=== PATIENT | female | born 1950 | race Asian ===

== ENCOUNTER 2020-09-04 14:48 | Outpatient (REF) | payer OTHER, SELFPAY ==
--- NOTE | ~2020-09-04 | XR_ITS ---
EXAMINATION: XR CHEST CLINICAL INFORMATION: Pulmonary fibrosis COMPARISON: 12/29/2017 TECHNIQUE: 2 views of the chest were obtained. FINDINGS: Diffuse reticular opacities which appears similar to the previous study. The previously demonstrated chronic left lateral nodule is less conspicuous. No focal consolidation or pleural effusion. Stable cardiomediastinal silhouette. XR/XR chest 2V IMPRESSION: Diffuse emphysema and pulmonary fibrosis which appears similar to the previous study. No definite acute cardiopulmonary process.
== END 2020-09-04 14:49 | disposition home or self-care (01) ==
LOC: HO.XRAY 14:48
PROVIDERS: PCP Internal Medicine; Visit Provider Internal Medicine
DX: J84.10 Pulmonary fibrosis, unspecified (principal); R05 Cough; R06.00 Dyspnea, unspecified
CPT/HCPCS: 71046

== ENCOUNTER 2020-10-08 13:19 | Outpatient (REF) | payer OTHER, SELFPAY ==
--- NOTE | ~2020-10-08 | CT_ITS ---
EXAMINATION: CT CHEST WITHOUT CONTRAST CLINICAL INFORMATION: Pulmonary fibrosis COMPARISON: Previous chest x-rays most recent August 2020 TECHNIQUE: Multidetector volumetric CT imaging of the chest was done. Axial MIP volume rendering provided. Sagittal and coronal reformatted images were obtained. This CT examination was performed using dose optimization techniques as appropriate, variously including the following: *Automated exposure control *Adjustment of mA and/or kV according to patient size (this includes techniques or standardized protocols for targeted exams where dose is matched to indication/reason for exam; i.e. extremities or head) *Use of iterative reconstruction technique DLP: 214 mGy-cm FINDINGS: LUNGS: Evaluation of the lungs is limited due to artifact from respiratory motion. The lung volumes are normal. There are increased peripheral interstitial markings with reticulation. This is seen diffusely throughout the lungs. No bronchiolectasis or honeycombing is seen. No pulmonary nodule is seen. MEDIASTINUM: There are small mediastinal lymph nodes. No enlarged lymph nodes are seen. The heart does not appear enlarged. There is mild coronary artery calcification. There is no pericardial effusion. The thoracic aorta is normal in caliber. The pulmonary arteries are slightly prominent, main pulmonary artery measuring 3.2 cm. PLEURA: There is no pleural effusion. No pleural mass or thickening. AXILLA: No lymphadenopathy. UPPER ABDOMEN: Unremarkable. OSSEOUS STRUCTURES: There are degenerative changes of the spine. There is an old-appearing L1 vertebral body compression fracture that appears unchanged. CT/CT chest wo con IMPRESSION: Mild peripheral diffusely distributed interstitial lung disease.
== END 2020-10-08 13:20 | disposition home or self-care (01) ==
LOC: HO.CT 13:19
PROVIDERS: Visit Provider Internal Medicine
DX: J84.10 Pulmonary fibrosis, unspecified (principal); R05 Cough
CPT/HCPCS: 71250

== ENCOUNTER 2021-05-23 16:03 | Outpatient (REF) | payer OTHER, SELFPAY ==
--- NOTE | ~2021-05-23 | XR_ITS ---
EXAMINATION: XR CHEST 2 VIEWS CLINICAL INFORMATION: Follow-up pulmonary fibrosis. COMPARISON: CT chest dated 10/09/2020; prior chest radiographs, most recently 09/06/2020. TECHNIQUE: Frontal and lateral views of the chest were obtained. FINDINGS: The heart, great vessels, pulmonary vasculature and mediastinum are normal. The lungs show no focal infiltrate, effusion or pneumothorax. Again, there are diffusely increased interstitial markings, consistent with pulmonary fibrosis. There is no acute osseous abnormality. There is mild calcific tendinitis of the left rotator cuff. There are right upper quadrant surgical clips. XR/XR chest 2V IMPRESSION: There is a stable appearance of previously noted pulmonary fibrosis. No acute superimposed infiltrate or congestive heart failure is seen.
== END 2021-05-23 16:04 | disposition home or self-care (01) ==
LOC: HO.XRAY 16:03
PROVIDERS: PCP Hospitalist; Visit Provider Internal Medicine
DX: J84.10 Pulmonary fibrosis, unspecified (principal); R06.00 Dyspnea, unspecified; R05.9 Cough, unspecified
CPT/HCPCS: 71046

== ENCOUNTER 2021-12-18 10:21 | Outpatient (REF) | payer OTHER, SELFPAY ==
--- NOTE | ~2021-12-18 | XR_ITS ---
EXAMINATION: XR CHEST CLINICAL INFORMATION: Hemoptysis COMPARISON: Chest 05/23/2021 TECHNIQUE: 2 views of the chest were obtained. FINDINGS: The lungs are well-expanded with bilateral increase interstitial markings but no acute consolidation. The heart size and pulmonary vascularity is normal. No gross bony abnormality seen. XR/XR chest 2V IMPRESSION: Chronic bilateral interstitial lung disease, stable compared to 05/23/2021.
== END 2021-12-18 10:22 | disposition home or self-care (01) ==
LOC: HO.XRAY 10:21
PROVIDERS: PCP Hospitalist; Visit Provider Internal Medicine
DX: J84.10 Pulmonary fibrosis, unspecified (principal); R04.2 Hemoptysis; R05.9 Cough, unspecified
CPT/HCPCS: 71046

== ENCOUNTER 2022-01-22 15:48 | Outpatient (REF) | payer OTHER, SELFPAY ==
--- NOTE | ~2022-01-22 | XR_ITS ---
EXAMINATION: XR CHEST CLINICAL INFORMATION: Hemoptysis. COMPARISON: Chest x-ray 12/18/2021. TECHNIQUE: 2 views of the chest were obtained. FINDINGS: The lungs are fairly well-expanded with increased bilateral interstitial markings. No acute consolidation seen. There is no pleural effusion. The heart size and pulmonary vascularity is normal. No gross bony abnormality seen. XR/XR chest 2V IMPRESSION: Increased bilateral interstitial markings but no acute consolidation or pleural effusion seen. No change compared to previous study 12/18/21.
[2022-01-22 16:45] LABS: MANUAL DIFF FLAG NO
[2022-01-22 17:27] LABS: Basophils Percent Auto 0.1 % (0-2); Eosinophils Percent Auto 0.1 % (0-4); Hematocrit 40.8 % (37.0-47.0); Hemoglobin 13.3 g/dl (12.0-16.0); Imm Gran Abs Auto 0.03 X10*3/uL (0.00-0.03); Imm Gran Pct Auto 0.4 % (0.0-0.4); Lymphocytes Absolute Auto 0.7 X10*3/uL (1.2-4.9); Mean Corpuscular HGB Conc 32.6 g/dl (31.0-35.0); Mean Corpuscular Hemoglobin 27.5 pg (27.0-33.0); Mean Corpuscular Volume 84.3 fL (80.0-98.0); Mean Platelet Volume 9.9 fL (9.4-12.3); Monocytes Absolute Auto 0.1 X10*3/uL (0.1-1.2); Neutrophils Absolute Auto 6.6 x10*3/uL (2.0-8.3); Neutrophils Percent Auto 89.4 % (45-73); Platelet Count 175 X10*3/uL (160-400); Red Blood Count 4.84 X10*6/uL (4.20-5.50); Red Cell Distribution Width 14.4 % (11.0-16.0); White Blood Count 7.4 X10*3/uL (4.8-10.8)
[2022-01-22 17:28] LABS: INTERNATIONAL NORM RATIO 1.1 (0.9-1.1); Prothrombin Time 12.8 SEC (10.0-13.1)
[2022-01-22 17:36] LABS: Anion Gap 14 (12-20); Blood Urea Nitrogen 10 mg/dL (9-16); Carbon Dioxide 22 mmol/L (22-29); Chloride 100 mmol/L (96-108); Estimated Glomerular Filt Rate > 60; Potassium 4.2 mmol/L (3.3-5.1); Sodium 132 mmol/L (135-145)
[2022-01-22 19:17] LABS: Erythrocyte Sedimentation Rate 29 MM/HR (0-20)
[2022-02-11 08:13] LABS: CRP High Sensitivity >10.0
== END 2022-01-22 15:49 | disposition home or self-care (01) ==
LOC: HO.LAB 15:48
PROVIDERS: PCP Hospitalist; Visit Provider Internal Medicine
DX: J84.10 Pulmonary fibrosis, unspecified (principal); J84.9 Interstitial pulmonary disease, unspecified; R04.2 Hemoptysis; R05.9 Cough, unspecified
CPT/HCPCS: 36415; 71046; 80051; 82565; 84520; 85025; 85610; 85652; 86141

== ENCOUNTER → 2022-01-23 15:39 | Outpatient (BNVA) | payer OTHER, SELFPAY | PROVIDERS: PCP Hospitalist; Visit Provider Internal Medicine | DX: R04.2 Hemoptysis (principal); R05.9 Cough, unspecified; R06.00 Dyspnea, unspecified; J84.10 Pulmonary fibrosis, unspecified; J84.9 Interstitial pulmonary disease, unspecified; Z79.52 Long term (current) use of systemic steroids | CPT/HCPCS: 94618 ==

== ENCOUNTER 2022-02-14 16:20 | Outpatient (REF) | payer OTHER, SELFPAY ==
--- NOTE | ~2022-02-14 | CT_ITS ---
EXAMINATION: CHEST CT WITHOUT CONTRAST. BI-RADS. CLINICAL INFORMATION: Pulmonary fibrosis COMPARISON: Previous chest CT October 2020 TECHNIQUE: Axial images through the chest without contrast including high-resolution imaging. Sagittal and coronal reconstructions on the technologist workstation were performed. This CT examination was performed using dose optimization techniques as appropriate, variously including the following: *Automated exposure control *Adjustment of mA and/or kV according to patient size (this includes techniques or standardized protocols for targeted exams where dose is matched to indication/reason for exam; i.e. extremities or head) *Use of iterative reconstruction technique DLP 2 1 9 mg/cm.. FINDINGS: Exam is limited due to artifact from respiratory motion. The lung volumes are low. Increased peripheral interstitial markings with increased reticulation and increased parenchymal attenuation. This is seen diffusely throughout the lungs but greatest at the lung bases. No honeycombing or bronchiectasis. This is slightly increased from October 2020 exam. No pulmonary nodule. There are small mediastinal lymph nodes. No enlarged lymph nodes. Normal heart size. Moderate to severe coronary artery calcification. Normal caliber pulmonary arteries and thoracic aorta. No pericardial effusion. No pleural effusion or pleural thickening. No chest wall mass or enlarged axillary lymph nodes. The gallbladder has been removed. There is an old-appearing L1 vertebral body compression fracture that appears unchanged. CT/CT chest wo con - High Res IMPRESSION: Limited exam due to respiratory motion artifact. Slight interval increase in interstitial lung disease from October 2020 exam.
== END 2022-02-14 16:21 | disposition home or self-care (01) ==
LOC: HO.CT 16:20
PROVIDERS: Visit Provider Internal Medicine
DX: J84.10 Pulmonary fibrosis, unspecified (principal); R05.9 Cough, unspecified; R04.2 Hemoptysis
CPT/HCPCS: 71250

== ENCOUNTER → 2022-04-08 15:50 | Outpatient (BNVA) | payer OTHER, SELFPAY | PROVIDERS: PCP Hospitalist; Visit Provider Internal Medicine | DX: Z13.89 Encounter for screening for other disorder (principal) ==

== ENCOUNTER → 2022-06-02 16:06 | Outpatient (BNVA) | payer OTHER, SELFPAY | PROVIDERS: PCP Hospitalist; Visit Provider Internal Medicine | DX: Z13.89 Encounter for screening for other disorder (principal) ==

== ENCOUNTER → 2022-07-24 15:51 | Outpatient (BNVA) | payer MEDICARE, SELFPAY | PROVIDERS: PCP Hospitalist; Visit Provider Internal Medicine | DX: J84.10 Pulmonary fibrosis, unspecified (principal); J84.9 Interstitial pulmonary disease, unspecified; R05.9 Cough, unspecified; R09.02 Hypoxemia | CPT/HCPCS: 99212 ==

== ENCOUNTER → 2022-09-01 15:57 | Outpatient (BNVA) | payer MEDICARE, SELFPAY | PROVIDERS: PCP Hospitalist; Visit Provider Internal Medicine | DX: J84.9 Interstitial pulmonary disease, unspecified (principal); J84.10 Pulmonary fibrosis, unspecified; R05.3 Chronic cough; R06.00 Dyspnea, unspecified; R09.02 Hypoxemia; Z79.52 Long term (current) use of systemic steroids | CPT/HCPCS: 99212 ==

== ENCOUNTER 2022-11-24 15:53 | Outpatient (REF) | payer MEDICARE, SELFPAY ==
--- NOTE | ~2022-11-24 | XR_ITS ---
EXAMINATION: XR CHEST CLINICAL INFORMATION: Interstitial pulmonary disease, pulmonary fibrosis COMPARISON: 02/14/2022 TECHNIQUE: 2 views of the chest were obtained. FINDINGS: There is no gross pneumothorax. Lung volumes are low. Stable cardiomediastinal silhouette. Similar appearance of diffusely increased bilateral interstitial markings. No new focal consolidation to suggest pneumonia. No significant pleural effusion. Surgical clips in the upper abdomen. XR/XR chest 2V IMPRESSION: Similar appearance of diffusely increased bilateral interstitial markings. No new focal consolidation to suggest pneumonia.
== END 2022-11-24 15:54 | disposition home or self-care (01) ==
LOC: HO.XRAY 15:53
PROVIDERS: PCP Hospitalist; Visit Provider Internal Medicine
DX: J84.9 Interstitial pulmonary disease, unspecified (principal); R05.9 Cough, unspecified; J84.10 Pulmonary fibrosis, unspecified; R06.00 Dyspnea, unspecified; R09.02 Hypoxemia
CPT/HCPCS: 71046; 99212

== ENCOUNTER 2022-11-24 15:53 | Outpatient (AMB) | payer MEDICARE, SELFPAY ==
[2022-11-24 15:58] VITALS: BP 130/70; PULSE 102; O2SAT 96; BMI 25.4
--- NOTE | 2022-11-24 15:58 | MHC.OFFVIS ---
Intake Vital Signs 11/24/22 15:58 Height 5 ft 2 in Weight 139 lb BMI 25.4 BP 130/70 Blood Pressure Location Lt brachial Position Sitting Pulse 102 H Pulse Source Pulse Oximeter Pulse Oximetry (%) 96 Oxygen Delivery Method Room Air Intake Visit Reasons: pulm fibrosis Allergies Penicillins [PENICILLINS] Allergy (Unknown, Verified 11/24/22 16:26) SWELLING Medication List - Last Reconciled 11/24/22 by Samuel Atkinson MD albuterol sulfate 90 mcg/actuation (ProAir HFA) 2 puffs inhalation Q4-6H PRN 30 days albuterol sulfate 90 mcg/actuation 2 puffs inhalation Q4-6H PRN 30 days benzonatate 100 mg PO BID-TID PRN 30 days levothyroxine 75 mcg PO QAM losartan 25 mg PO DAILY pantoprazole 20 mg PO DAILY prednisone 5 mg PO DAILY prednisone 5 mg PO DAILY 90 days Do you need a note to return to daycare/school/sports/work: No HPI pulm fibrosis HPI Details THIS 71 YEARS OLD VERY PLEASANT FEMALE IS HERE FOR FOLLOW-UP FOR HER INTERSTITIAL LUNG DISEASE/PULMONARY FIBROSIS. IN THE LAST 3 MONTHS SHE HAD AT LEAST 1 LONG BOUT OF RESPIRATORY INFECTION, WITH INCREASED COUGH AND SHORTNESS OF BREATH. SHE WAS TREATED WITH AUGMENTED DOES OF PREDNISONE FOR A FEW WEEKS AND ALSO COURSE OF DOXYCYCLINE. LUCKILY SHE IMPROVED TO HER BASELINE AND DID NOT HAVE TO GO TO THE HOSPITAL. NOW FOR THE PAST TO 4-6 WEEKS SHE IS ON PREDNISONE 5 MG A DAY. SHE USES O2 2 L/MINUTE ONLY WHEN SHE DOING ANY EXERCISE OR WALKING. HER O2 SAT HAS REMAINED MOSTLY ABOVE 90%. HER MAIN COMPLAINT IS INCREASED BOUTS OF COUGH IN THE MORNING HOURS WHEN SHE HAS EXPECTORATION OF MODERATE AMOUNT OF MUCUS. AT PRESENT SHE DENIES ANY MUCOPURULENT SPUTUM, DENIES CHEST PAIN, SHE CAN WALK SHORT DISTANCE , BUT IF SHE TRIES TO WALK OUTSIDE THE HOUSE SHE GETS SHORT. OF BREATH EASILY [facility] Medical History Exercise hypoxemia Interstitial lung disease Hemoptysis Hypothyroidism Pulmonary fibrosis, unspecified Cough Dyspnea on exertion Social History Patient Tobacco Use Status: Never used Tobacco Review of Systems Const All systems reviewed & are unremarkable except as noted in HPI and below Eyes Reports no additional complaints ENT Reports no additional complaints and Reports nasal congestion (MILD) Card Denies chest pain, Denies leg edema and Reports dyspnea on exertion Resp Reports as per HPI, Reports cough (frequent ) and Reports dyspnea on exertion GI Reports heartburn (GERD SYMPTOMS OFF AND ON) Reports no additional complaints Musc Reports arthralgias (knees.) Neuro Reports no additional complaints Psych Reports no additional complaints Endo Reports no additional complaints Physical Exam Vital Signs: Last Vital Signs Pulse 102 H 11/24/22 15:58 BP 130/70 11/24/22 15:58 Pulse Ox 96 11/24/22 15:58 Oxygen Delivery Method Room Air 11/24/22 15:58 BMI result Body Mass Index 25.4 Const General: comfortable (But we can walks slowly), no acute distress, alert and awake Orientation/consciousness: patient oriented x3 HEENT Head: Yes normal to inspection General nose exam: No nasal polyps present and No nasal discharge present Face and sinus: Yes sinuses nontender Mouth: oropharynx normal Throat: Yes posterior oropharynx normal Eyes General: appearance normal, both eyes and all related structures Neck Neck: Yes normal visual inspection, Yes no lymphadenopathy, Yes trachea midline and Yes no JVD Thyroid: Thyroid normal Chest Chest palpation & inspection: normal inspection of the chest, normal palpation of entire chest wall and no tenderness Resp Other: PERCUSSION NOTE IS RESONANT . BREATH SOUNDS ARE EQUAL ON BOTH SIDES, SLIGHTLY DIMINISHED OVER THE BASILAR AREAS. NO WHEEZES . COARSE INSPIRATORY CRACKLES OVER BOTH LOWER LOBES, POSTERIORLY MORE PRONOUNCED ON THE RIGHT SIDE. Cardio Palpation: normal PMI Rate: regular rate and tachycardic (ON MINIMAL WALKING THE HEART RATE WAS UP TO 124, AFTER RESTING SETTLES DOWN) Rhythm: regular rhythm Heart sounds: no gallops and no murmurs GI Palpation (GI): Soft to palpation, nontender, No hepatosplenomegaly present and no masses Auscultation: normal bowel sounds Back/Spine/Pelvis Thoracic/Lumbar Spine: thoracic and lumbar spine normal to inspection and thoraco-lumbar ROM limited Skin General skin exam: no rashes or lesions noted Neuro General: patient oriented x3 and no focal motor deficits Cranial nerves: Yes CN's II-XII intact bilaterally Extrem General: Yes normal to inspection, No no joint enlargement (DEGENERATIVE CHANGES OF THE KNEE JOINTS), Yes no clubbing, cyanosis or edema, Yes no calf tenderness and Yes other (VERY COAST VEINS ON BOTH LEGS) Psych Appearance: grossly normal and well kempt Speech and movement: Normal speech and movement present Assessment & Plan Assessment & Plan (1) Interstitial lung disease: Comment: SHE HAS HAD PICTURE OF PULMONARY FIBROSIS FOR THE PAST 4-5 YEARS. HER RHEUMATOID FACTOR HAS BEEN HIGH AND ELIANA TITER POSITIVE, THIS IS SUGGESTIVE OF POSSIBLE CONNECTIVE TISSUE DISEASE. THE OTHER POSSIBILITY IS THAT SHE GETS HYPERSENSITIVITY PNEUMONITIS ON TOP OF PRE-EXISTING FIBROSIS. SHE IS INSTRUCTED TO PROTECT HERSELF AGAINST ANY RESPIRATORY INFECTION. ALSO INSTRUCTED TO PROTECT HERSELF AGAINST EXPOSURE TO ANY CHEMICAL FUMES DUST SMOKE [employer] CLEAN[employer] AGENTS SHE WILL BE KEPT ON PREDNISONE 5 MG A DAY, AND INCREASE TO 10 MG A DAY IF SYMPTOMS GET ANY WORSE. Code(s): J84.9 - Interstitial pulmonary disease, unspecified (2) Pulmonary fibrosis, unspecified: Comment: THE CLINICAL AND RADIOLOGIC PICTURE, IS SUGGESTIVE OF PULMONARY FIBROSIS SECONDARY TO UIP . IT HAS GRADUALLY PROGRESSED. THERE IS A RISK OF FURTHER WORSENING IF SHE GETS ANY SUPER ADDED RESPIRATORY INFECTION OR HYPERSENSITIVITY REACTION. TX : ADVISED TO CONTINUE TAKING PREDNISONE 5 MG DAILY. ADVISE THAT IF THERE IS ANY INDICATION OF BREATHING GETTING WORSE OR INCREASE IN THE COUGH, SHE CAN INCREASE PREDNISONE 5 MG TO B.I.D.. PREVIOUSLY WE HAVE DISCUSSED AND SHE DID NOT WANT TO TAKE ANY ANTI FIBROSIS AGENTS. CHEST XRAY ORDERED FOR COMPARISON . Code(s): J84.10 - Pulmonary fibrosis, unspecified (3) Cough: Comment: CHRONIC COUGH ,ESPECIALLY IN AMs , WITH MODERATE EXPECTORATION . TX : ADVISED TO USE ALBUTEROL HFA 1 OR 2 PUFFS, P.R.N. FOR SUSTAINED COUGH. Code(s): R05 - Cough (4) Dyspnea on exertion: Comment: DYSPNEA ON EXERTION SECONDARY TO PULMONARY FIBROSIS IT IS DOWN TO MINIMAL AT THIS TIME. HER LOCOMOTION IS LIMITED DUE TO ADVANCED ARTHRITIS OF THE KNEES. Code(s): R06.00 - Dyspnea, unspecified (5) Exercise hypoxemia: Comment: PATIENT DOES DESATURATE ON WALKING. ADVISED TO USE O2 2 L/MINUTE WITH ANY PHYSICAL ACTIVITY. SHE DOES HAVE POC. WHICH IS QUITE CONVENIENT TO USE., LOOKING FOR A SMALLER POC UNIT, WILL DISCUSS WITH DME SUPPLIER. Code(s): R09.02 - Hypoxemia Orders: Orders XR chest 2V Today J84.9 - Interstitial pulmonary disease, unspecified, R05 - Cough Medications: New prednisone 5 mg PO DAILY 90 days 90 tabs 3RF ILD albuterol sulfate 90 mcg/actuation 2 puffs inhalation Q4-6H 30 days PRN 8.5 grams 3RF shortness of breath or wheezing Coding Level of Care Code Est Pt Level 3 (30090) Diagnoses Interstitial lung disease J84.9 Pulmonary fibrosis, unspecified J84.10 Cough R05 Dyspnea on exertion R06.00 Exercise hypoxemia R09.02
== END 2022-11-24 16:30 ==
PROVIDERS: PCP Hospitalist; Visit Provider Internal Medicine
DX: J84.9 Interstitial pulmonary disease, unspecified (principal); J84.10 Pulmonary fibrosis, unspecified; R05.9 Cough, unspecified; R06.00 Dyspnea, unspecified; R09.02 Hypoxemia
CPT/HCPCS: 99213

== ENCOUNTER 2022-12-22 15:41 | Outpatient (AMB) | payer MEDICARE, SELFPAY ==
--- NOTE | 2022-12-22 15:42 | A.OFFVIS_ITS ---
Intake Vital Signs 12/22/22 15:43 Height 5 ft 2 in Weight 139 lb 15.896 oz BMI 25.6 BP 128/66 Blood Pressure Location Lt brachial Position Sitting Pulse 90 Pulse Oximetry (%) 94 Oxygen Delivery Method Nasal Cannula Oxygen Flow Rate 3 Intake Visit Reasons: Cough Intake Note: Patient is here for a sick visit after having COVID 3 weeks ago, patient has been coughing up blood, weakness, SOB, Oxygen levels are low, unable to walk. Allergies Penicillins [PENICILLINS] Allergy (Unknown, Verified 12/22/22 16:23) SWELLING Medication List - Last Reconciled 12/22/22 by Samuel Atkinson MD albuterol sulfate 90 mcg/actuation (ProAir HFA) 2 puffs inhalation Q4-6H PRN 30 days albuterol sulfate 90 mcg/actuation 2 puffs inhalation Q4-6H PRN 30 days benzonatate 100 mg PO BID-TID PRN 30 days levothyroxine 75 mcg PO QAM losartan 25 mg PO DAILY nirmatrelvir-ritonavir 300 mg (150 mg x 2)-100 mg (Paxlovid) take TWO 150 mg tablets of nirmatrelvir with ONE 100 mg tablet of ritonavir twice daily for 5 days PO 5 days pantoprazole 20 mg PO DAILY prednisone 5 mg PO DAILY 90 days prednisone mg PO prednisone 5 mg PO DAILY Do you need a note to return to daycare/school/sports/work: No HPI Cough HPI Details 72 YEARS OLD FEMALE A WELL KNOWN CASE OF INTERSTITIAL LUNG DISEASE, WHO WAS DOING VERY WELL AND PREDNISONE DOES HAD BEEN DROPPED TO 5 MG A DAY. UNFORTUNATELY 3 WEEKS AGO SHE CONTRACTED COVID 19 INFECTION. SHE WAS TREATED AT HOME AND WAS GIVEN A COURSE OF PAXLOVID , ALONG WITH INCREASED DOSE OF PREDNISONE TO 10 MG A DAY. INITIALLY SHE GOT MUCH BETTER, THE COUGH BECAME MINIMAL, AND PREDNISONE WAS CUT DOWN TO 10 MG ALTERNATING WITH 5 MG A DAY. IN THE PAST 1 WEEK SHE HAS INCREASED COUGH, WITH INTERMITTENT SPECKS OF FRESH BLOOD , AND HER O2 SATS FALLS DOWN BELOW 90% QUITE FREQUENTLY. SHE HAS NO FEVER CHILLS OR CHEST PAIN. SHE FEELS MORE SHORT OF BREATH AND ALSO GENERALLY WEAK TO THE POINT THAT SHE HAS HARD TIME IN WALKING., [facility] Medical History Post-COVID chronic cough Exercise hypoxemia Interstitial lung disease Hemoptysis Hypothyroidism Pulmonary fibrosis, unspecified Cough Dyspnea on exertion Social History Patient Tobacco Use Status: Never used Tobacco Review of Systems Const All systems reviewed & are unremarkable except as noted in HPI and below Eyes Reports no additional complaints ENT Reports no additional complaints and Reports nasal congestion (MILD) Card Denies chest pain, Denies leg edema and Reports dyspnea on exertion (INCREASED) Resp Reports as per HPI, Reports cough (frequent ), Reports hemoptysis (MILD INTERMITTENT) and Reports dyspnea on exertion (INCREASED) GI Reports heartburn (GERD SYMPTOMS OFF AND ON) Reports no additional complaints Musc Reports arthralgias (knees.) Neuro Reports no additional complaints Psych Reports no additional complaints Endo Reports no additional complaints Physical Exam Vital Signs: BMI result Body Mass Index 25.6 Const General: comfortable (But we can walks slowly), no acute distress, alert and awake Orientation/consciousness: patient oriented x3 HEENT Head: Yes normal to inspection General nose exam: No nasal polyps present and No nasal discharge present Face and sinus: Yes sinuses nontender Mouth: oropharynx normal Throat: Yes posterior oropharynx normal Eyes General: appearance normal, both eyes and all related structures Neck Neck: Yes normal visual inspection, Yes no lymphadenopathy, Yes trachea midline and Yes no JVD Thyroid: Thyroid normal Chest Chest palpation & inspection: normal inspection of the chest, normal palpation of entire chest wall and no tenderness Resp Other: PERCUSSION NOTE IS RESONANT . BREATH SOUNDS ARE EQUAL ON BOTH SIDES, SLIGHTLY DIMINISHED OVER THE BASILAR AREAS. NO WHEEZES . COARSE INSPIRATORY CRACKLES OVER BOTH LOWER LOBES, POSTERIORLY ARE MORE PROMINENT THAN BEFORE. Cardio Palpation: normal PMI Rate: regular rate and tachycardic (ON MINIMAL WALKING THE HEART RATE WAS UP TO 124, AFTER RESTING SETTLES DOWN) Rhythm: regular rhythm Heart sounds: no gallops and no murmurs GI Palpation (GI): Soft to palpation, nontender, No hepatosplenomegaly present and no masses Auscultation: normal bowel sounds Back/Spine/Pelvis Thoracic/Lumbar Spine: thoracic and lumbar spine normal to inspection and thoraco-lumbar ROM limited Skin General skin exam: no rashes or lesions noted Neuro General: patient oriented x3 and no focal motor deficits Cranial nerves: Yes CN's II-XII intact bilaterally Extrem General: Yes normal to inspection, No no joint enlargement (DEGENERATIVE CHANGES OF THE KNEE JOINTS), Yes no clubbing, cyanosis or edema, Yes no calf tenderness and Yes other (VERY COAST VEINS ON BOTH LEGS) Psych Appearance: grossly normal and well kempt Speech and movement: Normal speech and movement present Assessment & Plan Assessment & Plan (1) Interstitial lung disease: Comment: SHE HAS HAD PICTURE OF PULMONARY FIBROSIS FOR THE PAST 4-5 YEARS. HER RHEUMATOID FACTOR HAS BEEN HIGH AND ELIANA TITER POSITIVE, THIS IS SUGGESTIVE OF POSSIBLE CONNECTIVE TISSUE DISEASE. THE OTHER POSSIBILITY IS THAT SHE GETS HYPERSENSITIVITY PNEUMONITIS ON TOP OF PRE-EXISTING FIBROSIS. SHE IS INSTRUCTED TO PROTECT HERSELF AGAINST ANY RESPIRATORY INFECTION. 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 NOW FOR THE PAST 1 WEEK SHE HAS INCREASED WEAKNESS, INCREASED COUGH WITH SOME HEMOPTYSIS IS AND INCREASED REQUIREMENT FOR OXYGEN. I SUSPECT THAT HER INTERSTITIAL LUNG DISEASE BECOME WORSE. CHEST X-RAY ORDERED AND BASED ON THE FINDINGS SHE MAY NEED AN URGENT CT SCAN OF THE CHEST. TX : INCREASE PREDNISONE TO 20 MG B.I.D. FOR 5 DAYS THEN 20 MG ONCE A DAY FOR 5 DAYS THEN FOLLOWED BY 10 MG A DAY Code(s): R05.3 - Chronic cough; U09.9 - Post COVID-19 condition, unspecified (3) Hemoptysis: Comment: Hemoptysis was probably due to acute bronchitis , and it is slowly getting worse. CBC with diff, PT INR to be checked. Also ordered procalcitonin levels to see if she has any bacterial infection. I prescribed doxycycline 100 b.i.d. for 10 days, empirically Code(s): R04.2 - Hemoptysis Orders: Orders Complete Blood Count Auto Diff Today J84.9 - Interstitial pulmonary disease, unspecified, R04.2 - Hemoptysis, R05.3 - Chronic cough, U09.9 - Post COVID-19 condition, unspecified PT, INR - Anti Coag Today R04.2 - Hemoptysis XR chest 2V Today J84.9 - Interstitial pulmonary disease, unspecified, R04.2 - Hemoptysis, R05.3 - Chronic cough, U09.9 - Post COVID-19 condition, unspecified Procalcitonin Today J84.9 - Interstitial pulmonary disease, unspecified, R04.2 - Hemoptysis, R05 - Cough, R05.3 - Chronic cough, U09.9 - Post COVID-19 condition, unspecified Medications: New doxycycline hyclate 100 mg PO BID 10 days 20 tabs 0RF BRONCHITIS MDD BRONCHITIS prednisone 20 mg PO BID 10 days 20 tabs 1RF Coding Level of Care Code Est Pt Level 3 (58191) Diagnoses Interstitial lung disease J84.9 Post-COVID chronic cough R05.3; U09.9 Hemoptysis R04.2
[2022-12-22 15:43] VITALS: BP 128/66; PULSE 90; O2SAT 94; BMI 25.6
== END 2022-12-22 16:04 | disposition home or self-care (01) ==
PROVIDERS: PCP Hospitalist; Visit Provider Internal Medicine
DX: J84.9 Interstitial pulmonary disease, unspecified (principal); R05.3 Chronic cough; U09.9 Post COVID-19 condition, unspecified; R04.2 Hemoptysis
CPT/HCPCS: 99213

== ENCOUNTER 2022-12-22 15:41 | Outpatient (REF) | payer MEDICARE, SELFPAY ==
--- NOTE | ~2022-12-22 | XR_ITS ---
EXAMINATION: XR CHEST CLINICAL INFORMATION: Chronic cough COMPARISON: None available. TECHNIQUE: 2 views of the chest were obtained. FINDINGS: The lungs are well-expanded with increased interstitial markings likely chronic. No acute pneumonic consolidation, pleural effusion seen. The heart size and pulmonary vascularity is within normal limits. No gross bony abnormality seen. XR/XR chest 2V IMPRESSION: Bilateral increased interstitial markings similar previous study from 11/24/2022 suggestive chronic interstitial lung disease. No acute pneumonic consolidation.
[2022-12-22 16:23] LABS: MANUAL DIFF FLAG NO
[2022-12-22 16:59] LABS: Basophils Percent Auto 0.4 % (0-2); Eosinophils Absolute Auto 0.2 X10*3/uL (0.0-0.4); Eosinophils Percent Auto 2.3 % (0-4); Hematocrit 38.4 % (37.0-47.0); Hemoglobin 12.5 g/dl (12.0-16.0); Imm Gran Abs Auto 0.02 X10*3/uL (0.00-0.03); Imm Gran Pct Auto 0.3 % (0.0-0.4); Lymphocytes Absolute Auto 0.8 X10*3/uL (1.2-4.9); Lymphocytes Percent Auto 11.5 % (20-40); Mean Corpuscular HGB Conc 32.6 g/dl (31.0-35.0); Mean Corpuscular Hemoglobin 27.4 pg (27.0-33.0); Mean Corpuscular Volume 84.2 fL (80.0-98.0); Mean Platelet Volume 10.3 fL (9.4-12.3); Monocytes Absolute Auto 0.3 X10*3/uL (0.1-1.2); Monocytes Percent Auto 4.5 % (2-11); Neutrophils Absolute Auto 5.9 x10*3/uL (2.0-8.3); Platelet Count 179 X10*3/uL (160-400); Red Blood Count 4.56 X10*6/uL (4.20-5.50); Red Cell Distribution Width 14.6 % (11.0-16.0); White Blood Count 7.3 X10*3/uL (4.8-10.8)
[2022-12-22 18:17] LABS: Erythrocyte Sedimentation Rate 79 MM/HR (0-20)
[2022-12-22 18:27] LABS: Procalcitonin 0.03 ng/mL
[2022-12-23 16:48] LABS: CRP High Sensitivity >10.0 mg/L
== END 2022-12-22 15:42 | disposition home or self-care (01) ==
LOC: HO.LAB 15:41
PROVIDERS: PCP Hospitalist; Visit Provider Internal Medicine
DX: J84.10 Pulmonary fibrosis, unspecified (principal); J84.9 Interstitial pulmonary disease, unspecified; R05.3 Chronic cough; U09.9 Post COVID-19 condition, unspecified; R04.2 Hemoptysis
CPT/HCPCS: 36415; 71046; 84145; 85025; 85652; 86141; 99212

== ENCOUNTER 2023-01-27 07:50 | Outpatient (REF) | payer MEDICARE, SELFPAY ==
--- NOTE | ~2023-01-27 | CT_ITS ---
EXAMINATION: CT CHEST WITHOUT CONTRAST CLINICAL INFORMATION: Interstitial lung disease. COMPARISON: CT chest dated 02/14/2022. TECHNIQUE: Multidetector volumetric CT imaging of the chest was done. Axial MIP volume rendering provided. Sagittal and coronal reformatted images were obtained. This CT examination was performed using dose optimization techniques as appropriate, variously including the following: *Automated exposure control *Adjustment of mA and/or kV according to patient size (this includes techniques or standardized protocols for targeted exams where dose is matched to indication/reason for exam; i.e. extremities or head) *Use of iterative reconstruction technique DLP: 171 mGy-cm FINDINGS: LUNGS: Again, there are diffuse bilateral subpleural reticular markings. There is associated honeycombing, most pronounced in the posterior right base. There are varicose bronchiectatic changes, most pronounced medially within the right lung. There is no nodule, mass, infiltrate or groundglass opacity. There is mild generalized small airway thickening. The central airways appear patent. MEDIASTINUM: The thyroid is unremarkable. No thoracic aortic aneurysm or dissection is seen. There are mild atherosclerotic calcifications of the great vessel origins and thoracic aorta. There is no sizable mediastinal or hilar lymphadenopathy. CORONARY ARTERY CALCIFICATION: Moderate. PLEURA: There is no pleural effusion. No pleural mass or thickening. AXILLA: No lymphadenopathy. UPPER ABDOMEN: The gallbladder is surgically absent. The adrenal glands are unremarkable. OSSEOUS STRUCTURES: There are marked T12 and moderate L1 compression fractures, which appear stable from the lateral chest radiograph dated 12/22/2022. There is multi-level thoracolumbar degenerative disc disease and spondylosis. No acute or aggressive osseous abnormality is seen. CT/CT chest wo con - High Res IMPRESSION: There is persistent chronic interstitial lung disease, with bronchiectasis and honeycombing is seen, suggesting idiopathic pulmonary fibrosis. No mass, nodule, infiltrate or groundglass opacity is seen. There is no thoracic lymphadenopathy or pleural effusion. No aggressive osseous lesion is seen. Fleischner guidelines were followed.
== END 2023-01-27 07:51 | disposition home or self-care (01) ==
LOC: HO.CT 07:50
PROVIDERS: PCP Hospitalist; Visit Provider Internal Medicine
DX: J84.9 Interstitial pulmonary disease, unspecified (principal); R05.3 Chronic cough; U09.9 Post COVID-19 condition, unspecified; R04.2 Hemoptysis
CPT/HCPCS: 71250

== ENCOUNTER 2023-02-18 10:40 | Outpatient (REF) | payer MEDICARE, SELFPAY | END 2023-02-18 10:41 | disposition home or self-care (01) | LOC: HO.LNP 10:40 | PROVIDERS: Visit Provider Internal Medicine | DX: J84.10 Pulmonary fibrosis, unspecified (principal); R05.9 Cough, unspecified | CPT/HCPCS: 87070; 87185; 87205 ==

== ENCOUNTER 2023-03-03 15:15 | Outpatient (REF) | payer MEDICARE, SELFPAY ==
[2023-03-03 16:01] LABS: MANUAL DIFF FLAG NO
[2023-03-03 17:59] LABS: Basophils Absolute Auto 0.1 X10*3/uL (0.0-0.2); Basophils Percent Auto 0.3 % (0-2); Eosinophils Percent Auto 0.1 % (0-4); Hematocrit 38.6 % (37.0-47.0); Hemoglobin 12.3 g/dl (12.0-16.0); Imm Gran Abs Auto 0.28 X10*3/uL (0.00-0.03); Imm Gran Pct Auto 1.8 % (0.0-0.4); Lymphocytes Absolute Auto 1.4 X10*3/uL (1.2-4.9); Mean Corpuscular HGB Conc 31.9 g/dl (31.0-35.0); Mean Corpuscular Hemoglobin 27.2 pg (27.0-33.0); Mean Corpuscular Volume 85.2 fL (80.0-98.0); Mean Platelet Volume 10.7 fL (9.4-12.3); Monocytes Absolute Auto 0.4 X10*3/uL (0.1-1.2); Monocytes Percent Auto 2.3 % (2-11); Neutrophils Absolute Auto 13.1 x10*3/uL (2.0-8.3); Neutrophils Percent Auto 86.5 % (45-73); Platelet Count 370 X10*3/uL (160-400); Red Blood Count 4.53 X10*6/uL (4.20-5.50); White Blood Count 15.2 X10*3/uL (4.8-10.8)
[2023-03-03 18:18] LABS: Anion Gap 14 (12-20); Blood Urea Nitrogen 19 mg/dL (9-16); Carbon Dioxide 27 mmol/L (22-29); Chloride 98 mmol/L (96-108); Estimated Glomerular Filt Rate > 60; Potassium 4.2 mmol/L (3.3-5.1); Sodium 135 mmol/L (135-145)
[2023-03-03 18:36] LABS: TSH reflex Free T4 0.48 uIU/mL (0.32-4.0)
== END 2023-03-03 15:16 | disposition home or self-care (01) ==
LOC: HO.LAB 15:15
PROVIDERS: PCP Hospitalist; Visit Provider Internal Medicine
DX: J84.9 Interstitial pulmonary disease, unspecified (principal); J44.9 Chronic obstructive pulmonary disease, unspecified; J40 Bronchitis, not specified as acute or chronic; J84.10 Pulmonary fibrosis, unspecified; R05.3 Chronic cough; U09.9 Post COVID-19 condition, unspecified; R04.2 Hemoptysis; E03.9 Hypothyroidism, unspecified; Z79.899 Other long term (current) drug therapy
CPT/HCPCS: 36415; 80051; 82565; 84443; 84520; 85025; 99212

== ENCOUNTER 2023-03-03 15:15 | Outpatient (AMB) | payer MEDICARE, SELFPAY ==
--- NOTE | 2023-03-03 15:21 | A.OFFVIS_ITS ---
Intake Vital Signs 03/03/23 15:22 Height 5 ft 2 in BP 120/72 Blood Pressure Location Lt brachial Position Sitting Pulse 103 H Pulse Source Pulse Oximeter Pulse Oximetry (%) 93 Oxygen Delivery Method Room Air Intake Visit Reasons: COPD Intake Note: pt is here for follow up and states her oxygen is dropping whenever she does any walking Allergies Penicillins [PENICILLINS] Allergy (Unknown, Verified 03/03/23 15:27) SWELLING Medication List - Last Reconciled 03/03/23 by Samuel Atkinson MD albuterol sulfate 90 mcg/actuation (ProAir HFA) 2 puffs inhalation Q4-6H PRN 30 days albuterol sulfate 90 mcg/actuation 2 puffs inhalation Q4-6H PRN 30 days benzonatate 100 mg PO BID-TID PRN 30 days doxycycline hyclate 100 mg PO BID 10 days MDD BRONCHITIS levothyroxine 75 mcg PO QAM losartan 25 mg PO DAILY mycophenolate mofetil (CellCept) 500 mg PO BID 30 days pantoprazole 20 mg PO DAILY prednisone 5 mg PO DAILY 90 days prednisone 20 mg PO BID 10 days prednisone 5 mg PO BID prednisone 20 mg PO BID 30 days Do you need a note to return to daycare/school/sports/work: No HPI COPD HPI Details 72 YEARS OLD FEMALE WITH ADVANCED INTERS TITIAL LUNG DISEASE/ PULMONARY FIBROSIS , IS GETTING SAYS WORSE. SINCE A FEW WEEKS AGO SHE HAD INCREASED TO COUGH WITH MUCUS. PRODUCTION AND LOW-GRADE FEVER SPUTUM CULTURE GREW HAEMOPHILUS INFLUENZAE , SHE IS BEING TREATED WITH DOXYCYCLINE 100 MG B.I.D.. THE THERE IS NO MORE HEMOPTYSIS AND THE MUCUS PRODUCTION IS LESS. BUT SHE IS MORE AND MORE SHORT OF BREATH AND REQUIRES O2 4-5 L/MINUTE. EVEN WITH THE O2 SUPPLEMENTATION SHE DESATURATES WHEN SHE WALKS AROUND IN THE HOUSE. SHE FEELS WEAKER THAN USUAL. I HAVE STARTED HER ON MYCOPHENOLATE 500 MG B.I.D., AN ADDITIONAL AUTOIMMUNE SUPPRESSANT MED. AND SHE IS ON PREDNISONE 40 MG DAILY . [facility] Medical History (Updated 03/03/23 @ 15:57 by Samuel Atkinson MD) Bronchitis Post-COVID chronic cough Exercise hypoxemia Interstitial lung disease Hemoptysis Hypothyroidism Pulmonary fibrosis, unspecified Cough Dyspnea on exertion Social History Patient Tobacco Use Status: Never used Tobacco Review of Systems Const All systems reviewed & are unremarkable except as noted in HPI and below Eyes Reports no additional complaints ENT Reports no additional complaints and Reports nasal congestion (MILD) Card Denies chest pain, Denies leg edema and Reports dyspnea on exertion (INCREASED) Resp Reports as per HPI, Reports cough (frequent ), Reports hemoptysis (MILD INTERMITTENT) and Reports dyspnea on exertion (INCREASED) GI Reports heartburn (GERD SYMPTOMS OFF AND ON) Reports no additional complaints Musc Reports arthralgias (knees.) Neuro Reports no additional complaints Psych Reports no additional complaints Endo Reports no additional complaints Physical Exam Const General: comfortable (But we can walks slowly), no acute distress, alert and awake Orientation/consciousness: patient oriented x3 HEENT Head: Yes normal to inspection General nose exam: No nasal polyps present and No nasal discharge present Face and sinus: Yes sinuses nontender Mouth: oropharynx normal Throat: Yes posterior oropharynx normal Eyes General: appearance normal, both eyes and all related structures Neck Neck: Yes normal visual inspection, Yes no lymphadenopathy, Yes trachea midline and Yes no JVD Thyroid: Thyroid normal Chest Chest palpation & inspection: normal inspection of the chest, normal palpation of entire chest wall and no tenderness Resp Other: PERCUSSION NOTE IS RESONANT . BREATH SOUNDS ARE EQUAL ON BOTH SIDES, SLIGHTLY DIMINISHED OVER THE BASILAR AREAS. NO WHEEZES . COARSE INSPIRATORY CRACKLES OVER BOTH LOWER LOBES AND MID CHEST , Cardio Palpation: normal PMI Rate: regular rate and tachycardic (ON MINIMAL WALKING THE HEART RATE WAS UP TO 124, AFTER RESTING SETTLES DOWN) Rhythm: regular rhythm Heart sounds: no gallops and no murmurs GI Palpation (GI): Soft to palpation, nontender, No hepatosplenomegaly present and no masses Auscultation: normal bowel sounds Back/Spine/Pelvis Thoracic/Lumbar Spine: thoracic and lumbar spine normal to inspection and thoraco-lumbar ROM limited Skin General skin exam: no rashes or lesions noted Neuro General: patient oriented x3 and no focal motor deficits Cranial nerves: Yes CN's II-XII intact bilaterally Extrem General: Yes normal to inspection, No no joint enlargement (DEGENERATIVE CHANGES OF THE KNEE JOINTS), Yes no clubbing, cyanosis or edema, Yes no calf tenderness and Yes other (VERY COAST VEINS ON BOTH LEGS) Psych Appearance: grossly normal and well kempt Speech and movement: Normal speech and movement present Results Reviewed Results Reviewed: O2 SAT ON 4 L/MINUTE AT REST 95% I WALKED HER WITH A WALKER ON 4 L/MINUTE ONLY FOR 3 MINUTES, O2 SAT DID DROP DOWN TO 75 % ON SITTING AND RESTING O2 SAT CAME UP TO 94% AGAIN Assessment & Plan Assessment & Plan (1) Interstitial lung disease: Comment: SHE HAS HAD PICTURE OF PULMONARY FIBROSIS FOR THE PAST 4-5 YEARS. HER RHEUMATOID FACTOR HAS BEEN HIGH AND ELIANA TITER POSITIVE, THIS IS SUGGESTIVE OF POSSIBLE CONNECTIVE TISSUE DISEASE. THE OTHER POSSIBILITY IS THAT SHE GETS HYPERSENSITIVITY PNEUMONITIS ON TOP OF PRE-EXISTING FIBROSIS. SHE IS INSTRUCTED TO PROTECT HERSELF AGAINST ANY RESPIRATORY INFECTION. ALSO INSTRUCTED TO PROTECT HERSELF AGAINST EXPOSURE TO ANY CHEMICAL FUMES DUST S[employer]ENTS Code(s): J84.9 - Interstitial pulmonary disease, unspecified Plan: SEE BELOW (2) Pulmonary fibrosis, unspecified: Comment: THE CLINICAL AND RADIOLOGIC PICTURE, IS SUGGESTIVE OF PULMONARY FIBROSIS SECONDARY TO UIP . IT HAS GRADUALLY PROGRESSED. THERE IS A RISK OF FURTHER WORSENING IF SHE GETS ANY SUPER ADDED RESPIRATORY INFECTION OR HYPERSENSITIVITY REACTION. TX : ADVISED TO CONTINUE TAKING PREDNISONE 5 MG DAILY. ADVISE THAT IF THERE IS ANY INDICATION OF BREATHING GETTING WORSE OR INCREASE IN THE COUGH, SHE CAN INCREASE PREDNISONE 5 MG TO B.I.D.. PREVIOUSLY WE HAVE DISCUSSED AND SHE DID NOT WANT TO TAKE ANY ANTI FIBROSIS AGENTS. CHEST XRAY ORDERED FOR COMPARISON . Code(s): J84.10 - Pulmonary fibrosis, unspecified Plan: SEE BELOW (3) Cough: Comment: CHRONIC COUGH ,ESPECIALLY IN AMs , WITH MODERATE EXPECTORATION . TX : ADVISED TO USE ALBUTEROL HFA 1 OR 2 PUFFS, P.R.N. FOR SUSTAINED COUGH. Code(s): R05 - Cough Plan: SEE BELOW (4) Dyspnea on exertion: Comment: DYSPNEA ON EXERTION SECONDARY TO PULMONARY FIBROSIS IT IS DOWN TO MINIMAL AT THIS TIME. HER LOCOMOTION IS LIMITED DUE TO ADVANCED ARTHRITIS OF THE KNEES. Code(s): R06.00 - Dyspnea, unspecified Plan: SEE BELOW (5) Bronchitis: Code(s): J40 - Bronchitis, not specified as acute or chronic Plan: INTERSTITIAL LUNG DISEASE SAYS/ALVEOLITIS, ON TOP OF CHRONIC PULMONARY FIBROSIS. THE PULMONARY STATUS HAS DEFINITELY WORSENED. I THINK IN THE PAST FEW MONTHS, DUE TO COVID INFECTION, FOLLOWED. LATER ON BY FLU VACCINE MAKING HER BREATHING WORSE. AND NOW MORE RECENTLY HAEMOPHILUS INFLUENZA INFECTION, HER CONDITION HAS WORSENED. HER AT THIS POINT SHE IS REQUIRING MORE OXYGEN SUPPLEMENTATION WITH ANY EXERTION. THE GOOD THING IS THAT HER HEMOPTYSIS IS HAS SUBSIDED, MUCOPURULENT. SECRETIONS HAVE BECOME MUCH LESS THE PLAN IS: TO KEEP HER ON HIGH DOSE OF PREDNISONE FOR SEVERAL WEEKS. MYCOPHENOLATE 500 MG B.I.D. HAS BEEN ADDED. BENZONATATE 100 MG T.I.D. PER FOR COUGH CONTROL. CONTINUE DOXYCYCLINE 100 B.I.D. FOR 10 MORE DAYS. USE O2 4-5 L/MINUTE TO KEEP O2 SAT ABOVE 90%, AVOID ANY EXTRA PHYSICAL ACTIVITY. WILL BE RE-CHECKED IN 2 WEEKS FOR SHORT TERM FOLLOW-UP. Orders: Orders Complete Blood Count Auto Diff Today J84.9 - Interstitial pulmonary disease, unspecified, R04.2 - Hemoptysis Electrolytes Today J84.10 - Pulmonary fibrosis, unspecified, R05 - Cough, R06.00 - Dyspnea, unspecified TSH reflex Free T4 Today E03.9 - Hypothyroidism, unspecified Blood Urea Nitrogen Today J84.10 - Pulmonary fibrosis, unspecified, R05 - Cough, R06.00 - Dyspnea, unspecified Creatinine Today J84.10 - Pulmonary fibrosis, unspecified, R05 - Cough, R06.00 - Dyspnea, unspecified Coding Level of Care Code Est Pt Level 4 (80255) Diagnoses Interstitial lung disease J84.9 Pulmonary fibrosis, unspecified J84.10 Cough R05 Dyspnea on exertion R06.00 Bronchitis J40
[2023-03-03 15:22] VITALS: BP 120/72; PULSE 103; O2SAT 93
== END 2023-03-03 15:50 | disposition home or self-care (01) ==
PROVIDERS: PCP Hospitalist; Visit Provider Internal Medicine
DX: J84.9 Interstitial pulmonary disease, unspecified (principal); J84.10 Pulmonary fibrosis, unspecified; R05.9 Cough, unspecified; R06.00 Dyspnea, unspecified; J40 Bronchitis, not specified as acute or chronic
CPT/HCPCS: 99214

== ENCOUNTER 2023-03-19 15:33 | Outpatient (REF) | payer MEDICARE, SELFPAY ==
[2023-03-19 16:15] LABS: MANUAL DIFF FLAG NO
[2023-03-19 16:50] LABS: Basophils Percent Auto 0.1 % (0-2); Eosinophils Percent Auto 0.1 % (0-4); Hematocrit 43.7 % (37.0-47.0); Hemoglobin 13.9 g/dl (12.0-16.0); Imm Gran Abs Auto 0.11 X10*3/uL (0.00-0.03); Imm Gran Pct Auto 0.8 % (0.0-0.4); Lymphocytes Absolute Auto 1.3 X10*3/uL (1.2-4.9); Lymphocytes Percent Auto 9.7 % (20-40); Mean Corpuscular HGB Conc 31.8 g/dl (31.0-35.0); Mean Corpuscular Hemoglobin 26.6 pg (27.0-33.0); Mean Corpuscular Volume 83.7 fL (80.0-98.0); Mean Platelet Volume 10.1 fL (9.4-12.3); Monocytes Absolute Auto 0.3 X10*3/uL (0.1-1.2); Monocytes Percent Auto 2.6 % (2-11); Neutrophils Absolute Auto 11.5 x10*3/uL (2.0-8.3); Neutrophils Percent Auto 86.7 % (45-73); Platelet Count 194 X10*3/uL (160-400); Red Blood Count 5.22 X10*6/uL (4.20-5.50); Red Cell Distribution Width 16.8 % (11.0-16.0); White Blood Count 13.3 X10*3/uL (4.8-10.8)
[2023-03-19 17:42] LABS: TSH reflex Free T4 0.81 uIU/mL (0.32-4.0)
[2023-03-19 17:48] LABS: Erythrocyte Sedimentation Rate 16 MM/HR (0-20)
[2023-03-23 15:49] LABS: CRP High Sensitivity 3.7 mg/L
== END 2023-03-19 15:34 | disposition home or self-care (01) ==
LOC: HO.LAB 15:33
PROVIDERS: PCP Hospitalist; Visit Provider Internal Medicine
DX: J84.9 Interstitial pulmonary disease, unspecified (principal); J84.10 Pulmonary fibrosis, unspecified; R04.2 Hemoptysis; E03.9 Hypothyroidism, unspecified; R09.02 Hypoxemia; R06.00 Dyspnea, unspecified; J44.9 Chronic obstructive pulmonary disease, unspecified; Z79.899 Other long term (current) drug therapy
CPT/HCPCS: 36415; 84443; 85025; 85652; 86141; 99212

== ENCOUNTER 2023-03-19 15:33 | Outpatient (AMB) | payer MEDICARE, SELFPAY ==
--- NOTE | 2023-03-19 15:35 | A.OFFVIS_ITS ---
Intake Vital Signs 03/19/23 15:36 Height 5 ft 2 in Weight 136 lb 3.931 oz BMI 24.9 BP 122/60 Blood Pressure Location Lt brachial Position Sitting Pulse 104 H Pulse Source Pulse Oximeter Pulse Oximetry (%) 95 Oxygen Delivery Method Nasal Cannula Oxygen Flow Rate 3 Intake Visit Reasons: COPD Intake Note: pt is here for follow up and states things are a little better. Aviation Medicine Specialist Required: No Allergies Penicillins [PENICILLINS] Allergy (Unknown, Verified 03/19/23 15:59) SWELLING Medication List - Last Reconciled 03/19/23 by Samuel Atkinson MD albuterol sulfate 90 mcg/actuation (ProAir HFA) 2 puffs inhalation Q4-6H PRN 30 days albuterol sulfate 90 mcg/actuation 2 puffs inhalation Q4-6H PRN 30 days benzonatate 100 mg PO BID-TID PRN 30 days doxycycline hyclate 100 mg PO BID 10 days levothyroxine 75 mcg PO QAM losartan 25 mg PO DAILY mycophenolate mofetil (CellCept) 500 mg PO BID 30 days pantoprazole 20 mg PO DAILY prednisone 5 mg PO DAILY 90 days prednisone 20 mg PO BID 30 days HPI COPD HPI Details 72 years old female with multiple medica l problems especially with progressive interstitial lung disease, is here for follow-up after 1 month. On her current regimen she has definitely improved, She has very little cough, has had no hemoptysis. O2 sats remain relatively stable and at home she does not need to use oxygen when at rest or sleeping. She still uses O2 2 L/minute when walking around. When she walks around she does not experience palpitations as he did before. [facility] Medical History Bronchitis Post-COVID chronic cough Exercise hypoxemia Interstitial lung disease Hemoptysis Hypothyroidism Pulmonary fibrosis, unspecified Cough Dyspnea on exertion Social History Patient Tobacco Use Status: Never used Tobacco Review of Systems Const All systems reviewed & are unremarkable except as noted in HPI and below Eyes Reports no additional complaints ENT Reports no additional complaints and Reports nasal congestion (MILD) Card Denies chest pain, Denies leg edema and Reports dyspnea on exertion (INCREASED) Resp Reports as per HPI, Reports cough (frequent ), Reports hemoptysis (MILD INTERMITTENT) and Reports dyspnea on exertion (INCREASED) GI Reports heartburn (GERD SYMPTOMS OFF AND ON) Reports no additional complaints Musc Reports arthralgias (knees.) Neuro Reports no additional complaints Psych Reports no additional complaints Endo Reports no additional complaints Physical Exam Vital Signs: Last Vital Signs Pulse 104 H 03/19/23 15:36 BP 122/60 03/19/23 15:36 Pulse Ox 95 03/19/23 15:36 Oxygen Delivery Method Nasal Cannula 03/19/23 15:36 Oxygen Flow Rate 3 03/19/23 15:36 BMI result Body Mass Index 24.9 Const General: comfortable (But we can walks slowly), no acute distress, alert and awake Orientation/consciousness: patient oriented x3 HEENT Head: Yes normal to inspection General nose exam: No nasal polyps present and No nasal discharge present Face and sinus: Yes sinuses nontender Mouth: oropharynx normal Throat: Yes posterior oropharynx normal Eyes General: appearance normal, both eyes and all related structures Neck Neck: Yes normal visual inspection, Yes no lymphadenopathy, Yes trachea midline and Yes no JVD Thyroid: Thyroid normal Chest Chest palpation & inspection: normal inspection of the chest, normal palpation of entire chest wall and no tenderness Resp Other: PERCUSSION NOTE IS RESONANT . BREATH SOUNDS ARE EQUAL ON BOTH SIDES, SLIGHTLY DIMINISHED OVER THE BASILAR AREAS. NO WHEEZES . COARSE INSPIRATORY CRACKLES OVER BOTH LOWER LOBES . Cardio Palpation: normal PMI Rate: regular rate and tachycardic (ON MINIMAL WALKING THE HEART RATE WAS UP TO 124, AFTER RESTING SETTLES DOWN) Rhythm: regular rhythm Heart sounds: no gallops and no murmurs GI Palpation (GI): Soft to palpation, nontender, No hepatosplenomegaly present and no masses Auscultation: normal bowel sounds Back/Spine/Pelvis Thoracic/Lumbar Spine: thoracic and lumbar spine normal to inspection and thoraco-lumbar ROM limited Skin General skin exam: no rashes or lesions noted Neuro General: patient oriented x3 and no focal motor deficits Cranial nerves: Yes CN's II-XII intact bilaterally Extrem General: Yes normal to inspection, No no joint enlargement (DEGENERATIVE CHANGES OF THE KNEE JOINTS), Yes no clubbing, cyanosis or edema, Yes no calf tenderness and Yes other (VERY COAST VEINS ON BOTH LEGS) Psych Appearance: grossly normal and well kempt Speech and movement: Normal speech and movement present Assessment & Plan Assessment & Plan (1) Interstitial lung disease: Comment: SHE HAS HAD PICTURE OF PULMONARY FIBROSIS FOR THE PAST 4-5 YEARS. She has been suffering from acute exacerbation for the last few months. Staying on high-dose prednisone and also addition of mycophenolate, . Which she is tolerating well She has also stayed on doxycycline 100 b.i.d. for the last few weeks. Clinically improved and more stable at this time. Code(s): J84.9 - Interstitial pulmonary disease, unspecified Plan: Okay to discontinue doxycycline. Reduce prednisone to 30 mg a day for 10 days then 20 mg a day. Continue mycophenolate (Cell Cept ) 500 mg b.i.d. Lap tests, CBC with diff, ,sed rate CRP, and T4 /TSH are ordered (2) Pulmonary fibrosis, unspecified: Comment: THE CLINICAL AND RADIOLOGIC PICTURE, IS SUGGESTIVE OF PULMONARY FIBROSIS SECONDARY TO UIP . IT HAS GRADUALLY PROGRESSED. THERE IS A RISK OF FURTHER WORSENING IF SHE GETS ANY SUPER ADDED RESPIRATORY INFECTION OR HYPERSENSITIVITY REACTION. Code(s): J84.10 - Pulmonary fibrosis, unspecified Plan: Continue the regimen as noted under interstitial pulmonary disease (3) Exercise hypoxemia: Comment: PATIENT DOES DESATURATE ON WALKING. ADVISED TO USE O2 2 L/MINUTE WITH ANY PHYSICAL ACTIVITY. SHE DOES HAVE POC. WHICH IS QUITE CONVENIENT TO USE., Code(s): R09.02 - Hypoxemia Plan: as above Orders: Orders Erythrocyte Sedimentation Rate Today J84.9 - Interstitial pulmonary disease, uns pecified Complete Blood Count Auto Diff Today J84.10 - Pulmonary fibrosis, unspecified, J84.9 - Interstitial pulmonary disease, unspecified CRP High Sensitivity Today J84.10 - Pulmonary fibrosis, unspecified, J84.9 - Interstitial pulmonary disease, unspecified TSH reflex Free T4 Today E03.9 - Hypothyroidism, unspecified Coding Level of Care Code Est Pt Level 4 (32080) Diagnoses Interstitial lung disease J84.9 Pulmonary fibrosis, unspecified J84.10 Exercise hypoxemia R09.02
[2023-03-19 15:36] VITALS: BP 122/60; PULSE 104; O2SAT 95; BMI 24.9
== END 2023-03-19 15:57 | disposition home or self-care (01) ==
PROVIDERS: PCP Hospitalist; Visit Provider Internal Medicine
DX: J84.9 Interstitial pulmonary disease, unspecified (principal); J84.10 Pulmonary fibrosis, unspecified; R09.02 Hypoxemia
CPT/HCPCS: 99214

== ENCOUNTER 2023-04-29 15:08 | Outpatient (REF) | payer MEDICARE, SELFPAY ==
[2023-04-29 15:20] LABS: MANUAL DIFF FLAG NO
[2023-04-29 15:43] LABS: Basophils Percent Auto 0.4 % (0-2); Eosinophils Absolute Auto 0.1 X10*3/uL (0.0-0.4); Eosinophils Percent Auto 1.1 % (0-4); Hemoglobin 13.3 g/dl (12.0-16.0); Imm Gran Abs Auto 0.05 X10*3/uL (0.00-0.03); Imm Gran Pct Auto 0.6 % (0.0-0.4); Lymphocytes Absolute Auto 0.9 X10*3/uL (1.2-4.9); Lymphocytes Percent Auto 10.6 % (20-40); Mean Corpuscular HGB Conc 32.4 g/dl (31.0-35.0); Mean Corpuscular Hemoglobin 28.2 pg (27.0-33.0); Mean Corpuscular Volume 86.9 fL (80.0-98.0); Mean Platelet Volume 10.7 fL (9.4-12.3); Monocytes Absolute Auto 0.4 X10*3/uL (0.1-1.2); Monocytes Percent Auto 4.6 % (2-11); Neutrophils Absolute Auto 6.6 x10*3/uL (2.0-8.3); Neutrophils Percent Auto 82.7 % (45-73); Platelet Count 201 X10*3/uL (160-400); Red Blood Count 4.72 X10*6/uL (4.20-5.50); Red Cell Distribution Width 15.9 % (11.0-16.0)
[2023-04-29 16:28] LABS: Erythrocyte Sedimentation Rate 51 MM/HR (0-20)
[2023-04-29 16:30] LABS: TSH reflex Free T4 0.86 uIU/mL (0.32-4.0)
[2023-04-30 14:58] LABS: CRP High Sensitivity >10.0 mg/L
== END 2023-04-29 15:09 | disposition home or self-care (01) ==
LOC: HO.LAB 15:08
PROVIDERS: PCP Hospitalist; Visit Provider Internal Medicine
DX: J84.9 Interstitial pulmonary disease, unspecified (principal); R05.9 Cough, unspecified; R04.2 Hemoptysis; E03.9 Hypothyroidism, unspecified
CPT/HCPCS: 36415; 84443; 85025; 85652; 86141

== ENCOUNTER 2023-05-05 15:42 | Outpatient (AMB) | payer MEDICARE, SELFPAY ==
[2023-05-05 15:45] VITALS: BP 140/64; PULSE 105; O2SAT 92
--- NOTE | 2023-05-05 15:45 | A.OFFVIS_ITS ---
Intake Vital Signs 05/05/23 15:45 Height 5 ft 2 in BP 140/64 H Blood Pressure Location Lt brachial Position Sitting Pulse 105 H Pulse Source Pulse Oximeter Pulse Oximetry (%) 92 Oxygen Delivery Method Room Air Intake Visit Reasons: COPD Intake Note: pt states not too good today, but today she is stating that more than 2 weeks, breathless when walking, and heart going fast, coughing and spitting up mucous, and the cough has increased, oxygen is dropping even with it on. She also states her face is swelling and too much in am when waking. Card Reader Required: No Allergies Penicillins [PENICILLINS] Allergy (Unknown, Verified 05/05/23 15:56) SWELLING Medication List - Last Reconciled 05/05/23 by Samuel Atkinson MD albuterol sulfate 90 mcg/actuation (ProAir HFA) 2 puffs inhalation Q4-6H PRN 30 days albuterol sulfate 90 mcg/actuation 2 puffs inhalation Q4-6H PRN 30 days benzonatate 100 mg PO BID-TID PRN 30 days levothyroxine 75 mcg PO QAM losartan 25 mg PO DAILY mycophenolate mofetil (CellCept) 500 mg PO BID 30 days pantoprazole 20 mg PO DAILY prednisone 20 mg PO BID 30 days prednisone 10 mg PO DAILY Do you need a note to return to daycare/school/sports/work: No HPI COPD HPI Details 72 years old female with gradually progr essing interstitial lung disease, Comes after 2 months for follow-up. She has had no active respiratory infection. No fever or chills. However her oxygen need has increased. She gets short of breath easily. The condition has gradually worsened since decreasing the dose of prednisone to 10 mg a day. She is worried about swelling of the face and around the ankles. She thinks that her swelling is more since we have added mycophenolate to her regimen. [facility] Medical History (Updated 05/05/23 @ 16:37 by Samuel Atkinson MD) Respiratory failure with hypoxia Bronchitis Post-COVID chronic cough Exercise hypoxemia Interstitial lung disease Hemoptysis Hypothyroidism Pulmonary fibrosis, unspecified Cough Dyspnea on exertion Social History Patient Tobacco Use Status: Never used Tobacco Review of Systems Const All systems reviewed & are unremarkable except as noted in HPI and below Eyes Reports no additional complaints ENT Reports no additional complaints and Reports nasal congestion (MILD) Card Denies chest pain, Denies leg edema and Reports dyspnea on exertion (INCREASED) Resp Reports as per HPI, Reports cough (frequent ), Reports hemoptysis (MILD INTERMITTENT) and Reports dyspnea on exertion (INCREASED) GI Reports heartburn (GERD SYMPTOMS OFF AND ON) Reports no additional complaints Musc Reports arthralgias (knees.) Neuro Reports no additional complaints Psych Reports no additional complaints Endo Reports no additional complaints Physical Exam Vital Signs: Last Vital Signs Pulse 105 H 05/05/23 15:45 BP 140/64 H 05/05/23 15:45 Pulse Ox 92 05/05/23 15:45 Oxygen Delivery Method Room Air 05/05/23 15:45 Const General: comfortable (But we can walks slowly), no acute distress, alert and awake Orientation/consciousness: patient oriented x3 HEENT Head: Yes normal to inspection General nose exam: No nasal polyps present and No nasal discharge present Face and sinus: Yes sinuses nontender Mouth: oropharynx normal Throat: Yes posterior oropharynx normal Eyes General: appearance normal, both eyes and all related structures Neck Neck: Yes normal visual inspection, Yes no lymphadenopathy, Yes trachea midline and Yes no JVD Thyroid: Thyroid normal Chest Chest palpation & inspection: normal inspection of the chest, normal palpation of entire chest wall and no tenderness Resp Other: PERCUSSION NOTE IS RESONANT . BREATH SOUNDS ARE EQUAL ON BOTH SIDES, SLIGHTLY DIMINISHED OVER THE BASILAR AREAS. NO WHEEZES . COARSE INSPIRATORY CRACKLES OVER BOTH LOWER LOBES,MORE PRONOUNCED THAN BEFORE . Cardio Palpation: normal PMI Rate: regular rate and tachycardic (ON MINIMAL WALKING THE HEART RATE WAS UP TO 124, AFTER RESTING SETTLES DOWN) Rhythm: regular rhythm Heart sounds: no gallops and no murmurs GI Palpation (GI): Soft to palpation, nontender, No hepatosplenomegaly present and no masses Auscultation: normal bowel sounds Back/Spine/Pelvis Thoracic/Lumbar Spine: thoracic and lumbar spine normal to inspection and thoraco-lumbar ROM limited Skin General skin exam: no rashes or lesions noted Neuro General: patient oriented x3 and no focal motor deficits Cranial nerves: Yes CN's II-XII intact bilaterally Extrem General: Yes normal to inspection, No no joint enlargement (DEGENERATIVE CHANGES OF THE KNEE JOINTS), Yes no clubbing, cyanosis or edema, Yes no calf tenderness and Yes other (VERY COAST VEINS ON BOTH LEGS) Psych Appearance: grossly normal and well kempt Speech and movement: Normal speech and movement present Results Reviewed Results Reviewed: LAP TEST ON 04/29/23 WBCS 8.0 SED RATE 51. CRP MORE THAN 10 TSH 0.86. INCREASED SED RATE AND INCREASED CRP INDICATE ACTIVE INFLAMMATION. Assessment & Plan Assessment & Plan (1) Interstitial lung disease: Comment: SHE HAS HAD PICTURE OF PULMONARY FIBROSIS FOR THE PAST 4-5 YEARS. She has been suffering from acute exacerbation for the last few months. Staying on high-dose prednisone and also addition of mycophenolate,which she is tolerating well. The does of prednisone was decreased gradually to 10 mg a day. Since decreasing the does her symptoms have gotten worse , And the lap test indicators suggest that there is increasing amount of inflammatory process. Code(s): J84.9 - Interstitial pulmonary disease, unspecified Plan: Prednisone increased to 20 mg b.i.d. for 5 days and then 20 mg a day. Unfortunately I think she has to be kept on higher dose of prednisone. She does have some edema of the cheeks as well as around the ankles, as a side effect from prednisone. I explained to her that this is an expected side effect, and just continue to watch it. (2) Pulmonary fibrosis, unspecified: Comment: THE CLINICAL AND RADIOLOGIC PICTURE, IS SUGGESTIVE OF PULMONARY FIBROSIS SECONDARY TO UIP . IT HAS GRADUALLY PROGRESSED. THERE IS A RISK OF FURTHER WORSENING IF SHE GETS ANY SUPER ADDED RESPIRATORY INFECTION OR HYPERSENSITIVITY REACTION. Code(s): J84.10 - Pulmonary fibrosis, unspecified Plan: as above (3) Respiratory failure with hypoxia: Comment: Patient has the hypoxemia secondary to interstitial lung disease. Normally she has been doing well with O2 2 L/minute at rest and 4 L/minute on walking around. Now her O2 requirement is increased . Code(s): J96.91 - Respiratory failure, unspecified with hypoxia Plan: Continue O2 by nasal cannula 3-4 L/minute to keep O2 sat above 90%. When using POC for going outdoors then may increase O2 to 4 L/minute. Medications: Changed From prednisone 5 mg PO DAILY 90 days 90 tabs 3RF ILD To prednisone 10 mg PO DAILY ILD Coding Level of Care Code Est Pt Level 4 (06945) Diagnoses Interstitial lung disease J84.9 Pulmonary fibrosis, unspecified J84.10 Respiratory failure with hypoxia J96.91
== END 2023-05-05 16:13 | disposition home or self-care (01) ==
PROVIDERS: PCP Hospitalist; Visit Provider Internal Medicine
DX: J84.9 Interstitial pulmonary disease, unspecified (principal); J84.10 Pulmonary fibrosis, unspecified; J96.91 Respiratory failure, unspecified with hypoxia
CPT/HCPCS: 99214

== ENCOUNTER → 2023-05-05 15:42 | Outpatient (BNVA) | payer MEDICARE, SELFPAY | PROVIDERS: PCP Hospitalist; Visit Provider Internal Medicine | DX: J84.9 Interstitial pulmonary disease, unspecified (principal); J84.10 Pulmonary fibrosis, unspecified; J96.91 Respiratory failure, unspecified with hypoxia | CPT/HCPCS: 99212 ==

== ENCOUNTER 2023-06-01 | Outpatient (REF) | payer MEDICARE, SELFPAY | END 2023-06-01 00:01 | disposition home or self-care (01) | LOC: HO.LNP | PROVIDERS: Visit Provider Internal Medicine | DX: J84.9 Interstitial pulmonary disease, unspecified (principal); J84.10 Pulmonary fibrosis, unspecified; R05.9 Cough, unspecified | CPT/HCPCS: 87070; 87205 ==

== ENCOUNTER 2023-06-24 16:14 | Outpatient (REF) | payer MEDICARE, SELFPAY ==
--- NOTE | ~2023-06-24 | XR_ITS ---
EXAMINATION: XR CHEST 2 VIEWS CLINICAL INFORMATION: Pulmonary fibrosis. COMPARISON: CT chest dated 01/27/2023; chest radiograph dated 12/22/2022. TECHNIQUE: Frontal and lateral views of the chest were obtained. FINDINGS: The heart, great vessels, pulmonary vasculature and mediastinum are normal. The thoracic aorta is tortuous. There is a stable diffuse bilateral interstitial pattern. The lungs show no new focal infiltrate, effusion or pneumothorax. There is no acute osseous abnormality. XR/XR chest 2V IMPRESSION: There are stable findings of chronic interstitial lung disease. No superimposed infiltrate or congestive heart failure is seen.
[2023-06-24 16:51] LABS: MANUAL DIFF FLAG NO
[2023-06-24 17:28] LABS: Basophils Percent Auto 0.1 % (0-2); Eosinophils Percent Auto 0.1 % (0-4); Hematocrit 45.8 % (37.0-47.0); Hemoglobin 14.8 g/dl (12.0-16.0); Imm Gran Abs Auto 0.14 X10*3/uL (0.00-0.03); Lymphocytes Absolute Auto 1.3 X10*3/uL (1.2-4.9); Lymphocytes Percent Auto 9.1 % (20-40); Mean Corpuscular HGB Conc 32.3 g/dl (31.0-35.0); Mean Corpuscular Hemoglobin 27.5 pg (27.0-33.0); Mean Platelet Volume 9.8 fL (9.4-12.3); Monocytes Absolute Auto 0.3 X10*3/uL (0.1-1.2); Monocytes Percent Auto 1.8 % (2-11); Neutrophils Absolute Auto 12.5 x10*3/uL (2.0-8.3); Neutrophils Percent Auto 87.9 % (45-73); Platelet Count 233 X10*3/uL (160-400); Red Blood Count 5.39 X10*6/uL (4.20-5.50); Red Cell Distribution Width 14.8 % (11.0-16.0); White Blood Count 14.3 X10*3/uL (4.8-10.8)
[2023-06-24 17:42] LABS: Anion Gap 11 (12-20); Carbon Dioxide 29 mmol/L (22-29); Chloride 97 mmol/L (96-108); Potassium 4.4 mmol/L (3.3-5.1); Sodium 133 mmol/L (135-145)
[2023-06-24 18:01] LABS: TSH reflex Free T4 0.45 uIU/mL (0.32-4.0)
[2023-06-24 18:31] LABS: Erythrocyte Sedimentation Rate 9 MM/HR (0-20)
[2023-06-29 15:43] LABS: Vitamin D 25-OH, D2 <4 ng/mL; Vitamin D 25-OH, D3 21 ng/mL; Vitamin D 25-OH, Total 21 ng/mL (30-100)
== END 2023-06-24 16:15 | disposition home or self-care (01) ==
LOC: HO.LAB 16:14
PROVIDERS: PCP Hospitalist; Visit Provider Internal Medicine
DX: J84.10 Pulmonary fibrosis, unspecified (principal); J84.9 Interstitial pulmonary disease, unspecified; J96.91 Respiratory failure, unspecified with hypoxia; R04.2 Hemoptysis; E03.9 Hypothyroidism, unspecified
CPT/HCPCS: 36415; 71046; 80051; 82306; 84443; 85025; 85652; 86141

== ENCOUNTER 2023-07-07 15:36 | Outpatient (AMB) | payer MEDICARE, SELFPAY ==
[2023-07-07 15:47] VITALS: BP 130/60; PULSE 98; O2SAT 90
--- NOTE | 2023-07-07 15:47 | A.OFFVIS_ITS ---
Vital Signs 07/07/23 15:47 Height 5 ft 2 in BP 130/60 Blood Pressure Location Lt brachial Position Sitting Pulse 98 Pulse Source Pulse Oximeter Pulse Oximetry (%) 90 L Oxygen Delivery Method Room Air Intake Visit Reasons: COPD Intake Note: pt is here for follow up and states her oxygen drops when walking and is getting slower to come up, she has a lot coughing, which is now causing her to loose her voice, what is the next step of prednisone. 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 Allergies Penicillins [PENICILLINS] Allergy (Unknown, Verified 07/07/23 15:54) SWELLING Medication List - Last Reconciled 07/07/23 by Samuel Atkinson MD albuterol sulfate 90 mcg/actuation (ProAir HFA) 2 puffs inhalation Q4-6H PRN 30 days albuterol sulfate 90 mcg/actuation 2 puffs inhalation Q4-6H PRN 30 days benzonatate 100 mg PO BID-TID PRN 30 days levothyroxine 75 mcg PO QAM losartan 25 mg PO DAILY mycophenolate mofetil (CellCept) 500 mg PO BID 30 days pantoprazole 20 mg PO DAILY prednisone 20 mg PO DAILY HPI HPI COPD: Details: 72 YEARS OLD FEMALE WITH ADVANCED INTERSTITIAL LUNG DISEASE/ PULMONARY FIBROSIS, COMES AFTER. 2 MONTHS FOR FOLLOW-UP HER CONDITION IS BASICALLY SAME, .BUT RELATIVELY STABLE AT THIS TIME PREDNISONE DOSE HAS BEEN. DECREASED TO 20 MG A DAY SHE HAS TAKEN ABOUT 2 COURSES. OF DOXYCYCLINE IN THE LAST 2 MONTHS HER MAIN COMPLAINT IS GENERAL WEAKNESS AND ONGOING COUGH. OXYGEN AT 4 L/MINUTE KEEPS HER O2 SAT ABOVE 90%. DURING THE DAYTIME WHEN SHE IS SITTING AND RESTING SHE CAN TAKE HER OXYGEN OFF. WHEN SHE WALKS AROUND SHE HAS TO KEEP IT AT 4 L/MINUTE. SHE HAS NO ACTIVE. FEVER OR CHILLS COUGH IS MOSTLY DRY, ONCE IN A WHILE SHE BRINGS UP SOME MUCUS WHICH IS WHITE. [facility] Medical History Respiratory failure with hypoxia Bronchitis Post-COVID chronic cough Exercise hypoxemia Interstitial lung disease Hemoptysis Hypothyroidism Pulmonary fibrosis, unspecified Cough Dyspnea on exertion Social History Patient Tobacco Use Status: Never used Tobacco Review of Systems Const All systems reviewed & are unremarkable except as noted in HPI and below Eyes Reports no additional complaints ENT Reports no additional complaints and Reports nasal congestion (MILD) Card Denies chest pain, Denies leg edema and Reports dyspnea on exertion (INCREASED) Resp Reports as per HPI, Reports cough (frequent ), Reports hemoptysis (MILD INTERMITTENT) and Reports dyspnea on exertion (INCREASED) GI Reports heartburn (GERD SYMPTOMS OFF AND ON) Reports no additional complaints Musc Reports arthralgias (knees.) Neuro Reports no additional complaints Psych Reports no additional complaints Endo Reports no additional complaints Physical Exam Vital Signs: Last Vital Signs Pulse 98 07/07/23 15:47 BP 130/60 07/07/23 15:47 Pulse Ox 90 L 07/07/23 15:47 Oxygen Delivery Method Room Air 07/07/23 15:47 Const General: comfortable (But we can walks slowly), no acute distress, alert and awake Orientation/consciousness: patient oriented x3 HEENT Head: Yes normal to inspection General nose exam: No nasal polyps present and No nasal discharge present Face and sinus: Yes sinuses nontender Mouth: oropharynx normal Throat: Yes posterior oropharynx normal Eyes General: appearance normal, both eyes and all related structures Neck Neck: Yes normal visual inspection, Yes no lymphadenopathy, Yes trachea midline and Yes no JVD Thyroid: Thyroid normal Chest Chest palpation & inspection: normal inspection of the chest, normal palpation of entire chest wall and no tenderness Resp Other: PERCUSSION NOTE IS RESONANT . BREATH SOUNDS ARE EQUAL ON BOTH SIDES, SLIGHTLY DIMINISHED OVER THE BASILAR AREAS. NO WHEEZES . COARSE INSPIRATORY CRACKLES OVER BOTH LOWER LOBES,MORE PRONOUNCED THAN BEFORE . Cardio Palpation: normal PMI Rate: regular rate and tachycardic (ON MINIMAL WALKING THE HEART RATE WAS UP TO 124, AFTER RESTING SETTLES DOWN) Rhythm: regular rhythm Heart sounds: no gallops and no murmurs GI Palpation (GI): Soft to palpation, nontender, No hepatosplenomegaly present and no masses Auscultation: normal bowel sounds Back/Spine/Pelvis Thoracic/Lumbar Spine: thoracic and lumbar spine normal to inspection and thor aco-lumbar ROM limited Skin General skin exam: no rashes or lesions noted Neuro General: patient oriented x3 and no focal motor deficits Cranial nerves: Yes CN's II-XII intact bilaterally Extrem General: Yes normal to inspection, No no joint enlargement (DEGENERATIVE CHANGES OF THE KNEE JOINTS), Yes no clubbing, cyanosis or edema, Yes no calf tenderness and Yes other (VERY COAST VEINS ON BOTH LEGS) Psych Appearance: grossly normal and well kempt Speech and movement: Normal speech and movement present Results Reviewed Results Reviewed: CHEST X-RAY , SHOWS ADVANCED INTERSTITIAL LUNG DISEASE UNCHANGED FROM BEFORE. THE LUNG VOLUMES ARE SMALL. LAB TESTS INDICATE MODERATE LEUKOCYTOSIS 14.5, SECONDARY TO STEROIDS. CRP IS 2 WHICH IS NORMAL. TSH LEVEL 0.45, NORMAL VITAMIN D3 LEVEL 20 LOW Assessment & Plan Assessment & Plan (1) Interstitial lung disease: Comment: SHE HAS HAD PICTURE OF PULMONARY FIBROSIS FOR THE PAST 4-5 YEARS. SHE HAS HAD FREQUENT BOUTS OF ACUTE EXACERBATION. AT PRESENT SHE IS AT BASELINE. THERE HAS BEEN A GRADUAL DECLINE OF HER PULMONARY FUNCTION. ONGOING COUGH IS THE MAIN SYMPTOM ALSO GENERALIZED WEAKNESS GOES ALONG WITH HER DECONDITIONING Code(s): J84.9 - Interstitial pulmonary disease, unspecified Category: Medical Plan: SEE UNDER PULM FIBROSIS (2) Pulmonary fibrosis, unspecified: Comment: THE CLINICAL AND RADIOLOGIC PICTURE, IS SUGGESTIVE OF PULMONARY FIBROSIS SECONDARY TO UIP . IT HAS GRADUALLY PROGRESSED. THERE IS A RISK OF FURTHER WORSENING IF SHE GETS ANY SUPER ADDED RESPIRATORY INFECTION OR HYPERSENSITIVITY REACTION. AT PRESENT SHE IS AT BASELINE BUT ONGOING COUGH IS THE MAIN SYMPTOM. Code(s): J84.10 - Pulmonary fibrosis, unspecified Category: Medical Plan: PREDNISONE 20 MG DAILY MYCOPHENOLATE (CELLCEPT) 500 MG B.I.D. BENZONATATE 100 MG B.I.D. OR T.I.D. P.R.N.. ALSO USE COUGH DROPS FREQUENTLY. PROAIR HFA 2 PUFFS Q 4-6 HOURS P.R.N. FOR PERSISTENT COUGH OR WHEEZING She should take calcium. Supplements 1 tablet b.i.d. Also vitamin D3 2000 mg tablet b.i.d. (3) Cough: Comment: CHRONIC COUGH ,ESPECIALLY IN AMs , WITH MODERATE EXPECTORATION . Code(s): R05 - Cough Category: Medical Plan: [place] : BENZONATATE 100 MG T.I.D. P.R.N. AND USE COUGH DROPS NEEDED ADVISED TO USE ALBUTEROL HFA 1 OR 2 PUFFS, P.R.N. FOR SUSTAINED COUGH. (4) Respiratory failure with hypoxia: Comment: Patient has the hypoxemia secondary to interstitial lung disease. Normally she has been doing well with O2 2 L/minute at rest and 4 L/minute on walking around. Now she gets short of breath and also her O2 sats drop below 90% when she walks around in the house or goes to the bathroom. Code(s): J96.91 - Respiratory failure, unspecified with hypoxia Category: Medical Plan: Use O2 2 L/minute at rest and increased to 4 L/minute when walking around. Medications: New cholecalciferol (vitamin D3) 50 mcg PO DAILY 30 days 30 tabs 6RF VIT D DEFICIENCY Coding Level of Care Code Est Pt Level 4 (49478) Diagnoses Interstitial lung disease J84.9 Pulmonary fibrosis, unspecified J84.10 Cough R05 Respiratory failure with hypoxia J96.91
== END 2023-07-07 16:17 | disposition home or self-care (01) ==
PROVIDERS: PCP Hospitalist; Visit Provider Internal Medicine
DX: J84.9 Interstitial pulmonary disease, unspecified (principal); J84.10 Pulmonary fibrosis, unspecified; R05.9 Cough, unspecified; J96.91 Respiratory failure, unspecified with hypoxia
CPT/HCPCS: 99214

== ENCOUNTER → 2023-07-07 15:36 | Outpatient (BNVA) | payer MEDICARE, SELFPAY | PROVIDERS: PCP Hospitalist; Visit Provider Internal Medicine | DX: J84.9 Interstitial pulmonary disease, unspecified (principal); J84.10 Pulmonary fibrosis, unspecified; J96.91 Respiratory failure, unspecified with hypoxia; R05.9 Cough, unspecified | CPT/HCPCS: 99212 ==

== ENCOUNTER 2023-08-31 15:52 | Outpatient (AMB) | payer MEDICARE, SELFPAY ==
[2023-08-31 16:00] VITALS: BP 128/70; PULSE 92; O2SAT 91
--- NOTE | 2023-08-31 16:00 | A.OFFVIS_ITS ---
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 Allergies Penicillins [PENICILLINS] Allergy (Unknown, Verified 08/31/23 16:13) SWELLING Medication List - Last Reconciled 08/31/23 by Samuel Atkinson MD albuterol sulfate 90 mcg/actuation (ProAir HFA) 2 puffs inhalation Q4-6H PRN 30 days albuterol sulfate 90 mcg/actuation 2 puffs inhalation Q4-6H PRN 30 days benzonatate 100 mg PO BID-TID PRN 30 days cholecalciferol (vitamin D3) 50 mcg PO DAILY 30 days levothyroxine 75 mcg PO QAM losartan 25 mg PO DAILY mycophenolate mofetil (CellCept) 500 mg PO BID 30 days pantoprazole 20 mg PO DAILY PRN prednisone 20 mg PO DAILY Do you need a note to return to daycare/school/sports/work: No HPI HPI COPD: Details: 72 YEARS OLD FEMALE, A CASE OF ADVANCED PULMONARY FIBROSIS, COMES FOR FOLLOW-UP AFTER 2 MONTHS. SHE HAS BEEN RELATIVELY STABLE IN THE LAST FEW WEEKS. HAS HAD A FEW ACUTE EXACERBATIONS DUE TO UPPER RESPIRATORY INFECTION, FOR WHICH SHE REQUIRED INCREASE DID DOES OF PREDNISONE AND ALSO SHORT COURSES OF DOXYCYCLINE. NOW IN THE LAST 2-3 WEEKS HIS RELATIVELY STABLE AND PREDNISONE DOSE HAS BEEN CUT DOWN TO 20 MG A DAY. HOWEVER SHE HAS DEVELOPED GENERAL DECONDITIONING AND WEAKNESS, STAYING MOSTLY IN THE WHEELCHAIR. USES OXYGEN 2 L/MINUTE THROUGHOUT THE DAY, ON SOME OF THE NIGHTS SHE SLEEPS WITHOUT OXYGEN. [facility] Medical History Respiratory failure with hypoxia Bronchitis Post-COVID chronic cough Exercise hypoxemia Interstitial lung disease Hemoptysis Hypothyroidism Pulmonary fibrosis, unspecified Cough Dyspnea on exertion Social History Patient Tobacco Use Status: Never used Tobacco Review of Systems Const All systems reviewed & are unremarkable except as noted in HPI and below Eyes Reports no additional complaints ENT Reports no additional complaints and Reports nasal congestion (MILD) Card Denies chest pain, Denies leg edema and Reports dyspnea on exertion (INCREASED) Resp Reports as per HPI, Reports cough (frequent ), Reports hemoptysis (MILD INTERMITTENT) and Reports dyspnea on exertion (INCREASED) GI Reports heartburn (GERD SYMPTOMS OFF AND ON) Reports no additional complaints Musc Reports arthralgias (knees.) Neuro Reports no additional complaints Psych Reports no additional complaints Endo Reports no additional complaints Physical Exam Vital Signs: Last Vital Signs Pulse 92 08/31/23 16:00 BP 128/70 08/31/23 16:00 Pulse Ox 91 L 08/31/23 16:00 Oxygen Delivery Method Room Air 08/31/23 16:00 Const General: comfortable (But we can walks slowly), no acute distress, alert and awake Orientation/consciousness: patient oriented x3 HEENT Head: Yes normal to inspection General nose exam: No nasal polyps present and No nasal discharge present Face and sinus: Yes sinuses nontender Mouth: oropharynx normal Throat: Yes posterior oropharynx normal Eyes General: appearance normal, both eyes and all related structures Neck Neck: Yes normal visual inspection, Yes no lymphadenopathy, Yes trachea midline and Yes no JVD Thyroid: Thyroid normal Chest Chest palpation & inspection: normal inspection of the chest, normal palpation of entire chest wall and no tenderness Resp Other: PERCUSSION NOTE IS RESONANT . BREATH SOUNDS ARE EQUAL ON BOTH SIDES, SLIGHTLY DIMINISHED OVER THE BASILAR AREAS. NO WHEEZES . COARSE INSPIRATORY CRACKLES OVER BOTH LOWER LOBES,MORE PRONOUNCED THAN BEFORE . Cardio Palpation: normal PMI Rate: regular rate and tachycardic (ON MINIMAL WALKING THE HEART RATE WAS UP TO 124, AFTER RESTING SETTLES DOWN) Rhythm: regular rhythm Heart sounds: no gallops and no murmurs GI Palpation (GI): Soft to palpation, nontender, No hepatosplenomegaly present and no masses Auscultation: normal bowel sounds Back/Spine/Pelvis Thoracic/Lumbar Spine: thoracic and lumbar spine normal to inspection and t horaco-lumbar ROM limited Skin General skin exam: no rashes or lesions noted Neuro General: patient oriented x3 and no focal motor deficits Cranial nerves: Yes CN's II-XII intact bilaterally Extrem General: Yes normal to inspection, No no joint enlargement (DEGENERATIVE CHANGES OF THE KNEE JOINTS), Yes no calf tenderness, Yes edema (THERE IS 1+ EDEMA AROUND THE LEFT FOOT) and Yes other (VERY COAST VEINS ON BOTH LEGS) Psych Appearance: grossly normal and well kempt Speech and movement: Normal speech and movement present Assessment & Plan Assessment & Plan (1) Interstitial lung disease: Comment: SHE HAS HAD PICTURE OF PULMONARY FIBROSIS FOR THE PAST 4-5 YEARS. SHE HAS HAD FREQUENT BOUTS OF ACUTE EXACERBATION,SEC TO ACUTE ALVEOLITIS . AT PRESENT SHE IS RELATIVELY STABLE . THERE HAS BEEN A GRADUAL DECLINE OF HER PULMONARY FUNCTION. ALSO GENERALIZED WEAKNESS GOES ALONG WITH HER DECONDITIONING Code(s): J84.9 - Interstitial pulmonary disease, unspecified Category: Medical Plan: SEE UNDER PULMONARY FIBROSIS (2) Respiratory failure with hypoxia: Comment: Patient has the hypoxemia secondary to interstitial lung disease. Normally she has been doing well with O2 2 L/minute at rest and 4 L/minute on walking around. Now she gets short of breath and also her O2 sats drop below 90% when she walks around in the house or goes to the bathroom. Code(s): J96.91 - Respiratory failure, unspecified with hypoxia Category: Medical Plan: OK TO USE OXYGEN 2 L/MINUTE AT REST, AND 4 L/MINUTE WHEN WALKING AROUND, OR GOING OUTDOORS WITH THE POC. (3) Pulmonary fibrosis, unspecified: Comment: THE CLINICAL AND RADIOLOGIC PICTURE, IS SUGGESTIVE OF PULMONARY FIBROSIS SECONDARY TO UIP . IT HAS GRADUALLY PROGRESSED. THERE IS A RISK OF FURTHER WORSENING IF SHE GETS ANY SUPER ADDED RESPIRATORY INFECTION OR HYPERSENSITIVITY REACTION. AT PRESENT SHE IS AT BASELINE BUT ONGOING COUGH IS THE MAIN SYMPTOM. Code(s): J84.10 - Pulmonary fibrosis, unspecified Category: Medical Plan: CONTINUE PRESENT MEDICAL REGIMEN : PREDNISONE 20 MG A DAY, MAY REDUCED TO 15 MG A DAY AND WATCH FOR ANY DETERIORATION. MYCOPHENOLATE MOFETIL 500 MG B.I.D.. PROTONIX 20 MG DAILY P.R.N. FOR ACID REFLUX ALBUTEROL HFA 2 PUFFS Q 4-6 HOURS P.R.N. (4) Cough: Comment: CHRONIC COUGH ,ESPECIALLY IN AMs , WITH MODERATE EXPECTORATION . Code(s): R05 - Cough Category: Medical Plan: BENZONATATE 100 MG B.I.D. OR T.I.D. P.R.N. TO CONTROL THE COUGH Coding Level of Care Code Est Pt Level 3 (65021) Diagnoses Interstitial lung disease J84.9 Respiratory failure with hypoxia J96.91 Pulmonary fibrosis, unspecified J84.10 Cough R05
== END 2023-08-31 16:42 | disposition home or self-care (01) ==
PROVIDERS: PCP Hospitalist; Visit Provider Internal Medicine
DX: J84.9 Interstitial pulmonary disease, unspecified (principal); J96.91 Respiratory failure, unspecified with hypoxia; J84.10 Pulmonary fibrosis, unspecified; R05.9 Cough, unspecified
CPT/HCPCS: 99213

== ENCOUNTER → 2023-08-31 15:52 | Outpatient (BNVA) | payer MEDICARE, SELFPAY | PROVIDERS: PCP Hospitalist; Visit Provider Internal Medicine | DX: J84.9 Interstitial pulmonary disease, unspecified (principal); J96.91 Respiratory failure, unspecified with hypoxia; J84.10 Pulmonary fibrosis, unspecified; Z79.52 Long term (current) use of systemic steroids; Z79.899 Other long term (current) drug therapy | CPT/HCPCS: 99212 ==

== ENCOUNTER 2023-10-08 14:40 | Outpatient (REF) | payer MEDICARE, SELFPAY ==
--- NOTE | ~2023-10-08 | XR_ITS ---
EXAMINATION: XR CHEST CLINICAL INFORMATION: Interstitial pulmonary disease, pain, shortness of breath. COMPARISON: June 24, 2023. TECHNIQUE: 2 views of the chest were obtained. FINDINGS: Lung volumes are low. There is no gross pneumothorax. Stable cardiomediastinal silhouette. Redemonstration of diffuse interstitial opacities with increased bilateral, predominantly lower lung and peripheral hazy opacities, possibly representing superimposed edema and/or an infectious/inflammatory process in the appropriate clinical setting. Degenerative changes in the thoracic spine. No gross pleural effusion. Surgical clips in the right upper quadrant. XR/XR chest 2V IMPRESSION: Redemonstration of diffuse interstitial opacities with increased bilateral, predominantly lower lung and peripheral hazy opacities, possibly representing superimposed edema and/or an infectious/inflammatory process in the appropriate clinical setting.
== END 2023-10-08 14:41 | disposition home or self-care (01) ==
LOC: HO.XRAY 14:40
PROVIDERS: PCP Hospitalist; Visit Provider Internal Medicine
DX: J84.9 Interstitial pulmonary disease, unspecified (principal); J96.91 Respiratory failure, unspecified with hypoxia; R05.9 Cough, unspecified
CPT/HCPCS: 71046

== ENCOUNTER 2023-10-15 15:19 | Outpatient (AMB) | payer MEDICARE, SELFPAY ==
[2023-10-15 15:22] VITALS: BP 120/78; PULSE 90; O2SAT 91
--- NOTE | 2023-10-15 15:22 | MHC.OFFVIS ---
Vital Signs 10/15/23 15:22 Height 5 ft 2 in BP 120/78 Blood Pressure Location Lt brachial Position Sitting Pulse 90 Pulse Source Pulse Oximeter Pulse Oximetry (%) 91 L Oxygen Delivery Method Room Air Intake Visit Reasons: COPD Intake Note: pt is here for follow up and states her oxygen is dropping at times, after shower it was 79-80. sometimes she feels cold. 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 Allergies Penicillins [PENICILLINS] Allergy (Unknown, Verified 10/16/23 09:04) SWELLING Medication List - Last Reconciled 10/15/23 by Samuel Atkinson MD albuterol sulfate 90 mcg/actuation (ProAir HFA) 2 puffs inhalation Q4-6H PRN 30 days albuterol sulfate 90 mcg/actuation 2 puffs inhalation Q4-6H PRN 30 days benzonatate 100 mg PO BID-TID PRN 30 days cholecalciferol (vitamin D3) 50 mcg PO DAILY 30 days levothyroxine 75 mcg PO QAM losartan 25 mg PO DAILY mycophenolate mofetil (CellCept) 500 mg PO BID 30 days pantoprazole 20 mg PO DAILY PRN prednisone 10 mg PO DAILY 30 days prednisone 20 mg PO BID Do you need a note to return to daycare/school/sports/work: No HPI HPI COPD: Details: 72 years old female with advanced interstitial lung disease/pulmonary fibrosis, She is being treated with oral prednisone, mycophenolate, O2, , symptomatic cough control. Her disease is gradually worsening. She is requiring oxygen 24 hours a day, she can not go without oxygen more than a few minutes even at rest. Her symptoms largely depend upon the amount of prednisone. We have tried to reduce the prednisone dose slowly but she starts having increasing dyspnea with hypoxemia. Now for the past few days prednisone was increased to 40 mg a day., and she had to come for an urgent visit. There have been no fever chills or mucopurulent expectoration. Generalized weakness continues. She has only minimal dependent edema but has significant amount of facial puffiness. [facility] Medical History Respiratory failure with hypoxia Bronchitis Post-COVID chronic cough Exercise hypoxemia Interstitial lung disease Hemoptysis Hypothyroidism Pulmonary fibrosis, unspecified Cough Dyspnea on exertion Social History Patient Tobacco Use Status: Never used Tobacco Review of Systems Const All systems reviewed & are unremarkable except as noted in HPI and below Eyes Reports no additional complaints ENT Reports no additional complaints and Reports nasal congestion (MILD) Card Denies chest pain, Denies leg edema and Reports dyspnea on exertion (INCREASED) Resp Reports as per HPI, Reports cough (frequent ), Reports hemoptysis (MILD INTERMITTENT) and Reports dyspnea on exertion (INCREASED) GI Reports heartburn (GERD SYMPTOMS OFF AND ON) Reports no additional complaints Musc Reports arthralgias (knees.) Neuro Reports no additional complaints Psych Reports no additional complaints Endo Reports no additional complaints Physical Exam Vital Signs: Last Vital Signs Pulse 90 10/15/23 15:22 BP 120/78 10/15/23 15:22 Pulse Ox 91 L 10/15/23 15:22 Oxygen Delivery Method Room Air 10/15/23 15:22 Const General: comfortable (But we can walks slowly), no acute distress, alert and awake Orientation/consciousness: patient oriented x3 HEENT Head: Yes normal to inspection General nose exam: No nasal polyps present and No nasal discharge present Face and sinus: Yes sinuses nontender Mouth: oropharynx normal Throat: Yes posterior oropharynx normal Eyes General: appearance normal, both eyes and all related structures Neck Neck: Yes normal visual inspection, Yes no lymphadenopathy, Yes trachea midline and Yes no JVD Thyroid: Thyroid normal Chest Chest palpation & inspection: normal inspection of the chest, normal palpation of entire chest wall and no tenderness Resp Other: PERCUSSION NOTE IS RESONANT . BREATH SOUNDS ARE EQUAL ON BOTH SIDES, SLIGHTLY DIMINISHED OVER THE BASILAR AREAS. NO WHEEZES . COARSE INSPIRATORY CRACKLES OVER BOTH LOWER LOBES,MORE PRONOUNCED ON THE RIGHT SIDE . Cardio Palpation: normal PMI Rate: regular rate and tachycardic (ON MINIMAL WALKING THE HEART RATE WAS UP TO 124, AFTER RESTING SETTLES DOWN) Rhythm: regular rhythm Heart sounds: no gallops and no murmurs GI Palpation (GI): Soft to palpation, nontender, No hepatosplenomegaly present and no masses Auscultation: normal bowel sounds Back/Spine/Pelvis Thoracic/Lumbar Spine: thoracic and lumbar spine normal to inspection and thoraco-lumbar ROM limited Skin General skin exam: no rashes or lesions noted Neuro General: patient oriented x3 and no focal motor deficits Cranial nerves: Yes CN's II-XII intact bilaterally Extrem General: Yes normal to inspection, No no joint enlargement (DEGENERATIVE CHANGES OF THE KNEE JOINTS), Yes no calf tenderness, Yes edema (THERE IS 1+ EDEMA AROUND THE LEFT FOOT) and Yes other (VERY COAST VEINS ON BOTH LEGS) Psych Appearance: grossly normal and well kempt Speech and movement: Normal speech and movement present Results Reviewed Results Reviewed: RECENT CHEST X-RAY SHOWS SMALL LUNG VOLUMES.( PATIENT WAS NOT ABLE TO TAKE A DEEP INSPIRATION0 CROWDED BRONCHOVASCULAR MARKINGs . No definite infiltrate or effusion noted. Assessment & Plan Assessment & Plan (1) Pulmonary fibrosis, unspecified: Comment: THE CLINICAL AND RADIOLOGIC PICTURE, IS SUGGESTIVE OF PULMONARY FIBROSIS SECONDARY TO UIP . IT HAS GRADUALLY PROGRESSED. THERE IS A RISK OF FURTHER WORSENING IF SHE GETS ANY SUPER ADDED RESPIRATORY INFECTION OR HYPERSENSITIVITY REACTION. HAS HAD INCREASED RESPIRATORY SYMPTOMS LATELY AND PREDNISONE INCREASED TO 40 MG A DAY. WITH THAT HER SYMPTOMS ARE STARTING TO SUBSIDE TO BASELINE. Code(s): J84.10 - Pulmonary fibrosis, unspecified Category: Medical Plan: SEE UNDER INTERSTITIAL LUNG DISEASE (2) Interstitial lung disease: Comment: SHE HAS HAD PICTURE OF PULMONARY FIBROSIS FOR THE PAST 4-5 YEARS. SHE HAS HAD FREQUENT BOUTS OF ACUTE EXACERBATION,SEC TO ACUTE ALVEOLITIS . THE SYMPTOMS ARE GRADUALLY WORSENING, SHE IS BECOMING MORE AND MORE DEPENDENT ON LARGE DOSE OF PREDNISONE. THERE HAS BEEN A GRADUAL DECLINE OF HER PULMONARY FUNCTION. ALSO GENERALIZED WEAKNESS GOES ALONG WITH HER DECONDITIONING Code(s): J84.9 - Interstitial pulmonary disease, unspecified Category: Medical Plan: PREDNISONE DOES INCREASE TO 40 MG A DAY , FOR THE NEXT SEVERAL WEEKS. CONTINUE MYCOPHENOLATE 500 MG B.I.D.. DO TAKE VITAMIN-D AND CALCIUM SUPPLEMENTS DAILY. AVOID CONTACT WITH ANY SICK%. AVOID EXPOSURE TO ANY RESPIRATORY IRRITANTS OR INHALANTS AT HOME. (3) Respiratory failure with hypoxia: Comment: Patient has the hypoxemia secondary to interstitial lung disease. Normally she has been doing well with O2 2 L/minute at rest and 4 L/minute on walking around. Because of increasing shortness of breath she is advised to keep using O2 all the times. When resting at home she can go off oxygen for short interval. Continue to do deep breathing exercises every 2 hours while awake. Code(s): J96.91 - Respiratory failure, unspecified with hypoxia Category: Medical Plan: as above Medications: Changed From prednisone 20 mg PO DAILY 30 tabs 3RF ILD/PULM FIBROSIS To prednisone 20 mg PO BID Coding Level of Care Code Est Pt Level 4 (12233) Diagnoses Pulmonary fibrosis, unspecified J84.10 Interstitial lung disease J84.9 Respiratory failure with hypoxia J96.91
== END 2023-10-15 15:41 | disposition home or self-care (01) ==
PROVIDERS: PCP Hospitalist; Visit Provider Internal Medicine
DX: J84.10 Pulmonary fibrosis, unspecified (principal); J84.9 Interstitial pulmonary disease, unspecified; J96.91 Respiratory failure, unspecified with hypoxia
CPT/HCPCS: 99214

== ENCOUNTER → 2023-10-15 15:19 | Outpatient (BNVA) | payer MEDICARE, SELFPAY | PROVIDERS: PCP Hospitalist; Visit Provider Internal Medicine | DX: J84.10 Pulmonary fibrosis, unspecified (principal); J84.9 Interstitial pulmonary disease, unspecified; J96.91 Respiratory failure, unspecified with hypoxia; Z79.52 Long term (current) use of systemic steroids; Z79.899 Other long term (current) drug therapy; Z99.81 Dependence on supplemental oxygen | CPT/HCPCS: 99212 ==

== ENCOUNTER 2023-12-09 15:58 | Outpatient (AMB) | payer MEDICARE, SELFPAY ==
[2023-12-09 16:01] VITALS: BP 102/80; PULSE 111; O2SAT 91
--- NOTE | 2023-12-09 16:01 | A.OFFVIS_ITS ---
Vital Signs 12/09/23 16:01 Height 5 ft 2 in BP 102/80 Blood Pressure Location Lt brachial Position Sitting Pulse 111 H Pulse Source Pulse Oximeter Pulse Oximetry (%) 91 L Oxygen Delivery Method Nasal Cannula Oxygen Flow Rate 3 Intake Visit Reasons: pulm fibrosis Java Swing Developer Required: No Allergies Penicillins [PENICILLINS] Allergy (Unknown, Verified 12/09/23 16:31) SWELLING Medication List - Last Reconciled 12/09/23 by Samuel Atkinson MD albuterol sulfate 90 mcg/actuation (ProAir HFA) 2 puffs inhalation Q4-6H PRN 30 days albuterol sulfate 90 mcg/actuation 2 puffs inhalation Q4-6H PRN 30 days benzonatate 100 mg PO BID-TID PRN 30 days cholecalciferol (vitamin D3) 50 mcg PO DAILY 30 days levothyroxine 75 mcg PO QAM losartan 25 mg PO DAILY mycophenolate mofetil 500 mg PO BID nystatin 500,000 units (5 mL) PO TID 10 days pantoprazole 20 mg PO DAILY PRN prednisone 20 mg PO BID prednisone 10 mg PO DAILY 30 days Do you need a note to return to daycare/school/sports/work: No HPI HPI pulm fibrosis: Details: 72 YEARS OLD FEMALE, WITH ADVANCED ILD/ PULMONARY FIBROSIS AND INCREASING RESPIRATORY FAILURE, REQUIRING HIGHER FLOW OF OXYGEN. IS ON MAXIMUM MEDICAL TREATMENT WITH PREDNISONE 40 MG A DAY AND ALSO MYCOPHENOLATE 500 MG B.I.D.. SHE IS ON OXYGEN 3 L/MINUTE AT REST AND 4-5 L/MINUTE WHEN SHE WALKS AROUND. SINCE PAST FEW WEEKS SHE IS GOING DOWNHIL WITH MARKED GENERALIZED WEAKNESS, ALSO HAS BACK PAIN MOSTLY IN THE THORACOLUMBAR AREA. IT IS DIFFICULT FOR HER TO MOVE AROUND, SO SHE IS MOSTLY IN THE CHAIR OR BED. SHE IS GETTING ANXIOUS AND DEPRESSED. THERE HAS BEEN NO RECENT RESPIRATORY INFECTION NO FEVER OR CHILLS. SHE DENIES ANY ACTIVE BLEEDING. COMPLAINS OF PAIN IN THE MOUTH ESPECIALLY ON THE TONGUE AND HAS DIFFICULTY IN EATING SOLID FOOD. [facility] Medical History (Updated 12/09/23 @ 16:49 by Samuel Atkinson MD) Oral thrush Back pain of thoracolumbar region Fatigue Respiratory failure with hypoxia Bronchitis Post-COVID chronic cough Exercise hypoxemia Interstitial lung disease Hemoptysis Hypothyroidism Pulmonary fibrosis, unspecified Cough Dyspnea on exertion Social History Patient Tobacco Use Status: Never used Tobacco Review of Systems Const All systems reviewed & are unremarkable except as noted in HPI and below Eyes Reports no additional complaints ENT Reports no additional complaints, Reports mouth pain (ESPECIALLY OVER THE TONGUE.) and Reports nasal congestion (MILD) Card Denies chest pain, Denies leg edema and Reports dyspnea on exertion (INCREASED) Resp Details: HER SHORTNESS OF BREATH ON MINIMAL EXERTION IS DEFINITELY INCREASING Reports as per HPI, Reports cough (frequent ) and Reports dyspnea on exertion (INCREASED) GI Reports heartburn (GERD SYMPTOMS OFF AND ON) Reports no additional complaints Musc Reports back pain, Reports arthralgias (knees.) and Reports muscle weakness Neuro Reports no additional complaints Psych Reports depression Endo Reports no additional complaints Physical Exam Vital Signs: Last Vital Signs Pulse 111 H 12/09/23 16:01 BP 102/80 12/09/23 16:01 Pulse Ox 91 L 12/09/23 16:01 Oxygen Delivery Method Nasal Cannula 12/09/23 16:01 Oxygen Flow Rate 3 12/09/23 16:01 Const General: comfortable (But we can walks slowly), no acute distress, alert and awake Orientation/consciousness: patient oriented x3 HEENT Head: Yes normal to inspection General nose exam: No nasal polyps present and No nasal discharge present Face and sinus: Yes sinuses nontender Mouth: oropharynx normal Throat: Yes posterior oropharynx normal Eyes General: appearance normal, both eyes and all related structures Neck Neck: Yes normal visual inspection, Yes no lymphadenopathy, Yes trachea midline and Yes no JVD Thyroid: Thyroid normal Chest Chest palpation & inspection: normal inspection of the chest, normal palpation of entire chest wall and no tenderness Resp Other: PERCUSSION NOTE IS RESONANT . BREATH SOUNDS ARE EQUAL ON BOTH SIDES, DIMINISHED OVER THE BASILAR AREAS. NO WHEEZES . COARSE INSPIRATORY CRACKLES OVER BOTH LOWER LOBES,MORE PRONOUNCED ON THE RIGHT SIDE . Cardio Palpation: normal PMI Rate: regular rate and tachycardic (ON MINIMAL WALKING THE HEART RATE WAS UP TO 124, AFTER RESTING SETTLES DOWN) Rhythm: regular rhythm Heart sounds: no gallops and no murmurs GI Palpation (GI): Soft to palpation, nontender, No hepatosplenomegaly present and no masses Auscultation: normal bowel sounds Back/Spine/Pelvis Thoracic/Lumbar Spine: thoracic and lumbar spine normal to inspection (THERE IS ALSO TENDERNESS OVER THE THORACOLUMBAR AREA) and thoraco-lumbar ROM limited Skin General skin exam: no rashes or lesions noted Neuro General: patient oriented x3 and no focal motor deficits Cranial nerves: Yes CN's II-XII intact bilaterally Extrem General: Yes normal to inspection, No no joint enlargement (DEGENERATIVE CHANGES OF THE KNEE JOINTS), Yes no calf tenderness, Yes edema (THERE IS 1+ EDEMA AROUND THE LEFT FOOT) and Yes other (VERICOSE VEINS ON BOTH LEGS) Psych Appearance: grossly normal and well kempt Speech and movement: Normal speech and movement present Assessment & Plan Assessment & Plan (1) Back pain of thoracolumbar region: Comment: PAIN IN MID BACK, TENDERNESS OVER THORACOLUMBAR AREA, I SUSPECT OSTEOPOROSIS AND POSSIBLE COMPRESSION FRACTURE Code(s): M54.50 - Low back pain, unspecified; M54.6 - Pain in thoracic spine Category: Medical Plan: X-RAY THORACOLUMBAR SPINE IS ORDERED ES TYLENOL 2 TABLETS T.I.D.. GENTLE WARM PACKS OVER THE BACK 3 TIMES A DAY. PATIENT IS ALREADY ON CALCIUM AND D SUPPLEMENTS. CALCITONIN NASAL SPRAY , 200 UNITS PER ACTUATION ONCE A DAY , IN ALTERNATING NOSTRIL IS PRESCRIBED . (2) Pulmonary fibrosis, unspecified: Comment: THE CLINICAL AND RADIOLOGIC PICTURE, IS SUGGESTIVE OF PULMONARY FIBROSIS SECONDARY TO UIP . IT HAS GRADUALLY PROGRESSING . THERE IS A RISK OF FURTHER WORSENING IF SHE GETS ANY SUPER ADDED RESPIRATORY INFECTION OR HYPERSENSITIVITY REACTION. HAS HAD INCREASED RESPIRATORY SYMPTOMS LATELY AND PREDNISONE INCREASED TO 40 MG A DAY. Code(s): J84.10 - Pulmonary fibrosis, unspecified Category: Medical Plan: CONTINUE THE PRESENT REGIMEN INCLUDING PREDNISONE 40 MG DAILY ( 20 MG BID ) MYCOP HENOLATE 500 MG B.I.D. BENZONATATE 100 MG B.I.D. P.R.N. FOR COUGH. ALBUTEROL HFA 2 PUFFS Q 4-6 HOURS P.R.N. AND ALTERNATIVELY MAY USE ALBUTEROL SOLUTION IN THE NEBULIZER Q 4-6 HOURS P.R.N.. (3) Respiratory failure with hypoxia: Comment: Patient has hypoxemia secondary to interstitial lung disease/pulmonary fibrosis, which is progressing. Normally she has been doing well with O2 3 L/minute at rest and 4 L/minute on walking around. Because of increasing shortness of breath she is advised to keep using O2 all the times. When resting at home she can go off oxygen for short periods.. Continue to do deep breathing exercises every 2 hours while awake. Code(s): J96.91 - Respiratory failure, unspecified with hypoxia Category: Medical Plan: As above (4) Oral thrush: Comment: Patient does have white spots on the tongue, suggestive of oral thrush. Code(s): B37.0 - Candidal stomatitis Category: Medical Plan: Started on nystatin swishes [id number] units ( 1 tsp) t.i.d. swish and swallow x 10 days (5) Fatigue: Comment: Patient has profound generalized weakness. I suspect that she is having side effects from the high dose of prednisone including steroids myopathy , osteoporosis , . The does of prednisone can not be decreased because , her respiratory distress will increase quickly. Code(s): R53.83 - Other fatigue Category: Medical Plan: Complete lap test has been ordered to check if there is any treatable abnormality. The family and the patient are well aware of the fact that high does of prednisone is liable to cause complications. However without prednisone her condition would get much worse. Gentle back massage and massage to the muscles and gentle exercises are advised Orders: Orders Complete Blood Count Auto Diff Today E03.9 - Hypothyroidism, unspecified, J84.10 - Pulmonary fibrosis, unspecified, J96.91 - Respiratory failure, unspecified with hypoxia, R06.00 - Dyspnea, unspecified Vitamin B12 Today E03.9 - Hypothyroidism, unspecified, J84.10 - Pulmonary fibrosis, unspecified, J96.91 - Respiratory failure, unspecified with hypoxia, R53.83 - Other fatigue Folate Today J84.10 - Pulmonary fibrosis, unspecified, J96.91 - Respiratory failure, unspecified with hypoxia, R53.83 - Other fatigue TSH reflex Free T4 Today E03.9 - Hypothyroidism, unspecified, R53.83 - Other fatigue Magnesium Today J84.10 - Pulmonary fibrosis, unspecified, J96.91 - Respiratory failure, unspecified with hypoxia, R53.83 - Other fatigue XR thoracic spine 1V Today J84.9 - Interstitial pulmonary disease, unspecified, M54.50 - Low back pain, unspecified, M54.6 - Pain in thoracic spine IRON PROFILE Today J84.10 - Pulmonary fibrosis, unspecified, J96.91 - Respiratory failure, unspecified with hypoxia, R53.83 - Other fatigue Basic Metabolic Panel Today J84.10 - Pulmonary fibrosis, unspecified, R06.00 - Dyspnea, unspecified, R53.83 - Other fatigue Venous Blood Gas Today J84.10 - Pulmonary fibrosis, unspecified, J96.91 - Respiratory failure, unspecified with hypoxia Medications: New nystatin administer 1/2 of dose in each side of the mouth. SWISH AND SWALLOW 500,000 units (5 mL) PO TID 150 mL 2RF ORAL THRUSH 10 days calcitonin (salmon) 200 unit/actuation 1 spray intranasal (ALT) DAILY 3.7 mL 2RF Osteoporosis/backpain 30 days Coding Level of Care Code Est Pt Level 4 (00332) Diagnoses Back pain of thoracolumbar region M54.50; M54.6 Pulmonary fibrosis, unspecified J84.10 Respiratory failure with hypoxia J96.91 Oral thrush B37.0 Fatigue R53.83
== END 2023-12-09 16:23 | disposition home or self-care (01) ==
PROVIDERS: PCP Hospitalist; Visit Provider Internal Medicine
DX: M54.50 Low back pain, unspecified (principal); M54.6 Pain in thoracic spine; J84.10 Pulmonary fibrosis, unspecified; J96.91 Respiratory failure, unspecified with hypoxia; B37.0 Candidal stomatitis; R53.83 Other fatigue
CPT/HCPCS: 99214

== ENCOUNTER 2023-12-09 15:58 | Outpatient (REF) | payer MEDICARE, SELFPAY ==
--- NOTE | ~2023-12-09 | XR_ITS ---
EXAMINATION: XR CHEST 1 VIEW, XR THORACIC SPINE 3 VIEWS CLINICAL INFORMATION: generalized weakness low back pain. COMPARISON: CT chest 01/27/2023 chest radiograph 06/24/2023. TECHNIQUE: Portable AP chest; AP, lateral and swimmer's radiographs of the thoracic spine FINDINGS: Chest: Low lung volumes with the fourth anterior rib segments remain projection at the lung bases. Diffuse heterogeneous coarsened medium pulmonary reticular opacities with a peripheral predominance similar findings present on CT of the chest 01/27/2023 and chest radiograph 06/24/2023. No pleural effusions or pneumothoraces. Thoracic spine: Marked anterior wedge deformity of the T12 vertebral body is present and unchanged compared with 01/27/2023. The T7 vertebral body demonstrates anterior wedge deformity with 50% loss of craniocaudal height which is new compared with 01/27/2023. The T5 vertebral body demonstrates a marked anterior wedge deformity was 75% loss of craniocaudal height which is new compared with 01/27/2023. Partial visualization is made of mild central compression deformities of the L1 and L2 vertebral bodies which are grossly unchanged compared to 01/27/2023. Cholecystectomy clips are noted. Marked diffuse osteopenia. XR/XR thoracic spine 3V IMPRESSION: Chest: *Chronic marked interstitial disease of the lungs similar findings present 10/08/2023. Thoracic spine: *T5 osteoporotic vertebral body compression fracture new compared with 06/24/2023 but otherwise age indeterminate. *Chronic osteoporotic compression deformities of the T7 and T12 vertebral bodies. The T7 vertebral body compression deformity is unchanged compared with 06/24/2023. The T12 compression deformity is unchanged compared with 01/27/2023. *Marked diffuse osteopenia Electronically signed by: Les Alegre MD 12/15/2023 06:06 AM EDT
[2023-12-09 17:15] LABS: Basophils Percent Auto 0.2 % (0-2); Hematocrit 44.1 % (37.0-47.0); Imm Gran Pct Auto 1.9 % (0.0-0.4); Lymphocytes Absolute Auto 0.5 X10*3/uL (1.2-4.9); Lymphocytes Percent Auto 4.8 % (20-40); MANUAL DIFF FLAG SCAN; Mean Corpuscular Hemoglobin 28.8 pg (27.0-33.0); Mean Corpuscular Volume 84.8 fL (80.0-98.0); Mean Platelet Volume 9.9 fL (9.4-12.3); Monocytes Absolute Auto 0.3 X10*3/uL (0.1-1.2); Neutrophils Absolute Auto 9.4 x10*3/uL (2.0-8.3); Neutrophils Percent Auto 90.1 % (45-73); Platelet Count 185 X10*3/uL (160-400); Red Cell Distribution Width 14.4 % (11.0-16.0); SCAN SMEAR FLAG 1; White Blood Count 10.4 X10*3/uL (4.8-10.8)
[2023-12-09 17:45] LABS: VBG pCO2 35 mmHg; VBG pH 7.47 (7.32-7.43)
[2023-12-09 17:46] LABS: VBG Base Excess 2.7 mmol/L; VBG HCO3 26 mmol/L (22-26); VBG pO2 51 mmHg
[2023-12-09 17:53] LABS: Anion Gap 15 (12-20); Blood Urea Nitrogen 15 mg/dL (9-16); Calcium 9.3 mg/dL (8.4-10.2); Carbon Dioxide 24 mmol/L (22-29); Chloride 97 mmol/L (96-108); Estimated Glomerular Filt Rate > 60; Glucose Random 208 mg/dL (60-115); Iron 49 mcg/dL (30-160); Magnesium 2.2 mg/dL (1.6-2.6); Percent Iron Saturation 18 % (15-50); Potassium 4.7 mmol/L (3.3-5.1); Sodium 131 mmol/L (135-145); Total Iron Binding Capacity 266 mcg/dL (228-428); Unsaturated Iron Binding 217 ug/dL
[2023-12-09 17:55] LABS: Venous Blood Gas Refer to POC result
[2023-12-09 18:09] LABS: TSH reflex Free T4 0.78 uIU/mL (0.32-4.0)
[2023-12-09 18:22] LABS: Folate 6.7 ng/mL (> or = 4.0); Vitamin B12 598 pg/mL (200-900)
[2023-12-09 18:57] LABS: SLIDE REVIEW VERIFIED
== END 2023-12-09 15:59 | disposition home or self-care (01) ==
LOC: HO.LAB 15:58
PROVIDERS: PCP Hospitalist; Visit Provider Internal Medicine
DX: J84.10 Pulmonary fibrosis, unspecified (principal); R06.00 Dyspnea, unspecified; J96.91 Respiratory failure, unspecified with hypoxia; E03.9 Hypothyroidism, unspecified; R53.83 Other fatigue; B37.0 Candidal stomatitis; M54.50 Low back pain, unspecified; M54.6 Pain in thoracic spine; J84.9 Interstitial pulmonary disease, unspecified; M48.54XD Collapsed vertebra, not elsewhere classified, thoracic region, subsequent encounter for fracture with routine healing; Z79.899 Other long term (current) drug therapy
CPT/HCPCS: 36415; 72072; 80048; 82607; 82746; 82803; 83540; 83735; 84443; 85025; 99212

== ENCOUNTER 2023-12-14 22:17 | Inpatient (IN) | payer MEDICARE, SELFPAY ==
--- NOTE | 2023-12-14 | ECG_ITS ---
Test Reason : increased weakness Blood Pressure : / mmHG Vent. Rate : 084 BPM Atrial Rate : 084 BPM P-R Int : 116 ms QRS Dur : 064 ms QT Int : 366 ms P-R-T Axes : 022 -14 010 degrees QTc Int : 432 ms Normal sinus rhythm Minimal voltage criteria for LVH, may be normal variant ( R in aVL ) Borderline ECG When compared with ECG of 22-JUL-2015 22:29, No significant change was found Referred By: Generic ED Physician Electronically Signed By:MARISELA ABDALLA MD
--- NOTE | ~2023-12-14 | CT_ITS ---
EXAMINATION: CT ABDOMEN AND PELVIS NON- CONTRAST CLINICAL INFORMATION: Nausea, vomiting, abdominal pain COMPARISON: CT of 07/22/2015 TECHNIQUE: Multidetector volumetric imaging was performed of the abdomen and pelvis without contrast. No oral contrast material.. Sagittal and coronal reformatted images were obtained on the technologist's workstation. This CT examination was performed using dose optimization techniques as appropriate, variously including the following: *Automated exposure control *Adjustment of mA and/or kV according to patient size (this includes techniques or standardized protocols for targeted exams where dose is matched to indication/reason for exam; i.e. extremities or head) *Use of iterative reconstruction technique DLP: 685 mGy-cm FINDINGS: Examination is limited by patient respiratory motion. LUNG BASES: Limited lower thoracic images show cardiomegaly, advanced coronary artery calcifications, and extensive bilateral airspace opacities. Interstitial fibrosis is also evident at both lung bases. There is a small amount of pericardial fluid or thickening. LIVER, GALLBLADDER, AND BILIARY TREE: The liver is normal in size, shape, and attenuation. No focal hepatic lesion or biliary ductal dilatation is present. The gallbladder is surgically absent PANCREAS: Unremarkable SPLEEN: Unremarkable ADRENAL GLANDS: Unremarkable KIDNEYS AND URETERS: The kidneys are normal in size, shape, and attenuation. No hydronephrosis, hydroureter, or calculi seen. No perinephric stranding. BLADDER: Unremarkable GASTROINTESTINAL TRACT: The stomach is fluid-filled. No dilated large or small bowel loops are evident. This appendix is not definitely visualized. ABDOMINAL WALL: No significant hernia is appreciated. LYMPH NODES: Normal VASCULAR: Unremarkable PELVIC VISCERA: The uterus is not identified and presumably surgically absent. No pelvic mass or adenopathy is evident. There is no significant free pelvic fluid. OSSEOUS STRUCTURES: Severe diffuse demineralization is present with multiple severe lumbar and lower thoracic compression fractures. Vertebral plan is evident at T12 and T7. CT/CT abdomen pelvis wo IV con IMPRESSION: 1. Limited evaluation by the patient's respiratory motion and the lack of oral and intravenous contrast. 2. Fluid distention of the stomach but no dilated large or small bowel loops. 3. Severe diffuse demineralization with multiple severe lumbar and lower thoracic compression fractures. 4. Cardiomegaly, advanced coronary artery calcifications, and extensive bilateral airspace opacities at the lung bases. Fleischner guidelines were followed. Electronically signed by: Donovan Bedoya MD 12/16/2023 09:09 AM EDT RP
--- NOTE | ~2023-12-14 | XR_ITS ---
EXAMINATION: XR CHEST 1 VIEW, XR THORACIC SPINE 3 VIEWS CLINICAL INFORMATION: generalized weakness low back pain. COMPARISON: CT chest 01/27/2023 chest radiograph 06/24/2023. TECHNIQUE: Portable AP chest; AP, lateral and swimmer's radiographs of the thoracic spine FINDINGS: Chest: Low lung volumes with the fourth anterior rib segments remain projection at the lung bases. Diffuse heterogeneous coarsened medium pulmonary reticular opacities with a peripheral predominance similar findings present on CT of the chest 01/27/2023 and chest radiograph 06/24/2023. No pleural effusions or pneumothoraces. Thoracic spine: Marked anterior wedge deformity of the T12 vertebral body is present and unchanged compared with 01/27/2023. The T7 vertebral body demonstrates anterior wedge deformity with 50% loss of craniocaudal height which is new compared with 01/27/2023. The T5 vertebral body demonstrates a marked anterior wedge deformity was 75% loss of craniocaudal height which is new compared with 01/27/2023. Partial visualization is made of mild central compression deformities of the L1 and L2 vertebral bodies which are grossly unchanged compared to 01/27/2023. Cholecystectomy clips are noted. Marked diffuse osteopenia. XR/XR chest 1V IMPRESSION: Chest: *Chronic marked interstitial disease of the lungs similar findings present 10/08/2023. Thoracic spine: *T5 osteoporotic vertebral body compression fracture new compared with 06/24/2023 but otherwise age indeterminate. *Chronic osteoporotic compression deformities of the T7 and T12 vertebral bodies. The T7 vertebral body compression deformity is unchanged compared with 06/24/2023. The T12 compression deformity is unchanged compared with 01/27/2023. *Marked diffuse osteopenia Electronically signed by: Les Alegre MD 12/15/2023 06:06 AM EDT
[2023-12-14 22:37] VITALS: BP 113/80; PULSE 87; RESP 18; TEMP 36.5; O2SAT 98; BMI 25.7
[2023-12-14 23:14] LABS: MANUAL DIFF FLAG NO
[2023-12-14 23:15] LABS: Basophils Percent Auto 0.2 % (0-2); Eosinophils Percent Auto 0.1 % (0-4); Imm Gran Abs Auto 0.26 X10*3/uL (0.00-0.03); Imm Gran Pct Auto 2.9 % (0.0-0.4); Lymphocytes Absolute Auto 0.9 X10*3/uL (1.2-4.9); Lymphocytes Percent Auto 10.4 % (20-40); Mean Corpuscular Hemoglobin 28.7 pg (27.0-33.0); Mean Platelet Volume 9.4 fL (9.4-12.3); Monocytes Absolute Auto 0.4 X10*3/uL (0.1-1.2); Monocytes Percent Auto 4.3 % (2-11); Neutrophils Absolute Auto 7.4 x10*3/uL (2.0-8.3); Neutrophils Percent Auto 82.1 % (45-73); Platelet Count 161 X10*3/uL (160-400); Red Blood Count 4.88 X10*6/uL (4.20-5.50); Red Cell Distribution Width 14.3 % (11.0-16.0)
[2023-12-14 23:28] LABS: Alanine Aminotransferase 35 U/L (0-31); Albumin Level 3.7 g/dL (3.5-5.0); Alkaline Phosphatase 85 U/L (39-117); Anion Gap 11 (12-20); Aspartate Amino Transferase 16 U/L (5-31); Bilirubin Total 0.5 mg/dL (0.0-1.0); Blood Urea Nitrogen 14 mg/dL (9-16); Calcium 8.9 mg/dL (8.4-10.2); Carbon Dioxide 27 mmol/L (22-29); Chloride 90 mmol/L (96-108); Creatinine Clr Calc Pharmacy 71.9; Estimated Glomerular Filt Rate > 60; Glucose Random 123 mg/dL (60-115); Potassium 4.6 mmol/L (3.3-5.1); Sodium 123 mmol/L (135-145); Total Protein 6.3 g/dL (6.5-8.0)
[2023-12-14 23:36] LABS: Troponin-I High Sensitivity 14.8 ng/L (<3.5-17.0)
[2023-12-15] VITALS (8 sets, daily range): BP systolic 121–185; BP diastolic 76–87; PULSE 76–101; RESP 12–24; TEMP 36.3–36.9; O2SAT 96–100
--- NOTE | 2023-12-15 02:49 | PC.NURSE ---
Pt a&ox4 no signs of distress Pt reports 09/15 back pain Pt denies n/v/d/sob Pt with fam at bedside Plan of care ongoing.
[2023-12-15 03:47] LABS: Appearance Urine Cloudy; Color Urine Yellow; Glucose Urine UA Negative (Negative); Leukocyte Esterase Urine Large (3+) (Negative); Nitrite Urine Negative (Negative); Specific Gravity - Urine 1.025 (1.005-1.025); UMIC TRIGGER UACC YES; Urine Blood Negative (Negative); Urine Ketones Negative (Negative); Urine Protein Negative (Neg-Trace)
[2023-12-15 03:50] LABS: Bacteria Urine 4+ (None Seen); Hyaline Casts Urine 0-2 /LPF (0-2); RBC Urine 0-2 /HPF (0-2); UACC Culture Trigger YES; WBC Urine >50 /HPF (0-5)
[2023-12-15 04:38] LABS: Potassium Urine Random 44.4 mmol/L; Sodium Urine Random < 20.0 mmol/L
--- NOTE | 2023-12-15 04:40 | ED_ITS ---
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 Garcia HPI narrative: Patient brought in with her granddaughter for evaluation of mid back pain, she is a patient of Dr. Atkinson who manage her condition of idiopathic pulmonary fibrosis did not x-ray and patient was recently diagnosed with compression fracture of the thoracic spine, as per family patient has been deconditioning over the past 2-3 weeks, decreased p.o. intake, normally patient is sociable and talkative recently has been less sociable in a depressed mood. No SI, HI, SOB. Related Data Home Medications ?Medication ?Instructions ?Recorded ?Confirmed losartan 25 mg tablet 25 mg PO DAILY 09/04/20 10/15/23 levothyroxine 75 mcg tablet 75 mcg PO QAM 03/19/23 10/15/23 pantoprazole 20 mg tablet,delayed 20 mg PO DAILY PRN 08/31/23 10/15/23 release prednisone 20 mg tablet 20 mg PO BID 12/09/23 Previous Rx's ?Medication ?Instructions ?Recorded albuterol sulfate 90 mcg/actuation 2 puff inhalation Q4-6H PRN 05/23/21 aerosol inhaler (ProAir HFA) shortness of breath or wheezing 30 days #8.5 grams albuterol sulfate 90 mcg/actuation 2 puff inhalation Q4-6H PRN 11/24/22 aerosol inhaler shortness of breath or wheezing 30 days #8.5 grams benzonatate 100 mg capsule 100 mg PO BID-TID PRN cough/ILD. 03/03/23 30 days #90 caps cholecalciferol (vitamin D3) 50 50 mcg PO DAILY VIT D DEFICIENCY 07/07/23 mcg (2,000 unit) tablet 30 days #30 tabs prednisone 10 mg tablet 10 mg PO DAILY ILD 30 days #30 tabs 08/31/23 mycophenolate mofetil 500 mg tablet 500 mg PO BID #60 tabs 11/27/23 calcitonin (salmon) 200 1 spray intranasal (ALT) DAILY 12/09/23 unit/actuation nasal spray Osteoporosis/backpain 30 days #3.7 mL nystatin 100,000 unit/mL oral 500,000 unit (5 mL) PO TID ORAL 12/09/23 suspension THRUSH 10 days #150 mL Allergies Allergy/AdvReac Type Severity Reaction Status Date / Time Penicillins [PENICILLINS] Allergy Unknown SWELLING Verified 12/14/23 22:38 Review of Systems 2 Review of Systems: all other systems are reviewed and are negative Constitutional: Reports as per HPI and Reports no additional constitutional complaints Eyes: Reports as per HPI and Reports no additional eye complaints Reports system reviewed and no additional complaints, except as documented Cardiovascular: Reports as per HPI and Reports no additional cardiovascular complaints Respiratory: Reports as per HPI and Reports no additional respiratory complaints Gastrointestinal: Reports as per HPI and Reports no additional gastrointestinal complaints Genitourinary: Reports no additional female genitourinary complaints Musculoskeletal: Reports no additional musculoskeletal complaints Skin/Breast: Reports system reviewed and no additional complaints, except as docu Psychiatric: Reports no additional psychiatric complaints Endocrine: Reports no additional endocrine complaints Hematologic/Lymphatic: Reports no additional hematologic/lymphatic complaints Allergic/Immunologic: Reports no additional allergic/immunologic complaints Reports system reviewed and no additional complaints, except as documented and Reports Abnormal speech present [facility] Past Medical History Medical History Oral thrush Back pain of thoracolumbar region Fatigue Respiratory failure with hypoxia Bronchitis Post-COVID chronic cough Exercise hypoxemia Interstitial lung disease Hemoptysis Hypothyroidism Pulmonary fibrosis, unspecified Cough Dyspnea on exertion Social History Social History Patient Tobacco Use Status: Never used Tobacco Smoked in Last 30 Days: No Use of substances other than those prescribed or required for medical reasons: No Advance Directives: No Advance Directives Information Provided: No Physical Exam ED Vital Signs: Vital Signs - 24 hr 12/14/23 22:37 12/15/23 05:52 Temperature 97.7 F 97.5 F Pulse Rate 87 76 Respiratory Rate 18 18 Blood Pressure 113/80 152/79 H Pulse Oximetry 98 100 Oxygen Delivery Method Nasal Cannula Nasal Cannula Oxygen Flow Rate 4 BMI result Body Mass Index 25.7 Vital signs have been reviewed and appear to be correct. Blood pressure elevated. Heart rate normal. Respiratory rate normal. Temperature normal. Oxygen saturation normal. Appearance: Alert. Oriented X3. No acute distress. Head: Normal external exam. Normocephalic. Atraumatic. No June signs noted. No raccoon eyes noted Eyes: PERRLA. EOMI. Conjunctiva and sclera normal. Eyelids normal. ENT: TM's Normal. Pharynx normal. Uvula midline. Moist mucous membranes. No trismus noted. No drooling noted. No muffled voice noted. Neck: Normal inspection. Neck supple. FROM. No adenopathy. Thyroid Normal. No meningeal signs. No neck mass noted. CVS: Normal heart rate and rhythm. Heart sound normal. No murmurs noted. Pulses normal throughout. Respiratory: No respiratory distress. Painless inspiration. Breath sounds normal. No wheezes/rales/rhonchi noted. Chest nontender. No accessory muscle usage noted or decreased air movement noted. Abdomen: Soft and nontender. Bowel sounds normal in all 4 quadrants. No distention noted. No organomegaly noted. No visible injury noted. Back: No CVA tenderness. Full range of motion noted. Skin: Skin warm and dry. Normal skin color. Normal skin turgor. No rashes/lesions/lacerations noted. Extremities: No lower extremity edema. Extremities exhibit normal range of motion. Extremities nontender. Neuro: Oriented X 3. Cranial nerve exam: II-XII are grossly intact No motor deficit. No sensory deficit. Reflexes normal. Course Reevaluation(s) Reevaluation #1: generalized weakness and deconditioning. 1. UTI patient is allergic to penicillin will start on Levaquin no sepsis. 2. Hyponatremia start on normal saline, check urine electrolytes. Admit for further hydration. Time: 04:45 Medications Administered Discontinued Medications Generic Name Dose Route Start Last Admin Trade Name Della PRN Reason Stop Dose Admin Sodium Chloride 1,000 mls @ 999 mls/hr 12/15/23 04:14 12/15/23 05:20 Ns IV 12/15/23 05:14 999 mls/hr .Q1H1M ONE Administration Levofloxacin 750 mg in 150 mls @ 100 mls/hr 12/15/23 04:35 12/15/23 05:20 Levaquin IV 12/15/23 06:04 100 mls/hr ONCE ONE Administration Morphine Sulfate 1 mg 12/15/23 04:40 12/15/23 05:21 Morphine Sulfate 2 Mg/Ml Cartridge IVPUSH 12/15/23 04:41 1 mg ONCE ONE Administration Protocol Medical Decision Making Differential Diagnosis Differential Diagnoses: The differential diagnosis associated with the presentation includes ( UTI, sepsis, electrolyte derangement, dehydration, severe anemia, UTI, pyelonephritis.) Admission/Observation Consideration of admission/observation: Escalation of care including admission/observation considered Consult Healthcare Provider Management of the patient was discussed with: Hospitalist ( Dr. Garcia) Lab Data MDM Lab Attestation statement: I reviewed the patient's lab results. 12/14/23 23:08 12/14/23 23:08 Labs: Lab Results 12/14/23 12/15/23 Range/Units 23:08 03:40 WBC 9.0 (4.8-10.8) X10*3/uL RBC 4.88 (4.20-5.50) X10*6/uL Hgb 14.0 (12.0-16.0) g/dl Hct 40.0 (37.0-47.0) % MCV 82.0 (80.0-98.0) fL MCH 28.7 (27.0-33.0) pg MCHC 35.0 (31.0-35.0) g/dl RDW 14.3 (11.0-16.0) % Plt Count 161 (160-400) X10*3/uL MPV 9.4 (9.4-12.3) fL Immature Gran % (Auto) 2.9 H (0.0-0.4) % Neut % (Auto) 82.1 H (45-73) % Lymph % (Auto) 10.4 L (20-40) % [place] % (Auto) 4.3 (2-11) % Eos % (Auto) 0.1 (0-4) % Baso % (Auto) 0.2 (0-2) % Lymph # (Auto) 0.9 L (1.2-4.9) X10*3/uL [place] # (Auto) 0.4 (0.1-1.2) X10*3/uL Eos # (Auto) 0.0 (0.0-0.4) X10*3/uL Baso # (Auto) 0.0 (0.0-0.2) X10*3/uL Abs Immat Gran (auto) 0.26 H (0.00-0.03) X10*3/uL Absolute Neuts (auto) 7.4 (2.0-8.3) x10*3/uL Absolute Nucleated RBC 0.000 (0.0-0.012) X10*3/uL Nucleated RBC % (auto) 0.0 (0.0-0.2) /100WBC Sodium 123 L (135-145) mmol/L Potassium 4.6 (3.3-5.1) mmol/L Chloride 90 L (96-108) mmol/L Carbon Dioxide 27 (22-29) mmol/L Anion Gap 11 L (12-20) BUN 14 (9-16) mg/dL Creatinine 0.62 (0.5-1.4) mg/dL Estim Creat Clear Calc 71.9 Estimated GFR > 60 Random Glucose 123 H (60-115) mg/dL Calcium 8.9 (8.4-10.2) mg/dL Total Bilirubin 0.5 (0.0-1.0) mg/dL AST 16 (5-31) U/L ALT 35 H (0-31) U/L Alkaline Phosphatase 85 (39-117) U/L Troponin I High Sens 14.8 (<3.5-17.0) ng/L Total Protein 6.3 L (6.5-8.0) g/dL Albumin 3.7 (3.5-5.0) g/dL Urine Color Yellow Urine Appearance Cloudy Urine pH 6.0 (5.0-9.0) Ur Specific [place] 1.025 (1.005-1.025) Urine Protein Negative (Neg-Trace) mg/dL Urine Glucose (UA) Negative (Negative) mg/dL Urine Ketones Negative (Negative) mg/dL Urine Blood Negative (Negative) Urine Nitrite Negative (Negative) Ur Leukocyte Esterase Large (3+) H (Negative) Urine RBC 0-2 (0-2) /HPF Urine WBC >50 H (0-5) /HPF Ur Squamous Epith Cells 11-20 (0-2) /HPF Urine Bacteria 4+ (None Seen) Hyaline Casts 0-2 (0-2) /LPF Urine Osmolality 551 (373-1093) mosm/kg Ur Random Sodium < 20.0 mmol/L Ur Random Potassium 44.4 mmol/L Ur Random Chloride 23.0 mmol/L Independent Interpretation I performed an independent interpretation of an: EKG ( normal sinus rhythm at 84 beats per minutes, LVH, no change from previous EKG.) and Plain X-Ray ( chest /Thoracic spine:*Chronic marked interstitial disease of the lungs similar findings present 10/08/2023. Thoracic spine: *T5 osteoporotic vertebral body compression fracture new compared with 06/24/2023 but otherwise age indeterminate. ) Radiology Impression Discussion of test interpretation with radiology: I have reviewed the radiologist's reading. Discharge Plan Discharge Clinical Impression: Acute hyponatremia, Acute UTI Patient Disposition: Admitted As Inpatient Print Language: Other
[2023-12-15 04:41] LABS: Osmolality Urine 551 mosm/kg (373-1093)
[2023-12-15] MEDS: 0.9 % Sodium Chloride 1,000 ML 999 ML IV (05:20)
[2023-12-15] MEDS: levoFLOXacin/D5W 750 MG/150 ML PIGGYBACK 100 MG IV (05:20)
[2023-12-15] MEDS: Morphine Sulfate 2 MG/ML CARTRIDGE 1 MG IVPUSH (05:21)
[2023-12-15] MEDS: Morphine Sulfate 4 MG/ML CARTRIDGE IVPUSH (07:47)
--- NOTE | 2023-12-15 07:56 | PC.NURSE ---
patient resting quietly in bed, respirations equal and unlabored, patient is on her baseline 4lNC. patient is primarily Faroese speaking, bt understands and speaks some albanian, family is at bedside. patient skin dry and intact, patient opens eyes to name. patient medicated per MAR for pain this morning described as 6/10 in her back.
--- NOTE | 2023-12-15 09:14 | PHA.MEDREC ---
Pharmacy Consult ? Medication Reconciliation Pharmacy has completed the medication reconciliation. Patient's daughter at bedside, able to name all medications and doses. Was only unsure about albuterol inhaler, noted that her aunt would know. Included as a PRN anyway
--- NOTE | 2023-12-15 09:31 | P.HPHOSP_ITS ---
History of Present Illness Date of Service: 12/15/23 Attending physician on admission: [facility] Chief Complaint: hyponatremia, UTI 72 yo F with a pmhx of idiopathic pulm fibrosis on prednisone, HTN, GERD, hypothyroidism, current T5 spine fx, presented to the ED last night with decline in mood, and physical functioning over the past 2-3 weeks. Her granddaughter reports that she is usually very acitve at home but has become depressed and anxious about her O2 sats with her pulm fibrosis and has not been ambulating and becoming frail. She has had new generalized weakness, drowsiness and urinary incontinence for the past 2-3 weeks. Frequent urination since coming to the ED. Granddaughter reports a slight decrease in PO intake as well including food and liquids. Denies chest pain, abd pain, or significant SOB from baseline. Current nausea since geting morphine for her back pain. Review of Systems 2 Constitutional: Constitutional: Reports fatigue, Reports lethargy and Reports weakness ENT: Reports mouth lesions (- being treated for oral thrush) Cardiovascular: Cardiovascular: Denies chest pain and Reports dyspnea (at baseline) Respiratory: Respiratory: Denies cough and Reports dyspnea (at baseline) Gastrointestinal: Gastrointestinal: Denies abdominal pain, Denies constipation and Denies diarrhea Genitourinary: Genitourinary: Reports as per HPI and Denies dysuria Musculoskeletal: Musculoskeletal: Reports back pain Integumentary/Breasts: Skin/Breast: Denies rash Neurologic: Reports behavioral changes and Reports weakness Psychiatric: Psychiatric: Reports behavioral changes Endocrine: Endocrine: Reports fatigue [facility] Medical History Oral thrush Back pain of thoracolumbar region Fatigue Respiratory failure with hypoxia Bronchitis Post-COVID chronic cough Exercise hypoxemia Interstitial lung disease Hemoptysis Hypothyroidism Pulmonary fibrosis, unspecified Cough Dyspnea on exertion Social History Patient Tobacco Use Status: Never used Tobacco Smoked in Last 30 Days: No Use of substances other than those prescribed or required for medical reasons: No Advance Directives: No Advance Directives Information Provided: No Meds Allergies Allergy/AdvReac Type Severity Reaction Status Date / Time Penicillins [PENICILLINS] Allergy Unknown SWELLING Verified 12/14/23 22:38 Active Medications: Current Medications Ondansetron HCl (Ondansetron Hcl 4 Mg/2 Ml Vial) 4 mg IVPUSH ONCE ONE Stop: 12/15/23 09:30 Home Medications ?Medication ?Instructions ?Recorded ?Confirmed ?Last Taken ?Type losartan 25 mg tablet 25 mg PO DAILY 09/04/20 12/15/23 12/14/23 History levothyroxine 75 mcg tablet 75 mcg PO DAILY@0600 03/19/23 12/15/23 12/14/23 History pantoprazole 20 mg tablet,delayed 20 mg PO DAILY PRN Acid Reflux 08/31/23 12/15/23 Unknown History release prednisone 20 mg tablet 40 mg PO DAILY 12/09/23 12/15/23 12/14/23 History benzonatate 100 mg capsule 100 mg PO TID PRN cough/ILD. 12/15/23 12/15/23 Unknown History Physical Exam 2 Vital Signs and Narrative: Vital Signs: Last Vital Signs Temp 97.4 F 12/15/23 07:34 Pulse 90 12/15/23 07:34 Resp 12 12/15/23 09:02 BP 128/83 12/15/23 07:34 Pulse Ox 100 12/15/23 07:34 O2 Del Method Nasal Cannula 12/15/23 07:34 O2 Flow Rate 4 12/15/23 07:34 Oxygen Flow Rate 4 12/14/23 22:37 BMI result Body Mass Index 25.7 General: sleeping for most of the interview, Ox3, no acute distress Resp: CTA bilaterally, limited exam due to back pain CVS: S1, S2, RRR GI: +BS, NT, no distention Skin: Warm, dry Neuro: No facial droop, pupils equal, motor grossly intact bilaterally Extremities: No edema Psych: Depressed affect Results Labs 12/14/23 23:08 12/15/23 10:39 Labs: Laboratory Results - last 24 hr 12/14/23 12/15/23 23:08 03:40 MCV 82.0 MCH 28.7 MCHC 35.0 RDW 14.3 Plt Count 161 MPV 9.4 Immature Gran % (Auto) 2.9 H Neut % (Auto) 82.1 H Lymph % (Auto) 10.4 L [place] % (Auto) 4.3 Eos % (Auto) 0.1 Baso % (Auto) 0.2 Lymph # (Auto) 0.9 L [place] # (Auto) 0.4 Eos # (Auto) 0.0 Baso # (Auto) 0.0 Abs Immat Gran (auto) 0.26 H Absolute Neuts (auto) 7.4 Absolute Nucleated RBC 0.000 Nucleated RBC % (auto) 0.0 Anion Gap 11 L Estim Creat Clear Calc 71.9 Estimated GFR > 60 Random Glucose 123 H Calcium 8.9 Total Bilirubin 0.5 AST 16 ALT 35 H Alkaline Phosphatase 85 Troponin I High Sens 14.8 Total Protein 6.3 L Albumin 3.7 Urine Color Yellow Urine Appearance Cloudy Urine pH 6.0 Ur Specific [place] 1.025 Urine Protein Negative Urine Glucose (UA) Negative Urine Ketones Negative Urine Blood Negative Urine Nitrite Negative Ur Leukocyte Esterase Large (3+) H Urine RBC 0-2 Urine WBC >50 H Ur Squamous Epith Cells 11-20 Urine Bacteria 4+ Hyaline Casts 0-2 Urine Osmolality 551 Ur Random Sodium < 20.0 Ur Random Potassium 44.4 Ur Random Chloride 23.0 Imaging Radiologist's Impressions: Impressions Chest X-Ray 12/15/23 04:39 IMPRESSION: Chest: *Chronic marked interstitial disease of the lungs similar findings present 10/08/2023. Thoracic spine: *T5 osteoporotic vertebral body compression fracture new compared with 06/24/2023 but otherwise age indeterminate. *Chronic osteoporotic compression deformities of the T7 and T12 vertebral bodies. The T7 vertebral body compression deformity is unchanged compared with 06/24/2023. The T12 compression deformity is unchanged compared with 01/27/2023. *Marked diffuse osteopenia Electronically signed by: Les Alegre MD 12/15/2023 06:06 AM EDT RP Assessment and Plan (1) Acute UTI: Status: Acute (2) Acute hyponatremia: Status: Acute Plan 72 yo F with a pmhx of idiopathic pulm fibrosis on prednisone, HTN, GERD, hypothyroidism, current T5 spine fx, presented to the ED last night with decline in mood, and physical functioning over the past 2-3 weeks. In ED found to have moderate euvolemic hyponatremia and UTI. moderate symptomatic euvolemic hyponatremia - 123 last night, 130 now - Na improved with NS in ED, up 7mmol, no further fluids - nephro consult UTI - cx pending - continue levaquin, switch to PO 250 mg QD idiopathic pulm fibrosis - continue 4L O2 via NC - continue prednisone 40mg QD, mycophenolate, albuterol PRN, benzonatate PRN, HTN - hold losartan as it can lower Na, BP normal now GERD - continue pantoprazole 20mg QD PRN hypothyroidism - continue levothyroxine 75mcg QD T5 fx - continue calcitonin spray QD, vit D3 - morphine for pain full code DVT prohpy: pneumoboots and lovenox Pt with moderate symptomatic euvolemic hyponatremia and UTI with the need for IV electrolyte resuscitation and monitoring requiring at least 2 midnights stay, therefore pt will be admitted. Quality Stroke Does the patient have a stroke diagnosis?: No VTE Prior VTE?: No VTE Risk Level:: Medical - moderate - high VTE Device Contraindication: N/A - Device Ordered VTE Drug Contraindication: N/A - Med Ordered
[2023-12-15] MEDS: ondansetron HCL 4 MG/2 ML VIAL IVPUSH ×2 (09:41→17:45)
[2023-12-15 11:01] LABS: Anion Gap 11 (12-20); Blood Urea Nitrogen 13 mg/dL (9-16); Calcium 8.6 mg/dL (8.4-10.2); Carbon Dioxide 26 mmol/L (22-29); Chloride 97 mmol/L (96-108); Creatinine Clr Calc Pharmacy 84.2; Estimated Glomerular Filt Rate > 60; Glucose Random 146 mg/dL (60-115); Potassium 4.3 mmol/L (3.3-5.1); Sodium 130 mmol/L (135-145)
[2023-12-15] MEDS: Metoclopramide HCl 10 MG/2 ML VIAL 5 MG IVPUSH (12:41)
--- NOTE | 2023-12-15 13:25 | PC.NURSE ---
Nephrology to bedside speaking with pt and family (granddaughter). Pt refused meds until nausea is under control. Recently given Reglan. Provider aware of plan to medicate once nausea decreases.
--- NOTE | 2023-12-15 13:30 | P.CONNP_ITS ---
History of Present Illness Reason for Consult Consult date: 12/15/23 Chief Complaint Chief complaint: hyponatremia UTI History of Present Illness Narrative: Patient is a 72 y/o female (reports she is comfortable with Serbian, first language is Korean), with a history of advanced idiopathic pulmonary fibrosis (on 4L O2 at baseline), recent compression fracture of thoracic spine (on chronic prednisone for pulm fibrosis). Granddaughter, Ryan, is at bedside with patient, and gives most of history as patient states she is very tired. Per granddaughter, patient has been declining each day over the past 2-3 weeks states she has become increasingly lethargic and her mood has been very depressed she has not eaten or drank well for last few days She is being treated for a UTI Nephrology consulted for hyponatremia- on admission, 123, though has improved to 130 with 500mL NaCL bolus she states her breathing is less comfortable than usual she states she is very tired, reports has been nauseous she denies abdominal pain, chest pain no other concerns/complaints at bedside patient has very dry mucous membranes Review of Systems Constitutional: Reports fatigue and Reports malaise Denies dizziness and Reports dry mouth Cardiovascular: Denies chest pain and Reports dyspnea (reports breathing feels labored ) Respiratory: Reports dyspnea (reports breathing feels labored ) Gastrointestinal: Denies abdominal pain, Denies diarrhea and Denies vomiting Genitourinary: Denies hematuria, Denies dysuria and Denies flank pain Musculoskeletal: Reports back pain (mid back pain since thoracic fracture ) Skin/Breast: Denies rash Denies dizziness Endocrine: Reports fatigue PMFSH Past Medical History Medical History Oral thrush Back pain of thoracolumbar region Fatigue Respiratory failure with hypoxia Bronchitis Post-COVID chronic cough Exercise hypoxemia Interstitial lung disease Hemoptysis Hypothyroidism Pulmonary fibrosis, unspecified Cough Dyspnea on exertion Social History Social History Patient Tobacco Use Status: Never used Tobacco Smoked in Last 30 Days: No Use of substances other than those prescribed or required for medical reasons: No Advance Directives: No Advance Directives Information Provided: No Meds Allergies Allergy/AdvReac Type Severity Reaction Status Date / Time Penicillins [PENICILLINS] Allergy Unknown SWELLING Verified 12/14/23 22:38 Active Medications: Current Medications Acetaminophen (Acetaminophen 325 Mg Tablet) 650 mg PO Q6H PRN PRN Reason: Pain, Mild (Pain Scale 1-3), fever or headache Albuterol Sulfate (Albuterol Sulfate 90 Mcg 8 Gm Inhaler) 2 puff INHALE Q4H PRN PRN Reason: shortness of breath or wheezing Benzonatate (Benzonatate 100 Mg Capsule) 100 mg PO TID PRN PRN Reason: cough/ILD. Calcitonin [place] (Calcitonin,[place],Synth Nasal 3.7 Ml Bottle) 1 spray NOSTRILALT DAILY [facility] Calcium Carbonate (Calcium Carbonate 750 Mg Tab.Chew) 750 mg PO Q4H PRN PRN Reason: Heartburn Enoxaparin Sodium (Enoxaparin Sodium 40 Mg/0.4 Ml Syringe) 40 mg SUBCUT Q24H [facility] Levofloxacin (Levofloxacin 250 Mg Tablet) 250 mg PO Q24H [facility] Levothyroxine Sodium (Levothyroxine Sodium 75 Mcg Tablet) 75 mcg PO DAILY@0600 [facility] Magnesium Hydroxide (Milk Of Magnesia 30 Ml Oral.Susp) 30 ml PO DAILY PRN PRN Reason: Constipation Melatonin (Melatonin 3 Mg Tablet) 6 mg PO BEDTIME PRN PRN Reason: Insomnia Morphine Sulfate (Morphine Sulfate 4 Mg/Ml Cartridge) 2 mg IVPUSH Q4H PRN; Protocol PRN Reason: Pain, Severe (Pain Scale 7-10) Mycophenolate Mofetil (Mycophenolate Mofetil 250 Mg Capsule) 500 mg PO BID [facility] Nystatin (Nystatin Oral Susp 500,000 Unit/5 Ml Oral.Susp) 500,000 unit PO TID [facility]; Protocol Omeprazole (Omeprazole 20 Mg Capsule.Dr) 20 mg PO DAILY PRN PRN Reason: Acid Reflux Ondansetron HCl (Ondansetron Hcl 4 Mg/2 Ml Vial) 4 mg IVPUSH Q8H PRN PRN Reason: Nausea and Vomiting Prednisone (Prednisone 20 Mg Tablet) 40 mg PO DAILY [facility] Sodium Chloride (0.9 % Sodium Chloride Flush 3 Ml Syringe) 3 ml IVFLUSH QSHIFT [facility] Vitamin D (Cholecalciferol (Vitamin D3) 25 Mcg Tablet) 50 mcg PO DAILY [facility] Home Medications ?Medication ?Instructions ?Recorded ?Confirmed ?Last Taken ?Type losartan 25 mg tablet 25 mg PO DAILY 09/04/20 12/15/23 12/14/23 History levothyroxine 75 mcg tablet 75 mcg PO DAILY@0600 03/19/23 12/15/23 12/14/23 History pantoprazole 20 mg tablet,delayed 20 mg PO DAILY PRN Acid Reflux 08/31/23 12/15/23 Unknown History release prednisone 20 mg tablet 40 mg PO DAILY 12/09/23 12/15/23 12/14/23 History benzonatate 100 mg capsule 100 mg PO TID PRN cough/ILD. 12/15/23 12/15/23 Unknown History Physical Exam Vital Signs: Last Vital Signs Temp 97.5 F 12/15/23 10:30 Pulse 93 12/15/23 10:30 Resp 24 H 12/15/23 10:30 BP 130/79 12/15/23 10:30 Pulse Ox 100 12/15/23 10:30 O2 Del Method Nasal Cannula 12/15/23 10:30 O2 Flow Rate 4 12/15/23 10:30 Oxygen Flow Rate 4 12/14/23 22:37 BMI result Body Mass Index 25.7 Const General: comfortable and no acute distress Neck Neck: Yes no JVD Resp Auscultation: clear to auscultation bilaterally Cardio Jugular venous distension: no JVD Rate: regular rate Rhythm: regular rhythm Heart sounds: S1 normal heart sound present and S2 normal heart sound present GI Palpation (GI): Soft to palpation Rectal Exam - Female: No tenderness General: Yes no CVA tenderness Back/Spine/Pelvis Back: no CVA tenderness Skin Rashes: no rashes Extrem General: Yes normal to inspection, No edema and No pedal edema Results Lab Results 12/14/23 23:08 12/15/23 10:39 Lab results: Chemistry 12/14/23 12/15/23 23:08 10:39 Sodium 123 L 130 L Potassium 4.6 4.3 Carbon Dioxide 27 26 BUN 14 13 Creatinine 0.62 0.53 Calcium 8.9 8.6 Hematology 12/14/23 23:08 WBC 9.0 Hgb 14.0 Plt Count 161 Urinalysis 12/15/23 03:40 Urine Color Yellow Urine Appearance Cloudy Urine pH 6.0 Ur Specific [place] 1.025 Urine Protein Negative Urine Glucose (UA) Negative Urine Ketones Negative Urine Blood Negative Urine Nitrite Negative Ur Leukocyte Esterase Large (3+) H Urine RBC 0-2 Urine WBC >50 H Ur Squamous Epith Cells 11-20 Hyaline Casts 0-2 Urine Studies 12/15/23 03:40 Urine Osmolality 551 Assessment and Plan (1) Acute hyponatremia: Status: Acute Plan Hyponatremia likely secondary to underlying excess ADH from underlying pulmonary issue, nausea and pain volume contraction from reduced PO intake, malnutrition patient appears hypovolemic with dry mucous membranes recommend supportive care, recommend fluid restriction of 1.5L over 24 hours (additional fluid may drop sodium further) Monitor sodium for tomorrow morning Discussed with Dr Tucker Procedures Date of Service Date of Service: 12/15/23
[2023-12-15] MEDS: Enoxaparin Sodium 40 MG/0.4 ML SYRINGE SUBCUT (13:47)
[2023-12-15] MEDS: mycophenolate mofetiL 250 MG CAPSULE 500 MG PO ×2 (13:50→22:53)
[2023-12-15] MEDS: Cholecalciferol (Vitamin D3) 25 MCG TABLET 50 MCG PO (13:50)
[2023-12-15] MEDS: predniSONE 20 MG TABLET 40 MG PO (13:50)
[2023-12-15] MEDS: Nystatin Oral Susp 500,000 UNIT/5 ML ORAL.SUSP 500000 UNIT PO ×2 (13:51→22:53)
[2023-12-15] MEDS: Levothyroxine Sodium 75 MCG TABLET PO (13:51)
[2023-12-15] MEDS: Famotidine/PF 20 MG/2 ML VIAL IVPUSH (17:42)
[2023-12-15] MEDS: Lactated Ringers 1,000 ML 100 ML IVCONT (17:43)
[2023-12-15] MEDS: 0.9 % Sodium Chloride Flush 3 ML SYRINGE IVFLUSH (17:43)
[2023-12-15] MEDS: LORazepam 2 MG/ML VIAL 0.5 MG IVPUSH (19:59)
[2023-12-15] MEDS: Calcitonin,Salmon,Synth Nasal 3.7 ML BOTTLE 1 SPRAY NOSTRILALT (22:54)
--- NOTE | 2023-12-15 23:05 | PC.NURSE ---
calcitonin placed in patient specific bin, ok to have at room temperature after first admin.
--- NOTE | 2023-12-15 23:44 | MHC.EDTECH ---
This tech took over care of patient at 2300,rounds and vitals completed,family at bedside call pritchett in reach
--- NOTE | 2023-12-16 00:24 | MHC.EDTECH ---
Family placed patient on the bedside commode
--- NOTE | 2023-12-16 01:18 | MHC.PIE ---
p; pt in ed noted by md with n/v. no covid test performed? i; dr corona notified. new order rsv/covid/inf test now e; will cont to monitor
--- NOTE | 2023-12-16 01:24 | PC.NURSE ---
Dr corona verbal order to change Vipin/Covid/Flu to Covid-19 now.
[2023-12-16 02:02] LABS: COVID-19 Test Negative (Negative); IDNOW Serial# 08D9AD1C
[2023-12-16] MEDS: Lactated Ringers 1,000 ML 100 ML IVCONT (02:20)
[2023-12-16 02:30] VITALS: BP 150/76; PULSE 98; RESP 18; TEMP 36; O2SAT 98
--- NOTE | 2023-12-16 03:04 | MHC.PIE ---
p; pt arrived from ed, pt noted with wet sounding cough and agustin low lung sounds with fine crackles. note; pt arrived with LR@100 I; dr corona notified; dc LR now e; will cont to monitor
--- NOTE | 2023-12-16 06:22 | MHC.PIE ---
p; multiple attempt made to wake pt for med administration with pt very drowsy and refusing meds. note; pt also refused lab this AM - this commercial underwriter made aware of this after lab has already left i; dr corona notified e; will cont to monitor
[2023-12-16 08:11] VITALS: BP 143/79; PULSE 107; RESP 18; TEMP 36.1; O2SAT 97
[2023-12-16] MEDS: Levothyroxine Sodium 75 MCG TABLET PO (08:20)
[2023-12-16 09:03] LABS: MANUAL DIFF FLAG NO
[2023-12-16 09:12] LABS: Basophils Percent Auto 0.3 % (0-2); Eosinophils Percent Auto 0.1 % (0-4); Hematocrit 39.3 % (37.0-47.0); Hemoglobin 13.6 g/dl (12.0-16.0); Imm Gran Abs Auto 0.22 X10*3/uL (0.00-0.03); Imm Gran Pct Auto 2.9 % (0.0-0.4); Lymphocytes Percent Auto 13.4 % (20-40); Mean Corpuscular HGB Conc 34.6 g/dl (31.0-35.0); Mean Corpuscular Volume 83.8 fL (80.0-98.0); Mean Platelet Volume 9.8 fL (9.4-12.3); Monocytes Absolute Auto 0.5 X10*3/uL (0.1-1.2); Monocytes Percent Auto 7.2 % (2-11); Neutrophils Absolute Auto 5.8 x10*3/uL (2.0-8.3); Neutrophils Percent Auto 76.1 % (45-73); Platelet Count 160 X10*3/uL (160-400); Red Blood Count 4.69 X10*6/uL (4.20-5.50); Red Cell Distribution Width 14.4 % (11.0-16.0); White Blood Count 7.6 X10*3/uL (4.8-10.8)
[2023-12-16] MEDS: mycophenolate mofetiL 250 MG CAPSULE 500 MG PO ×2 (09:14→20:27)
[2023-12-16] MEDS: Cholecalciferol (Vitamin D3) 25 MCG TABLET 50 MCG PO (09:14)
--- NOTE | 2023-12-16 09:14 | MHC.CM.PN ---
[facility] DELIVERED CM MET WITH PT AND DAUGHTER AT BEDSIDE. PT LIVES WITH FAMILY. USES CANE FOR MOBILITY AND HAS CONTINUOUS 02 FROM 3-5 L AND IS FOLLOWED BY DR. MENDIETA (PULMONARY). PT IS UNSURE OF VENDOR FOR 02. PT WILL NEED TO DISCUSS COMPLETING A HCP WITH HER GRANDAUGHTER, CM WILL RE-APPROACH. PCP DR. CANA[place]. DP: HOME WITH FAMILY SUPPORT IS THE GOAL HOWEVER THE PT/DAUGHTER ARE OPEN TO A VNA IF RECOMMENDED. PT/FAMILY HAVE NO PREFERENCE TO AGENCY. REFERRAL SENT TO [facility]. FAMILY WILL TRANSPORT. CM WILL CONTINUE TO FOLLOW FOR ANY CHANGE TO DC PLAN/NEEDS.
[2023-12-16] MEDS: Famotidine/PF 20 MG/2 ML VIAL IVPUSH ×2 (09:15→20:28)
[2023-12-16] MEDS: 0.9 % Sodium Chloride Flush 3 ML SYRINGE IVFLUSH ×2 (09:16→20:29)
[2023-12-16] MEDS: Nystatin Oral Susp 500,000 UNIT/5 ML ORAL.SUSP 500000 UNIT PO ×3 (09:16→20:28)
[2023-12-16 09:29] LABS: Anion Gap 10 (12-20); Blood Urea Nitrogen 10 mg/dL (9-16); Calcium 8.9 mg/dL (8.4-10.2); Carbon Dioxide 28 mmol/L (22-29); Chloride 101 mmol/L (96-108); Creatinine Clr Calc Pharmacy 82.6; Estimated Glomerular Filt Rate > 60; Glucose Random 101 mg/dL (60-115); Potassium 3.8 mmol/L (3.3-5.1); Sodium 135 mmol/L (135-145)
--- NOTE | 2023-12-16 09:32 | P.PNNP_ITS ---
Subjective Subjective Date of Service: 12/16/23 Interval history: Patient is a 72 y/o female (reports she is comfortable with [place], first language is Ukrainian), with a history of advanced idiopathic pulmonary fibrosis (on 4L O2 at baseline), recent compression fracture of thoracic spine (on chronic prednisone for pulm fibrosis). Patient has been declining each day over the past 2-3 weeks had become increasingly lethargic and her mood has been very depressed she had not eaten or drank much for days prior to admission She is being treated for a UTI Nephrology consulted for hyponatremia- on admission, 123; improved to 130 with 500mL NaCL bolus yesterday. Today sodium is 135. Pt states she is doing well today, she is alert and conversant at bedside; daughter is also at bedside. She denies pain, nausea She states her breathing feels like it is back to her baseline She reports she has been urinating throughout the night without pain or difficulty. She is eating breakfast Physical Exam 2 Vital Signs: Vital Signs: Last Vital Signs Temp 96.9 F 12/16/23 08:11 Pulse 107 H 12/16/23 08:11 Resp 18 12/16/23 08:11 BP 143/79 H 12/16/23 08:11 Pulse Ox 97 12/16/23 08:11 O2 Del Method Nasal Cannula 12/16/23 08:11 O2 Flow Rate 4 12/16/23 08:11 Oxygen Flow Rate 4 12/14/23 22:37 BMI result Body Mass Index 25.7 Const: General: comfortable and no acute distress Neck: Neck: Yes no JVD Resp: Auscultation: clear to auscultation bilaterally Cardio: Jugular venous distension: no JVD Rate: regular rate Rhythm: r egular rhythm Heart sounds: S1 normal heart sound present and S2 normal heart sound present GI: Palpation (GI): Soft to palpation Rectal Exam - Female: No tenderness : General: Yes no CVA tenderness Back/Spine/Pelvis: Back: no CVA tenderness Skin: Rashes: no rashes Extrem: General: Yes normal to inspection, No edema and No pedal edema Objective Data Labs 12/16/23 08:49 12/16/23 08:49 Labs: Laboratory Results - last 24 hr 12/15/23 12/16/23 12/16/23 10:39 01:26 08:49 WBC 7.6 RBC 4.69 Hgb 13.6 Hct 39.3 MCV 83.8 MCH 29.0 MCHC 34.6 RDW 14.4 Plt Count 160 MPV 9.8 Immature Gran % (Auto) 2.9 H Neut % (Auto) 76.1 H Lymph % (Auto) 13.4 L [place] % (Auto) 7.2 Eos % (Auto) 0.1 Baso % (Auto) 0.3 Lymph # (Auto) 1.0 L [place] # (Auto) 0.5 Eos # (Auto) 0.0 Baso # (Auto) 0.0 Abs Immat Gran (auto) 0.22 H Absolute Neuts (auto) 5.8 Absolute Nucleated RBC 0.000 Nucleated RBC % (auto) 0.0 Sodium 130 L 135 Potassium 4.3 3.8 Chloride 97 101 Carbon Dioxide 26 28 Anion Gap 11 L 10 L BUN 13 10 Creatinine 0.53 0.54 Estim Creat Clear Calc 84.2 82.6 Estimated GFR > 60 > 60 Random Glucose 146 H 101 Calcium 8.6 8.9 COVID-19 (BRANDI) Negative COVID-19 Clin Com See Note Microbiology Microbiology Results: Microbiology 12/15/23 05:18 Blood - Venous Blood Culture - Preliminary No growth after 24 hours. 12/15/23 05:04 Blood - Venous Blood Culture - Preliminary No growth after 24 hours. Procedures Date of Service Date of Service: 12/16/23 Assessment & Plan Assessment and plan (1) Acute hyponatremia: Status: Acute Plan Hyponatremia likely secondary to underlying excess ADH from underlying pulmonary issue, nausea and pain also had volume contraction from reduced PO intake, malnutrition Sodium has normalized, patient has stable blood pressure and feeling better today, BUN normal recommend supportive care, recommend to conitnue fluid restriction of 1.5L over [address] Tucker Time Spent With Patient Time: Total time managing care of this patient today ____ minutes. Progress Note: Quality Stroke Does the patient have a stroke diagnosis?: No
--- NOTE | 2023-12-16 09:53 | P.PNIM_ITS ---
Subjective Subjective Date of Service: 12/16/23 Interval History: f/u on uti, n/v she's doing much better today no more n/v, still has back pain which is know Physical Exam 2 Vital Signs: Vital Signs: Last Vital Signs Temp 96.9 F 12/16/23 08:11 Pulse 107 H 12/16/23 08:11 Resp 18 12/16/23 08:11 BP 143/79 H 12/16/23 08:11 Pulse Ox 97 12/16/23 08:11 O2 Del Method Nasal Cannula 12/16/23 08:11 O2 Flow Rate 4 12/16/23 08:11 Oxygen Flow Rate 4 12/14/23 22:37 BMI result Body Mass Index 25.7 Const: Other: General: AO X 3, no acute distress Resp: CTA bilateral CVS: S1,S2,RRR GI: +BS, NT, no distention Skin: No rash Neuro: motor grossly intact Psych: appropriate affect Objective Data Active Medications Acetaminophen (Acetaminophen 325 Mg Tablet) 650 mg PO Q6H PRN PRN Reason: Pain, Mild (Pain Scale 1-3), fever or headache Albuterol Sulfate (Albuterol Sulfate 90 Mcg 8 Gm Inhaler) 2 puff INHALE Q4H PRN PRN Reason: shortness of breath or wheezing Benzonatate (Benzonatate 100 Mg Capsule) 100 mg PO TID PRN PRN Reason: cough/ILD. Calcitonin [place] (Calcitonin,[place],Synth Nasal 3.7 Ml Bottle) 1 spray NOSTRILALT DAILY [facility] Last Admin: 12/15/23 22:54 Dose: 1 spray Documented By: MILADYS Calcium Carbonate (Calcium Carbonate 750 Mg Tab.Chew) 750 mg PO Q4H PRN PRN Reason: Heartburn Enoxaparin Sodium (Enoxaparin Sodium 40 Mg/0.4 Ml Syringe) 40 mg SUBCUT Q24H [facility] Last Admin: 12/15/23 13:47 Dose: 40 mg Documented By: MAXIME Famotidine (Famotidine/Pf 20 Mg/2 Ml Vial) 20 mg IVPUSH BID [facility] Last Admin: 12/16/23 09:15 Dose: 20 mg Documented By: DOBROB Levofloxacin (Levofloxacin 250 Mg Tablet) 250 mg PO Q24H [facility] Last Admin: 12/16/23 06:18 Dose: Not Given Documented By: ELAYNE Non-Admin Reason: unable to wake pt for safe po Levothyroxine Sodium (Levothyroxine Sodium 75 Mcg Tablet) 75 mcg PO DAILY@0600 [facility] Last Admin: 12/16/23 08:20 Dose: 75 mcg Documented By: DIEUDONNE Magnesium Hydroxide (Milk Of Magnesia 30 Ml Oral.Susp) 30 ml PO DAILY PRN PRN Reason: Constipation Melatonin (Melatonin 3 Mg Tablet) 6 mg PO BEDTIME PRN PRN Reason: Insomnia Morphine Sulfate (Morphine Sulfate 4 Mg/Ml Cartridge) 2 mg IVPUSH Q4H PRN; Protocol PRN Reason: Pain, Severe (Pain Scale 7-10) Mycophenolate Mofetil (Mycophenolate Mofetil 250 Mg Capsule) 500 mg PO BID [facility] Last Admin: 12/16/23 09:14 Dose: 500 mg Documented By: DIEUDONNE Nystatin (Nystatin Oral Susp 500,000 Unit/5 Ml Oral.Susp) 500,000 unit PO TID [facility]; Protocol Last Admin: 12/16/23 09:16 Dose: 500,000 unit Documented By: DIEUDONNE Omeprazole (Omeprazole 20 Mg Capsule.Dr) 20 mg PO DAILY PRN PRN Reason: Acid Reflux Ondansetron HCl (Ondansetron Hcl 4 Mg/2 Ml Vial) 4 mg IVPUSH Q8H PRN PRN Reason: Nausea and Vomiting Last Admin: 12/15/23 17:45 Dose: 4 mg Documented By: VENKATESH Prednisone (Prednisone 20 Mg Tablet) 40 mg PO DAILY [facility] Last Admin: 12/16/23 09:19 Dose: Not Given Documented By: DIEUDONNE Non-Admin Reason: Patient Refused Sodium Chloride (0.9 % Sodium Chloride Flush 3 Ml Syringe) 3 ml IVFLUSH QSHIFT [facility] Last Admin: 12/16/23 09:16 Dose: 3 ml Documented By: DIEUDONNE Tramadol HCl (Tramadol Hcl 50 Mg Tablet) 25 mg PO Q6H PRN PRN Reason: Pain, Moderate(Pain Scale 4-6) Vitamin D (Cholecalciferol (Vitamin D3) 25 Mcg Tablet) 50 mcg PO DAILY [facility] Last Admin: 12/16/23 09:14 Dose: 50 mcg Documented By: DIEUDONNE Labs 12/16/23 08:49 12/16/23 08:49 Labs: Laboratory Results - last 24 hr 12/15/23 12/16/23 12/16/23 10:39 01:26 08:49 MCV 83.8 MCH 29.0 MCHC 34.6 RDW 14.4 Plt Count 160 MPV 9.8 Immature Gran % (Auto) 2.9 H Neut % (Auto) 76.1 H Lymph % (Auto) 13.4 L [place] % (Auto) 7.2 Eos % (Auto) 0.1 Baso % (Auto) 0.3 Lymph # (Auto) 1.0 L [place] # (Auto) 0.5 Eos # (Auto) 0.0 Baso # (Auto) 0.0 Abs Immat Gran (auto) 0.22 H Absolute Neuts (auto) 5.8 Absolute Nucleated RBC 0.000 Nucleated RBC % (auto) 0.0 Anion Gap 11 L 10 L Estim Creat Clear Calc 84.2 82.6 Estimated GFR > 60 > 60 Random Glucose 146 H 101 Calcium 8.6 8.9 COVID-19 (BRANDI) Negative COVID-19 Clin Com See Note Microbiology Microbiology Results: Microbiology 12/15/23 05:18 Blood Culture - Preliminary Blood - Venous No growth after 24 hours. 12/15/23 05:04 Blood Culture - Preliminary Blood - Venous No growth after 24 hours. Assessment and Plan (1) Acute UTI: Status: Acute Plan 72 yo F with a pmhx of idiopathic pulm fibrosis on prednisone, HTN, GERD, hypothyroidism, current T5 spine fx, presented to the ED last night with decline in mood, and physical functioning over the past 2-3 weeks. In ED found to have moderate euvolemic hyponatremia and UTI, n/v moderate symptomatic euvolemic hyponatremia - 123 to 130 to 135 now -avoid excess free water, 1. 5 L fluid restriction/day UTI - cx pending - continue levaquin, switch to PO 250 mg QD N/V --d/t uti, hyponatremia -resolved and tolerating oral diet -ct showed fluid filled o/w fine idiopathic pulm fibrosis - continue 4L O2 via NC - continue prednisone 40mg QD, mycophenolate, albuterol PRN, benzonatate PRN, HTN - hold losartan as it can lower Na, BP normal now GERD - continue pantoprazole 20mg QD PRN hypothyroidism - continue levothyroxine 75mcg QD T5 fx - continue calcitonin spray QD, vit D3 - morphine for pain full code DVT prohpy: pneumoboots and lovenox management of hyponatremia, uti.. Quality Stroke Does the patient have a stroke diagnosis?: No VTE Prior VTE?: No VTE Risk Level:: Medical - moderate - high VTE Device Contraindication: N/A - Device Ordered VTE Drug Contraindication: N/A - Med Ordered
[2023-12-16] MEDS: Enoxaparin Sodium 40 MG/0.4 ML SYRINGE SUBCUT (11:04)
[2023-12-16] MEDS: levoFLOXacin 250 MG TABLET PO (11:04)
[2023-12-16 14:05] VITALS: BP 143/79; PULSE 107; O2SAT 97
[2023-12-16] MEDS: Calcitonin,Salmon,Synth Nasal 3.7 ML BOTTLE 1 SPRAY NOSTRILALT (14:14)
[2023-12-16 15:44] VITALS: BP 143/79; PULSE 99; RESP 18; TEMP 36.1; O2SAT 97
[2023-12-16 19:21] VITALS: BP 155/88; PULSE 110; RESP 18; TEMP 36.8; O2SAT 97
[2023-12-16] MEDS: Acetaminophen 325 MG TABLET 650 MG PO (20:28)
[2023-12-16] MEDS: Milk of Magnesia 30 ML ORAL.SUSP PO (21:49)
[2023-12-17 04:00] VITALS: BP 127/60; PULSE 98; RESP 16; TEMP 36; O2SAT 98
[2023-12-17] MEDS: Levothyroxine Sodium 75 MCG TABLET PO (06:19)
[2023-12-17] MEDS: levoFLOXacin 250 MG TABLET PO (06:19)
[2023-12-17 07:50] VITALS: BP 142/79; PULSE 98; RESP 18; TEMP 36.2; O2SAT 98
[2023-12-17] MEDS: 0.9 % Sodium Chloride Flush 3 ML SYRINGE IVFLUSH (08:26)
[2023-12-17] MEDS: Famotidine/PF 20 MG/2 ML VIAL IVPUSH (08:27)
[2023-12-17] MEDS: mycophenolate mofetiL 250 MG CAPSULE 500 MG PO (08:29)
[2023-12-17] MEDS: Acetaminophen 325 MG TABLET 650 MG PO (08:29)
[2023-12-17] MEDS: Cholecalciferol (Vitamin D3) 25 MCG TABLET 50 MCG PO (08:29)
[2023-12-17] MEDS: Nystatin Oral Susp 500,000 UNIT/5 ML ORAL.SUSP 500000 UNIT PO (08:29)
[2023-12-17] MEDS: predniSONE 20 MG TABLET 40 MG PO (08:29)
--- NOTE | 2023-12-17 09:32 | PM.DS ---
DS: Providers Provider Date of Service: 12/17/23 Date of admission: 12/15/23 10:26 Primary care physician: Bia Verma MD Consults: 12/15/23 12:17 Consult to Nephrology Routine Consulting Provider: [facility] Reason for consultation: hyponatremia Has provider been notified: Yes 12/15/23 12:19 Consult to Nephrology Routine Consulting Provider: [facility] Reason for consultation: hyponatremia Has provider been notified: No DS: Diagnosis Discharge Diagnosis (1) Acute hyponatremia: Status: Resolved DS: Summary Hospital Course Hospital Course: Chief Complaint: hyponatremia, UTI 72 yo F with a pmhx of idiopathic pulm fibrosis on prednisone, HTN, GERD, hypothyroidism, current T5 spine fx, presented to the ED last night with decline in mood, and physical functioning over the past 2-3 weeks. Her granddaughter reports that she is usually very acitve at home but has become depressed and anxious about her O2 sats with her pulm fibrosis and has not been ambulating and becoming frail. She has had new generalized weakness, drowsiness and urinary incontinence for the past 2-3 weeks. Frequent urination since coming to the ED. Granddaughter reports a slight decrease in PO intake as well including food and liquids. Denies chest pain, abd pain, or significant SOB from baseline. Current nausea since geting morphine for her back pain. Hospital course: 72 yo F with a pmhx of idiopathic pulm fibrosis on prednisone, HTN, GERD, hypothyroidism, current T5 spine fx, presented to the ED last night with decline in mood, and physical functioning over the past 2-3 weeks. In ED found to have moderate euvolemic hyponatremia and UTI, n/v. Patient was admitted hyponatremia, initially given IVF and followed by fluid restriction and has done well. Sodium level has corrected to 135, there was suspicion for Losartan as potential cause and has been stopped. UTI has been treated with levaquin. She is presently feeling very with no further symptoms and would like to go home. Physical therapy has seen her and recommend to go home with home PT euvolemic hyponatremia - 123 to 130 to 135 and all symptoms resolved. -avoid excess free water, 1. 5 L fluid restriction/day UTI - cx --Corynebacterium species - continue levaquin PO 250 mg QD for total of 5 days N/V --d/t uti, hypOnatremia -resolved and tolerating regular diet idiopathic pulm fibrosis - continue 4L O2 via NC - continue prednisone 40mg QD, mycophenolate, albuterol PRN, benzonatate PRN, HTN, Losartan stopped as potential cause of hyponatremia and replaced with norvasc 5 mg daily GERD - continue pantoprazole 20mg QD PRN hypothyroidism - continue levothyroxine 75mcg QD T5 fx - continue calcitonin spray QD, vit D3 Dispo: home with [facility]NA Time Attestation Discharge Coordination Time (in mins): 45 Quality: Safe Use of Opioids Does Pt have an Active Cancer Diagnosis on the Problem List?: No Quality: Stroke Does the patient have a stroke diagnosis?: No Physical Exam Vital Signs: Vital Signs: Last Vital Signs Temp 97.2 F 12/17/23 07:50 Pulse 98 12/17/23 07:50 Resp 18 12/17/23 07:50 BP 142/79 H 12/17/23 07:50 Pulse Ox 98 12/17/23 07:50 O2 Del Method Nasal Cannula 12/17/23 07:50 O2 Flow Rate 4 12/17/23 07:50 Oxygen Flow Rate 4 12/14/23 22:37 BMI result Body Mass Index 25.7 Const: Other: General: AO X 3, no acute distress Resp: CTA bilateral CVS: S1,S2,RRR GI: +BS, NT, no distention Skin: No rash Neuro: motor grossly intact Psych: appropriate affect DS: Data Data Completed and Pending Labs on day of discharge: Preliminary micro results at discharge 12/15/23 05:04 Blood Culture - Preliminary Blood - Venous No growth after 48 hours. 12/15/23 05:18 Blood Culture - Preliminary Blood - Venous No growth after 48 hours. Discharge Plan Discharge Anticipated Discharge Date/Time: 12/17/23 10:16 Patient Disposition: Home Health Service Discharge Diagnosis: UTI, hyponatremia Referrals: Lorraine BYERS [Outside] - 1 Week (HOME SERVICES FOR [facility] AND [facility]- A NURSE WILL CALL TO SET UP FIRST APPOINTMENT.) Bia Verma MD [Primary Care Provider] - 1 Week Discharge Medications: New levofloxacin 250 mg Tablet 250 mg PO Q24H Qty: 3 0RF amlodipine 2.5 mg Tablet 2.5 mg PO DAILY Qty: 90 0RF Protocol: Hold for SBP< HOLD for SBP < : 90 Continued mycophenolate mofetil 500 mg tablet 500 mg PO BID Qty: 60 1RF oxycodone-acetaminophen [Percocet] 5-325 mg tablet 1 tab PO Q8H PRN (Reason: COMPRESSION FRACTURE SPINE) Qty: 14 0RF Rx Instructions: Partial Fill upon patient request. benzonatate 100 mg capsule 100 mg PO TID PRN (Reason: cough/ILD.) losartan 25 mg tablet 25 mg PO DAILY levothyroxine 75 mcg tablet 75 mcg PO DAILY@0600 pantoprazole 20 mg tablet,delayed release (DR/EC) 20 mg PO DAILY PRN (Reason: Acid Reflux) albuterol sulfate 90 mcg/actuation HFA aerosol inhaler 2 puff inhalation Q4-6H PRN (Reason: shortness of breath or wheezing) 30 Days Qty: 8.5 3RF cholecalciferol (vitamin D3) 50 mcg (2,000 unit) tablet 50 mcg PO DAILY 30 Days Qty: 30 6RF prednisone 20 mg tablet 40 mg PO DAILY calcitonin (salmon) 200 unit/actuation spray,non-aerosol 1 spray intranasal (ALT) DAILY 30 Days Qty: 3.7 2RF Discontinued nystatin 100,000 unit/mL suspension 500,000 unit PO TID 10 Days Qty: 150 2RF Rx Instructions: administer 1/2 of dose in each side of the mouth. SWISH AND SWALLOW No Action lorazepam 0.5 mg tablet 0.5 mg PO TID PRN (Reason: anxiety) Qty: 20 0RF Discharge Orders: Discharge Order (Routine); Ordered 12/17/23 Ordered By: Hermilo Andrews Diet: Advance to usual diet Activity on Discharge: As tolerated Stand Alone Forms: Patient Portal Discharge page Print Language: Other Care Plan Goals: recovery from hyponatremia, uti Health Concerns: uti, hyponatremia Plan of Treatment: take levaquin as directed for uti avoid drinking too much water--1800 cc/day follow up with your doctor in a week, call for appointment visiting will come and assess you at home Assessment: see above Discharge Date/Time: 12/17/23 12:11
--- NOTE | 2023-12-17 09:52 | P.PNNP_ITS ---
Subjective Subjective Date of Service: 12/17/23 Interval history: Patient is a 72 y/o female (reports she is comfortable with [place] Citizen, first language is German), with a history of advanced idiopathic pulmonary fibrosis (on 4L O2 at baseline), recent compression fracture of thoracic spine (on chronic prednisone for pulm fibrosis). Patient has been declining each day over the past 2-3 weeks had become increasingly lethargic and her mood has been very depressed she had not eaten or drank much for days prior to admission She is being treated for a UTI Nephrology consulted for hyponatremia- on admission, 123; improved to 130 with 500mL NaCL bolus. Sodium 135 12/15. Pt states she is doing well today, she is alert and conversant at bedside; daughter is also at bedside. She denies nausea reports mid back pain today (thoracic fracture) She states her breathing feels like it is back to her baseline She reports she has been urinating throughout the night without pain or difficulty. She is eating breakfast Physical Exam 2 Vital Signs: Vital Signs: Last Vital Signs Temp 97.2 F 12/17/23 07:50 Pulse 98 12/17/23 07:50 Resp 18 12/17/23 07:50 BP 142/79 H 12/17/23 07:50 Pulse Ox 98 12/17/23 07:50 O2 Del Method Nasal Cannula 12/17/23 07:50 O2 Flow Rate 4 12/17/23 07:50 Oxygen Flow Rate 4 12/14/23 22:37 BMI result Body Mass Index 25.7 Const: General: comfortable and no acute distress Neck: Neck: Yes no JVD Resp: Auscultation: clear to auscultation bilaterally Cardio: Jugular venous distension: no JVD Rate: regular rate Rhythm: r egular rhythm Heart sounds: S1 normal heart sound present and S2 normal heart sound present GI: Palpation (GI): Soft to palpation Rectal Exam - Female: No tenderness : General: Yes no CVA tenderness Back/Spine/Pelvis: Back: no CVA tenderness Skin: Rashes: no rashes Extrem: General: Yes normal to inspection, No edema and No pedal edema Objective Data Labs 12/16/23 08:49 12/16/23 08:49 Microbiology Microbiology Results: Microbiology 12/15/23 05:04 Blood - Venous Blood Culture - Preliminary No growth after 48 hours. 12/15/23 05:18 Blood - Venous Blood Culture - Preliminary No growth after 48 hours. 12/15/23 Unknown Urine clean catch - Clean Catch Midstream Urine Culture - Final Corynebacterium species Procedures Date of Service Date of Service: 12/17/23 Assessment & Plan Assessment and plan (1) Acute hyponatremia: Status: Acute Plan Hyponatremia likely secondary to underlying excess ADH from underlying pulmonary issue, nausea and pain also had volume contraction from reduced PO intake, malnutrition Sodium has normalized, patient has stable blood pressure and feeling better today, BUN normal recommend supportive care, recommend to continue fluid restriction of 1.5L over [address] Vivar Time Spent With Patient Time: Total time managing care of this patient today ____ minutes. Progress Note: Quality Stroke Does the patient have a stroke diagnosis?: No
--- NOTE | 2023-12-17 09:53 | W.MHC.F2F ---
Service Date Service Date: 12/17/23 Encounter Date of encounter: 12/17/23 Reasons for Services Signs and symptoms assessed: weakness, back pain, hyponatremia, nausea and vomitting Reason for residential: medication management and teach disease management Reason for physical therapy: home safety and mobility, therapeutic exercises and gait/transfer training Homebound: Leaving the home is medically contraindicated at this time without the asist of a device and/or another person due th the listed conditions above and below. Reason homebound: unsteady gait / fall risk, fall risk related to blood pressure changes and weakness related to hospital stay Homebound supporting statement: homebound due to chronic back pain, unsteady gait, weakness from recent hospitaliaztion, cannot drive and therefore needs the assistance of another person Certification: Based on the above findings, I certify that this patient is confined to the home and needs intermittent residential care, physical therapy and/or speech therapy, or continues to need occupational therapy. The patient is under my care, and I have initiated the establishment of the plan of care. The patient will be followed by a physician who will periodically review the plan of care. Time Spent With Patient Time: Total time managing care of this patient today ____ minutes.
--- NOTE | 2023-12-17 10:26 | MHC.CM.PN ---
DP: PT HAS BEEN MEDICALLY CLEARED FOR DC HOME WITH NEW [facility] FOR SN/P.T. [facility] NOTIFIED OF TODAY'S DC. FAMILY WILL TRANSPORT.
[2023-12-17 10:49] VITALS: BP 142/79
[2023-12-17] MEDS: amLODIPine Besylate 2.5 MG TABLET PO (10:49)
--- NOTE | 2023-12-24 18:06 | P.CDIM_ITS ---
PROVIDER RESPONSE TEXT: To clarify, the appropriate diagnosis supported by the clinical indicators: (Specify severity) malnutrition is/was present and is a clinical diagnosis: moderate QUERY TEXT: PHYSICIAN'S DOCUMENTATION REQUEST Date of Query: 12/17/2023 05:32 AM EDT Patient Name: Adams Mcclure Admit Date: 12/15/2023 Dear Hermilo Andrews MD, A review of the medical record indicates additional documentation may be needed. Please review below and update the documentation accordingly. Documentation includes the diagnosis of malnutrition: Nephrology consult note dated 12/14 - Hyponatremia likely secondary to underlying excess ADH from unde rlying pulmonary issue, nausea and pain, volume contraction from reduced PO intake, malnutrition. BMI 25.7 63.796kg To ensure the quality of the medical record, based on the above information and the recognized standa rd for (specify malnutrition severity) could you please verify which of the following diagnoses best reflects the pat ient's nutritional status. (Specify severity) malnutrition is/was present and is a clinical diagnosis mild, moderate, severe No nutritional deficiency Other (explain) Clinically unable to determine (explain) Thank you, Jigna Nolasco, CCS, CDIS Use of terms such as suspected, likely, concern for, or probable (associated with a specific diagnosi s that is being evaluated, monitored, or treated as if it exists) are acceptable and can be coded in the inpatient se tting, when documented at the time of discharge. Please use your independent medical judgment in providing your response. THIS QUERY IS PART OF THE PERMANENT MEDICAL RECORD
== END 2023-12-17 12:11 | disposition home health service (06) | DRG 690 ==
LOC: HO.ED 12-15 04:50 → HO.EDOVER 12-15 10:47 → HO.S3 12-16 00:33
PROVIDERS: Student in an Organized Health Care Education/Training Program; Admitting Provider Physician Assistant; Emergency Provider Emergency Medicine; PCP Hospitalist; Visit Provider Internal Medicine
DX: N39.0 Urinary tract infection, site not specified (principal); E87.1 Hypo-osmolality and hyponatremia; E44.0 Moderate protein-calorie malnutrition; M48.54XA Collapsed vertebra, not elsewhere classified, thoracic region, initial encounter for fracture; E03.9 Hypothyroidism, unspecified; J84.112 Idiopathic pulmonary fibrosis; B96.89 Other specified bacterial agents as the cause of diseases classified elsewhere; Z20.822 Contact with and (suspected) exposure to COVID-19; T46.5X5A Adverse effect of other antihypertensive drugs, initial encounter; Z68.25 Body mass index [BMI] 25.0-25.9, adult; I10 Essential (primary) hypertension; K21.9 Gastro-esophageal reflux disease without esophagitis; Z99.81 Dependence on supplemental oxygen; Z79.52 Long term (current) use of systemic steroids; Z79.890 Hormone replacement therapy; Z79.899 Other long term (current) drug therapy
CPT/HCPCS: 36415; 71045; 74176; 80048; 80053; 81001; 82436; 83935; 84133; 84300; 84484; 85025; 87040; 87086; 87635; 93005; 97162; 99222; 99285; J1650; J1956; J2060; J2270; J2405; J2765; J7120

== ENCOUNTER → 2023-12-14 22:55 | Outpatient (BNV) | payer MEDICARE, SELFPAY | PROVIDERS: Admitting Provider Physician Assistant; Emergency Provider Emergency Medicine; PCP Hospitalist; Visit Provider Internal Medicine Cardiovascular Disease | DX: R94.31 Abnormal electrocardiogram [ECG] [EKG] (principal) | CPT/HCPCS: 93010 ==

== ENCOUNTER → 2023-12-15 10:26 | Outpatient (BNV) | payer MEDICARE, SELFPAY | PROVIDERS: Admitting Provider Physician Assistant; Emergency Provider Emergency Medicine; PCP Hospitalist; Visit Provider Internal Medicine | DX: E87.1 Hypo-osmolality and hyponatremia (principal) | CPT/HCPCS: 99222; 99232; 99239; G0180 ==

== ENCOUNTER → 2023-12-15 10:26 | Outpatient (BNV) | payer MEDICARE, SELFPAY | PROVIDERS: Admitting Provider Physician Assistant; Emergency Provider Emergency Medicine; PCP Hospitalist; Visit Provider Nurse Practitioner Family | DX: E87.1 Hypo-osmolality and hyponatremia (principal) | CPT/HCPCS: 99222; 99231; 99232 ==

== ENCOUNTER 2023-12-25 10:15 | Outpatient (REF) | payer MEDICARE, SELFPAY ==
[2023-12-25 13:48] LABS: Estimated Average Glucose 154 mg/dL; Hemoglobin A1C 185.6028 umol/L; Total Hemoglobin (HGBA1C) 3467.7874 umol/L
== END 2023-12-25 10:16 | disposition home or self-care (01) ==
LOC: HO.HMGCLNP 10:15
PROVIDERS: Visit Provider Hospitalist
DX: E11.9 Type 2 diabetes mellitus without complications (principal)
CPT/HCPCS: 83036

== ENCOUNTER 2024-01-18 16:49 | Outpatient (REF) | payer MEDICARE, SELFPAY ==
--- NOTE | ~2024-01-18 | CT_ITS ---
EXAMINATION: CT CHEST WITHOUT CONTRAST CLINICAL INFORMATION: Interstitial pulmonary disease, unspecified. Yearly follow-up. COMPARISON: CT chest dated January 27, 2023. TECHNIQUE: Multidetector volumetric CT imaging of the chest was done. Axial MIP volume rendering provided. Sagittal and coronal reformatted images were obtained. This CT examination was performed using dose optimization techniques as appropriate, variously including the following: *Automated exposure control *Adjustment of mA and/or kV according to patient size (this includes techniques or standardized protocols for targeted exams where dose is matched to indication/reason for exam; i.e. extremities or head) *Use of iterative reconstruction technique DLP: 256 mGy-cm FINDINGS: Submitted for interpretation on February 17, 2024. There is bilateral, confluent pulmonary groundglass throughout the entire lungs. There is honeycombing. There is lung volume loss. No pneumothorax. No bronchiectasis. No pleural effusion. Heart is enlarged, predominantly left heart chambers. Calcified plaques in the coronary arteries. Calcified plaques in the thoracic aortic arch. No aneurysm, thoracic aorta. Trace of pericardial effusion. There is a subtle nodular surface of the liver. Calcified plaques in the splenic artery. There is sclerotic collapsed vertebra, T6 resulting in 80% volume loss and 5 mm retropulsion. There is a compression deformity representing 60% volume loss at T8 vertebra. Superior endplate compression deformity at representing 40% volume loss at T4 vertebra. Osteopenia versus osteoporosis. CT/CT chest wo IV con IMPRESSION: Superimposed acute airspace disease/pneumonitis on a chronic interstitial lung disease. Subacute to old compression fracture deformity is likely osteoporotic in nature at T6, T8 and to a lesser extent T4 vertebral bodies. Coronary artery disease and atherosclerosis disease. Questionable hepatocellular disease. Fleischner guidelines were followed. Electronically signed by: Morgan Stoddard MD 02/17/2024 08:20 AM EST
== END 2024-01-18 16:50 | disposition home or self-care (01) ==
LOC: HO.CT 16:49
PROVIDERS: PCP Hospitalist; Visit Provider Internal Medicine
DX: J96.91 Respiratory failure, unspecified with hypoxia (principal); J84.10 Pulmonary fibrosis, unspecified; J84.9 Interstitial pulmonary disease, unspecified
CPT/HCPCS: 71250

== ENCOUNTER → 2024-01-18 16:51 | Outpatient (BNV) | payer MEDICARE, SELFPAY | PROVIDERS: PCP Hospitalist; Visit Provider Radiology Diagnostic Radiology | DX: J84.9 Interstitial pulmonary disease, unspecified (principal) | CPT/HCPCS: 71250 ==

== ENCOUNTER 2024-01-25 10:45 | Inpatient (IN) | payer MEDICARE, SELFPAY ==
[2024-01-25] VITALS (9 sets, daily range): BP systolic 112–149; BP diastolic 72–86; PULSE 95–124; RESP 18–23; TEMP 36–37; O2SAT 92–100; BMI 24.4
--- NOTE | ~2024-01-25 | XR_ITS ---
EXAMINATION: XR CHEST CLINICAL INFORMATION: Hypoxia. COMPARISON: Most recent chest radiograph dated 01/27/2024. TECHNIQUE: Frontal view of the chest was obtained. FINDINGS: Hypoinflation of the lungs is redemonstrated with interstitial and pulmonary vascular prominence. Patchy bibasilar airspace opacities. Findings are unchanged. No pleural effusion or pneumothorax. Stable cardiomediastinal silhouette. XR/XR chest 1V IMPRESSION: Hypoinflation of the lungs with interstitial and pulmonary vascular prominence as well as patchy bibasilar airspace opacities, similar when compared to the prior examination. Electronically signed by: Rashad Huertas MD 01/28/2024 07:25 PM [facility]
--- NOTE | ~2024-01-25 | XR_ITS ---
EXAMINATION: XR CHEST CLINICAL INFORMATION: hypoxia COMPARISON: X-ray dated January 26, 2024 TECHNIQUE: Frontal view of the chest was obtained. FINDINGS: Multifocal patchy opacities in prominence of the interstitial markings bilaterally. Low lung volume. No pneumothorax. No gross pleural effusion. Cardiomediastinal silhouette margins are indistinct. XR/XR chest 1V IMPRESSION: Overall improved aeration decreased although persistent interstitial lung edema. Electronically signed by: Morgan Stoddard MD 01/27/2024 11:33 AM [facility]
--- NOTE | ~2024-01-25 | XR_ITS ---
EXAMINATION: XR CHEST CLINICAL INFORMATION: NGT placement COMPARISON: Most recent chest radiograph done earlier the same day. TECHNIQUE: Frontal view of the chest was obtained. FINDINGS: Placement of an enterogastric tube with the tip in the region of the gastric body and side-port below the left hemidiaphragm. Prominent upper abdominal bowel loops are redemonstrated. Hypoinflation of the lungs is redemonstrated with diffuse bilateral airspace opacities, not significantly changed. No pleural effusion or pneumothorax. Stable cardiac mediastinal silhouette. XR/XR chest 1V IMPRESSION: 1. Enterogastric tube with the tip in the region of the gastric body and side-port below the left hemidiaphragm. 2. Hypoinflation of the lungs with diffuse bilateral airspace opacities, not significantly changed. Electronically signed by: Rashad Huertas MD 01/31/2024 03:04 PM [facility]
--- NOTE | ~2024-01-25 | XR_ITS ---
EXAMINATION: XR CHEST CLINICAL INFORMATION: Hypoxia. COMPARISON: Most recent CTA chest dated 01/30/2024. TECHNIQUE: Frontal view of the chest was obtained. FINDINGS: Hypoinflation of the lungs with diffuse bilateral airspace opacities, increased when compared to the prior examination. No pleural effusion or pneumothorax. Stable cardiac mediastinal silhouette. Prominent upper abdominal bowel loops are redemonstrated. XR/XR chest 1V IMPRESSION: Hypoinflation of the lungs with diffuse bilateral airspace opacities, increased when compared to the prior examination. Electronically signed by: Rashad Huertas MD 01/31/2024 03:04 PM [facility]
--- NOTE | ~2024-01-25 | XR_ITS ---
EXAMINATION: XR ABDOMEN KUB CLINICAL INDICATION: constipation COMPARISON: CT scan of the abdomen and pelvis dated 12/15/2023. TECHNIQUE: AP view of the abdomen performed on 2 images. FINDINGS: There is marked gaseous distention of the entire colon down to the rectum. Mild gaseous distention of multiple small bowel loops is also seen. On supine imaging, no free air is noted. Dense diffuse opacities in the lungs partially included. Convex left lumbar scoliosis and osteopenia and multilevel degenerative changes are noted. Several compression deformities are seen in the spine. XR/XR KUB IMPRESSION: Marked gaseous distention of the colon and mild gaseous distention of multiple small bowel loops. Findings are most consistent with a ileus. Clinical correlation requested. Electronically signed by: Stefany Fofana MD 01/30/2024 07:26 AM [facility]
--- NOTE | ~2024-01-25 | XR_ITS ---
EXAMINATION: XR CHEST CLINICAL INFORMATION: hypoxia COMPARISON: X-ray dated January 25, 2024. TECHNIQUE: 2 views of the chest were obtained. FINDINGS: Indistinct margins in the cardia mediastinal silhouette and pulmonary perihilar region with prominence of the interstitial lung arcades. Haziness in both hemithoraces. Low lung volume. No pneumothorax. Degenerative changes in the shoulders. XR/XR chest 2V IMPRESSION: Worsening multifocal pneumonia versus pulmonary edema. Electronically signed by: Morgan Stoddard MD 01/26/2024 07:59 AM [facility]
--- NOTE | ~2024-01-25 | CT_ITS ---
EXAMINATION: CT CHEST PE STUDY CLINICAL INFORMATION: Hypoxia. COMPARISON: CT scan of the chest dated 01/18/2024 and 01/27/2023. TECHNIQUE: Prior to contrast administration, localization images were obtained. After the administration of 65 mL of intravenous Omnipaque 350, multidetector CT volume acquisition of the chest was performed. 3-D postprocessing was performed with multiplanar reconstructions and MIP images obtained at the acquisition workstation under concurrent physician supervision. This CT examination was performed using dose optimization techniques as appropriate, variously including the following: *Automated exposure control *Adjustment of mA and/or kV according to patient size (this includes techniques or standardized protocols for targeted exams where dose is matched to indication/reason for exam; i.e. extremities or head) *Use of iterative reconstruction technique DLP: 324.52 mGy-cm. FINDINGS: Pulmonary arteries: The bolus timing on this study was acceptable for visualization of the pulmonary arterial tree. There is, however, extensive artifact seen extending through the image volume related to the patient's body habitus and the arms by her side as well as motion artifact, significantly limiting the diagnostic accuracy of the exam. There are no definite central or proximal segmental pulmonary emboli. Distal segmental and subsegmental pulmonary emboli cannot be excluded. In region of the pulmonic valve and the proximal main pulmonary artery, there is mild chronic circumferential thickening of the pulmonary artery, which was also partially included on a prior CT scan of the abdomen with contrast from 07/23/2015, suggesting noncalcified chronic atherosclerotic plaque. Lungs: Evaluation of the lungs is significantly limited due to motion artifact. Again demonstrated are significant underlying changes of interstitial lung disease with traction bronchiectatic changes in both lower lobes. Diffuse superimposed groundglass opacities noted, nonspecific, possibly related to motion artifact versus subtle edema or infiltrate. No significant pleural effusion or pneumothorax. The central airways are patent. Aorta and heart: The heart is normal in size. The aorta is normal. There is no pericardial effusion, No ventricular septal bowing seen to suggest right heart strain. Lymphatic structures: There is no lymphadenopathy. Esophagus: There is prominent diffuse fluid distention of the esophagus up to the thoracic inlet level, consistent with gastroesophageal reflux disease. This places the patient at significant risk for retrograde aspiration. Upper abdomen: Limited evaluation of the upper abdominal viscera demonstrates no focal abnormality. Minimal reflux of contrast into the intrahepatic IVC and central intrahepatic veins is seen, suggesting mildly elevated right heart pressures versus increased force of contrast injection.. Bones: Severe osteoporosis with multiple compression deformities in the thoracic spine, including T5, T7, and T9 vertebral bodies. CT/CT angio chest PE protocol IMPRESSION: * Significantly limited exam. No definite central or proximal segmental pulmonary emboli seen. Distal segmental and subsegmental pulmonary emboli cannot be excluded. * Chronic wall thickening/noncalcified plaque of the proximal main pulmonary artery at the level of the pulmonic valve. Findings may also potentially represent sequelae of chronic PE. * Significant underlying changes of interstitial lung disease with traction bronchiectatic changes in both lower lobes. Superimposed diffuse groundglass opacities in the lungs are nonspecific, possibly related to motion artifact versus subtle edema or infiltrate. * Prominent fluid distention of the esophagus up to the thoracic inlet level, consistent with gastroesophageal reflux disease. This places the patient at significant risk for retrograde aspiration. * Severe osteoporosis with multiple compression deformities in the thoracic spine. Electronically signed by: Stefany Fofana MD 01/30/2024 05:02 PM [facility]
--- NOTE | ~2024-01-25 | CT_ITS ---
EXAMINATION: CT ABDOMEN AND PELVIS WITHOUT CONTRAST CLINICAL INFORMATION: Ileus. COMPARISON: CT scan of the abdomen and pelvis dated 12/15/2023. TECHNIQUE: Multidetector volumetric imaging was performed from the superior aspect of the liver through the pubic symphysis. Sagittal and coronal reformatted images were obtained on the technologist workstation. This CT examination was performed using dose optimization techniques as appropriate, variously including the following: *Automated exposure control *Adjustment of mA and/or kV according to patient size (this includes techniques or standardized protocols for targeted exams where dose is matched to indication/reason for exam; i.e. extremities or head) *Use of iterative reconstruction technique DLP: 822.80 mGy-cm. FINDINGS: LUNG BASES: There is severe three-vessel coronary artery calcifications partially included. There is marked fluid dilatation of the distal esophagus down to the GE junction. Diffuse interstitial lung disease with peripheral honeycomb cyst formation and associated traction bronchiectasis seen in the included lung bases bilaterally, consistent with patient's history of known pulmonary fibrosis. There is mild asymmetric elevation of the right hemidiaphragm. LIVER, GALLBLADDER, AND BILIARY TREE: The liver is normal in size, shape, and attenuation. No focal hepatic lesion on noncontrast imaging. No biliary ductal dilatation is present. Common bile duct measures 0.8 cm in maximal diameter, which is normal for the patient's age and postcholecystectomy state. No calcified choledocholithiasis appreciated. The gallbladder is surgically absent. PANCREAS: There is coarse calcification seen in region of the pancreatic body, presumably vascular calcification. Pancreas is otherwise unremarkable on noncontrast exam.. SPLEEN: Unremarkable. ADRENAL GLANDS: Unremarkable on noncontrast imaging. KIDNEYS AND URETERS: The kidneys are normal in size, shape, and attenuation. No hydronephrosis, hydroureter, or calculi seen. No perinephric stranding. BLADDER: Completely decompressed and not adequately assessed.. PELVIC VISCERA: Unremarkable. GASTROINTESTINAL TRACT: There is prominent fluid dilatation of the stomach and all of the small bowel loops down to the ileocecal valve with no transition point seen. No small bowel wall thickening or focal mass is seen. The ascending, transverse, and descending colon are all dilated and fluid and gas filled with air-fluid levels seen. The cecum measures up to 9.2 cm in diameter, which places the patient at risk for perforation. No evidence of pneumatosis intestinalis. No free air or significant free fluid.. There is a large amount of formed fecal material seen in the distal sigmoid and throughout the rectum, which may be causing some degree of backup of the intestinal contents, but the overall pattern is most consistent with a ileus. No focal stricture or mass is seen. The appendix is nonvisualized ABDOMINAL WALL: No significant hernia is appreciated. LYMPH NODES, VASCULAR: There is marked flattening of the IVC, consistent with a completed volume status. Abdominal aorta is normal in caliber with mild to moderate atherosclerotic calcification seen extending into the iliac arteries and the origins of the mesenteric and renal arteries. No abdominal or pelvic adenopathy.. OSSEOUS STRUCTURES: There is extensive osteopenia with biconcave compression deformities throughout the lumbar spine. There is also a severe wedge compression deformity of the T12 vertebral body and moderate wedge compression deformity of the T7 vertebral body. Severe facet arthropathy is seen throughout the lumbar spine and there is fusion across the posterior spinous processes. CT/CT abdomen pelvis wo IV con IMPRESSION: * Marked fluid dilatation of the stomach, small bowel loops, and colon with no transition point seen, most consistent with a diffuse ileus. There is, however, large amount of fecal material is seen in the rectum and distal sigmoid colon, which may be contributing to some backup of the intestinal contents. * No evidence of bowel perforation or pneumatosis. * Marked fluid dilatation of the distal esophagus down to the GE junction, consistent with gastroesophageal reflux. This places the patient at increased risk for retrograde aspiration. * Pulmonary fibrosis. * Severe three-vessel coronary artery calcifications. * Osteopenia with multiple biconcave compression deformities in the lower thoracic and lumbar spine. Electronically signed by: Stefany Fofana MD 01/30/2024 04:38 PM [facility]
--- NOTE | ~2024-01-25 | XR_ITS ---
EXAMINATION: XR CHEST CLINICAL INFORMATION: dyspnea COMPARISON: Chest CT dated January 18, 2024. Chest x-ray dated December 15, 2023. TECHNIQUE: Upright portable AP view of the chest was obtained. FINDINGS: The study is significantly limited by portable technique and low lung volumes. Severe, diffuse, coarse, bilateral interstitial prominence and groundglass density with possible traction bronchiectasis and/or honeycombing appears grossly similar compared with December 15, 2023, allowing for differences in technique and inspiration; superimposed pneumonia cannot be confirmed or excluded. No consolidation, gross effusion, or pneumothorax is seen. The cardiac silhouette is suboptimally evaluated. The aorta is uncoiled, suggesting hypertension. Degenerative changes of the shoulders and spine. Status post cholecystectomy. XR/XR chest 1V IMPRESSION: Findings as above. Electronically signed by: Mervin Nobles MD 01/25/2024 03:58 PM [facility]
--- NOTE | ~2024-01-25 | XR_ITS ---
EXAMINATION: XR CHEST CLINICAL INFORMATION: dyspnea COMPARISON: Chest x-ray dated 01/28/2024. TECHNIQUE: AP upright portable view of the chest was obtained. FINDINGS: Multiple EKG leads overlie the chest. The cardiomediastinal silhouette is within normal limits in size when allowing for degree of lung expansion and portable technique. Appearance is similar to the previous exam.. Extremely low lung volumes are noted with asymmetric elevation of right hemidiaphragm. Diffuse increased reticular opacities in the lungs again noted with peribronchial cuffing, similar to the previous exam. No definite pleural effusion seen. No definite central vascular congestion noted. No pneumothorax. Mild bibasilar linear atelectasis. Osteopenia and prominent S-shaped thoracolumbar scoliosis and multilevel degenerative changes seen. Moderate T7 vertebral body compression fracture seen. Other known upper thoracic compression fracture is not well-visualized on this exam. Prominent gaseous distention of the colon in the abdomen noted. Mild gaseous distention of the gastric air bubble and of the esophagus. XR/XR chest 1V IMPRESSION: * Extremely low lung volumes with diffuse increased reticular opacities and peribronchial cuffing seen, similar to the previous exam. Findings are nonspecific but are suggestive of diffuse underlying interstitial lung disease with superimposed opacities, either related to a viral or atypical pneumonia or interstitial edema. Mild bibasilar linear atelectasis. * Osteopenia with moderate T7 vertebral body compression fracture. Other known compression fractures not visualized on this portable film. Electronically signed by: Stefany Fofana MD 01/30/2024 07:24 AM [facility] [place]
--- NOTE | 2024-01-25 11:09 | ECG_ITS ---
Test Reason : cp Blood Pressure : / mmHG Vent. Rate : 121 BPM Atrial Rate : 121 BPM P-R Int : 112 ms QRS Dur : 066 ms QT Int : 286 ms P-R-T Axes : 031 -10 014 degrees QTc Int : 406 ms Sinus tachycardia with Premature atrial complexes with Aberrant conduction Minimal voltage criteria for LVH, may be normal variant ( R in aVL ) Nonspecific T wave abnormality Abnormal ECG When compared with ECG of 14-DEC-2023 22:55, Aberrant conduction is now Present Nonspecific T wave abnormality, worse in Anterolateral leads Referred By: Generic ED Physician Electronically Signed By:MARISELA ABDALLA MD
[2024-01-25 11:26] LABS: MANUAL DIFF FLAG NO
[2024-01-25 11:33] LABS: Basophils Absolute Auto 0.1 X10*3/uL (0.0-0.2); Basophils Percent Auto 0.4 % (0-2); Eosinophils Absolute Auto 0.1 X10*3/uL (0.0-0.4); Eosinophils Percent Auto 0.6 % (0-4); Hematocrit 38.9 % (37.0-47.0); Hemoglobin 12.7 g/dl (12.0-16.0); Imm Gran Abs Auto 0.26 X10*3/uL (0.00-0.03); Lymphocytes Absolute Auto 1.8 X10*3/uL (1.2-4.9); Mean Corpuscular HGB Conc 32.6 g/dl (31.0-35.0); Mean Corpuscular Volume 91.7 fL (80.0-98.0); Mean Platelet Volume 10.8 fL (9.4-12.3); Monocytes Absolute Auto 0.8 X10*3/uL (0.1-1.2); Monocytes Percent Auto 5.9 % (2-11); Neutrophils Absolute Auto 9.9 x10*3/uL (2.0-8.3); Neutrophils Percent Auto 77.1 % (45-73); Platelet Count 199 X10*3/uL (160-400); Red Blood Count 4.24 X10*6/uL (4.20-5.50); Red Cell Distribution Width 16.7 % (11.0-16.0); White Blood Count 12.9 X10*3/uL (4.8-10.8)
[2024-01-25 11:42] LABS: Anion Gap 13 (12-20); Blood Urea Nitrogen 21 mg/dL (9-16); Calcium 10.2 mg/dL (8.4-10.2); Carbon Dioxide 30 mmol/L (22-29); Chloride 103 mmol/L (96-108); Creatinine Clr Calc Pharmacy 55.9; Estimated Glomerular Filt Rate > 60; Glucose Random 178 mg/dL (60-115); Potassium 3.9 mmol/L (3.3-5.1); Sodium 142 mmol/L (135-145)
--- NOTE | 2024-01-25 12:54 | ED_ITS ---
HPI - General Adult General Chief complaint: Upper Respiratory Symptoms Stated complaint: abnormal test results Time Seen by Provider: 01/25/24 12:48 Source: patient Mode of arrival: ambulatory Limitations: no limitations History of Present Illness HPI narrative: This is a 73-year-old woman with a past medical history of interstitial lung disease/pulmonary fibrosis on home oxygen/daily prednisone/mycophenolate, hypertension, GERD, hypothyroidism, T5 spine fracture who presents for evaluation of dyspnea on exertion. Daughter is present at time of history and exam. Daughter states that patient had a choking episode yesterday on bread and meat. She states that she did call for ambulance, but states that this resolved. She states no recent fevers or chills. She states patient has been very weak and has had decreased appetite. She states no GI or symptoms. She states that she did complain of chest pain yesterday, but states that this is since resolved. She reports chronic cough. She states that she has not really complain of any back pain in regard to this recent spine fracture. Related Data Home Medications ?Medication ?Instructions ?Recorded ?Confirmed losartan 25 mg tablet 25 mg PO DAILY 09/04/20 12/15/23 levothyroxine 75 mcg tablet 75 mcg PO DAILY@0600 03/19/23 12/15/23 pantoprazole 20 mg tablet,delayed 20 mg PO DAILY PRN Acid Reflux 08/31/23 12/15/23 release prednisone 20 mg tablet 40 mg PO DAILY 12/09/23 12/15/23 benzonatate 100 mg capsule 100 mg PO TID PRN cough/ILD. 12/15/23 12/15/23 Previous Rx's ?Medication ?Instructions ?Recorded albuterol sulfate 90 mcg/actuation 2 puff inhalation Q4-6H PRN 11/24/22 aerosol inhaler shortness of breath or wheezing 30 days #8.5 grams cholecalciferol (vitamin D3) 50 50 mcg PO DAILY VIT D DEFICIENCY 07/07/23 mcg (2,000 unit) tablet 30 days #30 tabs calcitonin (salmon) 200 1 spray intranasal (ALT) DAILY 12/09/23 unit/actuation nasal spray Osteoporosis/backpain 30 days #3.7 mL oxycodone-acetaminophen 5 mg-325 1 tab PO Q8H PRN COMPRESSION 12/15/23 mg tablet (Percocet) FRACTURE SPINE #14 tabs amlodipine 2.5 mg tablet 2.5 mg PO DAILY #90 tabs 12/17/23 levofloxacin 250 mg tablet 250 mg PO Q24H #3 tabs 12/17/23 lorazepam 0.5 mg tablet 0.5 mg PO TID PRN anxiety #20 tabs 12/24/23 mycophenolate mofetil 500 mg tablet 1,000 mg (2 x 500 mg) PO BID 01/21/24 ILD/PULMONARY FIBROSIS 90 days #360 tabs prednisone 20 mg tablet 20 mg PO BID ILD 30 days #60 tabs 01/21/24 Allergies Allergy/AdvReac Type Severity Reaction Status Date / Time Penicillins [PENICILLINS] Allergy Unknown SWELLING Verified 01/25/24 11:07 Review of Systems 2 Review of Systems: ROS as per HPI [facility] Past Medical History Medical History (Updated 01/25/24 @ 14:47 by Tan Villarreal MD) Pneumonitis Oral thrush Back pain of thoracolumbar region Fatigue Respiratory failure with hypoxia Bronchitis Post-COVID chronic cough Exercise hypoxemia Interstitial lung disease Hemoptysis Hypothyroidism Pulmonary fibrosis, unspecified Cough Dyspnea on exertion Social History Social History Household Members: Family Housing: House Do you presently have visiting nurse or other home services: No Patient Tobacco Use Status: Never used Tobacco Advance Directives: Yes Advance Directives Information Provided: No Advance Directives on File: No Do you have a plan to hurt others: No Plan service: No Physical Exam ED Vital Signs: Vital Signs - 24 hr 01/25/24 11:02 01/25/24 13:20 01/25/24 13:38 Temperature 96.8 F 98.4 F Pulse Rate 108 H 97 95 Respiratory Rate 22 H 20 23 H Blood Pressure 112/85 131/72 Pulse Oximetry 98 98 Oxygen Delivery Method Nasal Cannula Nasal Cannula Oxygen Flow Rate 2 BMI result Body Mass Index 24.4 Gen: NAD, awake and alert HEENT: NCAT, EOMI, normal conjunctiva CV: Tachycardic rate, regular rhythm, no murmurs appreciated, no pitting edema Pulm: Fine course breath sounds, no wheezes/rhonchi or rales GI: Soft, NTND Neuro: Grossly non focal Medications Administered Discontinued Medications Generic Name Dose Route Start Last Admin Trade Name Freq PRN Reason Stop Dose Admin Albuterol Sulfate 2.5 mg/ 5 mg 01/25/24 13:11 01/25/24 13:37 Albuterol Sulfate 2.5 mg INHALE 01/25/24 13:12 2.5 mg ONCE ONE Administration Lactated Ringer's 500 mls @ 999 mls/hr 01/25/24 13:15 01/25/24 13:48 Lr IV 01/25/24 13:45 Infused .Q31M SEUN Infusion Medical Decision Making Medical Decision Making [facility] Narrative: Differential diagnosis includes, but is not limited to flare of interstitial lung disease/pulmonary fibrosis, pneumothorax, acute hypoxic respiratory failure. Patient is afebrile and hemodynamically stable on supplemental oxygen via nasal cannula. Exam is benign and reassuring. I reviewed labs, EKG and chest x-ray as below. Patient was treated supportively here with nebulized bronchodilator therapy as well as 80 mg IV Solu-Medrol as per pulmonology recommendations. I discussed with senior treasury consultant pulmonology as below. I discussed case and management with admitting hospitalist, Dr. Tidwell, and patient is admitted in stable and improved condition for further workup and management. Critical Care Time: A total of 45 minutes spent in direct patient care with coordinating critical resuscitation, procedures, reviewing records, discussing with consultants, reviewing labs, and/or managing patient. Admission/Observation Consideration of admission/observation: Escalation of care including admission/observation considered Consult Healthcare Provider Management of the patient was discussed with: Hospitalist and License Clerk [id number] - I have discussed patient's case with Pulmonoligst, Dr. Atkinson, who recommends admission for further workup and mangement. He recommends 80mg IV Solumedrol at this time and is planning on providing patient 80 mg IV Solu- Medrol every 8 hours. He is planning a bronchoscopy during this admission. He expressed concern for potential alveolitis. Lab Data [facility] Lab Attestation statement: I reviewed the patient's lab results. I independently reviewed and interpreted the patient's labs including a CBC, metabolic panel and troponin. Troponin reassuring at 12.3. Metabolic panel unremarkable. CBC notable for leukocytosis of 12.9, which is likely reactive in nature and may be secondary to corticosteroid use. The patient is afebrile here. 01/25/24 11:19 01/25/24 11:19 Labs: Lab Results 11/18/24 Range/Units 11:19 WBC 12.9 H (4.8-10.8) X10*3/uL RBC 4.24 (4.20-5.50) X10*6/uL Hgb 12.7 (12.0-16.0) g/dl Hct 38.9 (37.0-47.0) % MCV 91.7 (80.0-98.0) fL MCH 30.0 (27.0-33.0) pg MCHC 32.6 (31.0-35.0) g/dl RDW 16.7 H (11.0-16.0) % Plt Count 199 (160-400) X10*3/uL MPV 10.8 (9.4-12.3) fL Immature Gran % (Auto) 2.0 H (0.0-0.4) % Neut % (Auto) 77.1 H (45-73) % Lymph % (Auto) 14.0 L (20-40) % [place] % (Auto) 5.9 (2-11) % Eos % (Auto) 0.6 (0-4) % Baso % (Auto) 0.4 (0-2) % Lymph # (Auto) 1.8 (1.2-4.9) X10*3/uL [place] # (Auto) 0.8 (0.1-1.2) X10*3/uL Eos # (Auto) 0.1 (0.0-0.4) X10*3/uL Baso # (Auto) 0.1 (0.0-0.2) X10*3/uL Abs Immat Gran (auto) 0.26 H (0.00-0.03) X10*3/uL Absolute Neuts (auto) 9.9 H (2.0-8.3) x10*3/uL Absolute Nucleated RBC 0.000 (0.0-0.012) X10*3/uL Nucleated RBC % (auto) 0.0 (0.0-0.2) /100WBC Sodium 142 (135-145) mmol/L Potassium 3.9 (3.3-5.1) mmol/L Chloride 103 (96-108) mmol/L Carbon Dioxide 30 H (22-29) mmol/L Anion Gap 13 (12-20) BUN 21 H (9-16) mg/dL Creatinine 0.74 (0.5-1.4) mg/dL Estim Creat Clear Calc 55.9 Estimated GFR > 60 Random Glucose 178 H (60-115) mg/dL Calcium 10.2 D (8.4-10.2) mg/dL Troponin I High Sens 12.3 (<3.5-17.0) ng/L Independent Interpretation I performed an independent interpretation of an: EKG and Plain X-Ray Interpretation: I independently reviewed and interpreted the patient's EKG, which demonstrates sinus tachycardia at 121 beats per minute, SC 112, QRS 66, QTC 406, no STEMI. I independently reviewed and interpreted the patient's chest x-ray, which demonstrates no focal consolidation or pneumothorax. There is interstitial disease of the lungs. Discharge Plan Discharge Clinical Impression: Respiratory failure with hypoxia, Interstitial lung disease Patient Disposition: Admitted As Inpatient Prescriptions: No Action oxycodone-acetaminophen [Percocet] 5-325 mg tablet 1 tab PO Q8H PRN (Reason: COMPRESSION FRACTURE SPINE) Qty: 14 0RF Rx Instructions: Partial Fill upon patient request. lorazepam 0.5 mg tablet 0.5 mg PO TID PRN (Reason: anxiety) Qty: 20 0RF prednisone 20 mg tablet 20 mg PO BID 30 Days Qty: 60 5RF mycophenolate mofetil 500 mg tablet 1,000 mg PO BID 90 Days Qty: 360 3RF benzonatate 100 mg capsule 100 mg PO TID PRN (Reason: cough/ILD.) levofloxacin 250 mg Tablet 250 mg PO Q24H Qty: 3 0RF amlodipine 2.5 mg Tablet 2.5 mg PO DAILY Qty: 90 0RF Protocol: Hold for SBP< HOLD for SBP < : 90 losartan 25 mg tablet 25 mg PO DAILY levothyroxine 75 mcg tablet 75 mcg PO DAILY@0600 pantoprazole 20 mg tablet,delayed release (DR/EC) 20 mg PO DAILY PRN (Reason: Acid Reflux) albuterol sulfate 90 mcg/actuation HFA aerosol inhaler 2 puff inhalation Q4-6H PRN (Reason: shortness of breath or wheezing) 30 Days Qty: 8.5 3RF cholecalciferol (vitamin D3) 50 mcg (2,000 unit) tablet 50 mcg PO DAILY 30 Days Qty: 30 6RF prednisone 20 mg tablet 40 mg PO DAILY calcitonin (salmon) 200 unit/actuation spray,non-aerosol 1 spray intranasal (ALT) DAILY 30 Days Qty: 3.7 2RF Print Language: Other
[2024-01-25] MEDS: Lactated Ringers 500 ML 999 ML IV (13:20)
[2024-01-25 13:30] LABS: Troponin-I High Sensitivity 12.3 ng/L (<3.5-17.0)
[2024-01-25] MEDS: Albuterol Sulfate 2.5 MG, Albuterol Sulfate (0.083%) 2.5 MG 5 MG INHALE (13:37)
[2024-01-25] MEDS: methylPREDNISolone Sod Succ 125 MG/2 ML VIAL 80 MG IVPUSH ×2 (14:50→21:14)
--- NOTE | 2024-01-25 15:26 | PHA.MEDREC ---
Addendum entered by Cecilia Stroud RP 01/25/24 15:54: [facility] REVIEWED. Per patients daughter she was under assumption that her mom was supposed to start amlodipine and stop losartan at last discharge on 12/16 , however the discharge summary says to start amlodipine and continue losartan. Daughter also states her mother has not been feeling well and therefore has not started metformin. Will follow up with the admitting MD. Original Note: Pharmacy Consult ? Medication Reconciliation Pharmacy has completed the medication reconciliation. Confirmed medications with patients daughter at bedside. She confirmed her mom is now taking Amlodipine 2.5mg tabs instead of the Losartan 25mg tabs and states the Dr changed that about 6 weeks ago. She also confirmed her mom is taking the Levothyroxine 25mcg tab once daily. She confirmed her mom has not started the Metformin 500mg tab yet but has it at home. She confirmed her mom is taking Mycophenolate 500mg tabs and confirmed she is taking 1000mg ([id number]) BID. She confirmed her mom took all her medications today @0930 except the Calcitonin 200un nasal spray she was not able to take it but stated she took it yesterday.
--- NOTE | 2024-01-25 15:33 | P.HPHOSP_ITS ---
History of Present Illness Date of Service: 01/25/24 Attending physician on admission: Barbie Tidwell Chief Complaint: sob 73 yo F with a pmhx of idiopathic pulm fibrosis on prednisone, HTN, GERD, hypothyroidism, current T5 spine fx, presented to the ED last night with decline in mood, and physical functioning over the past 2-3 weeks. Most of the history taken by patient's daughter in-law Ms. Biggs. It seems like patient is having progressive shortness of breath for at least 2 months but she was progressively declining from at least 6 months. She has some productive cough as per the family with some yellow/greenish sputum, no fever, no sick contacts. In addition family reached out to Dr Galvez -adjusted her mycophenolate/prednisone outpatient but patient did not get much response, CT chest done a week ago still not reported, in addition patient is switched generalized weak. Hypoxic and requires oxygen with acivity and rest but unable to do much due to worsening respiratory status. Denies any chest pain or any abdominal pain or urinary complaints or fever or chills . Lab imaging reviewed: WBC count 12.9 BMP-seems fine. Chest CT was done 1 week ago still pending -grossly reviewed has significant IPF/interstitial changes Chest x-ray:Severe, diffuse, coarse, bilateral interstitial prominence and groundglass density with possible traction bronchiectasis and/or honeycombing appears grossly similar compared with December 15, 2023, allowing for differences in technique and inspiration; superimposed pneumonia cannot be confirmed or excluded. ekg-sinus tachycardia with pac . Review of Systems 2 Review of Systems: Yes all other systems are reviewed and are negative [facility] Medical History (Updated 01/25/24 @ 14:47 by Tan Villarreal MD) Pneumonitis Oral thrush Back pain of thoracolumbar region Fatigue Respiratory failure with hypoxia Bronchitis Post-COVID chronic cough Exercise hypoxemia Interstitial lung disease Hemoptysis Hypothyroidism Pulmonary fibrosis, unspecified Cough Dyspnea on exertion Social History Household Members: Family Housing: House Do you presently have visiting nurse or other home services: No Patient Tobacco Use Status: Never used Tobacco Advance Directives: Yes Advance Directives Information Provided: No Advance Directives on File: No Do you have a plan to hurt others: No Plan service: No Meds Allergies Allergy/AdvReac Type Severity Reaction Status Date / Time Penicillins [PENICILLINS] Allergy Unknown SWELLING Verified 01/25/24 11:07 Active Medications: Current Medications Acetaminophen (Acetaminophen 325 Mg Tablet) 650 mg PO Q6H PRN PRN Reason: Pain, Mild (Pain Scale 1-3), fever or headache Calcium Carbonate (Calcium Carbonate 750 Mg Tab.Chew) 750 mg PO Q4H PRN PRN Reason: Heartburn Glucose (Glucose Gel 15 Gm Gel..Gram.) 15 gm PO Q15M PRN; Protocol PRN Reason: per Hypoglycemia Standing Ord. Dextrose (D10) 250 mls @ 750 mls/hr IV Q15M PRN; Protocol PRN Reason: per Hypoglycemia Standing Ord. Insulin Human Lispro (Insulin Lispro 100 Unit/Ml 3 Ml Vial) 0 unit SUBCUT QIDACHS [facility]; Protocol Magnesium Hydroxide (Milk Of Magnesia 30 Ml Oral.Susp) 30 ml PO DAILY PRN PRN Reason: Constipation Melatonin (Melatonin 3 Mg Tablet) 6 mg PO BEDTIME PRN PRN Reason: Insomnia Methylprednisolone Sodium Succinate (Methylprednisolone Sod Succ 125 Mg/2 Ml Vial) 80 mg IVPUSH Q6H [facility] Sodium Chloride (0.9 % Sodium Chloride Flush 3 Ml Syringe) 3 ml IVFLUSH QSHIFT [facility] Home Medications ?Medication ?Instructions ?Recorded ?Confirmed ?Last Taken ?Type pantoprazole 20 mg tablet,delayed 20 mg PO DAILY@0630 PRN Acid Reflex 08/31/23 01/25/24 Unknown History release prednisone 20 mg tablet 40 mg PO DAILY 12/09/23 01/25/24 01/25/24 09:30 History benzonatate 100 mg capsule 100 mg PO TID PRN cough/ILD. 12/15/23 01/25/24 Unknown History calcium carbonate 600 mg-vitamin 1 tab PO DAILY 01/25/24 01/25/24 01/25/24 09:30 History D3 5 mcg (200 unit) tablet (Calcium 600 + D(3)) levothyroxine 25 mcg tablet 25 mcg PO DAILY@0600 01/25/24 01/25/24 01/25/24 09:30 History metformin 500 mg tablet 500 mg PO BIDWM 01/25/24 01/25/24 Unknown History Physical Exam 2 Vital Signs and Narrative: Vital Signs: Last Vital Signs Temp 97.9 F 01/25/24 14:56 Pulse 109 H 01/25/24 14:56 Resp 20 01/25/24 14:56 BP 147/86 H 01/25/24 14:56 Pulse Ox 96 01/25/24 14:56 O2 Del Method Nasal Cannula 01/25/24 14:56 O2 Flow Rate 2 01/25/24 14:56 Oxygen Flow Rate 2 01/25/24 14:51 BMI result Body Mass Index 24.4 General: AO X 3, no acute distress Resp: CTA bilateral CVS: S1,S2,RRR GI: +BS, NT, no distention Skin: No rash Neuro: motor grossly intact Psych: appropriate affect Results Labs 01/25/24 11:19 01/25/24 11:19 Labs: Laboratory Results - last 24 hr 01/25/24 11:19 MCV 91.7 MCH 30.0 MCHC 32.6 RDW 16.7 H Plt Count 199 MPV 10.8 Immature Gran % (Auto) 2.0 H Neut % (Auto) 77.1 H Lymph % (Auto) 14.0 L [place] % (Auto) 5.9 Eos % (Auto) 0.6 Baso % (Auto) 0.4 Lymph # (Auto) 1.8 [place] # (Auto) 0.8 Eos # (Auto) 0.1 Baso # (Auto) 0.1 Abs Immat Gran (auto) 0.26 H Absolute Neuts (auto) 9.9 H Absolute Nucleated RBC 0.000 Nucleated RBC % (auto) 0.0 Anion Gap 13 Estim Creat Clear Calc 55.9 Estimated GFR > 60 Random Glucose 178 H Calcium 10.2 D Troponin I High Sens 12.3 Assessment and Plan (1) Interstitial lung disease: Status: Acute (2) Pneumonitis: Status: Acute Plan 73 yo F with a pmhx of idiopathic pulm fibrosis on prednisone, HTN, GERD, hypothyroidism, current T5 spine fx, presented to the ED last night with decline in mood, and physical functioning over the past 2-3 months: advanced end stage IPF with acute exacerbation( has been on home oxygen)/also possible traction bronchiectasis / ?pneumonitis on cxr: CT chest results are pending-closely looks significant interstitial pattern, official results pending Shortness of breath with minimal exertion, generalized weak. has productive cough wbc 12.9, no fever. ? coughing episode with eating Added strep and Legionella antigen, sputum culture, procalcitonin, res viral panel. no sepsis at present- elevated wbc count due to steriods ,mild tachy(? chronic vs dehydration) continue soddssxq-Epwx-Nzzeqm 80 mg IV q.6 , cough medication ,will also add antibiotics ( levoflox),continue oxygen,cough medication Patient also had a coughing episode 1-2 nights ago so added bedside nursing swallow well. HTN- hold losartan (as per daughter in law -she does not take it) continue amlodipine GERD- continue pantoprazole . hypothyroidism- continue levothyroxine . full code DVT prohpy: lovenox Patient will benefit from 2 midnight stay-considering exacerbation of advanced IPF-need high-dose IV steroids, closely monitor monitoring of sats and respiratory status, pulmonary evaluation. Above management discussed with the patient /family at the bedside-they understand and in agreement with the above plan, time spent 70 minute, patient full code. Quality Stroke Does the patient have a stroke diagnosis?: No VTE Prior VTE?: No VTE Risk Level:: Medical - moderate - high VTE Device Contraindication: N/A - Device Ordered VTE Drug Contraindication: N/A - Med Ordered
--- NOTE | 2024-01-25 17:00 | PC.NURSE ---
patient ate and drank water and kong crackers
[2024-01-25 17:21] LABS: VBG Base Excess 3.6 mmol/L; VBG HCO3 26 mmol/L (22-26); VBG pCO2 32 mmHg; VBG pH 7.51 (7.32-7.43); VBG pO2 74 mmHg
[2024-01-25 17:22] LABS: Venous Blood Gas Refer to POC result
[2024-01-25 17:40] LABS: Procalcitonin 0.05 ng/mL
[2024-01-25 17:44] LABS: Glucose, Whole Blood 239 mg/dL (60-115)
[2024-01-25 18:04] LABS: Erythrocyte Sedimentation Rate 51 MM/HR (0-20)
[2024-01-25] MEDS: levoFLOXacin/D5W 750 MG/150 ML PIGGYBACK 100 MG IV (18:08)
[2024-01-25] MEDS: Enoxaparin Sodium 40 MG/0.4 ML SYRINGE SUBCUT (18:08)
[2024-01-25] MEDS: Insulin Lispro 100 UNIT/ML 3 ML VIAL SUBCUT ×2 (18:12→21:14)
--- NOTE | 2024-01-25 18:15 | PC.NURSE ---
patient up to commode, tolerated well while on oxygen. patient had bowel movement and voided. patient now sitting up to eat dinner, medicated per MAY. family at bedside
[2024-01-25 21:02] LABS: Glucose, Whole Blood 195 mg/dL (60-115)
[2024-01-25 21:46] LABS: IDNOW Serial# 152EDE1D; Influenza A Negative (Negative); Influenza B2 Negative (Negative)
[2024-01-25 21:47] LABS: COVID-19 Test Negative (Negative); IDNOW Serial# 08D9AD1C
--- NOTE | 2024-01-25 22:30 | PC.NURSE ---
called pharmacy for mycophenylate that was not available [place] here [place]. pharmacy has not yet come to bring the med.
--- NOTE | 2024-01-25 22:46 | PC.NURSE ---
confirmed with DR corona that this pt is a med surg admit however has tele orders. is aware and states no problem patient can still be a med surg admit.
[2024-01-25] MEDS: 0.9 % Sodium Chloride Flush 3 ML SYRINGE IVFLUSH (23:16)
[2024-01-25] MEDS: mycophenolate mofetiL 250 MG CAPSULE 1000 MG PO (23:17)
[2024-01-26] MEDS: methylPREDNISolone Sod Succ 125 MG/2 ML VIAL 80 MG IVPUSH ×4 (02:22→21:35)
[2024-01-26 04:00] VITALS: BP 136/72; PULSE 89; RESP 18; TEMP 36; O2SAT 96
[2024-01-26] MEDS: Levothyroxine Sodium 25 MCG TABLET PO (05:48)
[2024-01-26 06:22] LABS: Anion Gap 15 (12-20); Blood Urea Nitrogen 20 mg/dL (9-16); Calcium 9.7 mg/dL (8.4-10.2); Carbon Dioxide 26 mmol/L (22-29); Chloride 103 mmol/L (96-108); Creatinine Clr Calc Pharmacy 67.9; Estimated Glomerular Filt Rate > 60; Glucose Random 150 mg/dL (60-115); Potassium 4.3 mmol/L (3.3-5.1); Sodium 140 mmol/L (135-145)
--- NOTE | 2024-01-26 07:00 | CA_ITS ---
Transthoracic Echocardiogram Patient (Last, First, Middle): Adams Mcclure, Gender: Female Date of : 1950 Age: 73 Procedure Date: 01/26/2024 Procedure Type: Transthoracic Echocardiogram Location: S3E Height: 160.02 cm Weight: 62.6 kg BSA: 1.65 m2 Heart Rate: 104 bpm BP: 129 / 74 mmHg Software Development Advisor: TATA Santiago MD: Barbie Tidwell MD [employer]: Guille Carlson MD Symptoms: Chf Study Quality: Technically Difficult ECG Rhythm: Tachycardia Conclusions: - 1. Technically limited study despite use of contrast agent 2. Hyperdynamic LV ejection fraction greater than 70% with impaired relaxation filling pattern 3. Mild aortic regurgitation 4. Upper limits of normal ascending aortic size 5. Upper limits of normal RV systolic pressure Findings Procedure Information Contrast agent, definity, is being given per protocol without apparent complications. Left Ventricle The left ventricle was not well visualized. Normal left ventricular cavity size. There is normal left ventricular wall thickness. The left ventricular systolic function is hyperdynamic. The visually estimated ejection fraction is >70%. Spectral Doppler is indicative of an impaired relaxation filling pattern. Right Ventricle The right ventricle was not well visualized. Atria The left atrium was not well visualized. Interatrial shunt cannot be excluded. The right atrium was not well visualized. Aortic Valve There is mild calcification of the aortic valve. There is no aortic valve stenosis. There is mild aortic valve regurgitation. Mitral Valve There is mild anterior and posterior mitral leaflet thickening. There is trace mitral valve regurgitation. There is no mitral valve stenosis. Pulmonic Valve The pulmonic valve was not well visualized. Tricuspid Valve The tricuspid valve was not well visualized. There is trace tricuspid valve regurgitation. The right ventricular systolic pressure is 35 mmHg. Normal right atrial pressure. There is no evidence of pulmonary hypertension. Great Vessels The aorta was not well visualized. The pulmonary artery was not well visualized. Venous The inferior vena cava is normal in size. Pericardium/Pleural The pericardium was not well visualized. Prior Study Comparison No prior study available for comparison. Measurements 2D Linear Measurements IVSd: 1.01 0.6-0.9/0.6-1.0 cm LVIDd: 3.45 3.9-5.3/4.2-5.9 cm LVIDd Index: 2.09 2.4-3.2/2.2-3.1 cm/m2 LVIDs: 2.14 2.0-3.6 cm LVPWd: 1.06 0.7-1.1 cm LA Diam: 3.20 2.7-3.8/3.0-4.0 cm LAIDs Index: 1.94 1.5-2.3 cm/m2 LV Mass: 132.22 67-162/88-224 g LV Mass Index: 80.13 43-95/49-115 g/m2 LVOT Diam: 1.80 3.0+(-)1.3 cm 2D Systolic Function EF 4C: 70.40 >55% EF 2C: 73.40 >55% EF BiP: 71.80 >55% Mitral Valve MV Pk E: 0.41 MV PK A: 0.77 MV Decel Time: 122.00 E/A: 0.50 E'Lateral: 4.24 E/E' Lat: 9.70 PHT: 36.00 MVA PHT: 6.11 Decel [place]: 3.37 Aortic Valve AoV Pk Gerson: 0.98 AoV Mn Gerson: 0.73 AoV VTI: 0.14 AoV Pk Grad: 4.00 Aov Mn Grad: 2.00 CARLOS Cont.VTI: 1.83 LVOT LVOT Pk Gerson: 0.70 LVOT Mn Gerson: 0.47 LVOT VTI: 0.10 LVOT Pk Grad: 2.00 LVOT Mn Grad: 1.00 LVOT Diam: 1.80 LVOT Area: 2.54 Diastolic Function MV Pk E: 0.41 MV Pk A: 0.77 E/A: 0.50 E' Laterial: 4.24 E/E' Lat: 9.70 Right Ventricle TAPSE (mm): 9.70 TVS' Gerson: 10.00 Tricuspid Valve TR Pk Gerson: 2.81 TR Pk Grad: 32.00 RA Press: 3.00 RVSP: 35.00 Great Vessels Aorta Sinus of Valsalva: 3.20 2.0-3.5 cm Ao Asc: 3.60 2.1-3.4 cm Pulmonary Valve PV Pk Gerson: 0.95 Peak PV Grad: 4.00 Updated in Other Vendor System with Status of Final Guille Carlson MD electronically signed on 01/26/2024 4:13:29 PM with status of Final
[2024-01-26 07:55] VITALS: BP 129/74; PULSE 96; RESP 16; TEMP 36.6; O2SAT 94
[2024-01-26 07:59] LABS: Glucose, Whole Blood 152 mg/dL (60-115)
[2024-01-26 08:18] LABS: Immunoglobulin G 546 mg/dL (600-1540)
[2024-01-26] MEDS: 0.9 % Sodium Chloride Flush 3 ML SYRINGE IVFLUSH ×2 (08:38→16:58)
[2024-01-26] MEDS: Furosemide 40 MG/4 ML VIAL IVPUSH (08:38)
[2024-01-26] MEDS: Calcium + Vitamin D 250 MG TABLET PO (08:39)
[2024-01-26] MEDS: amLODIPine Besylate 2.5 MG TABLET PO (08:39)
[2024-01-26] MEDS: Insulin Lispro 100 UNIT/ML 3 ML VIAL SUBCUT ×4 (08:39→21:34)
[2024-01-26] MEDS: mycophenolate mofetiL 250 MG CAPSULE 1000 MG PO ×2 (08:39→21:34)
--- NOTE | 2024-01-26 08:44 | PM.CNPUL ---
History of Present Illness History of Present Illness Consult date: 01/26/24 Chief complaint: Sob/hypoxia Narrative: This is an inpatient pulmonary consultation. The patient is a 73 year woman with a known history of interstitial lung disease. She has had progressively worsening disease. She has been treated with mycophenolate and prednisone. Opted not to start Ofev because of adverse effects. The patient has been noticing some worsening shortness of breath the last several months and her oxygen requirements have had to increase. Even with minimal activity her Pox is dropping. For that reason her mycophenolate was increased from 500 mg twice a day to 1000 mg twice a day and her prednisone was also increased to 40 mg daily. However, no significant improvement. At that point the patient was sent to the ER for further evaluation. In the ER she had an x-ray demonstrating ground-glass opacities bilaterally. Worsening respiratory symptoms in view of her worsening respiratory status she was admitted to the hospital. She was placed on oxygen. She was placed on Solu-Medrol and Levaquin. Unfortunately the x-ray this morning which I personally reviewed demonstrating interval worsening of the fluffy opacities bilaterally. Bringing up the question of congestive heart failure cor pulmonale. Therefore Lasix will be provided an echo be done. The patient is also immunocompromised because of the additional immunosuppressant therapy so therefore treating her empirically for PCP would be reasonable. She had an GI adverse effect to Bactrim in the past but she should be able to tolerated now. Review of Systems Constitutional: Constitutional: Reports fatigue ENT: Denies dizziness and Reports dry mouth Cardiovascular: Cardiovascular: Denies chest pain and Reports dyspnea (reports breathing feels labored ) Respiratory: Respiratory: Reports dyspnea (reports breathing feels labored ) Gastrointestinal: Gastrointestinal: Denies abdominal pain, Denies diarrhea and Denies vomiting Musculoskeletal: Musculoskeletal: Reports back pain (mid back pain since thoracic fracture ) Integumentary/Breasts: Skin/Breast: Denies rash Neurologic: Denies dizziness Endocrine: Endocrine: Reports fatigue PMFSH Past Medical History Medical History (Updated 01/26/24 @ 09:07 by Darius Chacko MD) Pneumonitis Oral thrush Back pain of thoracolumbar region Fatigue Respiratory failure with hypoxia Bronchitis Post-COVID chronic cough Exercise hypoxemia Interstitial lung disease Hemoptysis Hypothyroidism Pulmonary fibrosis, unspecified Cough Dyspnea on exertion Social History Social History Household Members: Family Housing: House Do you presently have visiting nurse or other home services: No Patient Tobacco Use Status: Never used Tobacco Advance Directives Date on File: 01/25/24 service: No Meds Allergies Allergy/AdvReac Type Severity Reaction Status Date / Time Penicillins [PENICILLINS] Allergy Unknown SWELLING Verified 01/25/24 11:07 Active Medications: Current Medications Acetaminophen (Acetaminophen 325 Mg Tablet) 650 mg PO Q6H PRN PRN Reason: Pain, Mild (Pain Scale 1-3), fever or headache Amlodipine Besylate (Amlodipine Besylate 2.5 Mg Tablet) 2.5 mg PO DAILY [facility]; Protocol Benzonatate (Benzonatate 100 Mg Capsule) 100 mg PO TID PRN PRN Reason: cough/ILD. Calcitonin [place] (Calcitonin,[place],Synth Nasal 3.7 Ml Bottle) 1 spray NOSTRILALT DAILY [facility] Calcium Carbonate (Calcium Carbonate 750 Mg Tab.Chew) 750 mg PO Q4H PRN PRN Reason: Heartburn Calcium Carbonate/Cholecalciferol (Calcium + Vitamin D 250 Mg Tablet) 250 mg PO DAILY [facility] Enoxaparin Sodium (Enoxaparin Sodium 40 Mg/0.4 Ml Syringe) 40 mg SUBCUT Q24H [facility] Last Admin: 01/25/24 18:08 Dose: 40 mg Furosemide (Furosemide 40 Mg/4 Ml Vial) 40 mg IVPUSH BID@0900,1800 [facility]; Protocol Glucose (Glucose Gel 15 Gm Gel..Gram.) 15 gm PO Q15M PRN; Protocol PRN Reason: per Hypoglycemia Standing Ord. Guaifenesin (Guaifenesin 200 Mg/10 Ml 10 Ml Liquid) 10 ml PO Q6H PRN PRN Reason: Cough Dextrose (D10) 250 mls @ 750 mls/hr IV Q15M PRN; Protocol PRN Reason: per Hypoglycemia Standing Ord. Levofloxacin (Levaquin) 750 mg in 150 mls @ 100 mls/hr IV Q24H [facility] Last Infusion: 01/25/24 20:08 Dose: Infused Insulin Human Lispro (Insulin Lispro 100 Unit/Ml 3 Ml Vial) 0 unit SUBCUT QIDACHS [facility]; Protocol Last Admin: 01/25/24 21:14 Dose: 2 unit Levothyroxine Sodium (Levothyroxine Sodium 25 Mcg Tablet) 25 mcg PO DAILY@0600 [facility] Last Admin: 01/26/24 05:48 Dose: 25 mcg Lorazepam (Lorazepam 0.5 Mg Tablet) 0.5 mg PO TID PRN PRN Reason: anxiety Magnesium Hydroxide (Milk Of Magnesia 30 Ml Oral.Susp) 30 ml PO DAILY PRN PRN Reason: Constipation Melatonin (Melatonin 3 Mg Tablet) 6 mg PO BEDTIME PRN PRN Reason: Insomnia Methylprednisolone Sodium Succinate (Methylprednisolone Sod Succ 125 Mg/2 Ml Vial) 80 mg IVPUSH Q6H [facility] Last Admin: 01/26/24 02:22 Dose: 80 mg Mycophenolate Mofetil (Mycophenolate Mofetil 250 Mg Capsule) 1,000 mg PO BID [facility] Last Admin: 01/25/24 23:17 Dose: 1,000 mg Omeprazole (Omeprazole 20 Mg Capsule.Dr) 20 mg PO DAILY@0630 PRN PRN Reason: Acid Reflex Sodium Chloride (0.9 % Sodium Chloride Flush 3 Ml Syringe) 3 ml IVFLUSH QSHIFT [facility] Last Admin: 01/25/24 23:16 Dose: 3 ml Home Medications ?Medication ?Instructions ?Recorded ?Confirmed ?Last Taken ?Type pantoprazole 20 mg tablet,delayed 20 mg PO DAILY@0630 PRN Acid Reflex 08/31/23 01/25/24 Unknown History release prednisone 20 mg tablet 40 mg PO DAILY 12/09/23 01/25/24 01/25/24 09:30 History benzonatate 100 mg capsule 100 mg PO TID PRN cough/ILD. 12/15/23 01/25/24 Unknown History calcium carbonate 600 mg-vitamin 1 tab PO DAILY 01/25/24 01/25/24 01/25/24 09:30 History D3 5 mcg (200 unit) tablet (Calcium 600 + D(3)) levothyroxine 25 mcg tablet 25 mcg PO DAILY@0600 01/25/24 01/25/24 01/25/24 09:30 History metformin 500 mg tablet 500 mg PO BIDWM 01/25/24 01/25/24 Unknown History Physical Exam Vital Signs: Vital Signs: Last Vital Signs Temp 98 F 01/26/24 07:55 Pulse 96 01/26/24 07:55 Resp 16 01/26/24 07:55 BP 129/74 01/26/24 07:55 Pulse Ox 94 01/26/24 07:55 O2 Del Method Nasal Cannula 01/26/24 07:55 O2 Flow Rate 2 01/26/24 07:55 Oxygen Flow Rate 2 01/25/24 14:51 BMI result Body Mass Index 24.4 Const: General: awake Orientation/consciousness: patient oriented x3 HEENT: Head: Yes normal to inspection Eyes: General: appearance normal, both eyes and all related structures Neck: Neck: Yes normal visual inspection, Yes no lymphadenopathy and Yes trachea midline Chest: Chest palpation & inspection: normal inspection of the chest, normal palpation of entire chest wall and no tenderness Resp: Effort & Inspection: normal respiratory effort Auscultation: crackles diffuse and diminished lung sounds Cardio: Palpation: normal PMI Rate: regular rate Rhythm: regular rhythm Heart sounds: no gallops and no murmurs GI: Palpation (GI): Soft to palpation and nontender Back/Spine/Pelvis: Thoracic/Lumbar Spine: thoracic and lumbar spine normal to inspection (THERE IS ALSO TENDERNESS OVER THE THORACOLUMBAR AREA) and thoraco-lumbar ROM limited Skin: General skin exam: no rashes or lesions noted Neuro: General: patient oriented x3 and no focal motor deficits Extrem: General: Yes normal to inspection Psych: Appearance: grossly normal and well kempt Speech and movement: Normal speech and movement present Results Laboratory Findings 01/25/24 11:19 01/26/24 05:22 Abnormal lab findings: Abnormal Labs 01/25/24 01/25/24 01/25/24 11: 17:00 17:06 WBC 12.9 H RDW 16.7 H Immature Gran % (Auto) 2.0 H Neut % (Auto) 77.1 H Lymph % (Auto) 14.0 L Abs Immat Gran (auto) 0.26 H Absolute Neuts (auto) 9.9 H ESR 51 H VBG pH Carbon Dioxide 30 H BUN 21 H POC Glucose 239 H Random Glucose 178 H IgG 546 L 01/25/24 01/25/24 01/26/24 17:13 20:56 05:22 WBC RDW Immature Gran % (Auto) Neut % (Auto) Lymph % (Auto) Abs Immat Gran (auto) Absolute Neuts (auto) ESR VBG pH 7.51 H Carbon Dioxide BUN 20 H POC Glucose 195 H Random Glucose 150 H IgG 01/26/24 07:54 WBC RDW Immature Gran % (Auto) Neut % (Auto) Lymph % (Auto) Abs Immat Gran (auto) Absolute Neuts (auto) ESR VBG pH Carbon Dioxide BUN POC Glucose 152 H Random Glucose IgG Assessment and Plan (1) Acute and chronic respiratory failure: Qualifiers: Respiratory failure complication: hypoxia Qualified Code(s): J96.21 - Acute and chronic respiratory failure with hypoxia Status: Acute (2) Interstitial lung disease: Status: Acute (3) Pneumonitis: Status: Acute Plan Recommendations: Continue Solu-Medrol 80 mg q.6 Start Lasix IV as tolerated, monitoring renal function, electrolytes, and blood pressure Awaiting blood work workup for connective tissue conditions, vasculitides, infections, heart failure Echocardiogram ordered question cor pulmonale Continue oxygen supplementation to maintain a pulse ox above 90%. If her condition continues to worsen many high-flow. Continue Levaquin Add Bactrim for PCP empiric therapy in view of her high risk for immunocompromised state Repeat chest x-ray tomorrow morning Currently full code. Goals of care should be discussed with the family in view of her progressive/advanced lung disease Procedures Date of Service Date of Service: 01/26/24
[2024-01-26 09:01] VITALS: O2SAT 95
[2024-01-26 09:03] LABS: B Type Natriuretic Peptide 54 pg/mL (<100)
[2024-01-26 09:04] LABS: ABG Base Excess 8.6 mmol/L; ABG HCO3 33 mmol/L (22-26); ABG pCO2 44 mmHg (32-45); ABG pH 7.47 (7.35-7.45); ABG pO2 73 mmHg (83-108)
[2024-01-26] MEDS: Sulfamethox/Trimeth 800/160 TABLET 1 TAB PO ×2 (09:33→11:35)
[2024-01-26 11:12] LABS: MRSA Nasal PCR NEGATIVE (Negative); SA Nasal PCR POSITIVE (Negative)
[2024-01-26 11:25] LABS: Glucose, Whole Blood 183 mg/dL (60-115)
--- NOTE | 2024-01-26 11:36 | MHC.CM.PN ---
IMM DELIVERED CM SPOKE WITH HCP/GRANDDAUGHTER AT BEDSIDE. PT LIVES WITH FAMILY AND IS ACTIVE WITH [facility] FOR P.T. AND SN. PT USES [employer] AND HAS HOME 02 AT [address] VIA [employer]. +HCP ON FILE PCP DR. [place] DP: HOME WITH RESUMPTION OF SERVICES AND FAMILY SUPPORT IS THE GOAL. PT'S FAMILY WILL TRANSPORT. CM WILL CONTINUE TO FOLLOW FOR ANY CHANGE TO DC PLAN/NEEDS. RETURN REFERRAL SENT TO [facility].
[2024-01-26 11:39] VITALS: BP 129/75; PULSE 97; RESP 20; TEMP 36.1; O2SAT 96
--- NOTE | 2024-01-26 12:06 | MHC.SL.SWA ---
Speech Pathologist Impression: Risk of Aspiration Due to: Medically Fragile Weak Voice Dysphasia Diet Status: Liquid Consistency and Strategies for Safe Swallow: Liquid Intake Recommendation: Thin Liquid Intake Strategies: Unrestricted Solid Food Consistency: Dietary Recommendations: Regular Additional Modifications to Solid Foods: Food from home recommended. Oral Medication Intake: Whole with Liquid Please contact the pharmacy regarding appropriate crushable or liquid drug formulations that are available whenever modified delivery is recommended. Compensatory Strategies and Precautions to be Taken for Safe Swallow: Sitting Upright (90 deg) Small Bites and Sips Alternate Liquids/Solids Rate of Ingestion Change Supervision While Eating and Drinking for Safe Swallow: Foods to Avoid: Swallowing Recommended Treatments: Compens. Strategy Educat. Recommendation for Speech: Discharged with Instructions for Home Use Comment: Recommend Regular Solids and Thin Liquids. [employer] will f/u x1 to ensure tolerance. Recommend MBSS as outpatient if medically necessary. Frequency/Duration: x1 Date Range for Service Req: Admission Timeline to reassess: PRN Senior Product Engineer Clinican/Clinical Fellow: No Supervisory Statement: I have reviewed and agree with the student/clinical fellow's documentation: N/A Speech Language Pathologist: Atul Lopez M.A., CCC-[employer]
--- NOTE | 2024-01-26 12:45 | HO.PM.IMPN ---
Subjective Subjective Date of Service: 01/26/24 Interval History: sob Review of Systems Patient has shortness of breath slightly more than yesterday generalised weak also Physical Exam Vital Signs: Vital Signs: Last Vital Signs Temp 97 F 01/26/24 11:39 Pulse 97 01/26/24 11:39 Resp 20 01/26/24 11:39 BP 129/75 01/26/24 11:39 Pulse Ox 96 01/26/24 11:39 O2 Del Method Nasal Cannula 01/26/24 11:39 O2 Flow Rate 2 01/26/24 11:39 Oxygen Flow Rate 2 01/25/24 14:51 BMI result Body Mass Index 24.4 Appearance: Alert.? Oriented X3.? sob. cvs: rrr, [id number] . res: air entry seems similar to yesterday ,crackles diffuse and diminished lung sounds abd: no rebound or guarding ,nt, bs present. ext pulses present , no cyanosis , some trace edema neuro: axo3 , nonfocal. Objective Data Active Medications Acetaminophen (Acetaminophen 325 Mg Tablet) 650 mg PO Q6H PRN PRN Reason: Pain, Mild (Pain Scale 1-3), fever or headache Amlodipine Besylate (Amlodipine Besylate 2.5 Mg Tablet) 2.5 mg PO DAILY [facility]; Protocol Last Admin: 01/26/24 08:39 Dose: 2.5 mg Documented By: MELINA Benzonatate (Benzonatate 100 Mg Capsule) 100 mg PO TID PRN PRN Reason: cough/ILD. Calcitonin [place] (Calcitonin,[place],Synth Nasal 3.7 Ml Bottle) 1 spray NOSTRILALT DAILY [facility] Calcium Carbonate (Calcium Carbonate 750 Mg Tab.Chew) 750 mg PO Q4H PRN PRN Reason: Heartburn Calcium Carbonate/Cholecalciferol (Calcium + Vitamin D 250 Mg Tablet) 250 mg PO DAILY [facility] Last Admin: 01/26/24 08:39 Dose: 250 mg Documented By: MELINA Enoxaparin Sodium (Enoxaparin Sodium 40 Mg/0.4 Ml Syringe) 40 mg SUBCUT Q24H [facility] Last Admin: 01/25/24 18:08 Dose: 40 mg Documented By: NOY Furosemide (Furosemide 40 Mg/4 Ml Vial) 40 mg IVPUSH BID@0900,1800 [facility]; Protocol Last Admin: 01/26/24 08:38 Dose: 40 mg Documented By: MELINA Glucose (Glucose Gel 15 Gm Gel..Gram.) 15 gm PO Q15M PRN; Protocol PRN Reason: per Hypoglycemia Standing Ord. Guaifenesin (Guaifenesin 200 Mg/10 Ml 10 Ml Liquid) 10 ml PO Q6H PRN PRN Reason: Cough Dextrose (D10) 250 mls @ 750 mls/hr IV Q15M PRN; Protocol PRN Reason: per Hypoglycemia Standing Ord. Levofloxacin (Levaquin) 750 mg in 150 mls @ 100 mls/hr IV Q24H [facility] Last Infusion: 01/25/24 20:08 Dose: Infused Documented By: ANDREI Insulin Human Lispro (Insulin Lispro 100 Unit/Ml 3 Ml Vial) 0 unit SUBCUT QIDACHS [facility]; Protocol Last Admin: 01/26/24 11:35 Dose: 2 unit Documented By: MELINA Levothyroxine Sodium (Levothyroxine Sodium 25 Mcg Tablet) 25 mcg PO DAILY@0600 [facility] Last Admin: 01/26/24 05:48 Dose: 25 mcg Documented By: RUDY Lorazepam (Lorazepam 0.5 Mg Tablet) 0.5 mg PO TID PRN PRN Reason: anxiety Magnesium Hydroxide (Milk Of Magnesia 30 Ml Oral.Susp) 30 ml PO DAILY PRN PRN Reason: Constipation Melatonin (Melatonin 3 Mg Tablet) 6 mg PO BEDTIME PRN PRN Reason: Insomnia Methylprednisolone Sodium Succinate (Methylprednisolone Sod Succ 125 Mg/2 Ml Vial) 80 mg IVPUSH Q6H [facility] Last Admin: 01/26/24 08:38 Dose: 80 mg Documented By: MELINA Mycophenolate Mofetil (Mycophenolate Mofetil 250 Mg Capsule) 1,000 mg PO BID [facility] Last Admin: 01/26/24 08:39 Dose: 1,000 mg Documented By: MELINA Omeprazole (Omeprazole 20 Mg Capsule.Dr) 20 mg PO DAILY@0630 PRN PRN Reason: Acid Reflex Sodium Chloride (0.9 % Sodium Chloride Flush 3 Ml Syringe) 3 ml IVFLUSH QSHIFT [facility] Last Admin: 01/26/24 08:38 Dose: 3 ml Documented By: MELINA Trimethoprim/Sulfamethoxazole (Sulfamethox/Trimeth 800/160 Tablet) 2 tab PO TID [facility] Labs 01/25/24 11:19 01/26/24 05:22 Labs: Laboratory Results - last 24 hr 01/25/24 01/25/24 01/25/24 11: 17:00 17:06 ESR 51 H O2 Saturation ABG pH at Pt Temp ABG pCO2 at Pt Temp ABG pO2 at Pt Temp ABG HCO3 ABG Base Excess (Actual) VBG pH VBG pCO2 VBG pO2 VBG HCO3 VBG O2 Saturation VBG Base Excess Anion Gap Estim Creat Clear Calc Estimated GFR POC Glucose 239 H Random Glucose Calcium Troponin I High Sens 12.3 B-Natriuretic Peptide Procalcitonin 0.05 Nasal Screen MRSA (PCR) Nasal S. aureus Screen Nasal MRSA/S.aureus Interp IgG 546 L COVID-19 (BRANDI) COVID-19 Clin Com Influenza Type A (JANE) Influenza Type B (JANE) Influenza A & B Note 01/25/24 01/25/24 01/25/24 17:08 17:13 20:56 ESR O2 Saturation ABG pH at Pt Temp ABG pCO2 at Pt Temp ABG pO2 at Pt Temp ABG HCO3 ABG Base Excess (Actual) VBG pH 7.51 H VBG pCO2 32 VBG pO2 74 VBG HCO3 26 VBG O2 Saturation 96.0 VBG Base Excess 3.6 Anion Gap Estim Creat Clear Calc Estimated GFR POC Glucose 195 H Random Glucose Calcium Troponin I High Sens B-Natriuretic Peptide Procalcitonin Nasal Screen MRSA (PCR) NEGATIVE Nasal S. aureus Screen POSITIVE A Nasal MRSA/S.aureus Interp SEE NOTE IgG COVID-19 (BRANDI) COVID-19 Clin Com Influenza Type A (JANE) Influenza Type B (JANE) Influenza A & B Note 01/25/24 01/26/24 01/26/24 21:17 05:22 07:54 ESR O2 Saturation ABG pH at Pt Temp ABG pCO2 at Pt Temp ABG pO2 at Pt Temp ABG HCO3 ABG Base Excess (Actual) VBG pH VBG pCO2 VBG pO2 VBG HCO3 VBG O2 Saturation VBG Base Excess Anion Gap 15 Estim Creat Clear Calc 67.9 Estimated GFR > 60 POC Glucose 152 H Random Glucose 150 H Calcium 9.7 Troponin I High Sens B-Natriuretic Peptide Procalcitonin Nasal Screen MRSA (PCR) Nasal S. aureus Screen Nasal MRSA/S.aureus Interp IgG COVID-19 (BRANDI) Negative COVID-19 Clin Com See Note Influenza Type A (JANE) Negative Influenza Type B (JANE) Negative Influenza A & B Note See Note 01/26/24 01/26/24 01/26/24 08:17 08:52 11:21 ESR O2 Saturation 95.0 ABG pH at Pt Temp 7.47 H ABG pCO2 at Pt Temp 44 ABG pO2 at Pt Temp 73 L ABG HCO3 33 H ABG Base Excess (Actual) 8.6 VBG pH VBG pCO2 VBG pO2 VBG HCO3 VBG O2 Saturation VBG Base Excess Anion Gap Estim Creat Clear Calc Estimated GFR POC Glucose 183 H Random Glucose Calcium Troponin I High Sens B-Natriuretic Peptide 54 Procalcitonin Nasal Screen MRSA (PCR) Nasal S. aureus Screen Nasal MRSA/S.aureus Interp IgG COVID-19 (BRANDI) COVID-19 Clin Com Influenza Type A (JANE) Influenza Type B (JANE) Influenza A & B Note Microbiology Microbiology Results: Microbiology 01/25/24 21:18 Gram Stain - Final Sputum - Expectorated Sputum Culture - Preliminary Culture too young to evaluate. Assessment and Plan (1) Acute and chronic respiratory failure: Status: Acute Plan 73 yo F with a pmhx of idiopathic pulm fibrosis on prednisone, HTN, GERD, hypothyroidism, current T5 spine fx, presented to the ED last night with decline in mood, and physical functioning over the past 2-3 months: advanced end stage IPF with acute exacerbation( has been on home oxygen)/also possible traction bronchiectasis / ?pneumonitis on cxr: CT chest results are pending-closely looks significant interstitial pattern, official results pending cxr repeated today-Indistinct margins in the cardia mediastinal silhouette and pulmonary perihilar region with prominence of the interstitial lung arcades. Haziness in both hemithoraces. Shortness of breath with minimal exertion, generalized weak. procalcitonin levels 0.05, bnp 54,strep and Legionella antigen, sputum culture, res viral panel pending added echo plan: moniter i/o ,daily weights d/w pulm:continue [id number] 80 mg IV q.6 , cough medication ,levoflox and bactrim for possible pcp coverage ,continue oxygen,cough medication,added Iv lasix . HTN- hold losartan (as per daughter in law -she does not take it) continue amlodipine. GERD- continue pantoprazole . hypothyroidism- continue levothyroxine . full code DVT prohpy: lovenox ongoing need for hospilisation stay- advanced end stage IPF with acute exacerbation( has been on home oxygen)/also possible traction bronchiectasis / ?pneumonitis on cxr: Need IV steroids, antibiotics, IV Lasix, close monitoring of renal function electrolytes as well as respiratory status, pulmonary follow-up. Above management discussed with the family at bedside in detail length. Quality Stroke Does the patient have a stroke diagnosis?: No VTE Prior VTE?: No VTE Risk Level:: Medical - moderate - high VTE Device Contraindication: N/A - Device Ordered VTE Drug Contraindication: N/A - Med Ordered
[2024-01-26 13:35] LABS: ABG Refer to POC result
[2024-01-26 13:56] LABS: Adenovirus PCR Not Detected (Not Detect.); Bordetella parapertussis PCR Not Detected (Not Detect.); Bordetella pertussis PCR Not Detected (Not Detect.); Chlamydia pneumoniae PCR Not Detected (Not Detect.); Coronavirus 229E PCR Not Detected (Not Detect.); Coronavirus HKU1 PCR Not Detected (Not Detect.); Coronavirus NL63 PCR Not Detected (Not Detect.); Coronavirus OC43 PCR Not Detected (Not Detect.); Human metapneumovirus PCR Not Detected (Not Detect.); Influenza A PCR Not Detected (Not Detect.); Influenza B PCR Not Detected (Not Detect.); Mycoplasma pneumoniae PCR Not Detected (Not Detect.); Parainfluenza 1 PCR Not Detected (Not Detect.); Parainfluenza 2 PCR Not Detected (Not Detect.); Parainfluenza 3 PCR Not Detected (Not Detect.); Parainfluenza 4 PCR Not Detected (Not Detect.); RSV PCR Not Detected (Not Detect.); Rhino/Enterovirus PCR Detected (Not Detect.)
[2024-01-26 14:16] LABS: SARS-CoV-2 PCR Not Detected (Not Detect.)
[2024-01-26] MEDS: Sulfamethox/Trimeth 800/160 TABLET 2 TAB PO ×2 (14:38→21:35)
[2024-01-26 15:03] LABS: Scleroderma 70 Antibody <1.0 NEG AI (<1.0 NEG)
[2024-01-26 15:14] VITALS: BP 121/65; PULSE 99; RESP 20; TEMP 36.4; O2SAT 98
[2024-01-26 16:23] LABS: Glucose, Whole Blood 161 mg/dL (60-115)
[2024-01-26] MEDS: Enoxaparin Sodium 40 MG/0.4 ML SYRINGE SUBCUT (16:52)
[2024-01-26] MEDS: Furosemide 40 MG/4 ML VIAL 20 MG IVPUSH (17:37)
[2024-01-26] MEDS: levoFLOXacin/D5W 750 MG/150 ML PIGGYBACK 100 MG IV (17:37)
[2024-01-26 19:18] VITALS: BP 134/75; PULSE 101; RESP 14; TEMP 36; O2SAT 94
[2024-01-26 20:49] LABS: Glucose, Whole Blood 196 mg/dL (60-115)
[2024-01-26] MEDS: ondansetron HCL 4 MG/2 ML VIAL IVPUSH (21:35)
[2024-01-26 21:39] LABS: Myeloperoxidase Antibody <1.0 AI; Proteinase 3 PR3 Antibodies <1.0 AI
[2024-01-26] MEDS: Melatonin 3 MG TABLET 6 MG PO (21:46)
[2024-01-26 23:38] LABS: Cyclic Citrullinated Peptide <16 UNITS
[2024-01-27] VITALS (10 sets, daily range): BP systolic 113–141; BP diastolic 62–77; PULSE 71–116; RESP 16–20; TEMP 36.1–36.4; O2SAT 93–96; BMI 24.4
[2024-01-27] MEDS: ondansetron HCL 4 MG/2 ML VIAL IVPUSH ×3 (00:50→11:21)
[2024-01-27] MEDS: 0.9 % Sodium Chloride Flush 3 ML SYRINGE IVFLUSH ×4 (00:59→23:16)
[2024-01-27] MEDS: methylPREDNISolone Sod Succ 125 MG/2 ML VIAL 80 MG IVPUSH ×2 (05:57→08:32)
[2024-01-27 07:46] LABS: Glucose, Whole Blood 185 mg/dL (60-115)
[2024-01-27] MEDS: Sulfamethox/Trimeth 800/160 TABLET 2 TAB PO ×3 (08:30→21:34)
[2024-01-27] MEDS: mycophenolate mofetiL 250 MG CAPSULE 1000 MG PO ×2 (08:30→21:35)
[2024-01-27] MEDS: amLODIPine Besylate 2.5 MG TABLET PO (08:30)
[2024-01-27] MEDS: Calcium + Vitamin D 250 MG TABLET PO (08:31)
[2024-01-27] MEDS: Furosemide 40 MG/4 ML VIAL 20 MG IVPUSH ×2 (08:31→17:05)
[2024-01-27] MEDS: Insulin Lispro 100 UNIT/ML 3 ML VIAL SUBCUT ×3 (08:32→21:35)
[2024-01-27] MEDS: Sodium Chloride 3 % Inhalation 4 ML VIAL.NEB INHALE (09:09)
[2024-01-27 09:10] LABS: Hematocrit 33.4 % (37.0-47.0); Hemoglobin 11.3 g/dl (12.0-16.0); Mean Corpuscular HGB Conc 33.8 g/dl (31.0-35.0); Mean Corpuscular Hemoglobin 29.5 pg (27.0-33.0); Mean Corpuscular Volume 87.2 fL (80.0-98.0); Mean Platelet Volume 10.6 fL (9.4-12.3); Platelet Count 191 X10*3/uL (160-400); Red Blood Count 3.83 X10*6/uL (4.20-5.50); Red Cell Distribution Width 16.1 % (11.0-16.0); White Blood Count 10.5 X10*3/uL (4.8-10.8)
--- NOTE | 2024-01-27 09:15 | PM.PNPUL ---
Subjective Subjective Date of Service: 01/27/24 Interval history: The patient was seen on exam. She has been on diuretics. Currently on room air so is reassuring. Chest x-ray pending. Her echocardiogram demonstrated impaired relaxation with a hyperdynamic EF of 70%. Volume status seems better. I did speak to the family. Seems like her MRSA screening is positive and also her respiratory viral panel is positive for enterovirus. Likely the explanation for the worsening of the interstitial lung disease in the pneumonitis. 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 Will assess to see if the x-ray shows any significant improvement after IV diuretics. In addition to that the workup for the connective tissue disease for now is coming back negative. She was started on Bactrim for PCP empiric treatment. But this is less likely. She is getting nauseous because of the Bactrim. She is going to try some Zofran. If however she can not tolerate the Bactrim we can always switch over to doxycycline to treat her for the potential Staph lower respiratory infection which can come about after a viral syndrome. She did have a sputum culture sent and the results are still pending. Objective Data Labs 01/27/24 08:48 01/26/24 05:22 Labs: Laboratory Results - last 24 hr 01/25/24 01/25/24 01/26/24 17:06 17:08 11:21 WBC RBC Hgb Hct MCV MCH MCHC RDW Plt Count MPV Absolute Nucleated RBC Nucleated RBC % (auto) POC Glucose 183 H Nasal Screen MRSA (PCR) NEGATIVE Nasal S. aureus Screen POSITIVE A Nasal MRSA/S.aureus Interp SEE NOTE Cycl Citrul Peptide IgG <16 Proteinase 3 (PR3) Ab <1.0 Myeloperoxidase Ab <1.0 Scl-70 Scleroderma Ab <1.0 NEG Respiratory Panel Recinos See Note Adenovirus (Rapid PCR) Not Detected B.pert (TEM-PCR) Not Detected B.parapertussis DNA PCR Not Detected C. pneumoniae DNA (PCR) Not Detected Coronavirus OC43 (PCR) Not Detected Coronavirus HKU1 (PCR) Not Detected Coronavirus 229E (PCR) Not Detected Coronavirus NL63 (PCR) Not Detected Human Metapneumovir PCR Not Detected Influenza A (RT-PCR) Not Detected Influenza B (RT-PCR) Not Detected M. pneumoniae (PCR) Not Detected Parainfluenza 1 (PCR) Not Detected Parainfluenza 2 (PCR) Not Detected Parainfluenza 3 (PCR) Not Detected Parainfluenza 4 (PCR) Not Detected RSV (PCR) Not Detected Entero/Rhino (PCR) Detected A SARS-CoV-2 RNA (RT-PCR) Not Detected 01/26/24 01/26/24 01/27/24 16:11 20:45 07:43 WBC RBC Hgb Hct MCV MCH MCHC RDW Plt Count MPV Absolute Nucleated RBC Nucleated RBC % (auto) POC Glucose 161 H 196 H 185 H Nasal Screen MRSA (PCR) Nasal S. aureus Screen Nasal MRSA/S.aureus Interp Cycl Citrul Peptide IgG Proteinase 3 (PR3) Ab Myeloperoxidase Ab Scl-70 Scleroderma Ab Respiratory Panel Recinos Adenovirus (Rapid PCR) B.pert (TEM-PCR) B.parapertussis DNA PCR C. pneumoniae DNA (PCR) Coronavirus OC43 (PCR) Coronavirus HKU1 (PCR) Coronavirus 229E (PCR) Coronavirus NL63 (PCR) Human Metapneumovir PCR Influenza A (RT-PCR) Influenza B (RT-PCR) M. pneumoniae (PCR) Parainfluenza 1 (PCR) Parainfluenza 2 (PCR) Parainfluenza 3 (PCR) Parainfluenza 4 (PCR) RSV (PCR) Entero/Rhino (PCR) SARS-CoV-2 RNA (RT-PCR) 01/27/24 08:48 WBC 10.5 RBC 3.83 L Hgb 11.3 L Hct 33.4 L MCV 87.2 MCH 29.5 MCHC 33.8 RDW 16.1 H Plt Count 191 MPV 10.6 Absolute Nucleated RBC 0.000 Nucleated RBC % (auto) 0.0 POC Glucose Nasal Screen MRSA (PCR) Nasal S. aureus Screen Nasal MRSA/S.aureus Interp Cycl Citrul Peptide IgG Proteinase 3 (PR3) Ab Myeloperoxidase Ab Scl-70 Scleroderma Ab Respiratory Panel Recinos Adenovirus (Rapid PCR) B.pert (TEM-PCR) B.parapertussis DNA PCR C. pneumoniae DNA (PCR) Coronavirus OC43 (PCR) Coronavirus HKU1 (PCR) Coronavirus 229E (PCR) Coronavirus NL63 (PCR) Human Metapneumovir PCR Influenza A (RT-PCR) Influenza B (RT-PCR) M. pneumoniae (PCR) Parainfluenza 1 (PCR) Parainfluenza 2 (PCR) Parainfluenza 3 (PCR) Parainfluenza 4 (PCR) RSV (PCR) Entero/Rhino (PCR) SARS-CoV-2 RNA (RT-PCR) Microbiology Microbiology Results: Microbiology 01/25/24 21:18 Sputum - Expectorated Gram Stain - Final 01/25/24 21:18 Sputum - Expectorated Sputum Culture - Preliminary Culture too young to evaluate. Review of Systems Constitutional: Reports fatigue Denies dizziness and Reports dry mouth Cardiovascular: Denies chest pain and Reports dyspnea (reports breathing feels labored ) Respiratory: Reports dyspnea (reports breathing feels labored ) Gastrointestinal: Denies abdominal pain, Denies diarrhea, Reports nausea and Denies vomiting Musculoskeletal: Reports back pain (mid back pain since thoracic fracture ) Skin/Breast: Denies rash Denies dizziness Endocrine: Reports fatigue Physical Exam Vital Signs: Vital Signs: Last Vital Signs Temp 97.4 F 01/27/24 08:00 Pulse 71 01/27/24 09:13 Resp 18 01/27/24 09:13 BP 120/63 01/27/24 08:00 Pulse Ox 96 01/27/24 08:00 O2 Del Method Room Air 01/27/24 08:00 O2 Flow Rate 3 01/27/24 03:35 Oxygen Flow Rate 2 01/25/24 14:51 BMI result Body Mass Index 24.4 Const: General: awake Orientation/consciousness: patient oriented x3 HEENT: Head: Yes normal to inspection Eyes: General: appearance normal, both eyes and all related structures Neck: Neck: Yes normal visual inspection, Yes no lymphadenopathy and Yes trachea midline Chest: Chest palpation & inspection: normal inspection of the chest, normal palpation of entire chest wall and no tenderness Resp: Effort & Inspection: normal respiratory effort Auscultation: crackles diffuse and diminished lung sounds Cardio: Palpation: normal PMI Rate: regular rate Rhythm: regular rhythm Heart sounds: no gallops and no murmurs GI: Palpation (GI): Soft to palpation and nontender Back/Spine/Pelvis: Thoracic/Lumbar Spine: thoracic and lumbar spine normal to inspection (THERE IS ALSO TENDERNESS OVER THE THORACOLUMBAR AREA) and thoraco-lumbar ROM limited Skin: General skin exam: no rashes or lesions noted Neuro: General: patient oriented x3 and no focal motor deficits Extrem: General: Yes normal to inspection Psych: Appearance: grossly normal and well kempt Speech and movement: Normal speech and movement present Procedures Date of Service Date of Service: 01/27/24 Assessment and Plan Assessment and plan (1) Acute and chronic respiratory failure: Status: Acute (2) Interstitial lung disease: Status: Acute (3) Pneumonitis: Status: Acute (4) Enterovirus infection: Status: Acute Plan continue solumedrol for now Levaquin/bactrim, if GI adverse symptoms are too strong, then we can consider changing to Doxy for anti staph coverage CXR this am, if better, then consider PO diuretics and PO prednisone swallow eval Awaiting additional labs Time Spent With Patient Time: Total time managing care of this patient today ____ minutes. Progress Note: Quality Stroke Does the patient have a stroke diagnosis?: No
[2024-01-27 09:23] LABS: Anion Gap 16 (12-20); Blood Urea Nitrogen 29 mg/dL (9-16); Calcium 9.3 mg/dL (8.4-10.2); Carbon Dioxide 29 mmol/L (22-29); Chloride 95 mmol/L (96-108); Creatinine Clr Calc Pharmacy 58.3; Estimated Glomerular Filt Rate > 60; Glucose Random 172 mg/dL (60-115); Potassium 3.9 mmol/L (3.3-5.1); Sodium 136 mmol/L (135-145)
[2024-01-27] MEDS: Metoclopramide HCl 10 MG/2 ML VIAL 5 MG IVPUSH (09:30)
--- NOTE | 2024-01-27 10:13 | MHC.SL.SWA ---
Speech Pathologist Impression: Adequate oropharyngeal coordination of functional, reflexive and volitional swallow Risk of Aspiration Due to: Medically Fragile Weak Voice Dysphasia Diet Status: Liquid Consistency and Strategies for Safe Swallow: Liquid Intake Recommendation: Thin Liquid Intake Strategies: Unrestricted Solid Food Consistency: Dietary Recommendations: Regular Additional Modifications to Solid Foods: Food from home recommended. Oral Medication Intake: Whole with Liquid Please contact the pharmacy regarding appropriate crushable or liquid drug formulations that are available whenever modified delivery is recommended. Compensatory Strategies and Precautions to be Taken for Safe Swallow: Sitting Upright (90 deg) Small Bites and Sips Alternate Liquids/Solids Rate of Ingestion Change Supervision While Eating and Drinking for Safe Swallow: Foods to Avoid: Swallowing Recommended Treatments: Compens. Strategy Educat. Recommendation for Speech: Discharged with Instructions for Home Use Comment: Recommend Regular Solids and Thin Liquids. RAG PRODUCTION WORKER will f/u x1 to ensure tolerance. Recommend MBSS as outpatient if medically necessary. Frequency/Duration: x1 Date Range for Service Req: Admission Timeline to reassess: PRN Canine Deputy Clinican/Clinical Fellow: No Supervisory Statement: I have reviewed and agree with the student/clinical fellow's documentation: N/A Speech Language Pathologist: Jerri Walls M.S., CCC-RAG PRODUCTION WORKER
--- NOTE | 2024-01-27 10:34 | MHC.CM.PN ---
EMR REVIEWED, PT WITH END STAGE IPF W/ACUTE EXAC, PT REMAINS ON IV LASIX BID, PER HOSPITALIST ANTIC PT WILL REMAIN INPT 1-2 MORE DAYS BEFORE RETURNING HOME W/RESUMP OF HVNA, CM WILL CONT TO FOLLOW DC NEEDS.
[2024-01-27 11:45] LABS: Glucose, Whole Blood 214 mg/dL (60-115)
[2024-01-27] MEDS: LORazepam 0.5 MG TABLET PO (12:14)
[2024-01-27 14:48] LABS: Anti Nuclear Antibody Screen NEGATIVE (NEGATIVE)
--- NOTE | 2024-01-27 15:08 | HO.PM.IMPN ---
Subjective Subjective Date of Service: 01/27/24 Interval History: c/o dyspnea; feels about the same dry cough initially; now with thick sputum after nebulized 3% NaCl no fever Review of Systems Review of Systems: Yes all other systems are reviewed and are negative Physical Exam Vital Signs: Vital Signs: Last Vital Signs Temp 97.4 F 01/27/24 14:30 Pulse 103 H 01/27/24 14:30 Resp 18 01/27/24 14:30 BP 141/77 H 01/27/24 14:30 Pulse Ox 93 01/27/24 12:57 O2 Del Method Room Air 01/27/24 12:00 O2 Flow Rate 3 01/27/24 03:35 Oxygen Flow Rate 2 01/25/24 14:51 BMI result Body Mass Index 24.4 Gen: short of breath HEENT: sclera anicteric, moist mucus membranes Neck: supple Lungs: diffuse inspiratory crackles Heart: regular rate and rhythm, no murmurs Abd: soft, non-tender, non-distended Ext: no edema Skin: warm/well-perfused Neuro: alert and oriented x3, no focal findings Psych: appropriate affect Objective Data Active Medications Acetaminophen (Acetaminophen 325 Mg Tablet) 650 mg PO Q6H PRN PRN Reason: Pain, Mild (Pain Scale 1-3), fever or headache Amlodipine Besylate (Amlodipine Besylate 2.5 Mg Tablet) 2.5 mg PO DAILY [facility]; Protocol Last Admin: 01/27/24 08:30 Dose: 2.5 mg Documented By: OCHOA Benzonatate (Benzonatate 100 Mg Capsule) 100 mg PO TID PRN PRN Reason: cough/ILD. Calcitonin Mcdermott (Calcitonin,Mcdermott,Synth Nasal 3.7 Ml Bottle) 1 spray NOSTRILALT DAILY [facility] Last Admin: 01/27/24 10:11 Dose: Not Given Documented By: OCHOA Non-Admin Reason: Med Not Available Calcium Carbonate (Calcium Carbonate 750 Mg Tab.Chew) 750 mg PO Q4H PRN PRN Reason: Heartburn Calcium Carbonate/Cholecalciferol (Calcium + Vitamin D 250 Mg Tablet) 250 mg PO DAILY [facility] Last Admin: 01/27/24 08:31 Dose: 250 mg Documented By: OCHOA Enoxaparin Sodium (Enoxaparin Sodium 40 Mg/0.4 Ml Syringe) 40 mg SUBCUT Q24H [facility] Last Admin: 01/26/24 16:52 Dose: 40 mg Documented By: MELINA Furosemide (Furosemide 40 Mg/4 Ml Vial) 20 mg IVPUSH BID@0900,1800 [facility]; Protocol Last Admin: 01/27/24 08:31 Dose: 20 mg Documented By: OCHOA Glucose (Glucose Gel 15 Gm Gel..Gram.) 15 gm PO Q15M PRN; Protocol PRN Reason: per Hypoglycemia Standing Ord. Guaifenesin (Guaifenesin 200 Mg/10 Ml 10 Ml Liquid) 10 ml PO Q6H PRN PRN Reason: Cough Dextrose (D10) 250 mls @ 750 mls/hr IV Q15M PRN; Protocol PRN Reason: per Hypoglycemia Standing Ord. Levofloxacin (Levaquin) 750 mg in 150 mls @ 100 mls/hr IV Q24H [facility] Last Infusion: 01/26/24 19:21 Dose: Infused Documented By: JOSETTE Insulin Human Lispro (Insulin Lispro 100 Unit/Ml 3 Ml Vial) 0 unit SUBCUT QIDACHS [facility]; Protocol Last Admin: 01/27/24 11:54 Dose: 4 unit Documented By: OCHOA Levothyroxine Sodium (Levothyroxine Sodium 25 Mcg Tablet) 25 mcg PO DAILY@0600 [facility] Last Admin: 01/27/24 07:32 Dose: Not Given Documented By: OCHOA Non-Admin Reason: Patient Refused Lorazepam (Lorazepam 0.5 Mg Tablet) 0.5 mg PO TID PRN PRN Reason: anxiety Last Admin: 01/27/24 12:14 Dose: 0.5 mg Documented By: OCHOA Magnesium Hydroxide (Milk Of Magnesia 30 Ml Oral.Susp) 30 ml PO DAILY PRN PRN Reason: Constipation Melatonin (Melatonin 3 Mg Tablet) 6 mg PO BEDTIME PRN PRN Reason: Insomnia Last Admin: 01/26/24 21:46 Dose: 6 mg Documented By: JOSETTE Methylprednisolone Sodium Succinate (Methylprednisolone Sod Succ 125 Mg/2 Ml Vial) 80 mg IVPUSH Q6H [facility] Last Admin: 01/27/24 08:32 Dose: 80 mg Documented By: OCHOA Metoclopramide HCl (Metoclopramide Hcl 10 Mg/2 Ml Vial) 5 mg IVPUSH Q6H PRN PRN Reason: n/v unrelieved by michele Last Admin: 01/27/24 09:30 Dose: 5 mg Documented By: OCHOA Mycophenolate Mofetil (Mycophenolate Mofetil 250 Mg Capsule) 1,000 mg PO BID [facility] Last Admin: 01/27/24 08:30 Dose: 1,000 mg Documented By: OCHOA Omeprazole (Omeprazole 20 Mg Capsule.Dr) 20 mg PO DAILY@0630 PRN PRN Reason: Acid Reflex Ondansetron HCl (Ondansetron Hcl 4 Mg/2 Ml Vial) 4 mg IVPUSH Q4H PRN PRN Reason: Nausea and Vomiting Last Admin: 01/27/24 11:21 Dose: 4 mg Documented By: YUKI Sodium Chloride (0.9 % Sodium Chloride Flush 3 Ml Syringe) 3 ml IVFLUSH QSHIFT [facility] Last Admin: 01/27/24 08:32 Dose: 3 ml Documented By: OCHOA Trimethoprim/Sulfamethoxazole (Sulfamethox/Trimeth 800/160 Tablet) 2 tab PO TID [facility] Last Admin: 01/27/24 08:30 Dose: 2 tab Documented By: OCHOA Labs 01/27/24 08:48 01/27/24 08:48 Labs: Laboratory Results - last 24 hr 01/25/24 01/26/24 01/26/24 17:06 16:11 20:45 MCV MCH MCHC RDW Plt Count MPV Absolute Nucleated RBC Nucleated RBC % (auto) Anion Gap Estim Creat Clear Calc Estimated GFR POC Glucose 161 H 196 H Random Glucose Calcium Cycl Citrul Peptide IgG <16 EL[place]NA Screen NEGATIVE Proteinase 3 (PR3) Ab <1.0 Myeloperoxidase Ab <1.0 01/27/24 01/27/24 01/27/24 07:43 08:48 11:37 MCV 87.2 MCH 29.5 MCHC 33.8 RDW 16.1 H Plt Count 191 MPV 10.6 Absolute Nucleated RBC 0.000 Nucleated RBC % (auto) 0.0 Anion Gap 16 Estim Creat Clear Calc 58.3 Estimated GFR > 60 POC Glucose 185 H 214 H Random Glucose 172 H Calcium 9.3 Cycl Citrul Peptide IgG ELIANA Screen Proteinase 3 (PR3) Ab Myeloperoxidase Ab Microbiology Microbiology Results: Microbiology 01/25/24 21:18 Gram Stain - Final Sputum - Expectorated Sputum Culture - Preliminary Filamentous fungus Assessment and Plan (1) Acute and chronic respiratory failure: Status: Acute Plan d3 for 73yo F with IPF on prednisone 40 mg/d + mycophenolate presenting with worsening dyspnea IPF with acute exacerbation - Pulm following - taper IV steroids; continue mycophenolate - RPP positive for rhinovirus/enterovirus - on levofloxacin 01/24-, urinary antigens for Legionella and pneumococcus penidng - on empiric PCP treatment with TMP/SMX 01/25-, send Fungitell + sputum for PCP staining - MRSA swab positive, TMP/SMX should cover - filamentous fungus in sputum, will consult ID - on furosemide for concern of pulmonary edema though LVEF >70% and BNP normal acute/chronic hypoxic RF - on 3L O2 at home; wean to home dose as tolerated [currently on 5L] HTN - continue amlodipine; not on losartan at home steroid-induced hyperglycemia - cam-dose lispro hypothyroidism - continue LT4 GERD - PPI dispo - eventual home with VNA In my clinical judgment, the patient requires continued inpatient hospitalization for the following reasons: hypoxia, IV ABX + steroids Total time managing care of this patient today: 55 minutes. Quality Stroke Does the patient have a stroke diagnosis?: No VTE Prior VTE?: No VTE Risk Level:: Medical - moderate - high VTE Device Contraindication: N/A - Device Ordered VTE Drug Contraindication: N/A - Med Ordered
[2024-01-27] MEDS: Acetylcysteine 10 % 400 MG/4 ML VIAL INHALE (15:43)
[2024-01-27 16:48] LABS: Glucose, Whole Blood 127 mg/dL (60-115)
[2024-01-27] MEDS: Enoxaparin Sodium 40 MG/0.4 ML SYRINGE SUBCUT (17:04)
[2024-01-27] MEDS: levoFLOXacin/D5W 750 MG/150 ML PIGGYBACK 100 MG IV (17:04)
[2024-01-27] MEDS: methylPREDNISolone Sod Succ 125 MG/2 ML VIAL 60 MG IVPUSH ×2 (17:05→23:19)
[2024-01-27 21:11] LABS: Glucose, Whole Blood 226 mg/dL (60-115)
[2024-01-27] MEDS: VORICONAZOLE IV (21:34)
[2024-01-27] MEDS: SODIUM CHLORIDE 0.9% IV (21:34)
[2024-01-28] VITALS (7 sets, daily range): BP systolic 107–142; BP diastolic 63–75; PULSE 92–108; RESP 16–20; TEMP 36.3–36.7; O2SAT 92–100; BMI 25.9
[2024-01-28] MEDS: Levothyroxine Sodium 25 MCG TABLET PO (05:19)
[2024-01-28 07:18] LABS: Hematocrit 32.9 % (37.0-47.0); Hemoglobin 11.1 g/dl (12.0-16.0); Mean Corpuscular HGB Conc 33.7 g/dl (31.0-35.0); Mean Corpuscular Hemoglobin 29.4 pg (27.0-33.0); Mean Corpuscular Volume 87.3 fL (80.0-98.0); Mean Platelet Volume 10.8 fL (9.4-12.3); Platelet Count 198 X10*3/uL (160-400); Red Blood Count 3.77 X10*6/uL (4.20-5.50); Red Cell Distribution Width 16.2 % (11.0-16.0); White Blood Count 9.6 X10*3/uL (4.8-10.8)
[2024-01-28 07:26] LABS: Glucose, Whole Blood 171 mg/dL (60-115)
[2024-01-28 07:38] LABS: Alanine Aminotransferase 52 U/L (0-31); Albumin Level 3.6 g/dL (3.5-5.0); Alkaline Phosphatase 87 U/L (39-117); Anion Gap 13 (12-20); Aspartate Amino Transferase 19 U/L (5-31); Bilirubin Total 0.2 mg/dL (0.0-1.0); Blood Urea Nitrogen 34 mg/dL (9-16); Carbon Dioxide 30 mmol/L (22-29); Chloride 96 mmol/L (96-108); Creatinine Clr Calc Pharmacy 54.5; Estimated Glomerular Filt Rate > 60; Glucose Random 170 mg/dL (60-115); Potassium 4.3 mmol/L (3.3-5.1); Sodium 135 mmol/L (135-145); Total Protein 6.1 g/dL (6.5-8.0)
[2024-01-28 07:39] LABS: B Type Natriuretic Peptide 34 pg/mL (<100)
[2024-01-28 07:52] LABS: Procalcitonin 0.04 ng/mL
[2024-01-28] MEDS: Calcitonin,Salmon,Synth Nasal 3.7 ML BOTTLE 1 SPRAY NOSTRILALT (09:00)
[2024-01-28] MEDS: Insulin Lispro 100 UNIT/ML 3 ML VIAL SUBCUT ×3 (09:33→21:09)
[2024-01-28] MEDS: mycophenolate mofetiL 250 MG CAPSULE 1000 MG PO ×2 (09:34→21:09)
[2024-01-28] MEDS: Sulfamethox/Trimeth 800/160 TABLET 2 TAB PO ×3 (09:34→21:10)
[2024-01-28] MEDS: amLODIPine Besylate 2.5 MG TABLET PO (09:34)
[2024-01-28] MEDS: Furosemide 40 MG/4 ML VIAL 20 MG IVPUSH (09:35)
[2024-01-28] MEDS: Calcium + Vitamin D 250 MG TABLET PO (09:35)
[2024-01-28] MEDS: 0.9 % Sodium Chloride Flush 3 ML SYRINGE IVFLUSH ×3 (09:36→21:11)
--- NOTE | 2024-01-28 09:37 | P.PNPL_ITS ---
Subjective Subjective Date of Service: 01/28/24 Interval history: The patient was seen on exam. Feeling anxious this morning feeling constipated. Her oxygen requirements increased overnight and she is back to her baseline this morning. Seems to be more tachypneic. Objective Data Labs 01/28/24 07:10 01/28/24 07:10 Labs: Laboratory Results - last 24 hr 01/25/24 01/27/24 01/27/24 17:06 11:37 16:43 WBC RBC Hgb Hct MCV MCH MCHC RDW Plt Count MPV Absolute Nucleated RBC Nucleated RBC % (auto) Sodium Potassium Chloride Carbon Dioxide Anion Gap BUN Creatinine Estim Creat Clear Calc Estimated GFR POC Glucose 214 H 127 H Random Glucose Calcium Total Bilirubin AST ALT Alkaline Phosphatase B-Natriuretic Peptide Total Protein Albumin Procalcitonin EL[place]NA Screen NEGATIVE [place] Titer TNP EL[place] Titer 2 TNP EL[place] Titer 3 TNP [place] Pattern TNP [place] Pattern 2 TNP [place] Pattern 3 TNP 01/27/24 01/28/24 01/28/24 21:04 07:10 07:19 WBC 9.6 RBC 3.77 L Hgb 11.1 L Hct 32.9 L MCV 87.3 MCH 29.4 MCHC 33.7 RDW 16.2 H Plt Count 198 MPV 10.8 Absolute Nucleated RBC 0.000 Nucleated RBC % (auto) 0.0 Sodium 135 Potassium 4.3 Chloride 96 Carbon Dioxide 30 H Anion Gap 13 BUN 34 H Creatinine 0.84 Estim Creat Clear Calc 54.5 Estimated GFR > 60 POC Glucose 226 H 171 H Random Glucose 170 H Calcium 10.0 D Total Bilirubin 0.2 AST 19 ALT 52 H Alkaline Phosphatase 87 B-Natriuretic Peptide 34 Total Protein 6.1 L Albumin 3.6 Procalcitonin 0.04 ELIANA Screen ELIANA Titer ELIANA Titer 2 ELIANA Titer 3 ELIANA Pattern ELIANA Pattern 2 EL[place]NA Pattern 3 Microbiology Microbiology Results: Microbiology 01/25/24 21:18 Sputum - Expectorated Gram Stain - Final 01/25/24 21:18 Sputum - Expectorated Sputum Culture - Preliminary Filamentous fungus Review of Systems Constitutional: Reports fatigue Denies dizziness and Reports dry mouth Cardiovascular: Denies chest pain and Reports dyspnea (reports breathing feels labored ) Respiratory: Reports dyspnea (reports breathing feels labored ) Gastrointestinal: Reports constipation, Denies diarrhea, Reports nausea and Denies vomiting Musculoskeletal: Reports back pain (mid back pain since thoracic fracture ) Skin/Breast: Denies rash Denies dizziness Psychiatric: Reports anxiety Endocrine: Reports fatigue Physical Exam 2 Vital Signs: Vital Signs: Last Vital Signs Temp 97.4 F 01/28/24 07:52 Pulse 92 01/28/24 09:14 Resp 20 01/28/24 07:52 BP 130/72 01/28/24 09:14 Pulse Ox 100 01/28/24 09:14 O2 Del Method Nasal Cannula 01/28/24 07:52 O2 Flow Rate 4 01/28/24 07:52 Oxygen Flow Rate 2 01/25/24 14:51 BMI result Body Mass Index 25.9 Procedures Date of Service Date of Service: 01/28/24 Assessment and Plan Assessment and plan (1) Acute and chronic respiratory failure: Status: Acute (2) Interstitial lung disease: Status: Acute (3) Pneumonitis: Status: Acute (4) Enterovirus infection: Status: Acute Plan Seem to be more dyspneic and anxious this am. Will need to reassess. She has advance lung disease, therefore, does not have any pulmonary reserve. cut down solumedrol yesterday Levaquin/bactrim, if GI adverse symptoms are too strong, then we can consider changing to Doxy for anti staph coverage Awaiting fungal culture results. Had clinically showed improvement prior to the voriconazole. CXR this am Awaiting additional labs GI cocktail for constipation Goals of care, advance ILD, suspicious for IPF. No secondary etiologies have been found. Time Spent With Patient Time: Total time managing care of this patient today ____ minutes. Progress Note: Quality Stroke Does the patient have a stroke diagnosis?: No
[2024-01-28] MEDS: VORICONAZOLE IV ×2 (09:51→21:10)
[2024-01-28] MEDS: SODIUM CHLORIDE 0.9% IV ×2 (09:51→21:10)
[2024-01-28 11:30] LABS: Glucose, Whole Blood 179 mg/dL (60-115)
[2024-01-28] MEDS: polyethylene glycoL 3350 17 GM POWD.PACK PO (12:27)
[2024-01-28] MEDS: Sennosides/Docusate Sodium TABLET 2 TAB PO ×2 (12:27→21:09)
[2024-01-28] MEDS: methylPREDNISolone Sod Succ 125 MG/2 ML VIAL 60 MG IVPUSH ×2 (12:28→21:07)
--- NOTE | 2024-01-28 12:44 | P.PNIM_ITS ---
Subjective Subjective Date of Service: 01/28/24 Interval History: on 3L O2 dyspnea a little better depressed/withdrawn Review of Systems Review of Systems: Yes all other systems are reviewed and are negative Physical Exam 2 Vital Signs: Vital Signs: Last Vital Signs Temp 97.4 F 01/28/24 12:00 Pulse 98 01/28/24 12:00 Resp 20 01/28/24 12:00 BP 142/75 H 01/28/24 12:00 Pulse Ox 99 01/28/24 12:00 O2 Del Method Nasal Cannula 01/28/24 12:00 O2 Flow Rate 3 01/28/24 12:00 Oxygen Flow Rate 2 01/25/24 14:51 BMI result Body Mass Index 25.9 Gen: short of breath HEENT: sclera anicteric, moist mucus membranes Neck: supple Lungs: diffuse inspiratory crackles Heart: regular rate and rhythm, no murmurs Abd: soft, non-tender, non-distended Ext: no edema Skin: warm/well-perfused Neuro: alert and oriented x3, no focal findings Psych: appropriate affect Objective Data Active Medications Acetaminophen (Acetaminophen 325 Mg Tablet) 650 mg PO Q6H PRN PRN Reason: Pain, Mild (Pain Scale 1-3), fever or headache Amlodipine Besylate (Amlodipine Besylate 2.5 Mg Tablet) 2.5 mg PO DAILY [facility]; Protocol Last Admin: 01/28/24 09:34 Dose: 2.5 mg Documented By: EVARISTO Benzonatate (Benzonatate 100 Mg Capsule) 100 mg PO TID PRN PRN Reason: cough/ILD. Calcitonin [place] (Calcitonin,[place],Synth Nasal 3.7 Ml Bottle) 1 spray NOSTRILALT DAILY [facility] Last Admin: 01/28/24 09:00 Dose: 1 spray Documented By: EVARISTO Calcium Carbonate (Calcium Carbonate 750 Mg Tab.Chew) 750 mg PO Q4H PRN PRN Reason: Heartburn Calcium Carbonate/Cholecalciferol (Calcium + Vitamin D 250 Mg Tablet) 250 mg PO DAILY [facility] Last Admin: 01/28/24 09:35 Dose: 250 mg Documented By: EVARISTO Enoxaparin Sodium (Enoxaparin Sodium 40 Mg/0.4 Ml Syringe) 40 mg SUBCUT Q24H [facility] Last Admin: 01/27/24 17:04 Dose: 40 mg Documented By: HO.FOSTEKR Furosemide (Furosemide 40 Mg/4 Ml Vial) 20 mg IVPUSH BID@0900,1800 [facility]; Protocol Last Admin: 01/28/24 09:35 Dose: 20 mg Documented By: EVARISTO Glucose (Glucose Gel 15 Gm Gel..Gram.) 15 gm PO Q15M PRN; Protocol PRN Reason: per Hypoglycemia Standing Ord. Guaifenesin (Guaifenesin 200 Mg/10 Ml 10 Ml Liquid) 10 ml PO Q6H PRN PRN Reason: Cough Dextrose (D10) 250 mls @ 750 mls/hr IV Q15M PRN; Protocol PRN Reason: per Hypoglycemia Standing Ord. Levofloxacin (Levaquin) 750 mg in 150 mls @ 100 mls/hr IV Q24H [facility] Last Infusion: 01/28/24 02:03 Dose: Infused Documented By: HEIDY Voriconazole 250 mg/ Sodium (Chloride) 100 mls @ 50 mls/hr IV Q12H [facility] Insulin Human Lispro (Insulin Lispro 100 Unit/Ml 3 Ml Vial) 0 unit SUBCUT QIDACHS [facility]; Protocol Last Admin: 01/28/24 09:33 Dose: 2 unit Documented By: EVARISTO Levothyroxine Sodium (Levothyroxine Sodium 25 Mcg Tablet) 25 mcg PO DAILY@0600 [facility] Last Admin: 01/28/24 05:19 Dose: 25 mcg Documented By: HEIDY Lorazepam (Lorazepam 0.5 Mg Tablet) 0.5 mg PO TID PRN PRN Reason: anxiety Last Admin: 01/27/24 12:14 Dose: 0.5 mg Documented By: OCHOA Magnesium Hydroxide (Milk Of Magnesia 30 Ml Oral.Susp) 30 ml PO DAILY PRN PRN Reason: Constipation Melatonin (Melatonin 3 Mg Tablet) 6 mg PO BEDTIME PRN PRN Reason: Insomnia Last Admin: 01/26/24 21:46 Dose: 6 mg Documented By: JOSETTE Methylprednisolone Sodium Succinate (Methylprednisolone Sod Succ 125 Mg/2 Ml Vial) 60 mg IVPUSH Q8H [facility] Last Admin: 01/28/24 12:28 Dose: 60 mg Documented By: EVARISTO Metoclopramide HCl (Metoclopramide Hcl 10 Mg/2 Ml Vial) 5 mg IVPUSH Q6H PRN PRN Reason: n/v unrelieved by zofran Last Admin: 01/27/24 09:30 Dose: 5 mg Documented By: FOSTEKR Mycophenolate Mofetil (Mycophenolate Mofetil 250 Mg Capsule) 1,000 mg PO BID [facility] Last Admin: 01/28/24 09:34 Dose: 1,000 mg Documented By: EVARISTO Omeprazole (Omeprazole 20 Mg Capsule.Dr) 20 mg PO DAILY@0630 PRN PRN Reason: Acid Reflex Ondansetron HCl (Ondansetron Hcl 4 Mg/2 Ml Vial) 4 mg IVPUSH Q4H PRN PRN Reason: Nausea and Vomiting Last Admin: 01/27/24 11:21 Dose: 4 mg Documented By: YUKI Polyethylene Glycol (Polyethylene Glycol 3350 17 Gm Powd.Pack) 17 gm PO DAILY [facility] Last Admin: 01/28/24 12:27 Dose: 17 gm Documented By: EVARISTO Senna/Docusate Sodium (Sennosides/Docusate Sodium Tablet) 2 tab PO BID [facility] Last Admin: 01/28/24 12:27 Dose: 2 tab Documented By: EVARISTO Sodium Chloride (0.9 % Sodium Chloride Flush 3 Ml Syringe) 3 ml IVFLUSH QSHIFT [facility] Last Admin: 01/28/24 09:36 Dose: 3 ml Documented By: EVARISTO Trimethoprim/Sulfamethoxazole (Sulfamethox/Trimeth 800/160 Tablet) 2 tab PO TID [facility] Last Admin: 01/28/24 09:34 Dose: 2 tab Documented By: EVARISTO Labs 01/28/24 07:10 01/28/24 07:10 Labs: Laboratory Results - last 24 hr 01/25/24 01/27/24 01/27/24 17:06 16:43 21:04 MCV MCH MCHC RDW Plt Count MPV Absolute Nucleated RBC Nucleated RBC % (auto) Anion Gap Estim Creat Clear Calc Estimated GFR POC Glucose 127 H 226 H Random Glucose Calcium Total Bilirubin AST ALT Alkaline Phosphatase B-Natriuretic Peptide Total Protein Albumin Procalcitonin [place] Screen NEGATIVE [place] Titer TNP [place] Titer 2 TNP [place] Titer 3 TNP [place] Pattern TNP [place] Pattern 2 TNP [place] Pattern 3 TNP 01/28/24 01/28/24 01/28/24 07:10 07:19 11:26 MCV 87.3 MCH 29.4 MCHC 33.7 RDW 16.2 H Plt Count 198 MPV 10.8 Absolute Nucleated RBC 0.000 Nucleated RBC % (auto) 0.0 Anion Gap 13 Estim Creat Clear Calc 54.5 Estimated GFR > 60 POC Glucose 171 H 179 H Random Glucose 170 H Calcium 10.0 D Total Bilirubin 0.2 AST 19 ALT 52 H Alkaline Phosphatase 87 B-Natriuretic Peptide 34 Total Protein 6.1 L Albumin 3.6 Procalcitonin 0.04 [place] Screen [place] Titer ELIANA Titer 2 EL[place]NA Titer 3 ELIANA Pattern [place] Pattern 2 [place] Pattern 3 Microbiology Microbiology Results: Microbiology 01/25/24 21:18 Gram Stain - Final Sputum - Expectorated Sputum Culture - Preliminary Filamentous fungus Staphylococcus aureus Assessment and Plan (1) Acute and chronic respiratory failure: Status: Acute Plan d4 for 73yo F with IPF on prednisone 40 mg/d + mycophenolate presenting with worsening dyspnea IPF with acute exacerbation - Pulm following - continue to taper IV steroids; continue mycophenolate - RPP positive for rhinovirus/enterovirus - on levofloxacin 01/24-, urinary antigens for Legionella and pneumococcus pending - on empiric PCP treatment with TMP/SMX 01/25-, Fungitell + sputum for PCP staining pending - MRSA swab positive, TMP/SMX should cover; follow Staph aureus growing from sputum for susceptibilties - filamentous fungus in sputum; galactomannan pending; started empiric voriconazole 01/26-; ID consult pending - on furosemide for concern of pulmonary edema though LVEF >70% and BNP normal; change to PO acute/chronic hypoxic RF - back on home dose 3L O2 HTN - continue amlodipine; not on losartan at home steroid-induced hyperglycemia - cam-dose lispro hypothyroidism - continue LT4 GERD - PPI dispo - eventual home with VNA In my clinical judgment, the patient requires continued inpatient hospitalization for the following reasons: hypoxia, IV ABX + IV antifungals + steroids Total time managing care of this patient today: 50 minutes. Quality Stroke Does the patient have a stroke diagnosis?: No VTE Prior VTE?: No VTE Risk Level:: Medical - moderate - high VTE Device Contraindication: N/A - Device Ordered VTE Drug Contraindication: N/A - Med Ordered
--- NOTE | 2024-01-28 13:35 | MHC.SL.SWA ---
Speech Pathologist Impression: Risk of Aspiration Due to: Medically Fragile Weak Voice Dysphasia Diet Status: Continue on Regular Diet with Thin Liquids, pills whole with liquid. No further speech/swallow service indicated will DC. Liquid Consistency and Strategies for Safe Swallow: Liquid Intake Recommendation: Thin Liquid Intake Strategies: Unrestricted Solid Food Consistency: Dietary Recommendations: Regular Additional Modifications to Solid Foods: Food from home recommended. Oral Medication Intake: Whole with Liquid Please contact the pharmacy regarding appropriate crushable or liquid drug formulations that are available whenever modified delivery is recommended. Compensatory Strategies and Precautions to be Taken for Safe Swallow: Sitting Upright (90 deg) Liquids from Cup Liquids from Straw Supervision While Eating and Drinking for Safe Swallow: Foods to Avoid: Swallowing Recommended Treatments: Compens. Strategy Educat. Recommendation for Speech: Discharged with Instructions for Home Use Comment: Patient seen at lunch, with granddaughter present in room. Granddaughter requested patient have a laxative before attempting her lunch, for which SUPER[employer] advised RN. Patient was awake and alert, tolerated being seated up right in bed. Granddaughter mostly translating for her throughout this session, however patient at times responding directly to [employer] when spoken to in [place]. Patient noted to have hand tremor, making holding cups and utensils mildly challenging. Granddaughter noted tremor had been increasing. Patient initially stated she did not want to eat anything, feeling nauseous, however with encouragement from Granddaughter ate a few bites of her very healthy lunch (fish, broccoli and sweet potatoes). Due to tremor, patient was assisted with cutting up some of the food to make more accessible, and with this aid was able to feed self. Patient evidenced no apparent difficulty with any phase of swallow while drinking and eating. Patient ate approximately 1/4 of meal then protested that she wanted no more. Patient and Granddaughter advised that she is presenting with a normal swallow and on the least restrictive diet, indicating no further need for speech service. Family was in agreement. SUPER[employer] will D/C speech. Frequency/Duration: x1 Date Range for Service Req: Admission Timeline to reassess: PRN Windshield Installer Clinican/Clinical Fellow: No Supervisory Statement: I have reviewed and agree with the student/clinical fellow's documentation: N/A Speech Language Pathologist: Stacie Wasserman M.A., CCC-[employer]
[2024-01-28 14:08] LABS: Immunoglobulin E <2 kU/L (<OR=114)
[2024-01-28] MEDS: Enoxaparin Sodium 40 MG/0.4 ML SYRINGE SUBCUT (16:23)
[2024-01-28 16:29] LABS: Glucose, Whole Blood 121 mg/dL (60-115)
[2024-01-28] MEDS: Sertraline HCL 25 MG TABLET PO (16:39)
[2024-01-28] MEDS: levoFLOXacin/D5W 750 MG/150 ML PIGGYBACK 100 MG IV (18:25)
[2024-01-28 20:54] LABS: Glucose, Whole Blood 160 mg/dL (60-115)
--- NOTE | 2024-01-28 23:29 | W.PM.IDCN ---
History of Present Illness Data of Consult Service Date: 02/03/24 Requesting physician: Brii Durant Primary Care Provider: Bia Verma MD HPI Reason for consult: staph aureus sputum,filmentous fungus She presents with fever and cough for a day. She has sputum staph aureus and filamentous fungus. [facility] Past Medical History Medical History Pneumonitis Oral thrush Back pain of thoracolumbar region Fatigue Respiratory failure with hypoxia Bronchitis Post-COVID chronic cough Exercise hypoxemia Interstitial lung disease Hemoptysis Hypothyroidism Pulmonary fibrosis, unspecified Cough Dyspnea on exertion Social History Social History Household Members: Family Housing: House Do you presently have visiting nurse or other home services: No Patient Tobacco Use Status: Never used Tobacco Advance Directives Date on File: 01/25/24 service: No Meds Allergies Allergy/AdvReac Type Severity Reaction Status Date / Time Penicillins [PENICILLINS] Allergy Unknown SWELLING Verified 01/25/24 11:07 Active Medications: Current Medications Acetaminophen (Acetaminophen 325 Mg Tablet) 650 mg PO Q6H PRN PRN Reason: Pain, Mild (Pain Scale 1-3), fever or headache Amlodipine Besylate (Amlodipine Besylate 2.5 Mg Tablet) 2.5 mg PO DAILY [facility]; Protocol Last Admin: 01/28/24 09:34 Dose: 2.5 mg Benzonatate (Benzonatate 100 Mg Capsule) 100 mg PO TID PRN PRN Reason: cough/ILD. Calcitonin [place] (Calcitonin,[place],Synth Nasal 3.7 Ml Bottle) 1 spray NOSTRILALT DAILY [facility] Last Admin: 01/28/24 09:00 Dose: 1 spray Calcium Carbonate (Calcium Carbonate 750 Mg Tab.Chew) 750 mg PO Q4H PRN PRN Reason: Heartburn Calcium Carbonate/Cholecalciferol (Calcium + Vitamin D 250 Mg Tablet) 250 mg PO DAILY [facility] Last Admin: 01/28/24 09:35 Dose: 250 mg Enoxaparin Sodium (Enoxaparin Sodium 40 Mg/0.4 Ml Syringe) 40 mg SUBCUT Q24H [facility] Last Admin: 01/28/24 16:23 Dose: 40 mg Furosemide (Furosemide 20 Mg Tablet) 20 mg PO DAILY [facility]; Protocol Glucose (Glucose Gel 15 Gm Gel..Gram.) 15 gm PO Q15M PRN; Protocol PRN Reason: per Hypoglycemia Standing Ord. Guaifenesin (Guaifenesin 200 Mg/10 Ml 10 Ml Liquid) 10 ml PO Q6H PRN PRN Reason: Cough Dextrose (D10) 250 mls @ 750 mls/hr IV Q15M PRN; Protocol PRN Reason: per Hypoglycemia Standing Ord. Levofloxacin (Levaquin) 750 mg in 150 mls @ 100 mls/hr IV Q24H [facility] Last Infusion: 01/28/24 21:35 Dose: Infused Voriconazole 250 mg/ Sodium (Chloride) 100 mls @ 50 mls/hr IV Q12H [facility] Last Admin: 01/28/24 21:10 Dose: 50 mls/hr Insulin Human Lispro (Insulin Lispro 100 Unit/Ml 3 Ml Vial) 0 unit SUBCUT QIDACHS [facility]; Protocol Last Admin: 01/28/24 21:09 Dose: 2 unit Levothyroxine Sodium (Levothyroxine Sodium 25 Mcg Tablet) 25 mcg PO DAILY@0600 [facility] Last Admin: 01/28/24 05:19 Dose: 25 mcg Lorazepam (Lorazepam 0.5 Mg Tablet) 0.5 mg PO TID PRN PRN Reason: anxiety Last Admin: 01/27/24 12:14 Dose: 0.5 mg Magnesium Hydroxide (Milk Of Magnesia 30 Ml Oral.Susp) 30 ml PO DAILY PRN PRN Reason: Constipation Melatonin (Melatonin 3 Mg Tablet) 6 mg PO BEDTIME PRN PRN Reason: Insomnia Last Admin: 01/26/24 21:46 Dose: 6 mg Methylprednisolone Sodium Succinate (Methylprednisolone Sod Succ 125 Mg/2 Ml Vial) 60 mg IVPUSH Q8H [facility] Last Admin: 01/28/24 21:07 Dose: 60 mg Metoclopramide HCl (Metoclopramide Hcl 10 Mg/2 Ml Vial) 5 mg IVPUSH Q6H PRN PRN Reason: n/v unrelieved by michele Last Admin: 01/27/24 09:30 Dose: 5 mg Mycophenolate Mofetil (Mycophenolate Mofetil 250 Mg Capsule) 1,000 mg PO BID [facility] Last Admin: 01/28/24 21:09 Dose: 1,000 mg Omeprazole (Omeprazole 20 Mg Capsule.Dr) 20 mg PO DAILY@0630 PRN PRN Reason: Acid Reflex Ondansetron HCl (Ondansetron Hcl 4 Mg/2 Ml Vial) 4 mg IVPUSH Q4H PRN PRN Reason: Nausea and Vomiting Last Admin: 01/27/24 11:21 Dose: 4 mg Polyethylene Glycol (Polyethylene Glycol 3350 17 Gm Powd.Pack) 17 gm PO DAILY [facility] Last Admin: 01/28/24 12:27 Dose: 17 gm Senna/Docusate Sodium (Sennosides/Docusate Sodium Tablet) 2 tab PO BID [facility] Last Admin: 01/28/24 21:09 Dose: 2 tab Sertraline HCl (Sertraline Hcl 25 Mg Tablet) 25 mg PO DAILY [facility] Last Admin: 01/28/24 16:39 Dose: 25 mg Sodium Chloride (0.9 % Sodium Chloride Flush 3 Ml Syringe) 3 ml IVFLUSH QSHIFT [facility] Last Admin: 01/28/24 21:11 Dose: 3 ml Trimethoprim/Sulfamethoxazole (Sulfamethox/[place]eth 800/160 Tablet) 2 tab PO TID [facility] Last Admin: 01/28/24 21:10 Dose: 2 tab Home Medications ?Medication ?Instructions ?Recorded ?Confirmed ?Last Taken ?Type pantoprazole 20 mg tablet,delayed 20 mg PO DAILY@0630 PRN Acid Reflex 08/31/23 01/25/24 Unknown History release prednisone 20 mg tablet 40 mg PO DAILY 12/09/23 01/25/24 01/25/24 09:30 History benzonatate 100 mg capsule 100 mg PO TID PRN cough/ILD. 12/15/23 01/25/24 Unknown History calcium 600 mg (as 1 tab PO DAILY 01/25/24 01/25/24 01/25/24 09:30 History carbonate)-vitamin D3 5 mcg (200 unit) tablet (Calcium 600 + D(3)) levothyroxine 25 mcg tablet 25 mcg PO DAILY@0600 01/25/24 01/25/24 01/25/24 09:30 History metformin 500 mg tablet 500 mg PO BIDWM 01/25/24 01/25/24 Unknown History Physical Exam Vital Signs: Vital Signs: Last Vital Signs Temp 98.0 F 01/28/24 19:37 Pulse 108 H 01/28/24 19:37 Resp 20 01/28/24 19:37 BP 119/63 01/28/24 19:37 Pulse Ox 92 01/28/24 19:37 O2 Del Method Nasal Cannula 01/28/24 19:37 O2 Flow Rate 2 01/28/24 19:37 Oxygen Flow Rate 2 01/25/24 14:51 BMI result Body Mass Index 25.9 Const: General: cooperative HEENT: Head: Yes normal to inspection Face and sinus: Yes normal facial exam Mouth: Normal oral and palatal mucosa present Teeth and gingiva: dentition normal Eyes: General: appearance normal, both eyes and all related structures Pupils: Equal, round and reactive pupils present Resp: Effort & Inspection: normal respiratory effort Cardio: Rate: regular rate Rhythm: regular rhythm GI: Palpation (GI): Soft to palpation and nontender : General: Yes no CVA tenderness Back/Spine/Pelvis: Back: no CVA tenderness Skin: General skin exam: no rashes or lesions noted Neuro: General: moves all extremities Cranial nerves: Yes Equal, round and reactive pupils present Extrem: General: Yes normal to inspection Psych: Appearance: grossly normal Results Labs 01/28/24 07:10 01/28/24 07:10 Labs: Short CBC 01/28/24 Range/Units 07:10 WBC 9.6 (4.8-10.8) X10*3/uL Hgb 11.1 L (12.0-16.0) g/dl Hct 32.9 L (37.0-47.0) % Plt Count 198 (160-400) X10*3/uL BMP 01/28/24 07:10 Sodium 135 Potassium 4.3 Chloride 96 Carbon Dioxide 30 H BUN 34 H Creatinine 0.84 Calcium 10.0 D Liver Function 01/28/24 Range/Units 07:10 Total Bilirubin 0.2 (0.0-1.0) mg/dL AST 19 (5-31) U/L ALT 52 H (0-31) U/L Alkaline Phosphatase 87 (39-117) U/L Albumin 3.6 (3.5-5.0) g/dL Microbiology Microbiology Results: Microbiology 01/25/24 21:18 Sputum - Expectorated Gram Stain - Final 01/25/24 21:18 Sputum - Expectorated Sputum Culture - Preliminary Filamentous fungus Staphylococcus aureus Assessment and Plan (1) Acute and chronic respiratory failure: Qualifiers: Respiratory failure complication: hypoxia Qualified Code(s): J96.21 - Acute and chronic respiratory failure with hypoxia Status: Acute (2) Pneumonitis: Status: Acute Plan She has filamentous fungus sputum, probably staph aureus as well. Blood cultures are negative. staph aureus
[2024-01-28] MEDS: LORazepam 0.5 MG TABLET PO (23:51)
[2024-01-29] VITALS (8 sets, daily range): BP systolic 110–134; BP diastolic 64–84; PULSE 86–116; RESP 18–20; TEMP 36.1–36.6; O2SAT 92–98; BMI 26.2
[2024-01-29] MEDS: methylPREDNISolone Sod Succ 125 MG/2 ML VIAL 60 MG IVPUSH ×3 (05:42→21:25)
[2024-01-29] MEDS: Levothyroxine Sodium 25 MCG TABLET PO (05:42)
[2024-01-29 07:36] LABS: Glucose, Whole Blood 146 mg/dL (60-115)
[2024-01-29] MEDS: 0.9 % Sodium Chloride Flush 3 ML SYRINGE IVFLUSH ×3 (09:24→21:26)
[2024-01-29] MEDS: SODIUM CHLORIDE 0.9% IV (09:25)
[2024-01-29] MEDS: VORICONAZOLE IV (09:25)
[2024-01-29] MEDS: amLODIPine Besylate 2.5 MG TABLET PO (09:26)
[2024-01-29] MEDS: Sulfamethox/Trimeth 800/160 TABLET 2 TAB PO ×2 (09:26→16:38)
[2024-01-29] MEDS: Furosemide 20 MG TABLET PO (09:26)
[2024-01-29] MEDS: Sertraline HCL 25 MG TABLET PO (09:26)
[2024-01-29] MEDS: Milk of Magnesia 30 ML ORAL.SUSP PO (09:27)
[2024-01-29] MEDS: Calcitonin,Salmon,Synth Nasal 3.7 ML BOTTLE 1 SPRAY NOSTRILALT (09:27)
[2024-01-29] MEDS: Calcium + Vitamin D 250 MG TABLET PO (09:27)
[2024-01-29] MEDS: Sennosides/Docusate Sodium TABLET 2 TAB PO ×2 (09:27→21:26)
[2024-01-29] MEDS: mycophenolate mofetiL 250 MG CAPSULE 1000 MG PO ×2 (09:27→21:26)
[2024-01-29] MEDS: polyethylene glycoL 3350 17 GM POWD.PACK PO (09:27)
[2024-01-29 11:42] LABS: Glucose, Whole Blood 203 mg/dL (60-115)
[2024-01-29] MEDS: Insulin Lispro 100 UNIT/ML 3 ML VIAL SUBCUT ×3 (12:01→21:26)
[2024-01-29] MEDS: bisacodyL 10 MG SUPP.RECT PR (12:01)
[2024-01-29] MEDS: Lactulose 20 GM/30 ML SOLUTION 40 GM PO (12:01)
--- NOTE | 2024-01-29 12:34 | P.PNPL_ITS ---
Subjective Subjective Date of Service: 01/29/24 Interval history: The patient was seen on exam. She is complaining about constipation. Breathing seems to be closer to her baseline. Her chest x-ray was reassuring without any acute changes but still has significant advanced interstitial lung disease. Her sputum culture positive for staph aureus as well as her MRSA screen. In addition to that she did have filamentous fungi. At this point hold off on treating until we have further identification. I am hoping the patient can go home soon. Will switch over to oral prednisone with the hopes to see that if she can do well today she can potentially go home. Objective Data Labs 01/28/24 07:10 01/28/24 07:10 Labs: Laboratory Results - last 24 hr 01/25/24 01/28/24 01/28/24 11:19 16:21 20:48 POC Glucose 121 H 160 H IgE <2 01/29/24 01/29/24 07:08 11:29 POC Glucose 146 H 203 H IgE Microbiology Microbiology Results: Microbiology 01/25/24 21:18 Sputum - Expectorated Gram Stain - Final 01/25/24 21:18 Sputum - Expectorated Sputum Culture - Preliminary Filamentous fungus Staphylococcus aureus Review of Systems Constitutional: Reports fatigue Denies dizziness and Reports dry mouth Cardiovascular: Denies chest pain and Reports dyspnea (reports breathing feels labored ) Respiratory: Reports dyspnea (reports breathing feels labored ) Gastrointestinal: Reports constipation, Denies diarrhea, Reports nausea and Denies vomiting Musculoskeletal: Reports back pain (mid back pain since thoracic fracture ) Skin/Breast: Denies rash Denies dizziness Psychiatric: Reports anxiety Endocrine: Reports fatigue Physical Exam 2 Vital Signs: Vital Signs: Last Vital Signs Temp 97.8 F 01/29/24 11:21 Pulse 109 H 01/29/24 11:21 Resp 20 01/29/24 11:21 BP 134/72 01/29/24 11:21 Pulse Ox 95 01/29/24 11:21 O2 Del Method Nasal Cannula 01/29/24 11:21 O2 Flow Rate 3 01/29/24 11:21 Oxygen Flow Rate 2 01/25/24 14:51 BMI result Body Mass Index 26.2 Const: General: cooperative HEENT: Head: Yes normal to inspection Face and sinus: Yes normal facial exam Mouth: Normal oral and palatal mucosa present Teeth and gingiva: d entition normal Eyes: General: appearance normal, both eyes and all related structures P upils: Equal, round and reactive pupils present Resp: Effort & Inspection: normal respiratory effort Cardio: Rate: regular rate Rhythm: regular rhythm GI: Palpation (GI): Soft to palpation and nontender : General: Yes no CVA tenderness Back/Spine/Pelvis: Back: no CVA tenderness Skin: General skin exam: no rashes or lesions noted Neuro: General: moves all extremities Cranial nerves: Yes Equal, round and reactive pupils present Extrem: General: Yes normal to inspection Psych: Appearance: grossly normal Procedures Date of Service Date of Service: 01/29/24 Assessment and Plan Assessment and plan (1) Acute and chronic respiratory failure: Status: Acute (2) Interstitial lung disease: Status: Acute (3) Pneumonitis: Status: Acute (4) Enterovirus infection: Status: Acute Plan change to Prednisone 60mg daily change to Doxycycline to complete 21 days Awaiting fungal culture results. Had clinically showed improvement prior to the voriconazole. GI cocktail for constipation may be a good candidate for OFEV. We will start the process as outpt F/U with outpt pulmonary Time Spent With Patient Time: Total time managing care of this patient today ____ minutes. Progress Note: Quality Stroke Does the patient have a stroke diagnosis?: No
--- NOTE | 2024-01-29 12:43 | P.PNIM_ITS ---
Subjective Subjective Date of Service: 01/29/24 Interval History: dyspnea improved to around baseline c/o constipation Review of Systems Review of Systems: Yes all other systems are reviewed and are negative Physical Exam 2 Vital Signs: Vital Signs: Last Vital Signs Temp 97.8 F 01/29/24 11:21 Pulse 109 H 01/29/24 11:21 Resp 20 01/29/24 11:21 BP 134/72 01/29/24 11:21 Pulse Ox 95 01/29/24 11:21 O2 Del Method Nasal Cannula 01/29/24 11:21 O2 Flow Rate 3 01/29/24 11:21 Oxygen Flow Rate 2 01/25/24 14:51 BMI result Body Mass Index 26.2 Gen: short of breath which is her baseline HEENT: sclera anicteric, moist mucus membranes Neck: supple Lungs: diffuse inspiratory crackles Heart: regular rate and rhythm, no murmurs Abd: soft, non-tender, non-distended Ext: no edema Skin: warm/well-perfused Neuro: alert and oriented x3, no focal findings Psych: appropriate affect Objective Data Active Medications Acetaminophen (Acetaminophen 325 Mg Tablet) 650 mg PO Q6H PRN PRN Reason: Pain, Mild (Pain Scale 1-3), fever or headache Amlodipine Besylate (Amlodipine Besylate 2.5 Mg Tablet) 2.5 mg PO DAILY [facility]; Protocol Last Admin: 01/29/24 09:26 Dose: 2.5 mg Documented By: NEETA Benzonatate (Benzonatate 100 Mg Capsule) 100 mg PO TID PRN PRN Reason: cough/ILD. Calcitonin [place] (Calcitonin,[place],Synth Nasal 3.7 Ml Bottle) 1 spray NOSTRILALT DAILY [facility] Last Admin: 01/29/24 09:27 Dose: 1 spray Documented By: NEETA Calcium Carbonate (Calcium Carbonate 750 Mg Tab.Chew) 750 mg PO Q4H PRN PRN Reason: Heartburn Calcium Carbonate/Cholecalciferol (Calcium + Vitamin D 250 Mg Tablet) 250 mg PO DAILY [facility] Last Admin: 01/29/24 09:27 Dose: 250 mg Documented By: NEETA Enoxaparin Sodium (Enoxaparin Sodium 40 Mg/0.4 Ml Syringe) 40 mg SUBCUT Q24H [facility] Last Admin: 01/28/24 16:23 Dose: 40 mg Documented By: HO.DOUBLEN Furosemide (Furosemide 20 Mg Tablet) 20 mg PO DAILY [facility]; Protocol Last Admin: 01/29/24 09:26 Dose: 20 mg Documented By: NEETA Glucose (Glucose Gel 15 Gm Gel..Gram.) 15 gm PO Q15M PRN; Protocol PRN Reason: per Hypoglycemia Standing Ord. Guaifenesin (Guaifenesin 200 Mg/10 Ml 10 Ml Liquid) 10 ml PO Q6H PRN PRN Reason: Cough Dextrose (D10) 250 mls @ 750 mls/hr IV Q15M PRN; Protocol PRN Reason: per Hypoglycemia Standing Ord. Levofloxacin (Levaquin) 750 mg in 150 mls @ 100 mls/hr IV Q24H [facility] Last Infusion: 01/28/24 21:35 Dose: Infused Documented By: JOSIAH Voriconazole 250 mg/ Sodium (Chloride) 100 mls @ 50 mls/hr IV Q12H [facility] Last Infusion: 01/29/24 11:56 Dose: Infused Documented By: NEETA Insulin Human Lispro (Insulin Lispro 100 Unit/Ml 3 Ml Vial) 0 unit SUBCUT QIDACHS [facility]; Protocol Last Admin: 01/29/24 12:01 Dose: 4 unit Documented By: NEETA Levothyroxine Sodium (Levothyroxine Sodium 25 Mcg Tablet) 25 mcg PO DAILY@0600 [facility] Last Admin: 01/29/24 05:42 Dose: 25 mcg Documented By: JOSIAH Lorazepam (Lorazepam 0.5 Mg Tablet) 0.5 mg PO TID PRN PRN Reason: anxiety Last Admin: 01/28/24 23:51 Dose: 0.5 mg Documented By: JOSIAH Magnesium Hydroxide (Milk Of Magnesia 30 Ml Oral.Susp) 30 ml PO DAILY PRN PRN Reason: Constipation Last Admin: 01/29/24 09:27 Dose: 30 ml Documented By: NEETA Melatonin (Melatonin 3 Mg Tablet) 6 mg PO BEDTIME PRN PRN Reason: Insomnia Last Admin: 01/26/24 21:46 Dose: 6 mg Documented By: JOSETTE Metformin HCl (Metformin Hcl Er 500 Mg Tab.Er.24h) 500 mg PO DAILY@1700 [facility] Methylprednisolone Sodium Succinate (Methylprednisolone Sod Succ 125 Mg/2 Ml Vial) 60 mg IVPUSH Q8H [facility] Last Admin: 01/29/24 12:01 Dose: 60 mg Documented By: NEETA Metoclopramide HCl (Metoclopramide Hcl 10 Mg/2 Ml Vial) 5 mg IVPUSH Q6H PRN PRN Reason: n/v unrelieved by michele Last Admin: 01/27/24 09:30 Dose: 5 mg Documented By: FOSTEKR Mycophenolate Mofetil (Mycophenolate Mofetil 250 Mg Capsule) 1,000 mg PO BID [facility] Last Admin: 01/29/24 09:27 Dose: 1,000 mg Documented By: NEETA Omeprazole (Omeprazole 20 Mg Capsule.Dr) 20 mg PO DAILY@0630 PRN PRN Reason: Acid Reflex Ondansetron HCl (Ondansetron Hcl 4 Mg/2 Ml Vial) 4 mg IVPUSH Q4H PRN PRN Reason: Nausea and Vomiting Last Admin: 01/27/24 11:21 Dose: 4 mg Documented By: YUKI Polyethylene Glycol (Polyethylene Glycol 3350 17 Gm Powd.Pack) 17 gm PO DAILY [facility] Last Admin: 01/29/24 09:27 Dose: 17 gm Documented By: NEETA Senna/Docusate Sodium (Sennosides/Docusate Sodium Tablet) 2 tab PO BID [facility] Last Admin: 01/29/24 09:27 Dose: 2 tab Documented By: NEETA Sertraline HCl (Sertraline Hcl 25 Mg Tablet) 25 mg PO DAILY [facility] Last Admin: 01/29/24 09:26 Dose: 25 mg Documented By: NEETA Sodium Chloride (0.9 % Sodium Chloride Flush 3 Ml Syringe) 3 ml IVFLUSH QSHIFT [facility] Last Admin: 01/29/24 09:24 Dose: 3 ml Documented By: NEETA Trimethoprim/Sulfamethoxazole (Sulfamethox/Trimeth 800/160 Tablet) 2 tab PO TID [facility] Last Admin: 01/29/24 09:26 Dose: 2 tab Documented By: NEETA Labs 01/28/24 07:10 01/28/24 07:10 Labs: Laboratory Results - last 24 hr 01/25/24 01/28/24 01/28/24 11:19 16:21 20:48 POC Glucose 121 H 160 H IgE <2 01/29/24 01/29/24 07:08 11:29 POC Glucose 146 H 203 H IgE Microbiology Microbiology Results: Microbiology 01/25/24 21:18 Gram Stain - Final Sputum - Expectorated Sputum Culture - Preliminary Filamentous fungus Staphylococcus aureus Assessment and Plan (1) Acute and chronic respiratory failure: Status: Acute Plan d5 for 73yo F with IPF on prednisone 40 mg/d + mycophenolate presenting with worsening dyspnea IPF with acute exacerbation - Pulm following - change IV steroids to PO prednisone 60 mg daily continue mycophenolate - RPP positive for rhinovirus/enterovirus - on levofloxacin 01/24-, urinary antigens for Legionella and pneumococcus pending - on empiric PCP treatment with TMP/SMX 01/25-, Fungitell + sputum for PCP staining pending - MRSA in sputum, TMP/SMX should cover; consider changing to doxy if no PCP - filamentous fungus in sputum; galactomannan pending; started empiric voriconazole 01/26-; ID consult pending - on furosemide for concern of pulmonary edema though LVEF >70% and BNP normal; changed to PO acute/chronic hypoxic RF - back on home dose 3L O2 constipation - bowel regimen HTN - continue amlodipine; not on losartan at home steroid-induced hyperglycemia/DM2 - start MTF hypothyroidism - continue LT4 GERD - PPI dispo - eventual home with VNA In my clinical judgment, the patient requires continued inpatient hospitalization for the following reasons: hypoxia, IV ABX + IV antifungals + steroids Total time managing care of this patient today: 40 minutes. Quality Stroke Does the patient have a stroke diagnosis?: No VTE Prior VTE?: No VTE Risk Level:: Medical - moderate - high VTE Device Contraindication: N/A - Device Ordered VTE Drug Contraindication: N/A - Med Ordered
--- NOTE | 2024-01-29 14:19 | MHC.CM.PN ---
Patient is not medically cleared for discharge. DP home with resumption of [facility], SN+PT. A family member will provide transportation home.
[2024-01-29 16:17] LABS: Glucose, Whole Blood 256 mg/dL (60-115)
[2024-01-29] MEDS: Enoxaparin Sodium 40 MG/0.4 ML SYRINGE SUBCUT (16:37)
[2024-01-29] MEDS: levoFLOXacin/D5W 750 MG/150 ML PIGGYBACK 100 MG IV (16:38)
[2024-01-29] MEDS: metFORMIN HCl ER 500 MG TAB.ER.24H PO (16:38)
[2024-01-29] MEDS: Sodium Phosphate,Mono-Dibasic 133 ML ENEMA PR (17:39)
[2024-01-29 21:09] LABS: Glucose, Whole Blood 204 mg/dL (60-115)
[2024-01-29] MEDS: LORazepam 0.5 MG TABLET PO (22:11)
--- NOTE | 2024-01-29 23:10 | P.PNID_ITS ---
Subjective Subjective Date of Service: 01/29/24 Critical Care Time (minutes): 15 Comment: She feels better. She is on same 3 liters oxygen. Objective Data Labs 01/28/24 07:10 01/28/24 07:10 Labs: Laboratory Results - last 24 hr 01/29/24 01/29/24 01/29/24 07:08 11:29 15:58 POC Glucose 146 H 203 H 256 H 01/29/24 21:04 POC Glucose 204 H Microbiology Microbiology Results: Microbiology 01/25/24 21:18 Sputum - Expectorated Gram Stain - Final 01/25/24 21:18 Sputum - Expectorated Sputum Culture - Preliminary Filamentous fungus Staphylococcus aureus Physical Exam 2 Vital Signs: Vital Signs: Last Vital Signs Temp 97.0 F 01/29/24 20:22 Pulse 116 H 01/29/24 20:22 Resp 20 01/29/24 20:22 BP 132/75 01/29/24 20:22 Pulse Ox 98 01/29/24 20:22 O2 Del Method Nasal Cannula 01/29/24 20:22 O2 Flow Rate 4 01/29/24 20:22 Oxygen Flow Rate 2 01/25/24 14:51 BMI result Body Mass Index 26.2 Resp: Effort & Inspection: normal respiratory effort Cardio: Rhythm: regular rhythm GI: Inspection: Yes normal to inspection Assessment and Plan Assessment and plan (1) Enterovirus infection: Status: Acute (2) Acute and chronic respiratory failure: Status: Acute Plan MSSA sputum Filamentous fungus Po Doxycyline for 14 d Time Spent With Patient Time: Total time managing care of this patient today ____ minutes.
[2024-01-30] VITALS (20 sets, daily range): BP systolic 95–137; BP diastolic 61–84; PULSE 103–125; RESP 18–28; TEMP 36.1–37.7; O2SAT 91–98; BMI 25.2
[2024-01-30] MEDS: Acetaminophen 325 MG TABLET 650 MG PO (02:58)
[2024-01-30] MEDS: methylPREDNISolone Sod Succ 125 MG/2 ML VIAL 60 MG IVPUSH ×4 (02:59→21:44)
--- NOTE | 2024-01-30 03:44 | PM.EVENT ---
Event Note Date of Service: 01/30/24 Event Note: Patient with dyspnea and tachypnea. Bilateral crackles upon examination without wheezing. Obtaining x-ray, VBG and BNP. Giving IV steroids. Time Spent With Patient Time: Total time managing care of this patient today ____ minutes.
[2024-01-30 04:54] LABS: Venous Blood Gas Refer to POC result
[2024-01-30 04:57] LABS: VBG Base Excess 1.5 mmol/L; VBG HCO3 28 mmol/L (22-26); VBG pCO2 55 mmHg; VBG pH 7.32 (7.32-7.43); VBG pO2 98 mmHg
[2024-01-30 05:11] LABS: B Type Natriuretic Peptide 135 pg/mL (<100)
[2024-01-30] MEDS: Milk of Magnesia 30 ML ORAL.SUSP PO (06:17)
[2024-01-30] MEDS: Levothyroxine Sodium 25 MCG TABLET PO (06:17)
[2024-01-30 07:54] LABS: Glucose, Whole Blood 197 mg/dL (60-115)
--- NOTE | 2024-01-30 08:51 | PC.NURSE ---
Discussed with pt, family member at bedside & Dr. Ramirez regarding consent for contrast for CT Scan. 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 Dr. Ramirez ordered CT scan with contrast. Pt takes Metformin. Discussed with Dr. Ramirez & MD will hold Metformin. Dr. Ramirez/ Family and pt aware that per our records, all previous CT scan results in computer system have been without contrast. Pt with hx: intersitital lung disease and exercise induced hypoxia along with multiple other conditions listed as per History & Physical report in computer. Pt/ family deny any history of asthma. Contrast consent form reviewed in detail and read through form in entirety including risks and it was ascertained at the time of explanation that pt and family understand all risks and pt & family agree for pt to receive contrast dye for CT scan. Consent faxed to CT Scan. Pt's RICHARD [place] updated and aware. Will continue to monitor closely.
[2024-01-30 09:11] LABS: Hematocrit 40.7 % (37.0-47.0); Hemoglobin 13.5 g/dl (12.0-16.0); Mean Corpuscular HGB Conc 33.2 g/dl (31.0-35.0); Mean Corpuscular Hemoglobin 29.2 pg (27.0-33.0); Mean Corpuscular Volume 88.1 fL (80.0-98.0); Mean Platelet Volume 11.3 fL (9.4-12.3); Platelet Count 249 X10*3/uL (160-400); Red Blood Count 4.62 X10*6/uL (4.20-5.50); Red Cell Distribution Width 16.1 % (11.0-16.0); White Blood Count 27.9 X10*3/uL (4.8-10.8)
[2024-01-30 09:28] LABS: Anion Gap 21 (12-20); Blood Urea Nitrogen 40 mg/dL (9-16); Calcium 11.6 mg/dL (8.4-10.2); Carbon Dioxide 26 mmol/L (22-29); Chloride 89 mmol/L (96-108); Creatinine Clr Calc Pharmacy 29.2; Estimated Glomerular Filt Rate 33; Glucose Random 251 mg/dL (60-115); Potassium 4.4 mmol/L (3.3-5.1); Sodium 132 mmol/L (135-145)
[2024-01-30 09:57] LABS: Magnesium 4.7 mg/dL (1.6-2.6)
[2024-01-30] MEDS: mycophenolate mofetiL 250 MG CAPSULE 1000 MG PO (10:28)
[2024-01-30] MEDS: Sennosides/Docusate Sodium TABLET 2 TAB PO (10:28)
[2024-01-30] MEDS: Calcium + Vitamin D 250 MG TABLET PO (10:29)
[2024-01-30] MEDS: Sertraline HCL 25 MG TABLET PO (10:29)
[2024-01-30] MEDS: 0.9 % Sodium Chloride Flush 3 ML SYRINGE IVFLUSH (10:29)
[2024-01-30 10:45] LABS: C Reactive Protein 5.04 mg/dL (< or = 0.50)
[2024-01-30 11:06] LABS: Procalcitonin 0.47 ng/mL
[2024-01-30] MEDS: iohexoL 350 MG/ML 100 ML INFUS..BTL IV (11:08)
[2024-01-30] MEDS: 0.9 % Sodium Chloride 1,000 ML 100 ML IVCONT ×2 (11:12→21:43)
[2024-01-30] MEDS: levoFLOXacin/D5W 750 MG/150 ML PIGGYBACK 100 MG IV (11:13)
[2024-01-30 11:18] LABS: Glucose, Whole Blood 221 mg/dL (60-115)
--- NOTE | 2024-01-30 11:19 | P.PNIM_ITS ---
Subjective Subjective Date of Service: 01/30/24 Interval History: overnight became more short of breath minimal stool, abd distended Review of Systems Review of Systems: Yes all other systems are reviewed and are negative Physical Exam 2 Vital Signs: Vital Signs: Last Vital Signs Temp 96.9 F 01/30/24 08:00 Pulse 118 H 01/30/24 08:00 Resp 24 H 01/30/24 08:00 BP 116/69 01/30/24 08:00 Pulse Ox 97 01/30/24 08:00 O2 Del Method Nasal Cannula 01/30/24 08:00 O2 Flow Rate 4 01/30/24 08:00 Oxygen Flow Rate 2 01/25/24 14:51 BMI result Body Mass Index 25.2 Gen: ill-appearing HEENT: sclera anicteric, moist mucus membranes Neck: supple Lungs: diffuse inspiratory crackles, tachypneic Heart: tachycardic, no murmurs Abd: distended, generalized tenderness Ext: no edema Skin: warm/well-perfused Neuro: alert and oriented x3, no focal findings Psych: appropriate affect Objective Data Active Medications Acetaminophen (Acetaminophen 325 Mg Tablet) 650 mg PO Q6H PRN PRN Reason: Pain, Mild (Pain Scale 1-3), fever or headache Last Admin: 01/30/24 02:58 Dose: 650 mg Documented By: PASCUAL Benzonatate (Benzonatate 100 Mg Capsule) 100 mg PO TID PRN PRN Reason: cough/ILD. Calcitonin [place] (Calcitonin,[place],Synth Nasal 3.7 Ml Bottle) 1 spray NOSTRILALT DAILY [facility] Last Admin: 01/30/24 10:31 Dose: Not Given Documented By: DIEUDONNE Non-Admin Reason: Previously Administered Calcium Carbonate (Calcium Carbonate 750 Mg Tab.Chew) 750 mg PO Q4H PRN PRN Reason: Heartburn Calcium Carbonate/Cholecalciferol (Calcium + Vitamin D 250 Mg Tablet) 250 mg PO DAILY [facility] Last Admin: 01/30/24 10:29 Dose: 250 mg Documented By: DIEUDONNE Enoxaparin Sodium (Enoxaparin Sodium 40 Mg/0.4 Ml Syringe) 40 mg SUBCUT Q24H [facility] Last Admin: 01/29/24 16:37 Dose: 40 mg Documented By: NEETA Furosemide (Furosemide 20 Mg/2 Ml Vial) 20 mg IVPUSH BID@0900,1800 [facility]; Protocol Glucose (Glucose Gel 15 Gm Gel..Gram.) 15 gm PO Q15M PRN; Protocol PRN Reason: per Hypoglycemia Standing Ord. Guaifenesin (Guaifenesin 200 Mg/10 Ml 10 Ml Liquid) 10 ml PO Q6H PRN PRN Reason: Cough Dextrose (D10) 250 mls @ 750 mls/hr IV Q15M PRN; Protocol PRN Reason: per Hypoglycemia Standing Ord. Linezolid (Zyvox/D5w) 600 mg in 300 mls @ 300 mls/hr IV Q12H [facility] Levofloxacin (Levaquin) 750 mg in 150 mls @ 100 mls/hr IV Q48H [facility] Sodium Chloride (Ns) 1,000 mls @ 100 mls/hr IVCONT .Q10H [facility] Voriconazole 387 mg/ Sodium (Chloride) 100 mls @ 50 mls/hr IV Q12H [facility] Stop: 01/31/24 00:44 Voriconazole 258 mg/ Sodium (Chloride) 100 mls @ 50 mls/hr IV Q12H [facility] Insulin Human Lispro (Insulin Lispro 100 Unit/Ml 3 Ml Vial) 0 unit SUBCUT QIDACHS [facility]; Protocol Last Admin: 01/30/24 09:59 Dose: Not Given Documented By: DIEUDONNE Non-Admin Reason: NPO Levothyroxine Sodium (Levothyroxine Sodium 25 Mcg Tablet) 25 mcg PO DAILY@0600 [facility] Last Admin: 01/30/24 06:17 Dose: 25 mcg Documented By: LIANET Lorazepam (Lorazepam 0.5 Mg Tablet) 0.5 mg PO TID PRN PRN Reason: anxiety Last Admin: 01/29/24 22:11 Dose: 0.5 mg Documented By: LIANET Melatonin (Melatonin 3 Mg Tablet) 6 mg PO BEDTIME PRN PRN Reason: Insomnia Last Admin: 01/26/24 21:46 Dose: 6 mg Documented By: JOSETTE Methylprednisolone Sodium Succinate (Methylprednisolone Sod Succ 125 Mg/2 Ml Vial) 60 mg IVPUSH Q8H [facility] Last Admin: 01/30/24 02:59 Dose: 60 mg Documented By: PASCUAL Mycophenolate Mofetil (Mycophenolate Mofetil 250 Mg Capsule) 1,000 mg PO BID [facility] Last Admin: 01/30/24 10:28 Dose: 1,000 mg Documented By: DIEUDONNE Omeprazole (Omeprazole 20 Mg Capsule.Dr) 20 mg PO DAILY@0630 PRN PRN Reason: Acid Reflex Ondansetron HCl (Ondansetron Hcl 4 Mg/2 Ml Vial) 4 mg IVPUSH Q4H PRN PRN Reason: Nausea and Vomiting Last Admin: 01/27/24 11:21 Dose: 4 mg Documented By: YUKI Polyethylene Glycol (Polyethylene Glycol 3350 17 Gm Powd.Pack) 17 gm PO BID [facility] Last Admin: 01/30/24 10:30 Dose: Not Given Documented By: DIEUDONNE Non-Admin Reason: NPO Senna/Docusate Sodium (Sennosides/Docusate Sodium Tablet) 2 tab PO BID [facility] Last Admin: 01/30/24 10:28 Dose: 2 tab Documented By: DIEUDONNE Sertraline HCl (Sertraline Hcl 25 Mg Tablet) 25 mg PO DAILY [facility] Last Admin: 01/30/24 10:29 Dose: 25 mg Documented By: DIEUDONNE Sodium Biphosphate/Sodium Phosphate (Sodium Phosphate,[place]-Dibasic 133 Ml Enema) 133 ml [place] ONCE PRN PRN Reason: Constipation Last Admin: 01/29/24 17:39 Dose: 133 ml Documented By: NEETA Sodium Chloride (0.9 % Sodium Chloride Flush 3 Ml Syringe) 3 ml IVFLUSH QSHIFT [facility] Last Admin: 01/30/24 10:29 Dose: 3 ml Documented By: DIEUDONNE Labs 01/30/24 08:18 01/30/24 08:18 Labs: Laboratory Results - last 24 hr 01/29/24 01/29/24 01/29/24 11:29 15:58 21:04 MCV MCH MCHC RDW Plt Count MPV Absolute Nucleated RBC Nucleated RBC % (auto) VBG pH VBG pCO2 VBG pO2 VBG HCO3 VBG O2 Saturation VBG Base Excess Anion Gap Estim Creat Clear Calc Estimated GFR POC Glucose 203 H 256 H 204 H Random Glucose Calcium Magnesium C-Reactive Protein B-Natriuretic Peptide Procalcitonin 01/30/24 01/30/24 01/30/24 04:46 04:52 07:31 MCV MCH MCHC RDW Plt Count MPV Absolute Nucleated RBC Nucleated RBC % (auto) VBG pH 7.32 VBG pCO2 55 VBG pO2 98 VBG HCO3 28 H VBG O2 Saturation 98.0 VBG Base Excess 1.5 Anion Gap Estim Creat Clear Calc Estimated GFR POC Glucose 197 H Random Glucose Calcium Magnesium C-Reactive Protein B-Natriuretic Peptide 135 H Procalcitonin 01/30/24 01/30/24 08:18 11:12 MCV 88.1 MCH 29.2 MCHC 33.2 RDW 16.1 H Plt Count 249 D MPV 11.3 Absolute Nucleated RBC 0.000 Nucleated RBC % (auto) 0.0 VBG pH VBG pCO2 VBG pO2 VBG HCO3 VBG O2 Saturation VBG Base Excess Anion Gap 21 H Estim Creat Clear Calc 29.2 Estimated GFR 33 POC Glucose 221 H Random Glucose 251 H Calcium 11.6 H D Magnesium 4.7 H* C-Reactive Protein 5.04 H B-Natriuretic Peptide Procalcitonin 0.47 Microbiology Microbiology Results: Microbiology 01/25/24 21:18 Gram Stain - Final Sputum - Expectorated Sputum Culture - Preliminary Filamentous fungus Staphylococcus aureus Assessment and Plan (1) Acute and chronic respiratory failure: Status: Acute Plan d6 for 73yo F with IPF on prednisone 40 mg/d + mycophenolate presenting with worsening dyspnea IPF with acute exacerbation - Pulm + ID following - RPP positive for rhinovirus/enterovirus - on levofloxacin 01/24, continue; urinary antigens for Legionella and pneumococcus pending - Fungitell + sputum for PCP staining pending [was on empiric TMP/SMX 01/25- 01/28] - MRSA in sputum, was on empiric TMP/SMX 01/25-01/28, will start linezolid - filamentous fungus in sputum; galactomannan pending; started empiric voriconazole 01/26-01/28; re-load today and continue - start on furosemide for concern of pulmonary edema though LVEF >70% and BNP normal; BNP now elevated, will continue IV furosemide - continue IV methylprednisolone as per Pulm recommendation ileus - CT A/P, NPO for now hyperMg hyperCa - d/c MOM, give IV NS + IV furosemide acute/chronic hypoxic RF - continue supplemental O2. On 3L at home. - check CTA to rule out PE HTN - hold amlodipine steroid-induced hyperglycemia/DM2 - cam-dose lispro; d/c MTF hypothyroidism - continue LT4 GERD - PPI dispo - eventual home with VNA In my clinical judgment, the patient requires continued inpatient hospitalization for the following reasons: hypoxia, IV ABX + IV antifungals + steroids Total time managing care of this patient today: 50 minutes. Quality Stroke Does the patient have a stroke diagnosis?: No VTE Prior VTE?: No VTE Risk Level:: Medical - moderate - high VTE Device Contraindication: N/A - Device Ordered VTE Drug Contraindication: N/A - Med Ordered
[2024-01-30] MEDS: Linezolid/D5W 600 MG/300 ML PIGGYBACK 300 MG IV ×2 (11:31→22:34)
[2024-01-30 12:07] LABS: Lactic Acid 2.4 mmol/L (0.5-2.0)
[2024-01-30] MEDS: Insulin Lispro 100 UNIT/ML 3 ML VIAL SUBCUT (12:33)
[2024-01-30] MEDS: LORazepam 0.5 MG TABLET PO (12:34)
--- NOTE | 2024-01-30 12:59 | P.PNPL_ITS ---
Subjective Subjective Date of Service: 01/30/24 Interval history: The patient was seen on exam. Unfortunately she developed significant abdominal discomfort and ultimately affecting her lungs. Her chest x-ray was reassuring. To my evaluation she did undergo a CTA in addition to a CT abdomen. That not been officially read. I am seeing evidence of any blood clots. Her lungs appear to show significant interstitial lung disease and pneumonitis. Her esophagus is significantly dilator on the CT scan of the chest suggesting the likelihood of micro aspirations into the lung. In addition to that significant distention the small bowel unfortunately affecting her lung expansion that was already compromised significantly. The CTA in the CT scan of the abdomen have not been officially read yet. Because of the work of breathing we started her on high-flow to help her with the work of breathing. She did have a blood gas done yesterday demonstrating an elevation of the CO2. Objective Data Labs 01/30/24 08:18 01/30/24 08:18 Labs: Laboratory Results - last 24 hr 01/29/24 01/29/24 01/30/24 15:58 21:04 04:46 WBC RBC Hgb Hct MCV MCH MCHC RDW Plt Count MPV Absolute Nucleated RBC Nucleated RBC % (auto) VBG pH VBG pCO2 VBG pO2 VBG HCO3 VBG O2 Saturation VBG Base Excess Sodium Potassium Chloride Carbon Dioxide Anion Gap BUN Creatinine Estim Creat Clear Calc Estimated GFR POC Glucose 256 H 204 H Random Glucose Lactic Acid Calcium Magnesium C-Reactive Protein B-Natriuretic Peptide 135 H Procalcitonin 01/30/24 01/30/24 01/30/24 04:52 07:31 08:18 WBC 27.9 H RBC 4.62 D Hgb 13.5 D Hct 40.7 D MCV 88.1 MCH 29.2 MCHC 33.2 RDW 16.1 H Plt Count 249 D MPV 11.3 Absolute Nucleated RBC 0.000 Nucleated RBC % (auto) 0.0 VBG pH 7.32 VBG pCO2 55 VBG pO2 98 VBG HCO3 28 H VBG O2 Saturation 98.0 VBG Base Excess 1.5 Sodium 132 L Potassium 4.4 Chloride 89 L Carbon Dioxide 26 Anion Gap 21 H BUN 40 H Creatinine 1.55 H Estim Creat Clear Calc 29.2 Estimated GFR 33 POC Glucose 197 H Random Glucose 251 H Lactic Acid Calcium 11.6 H D Magnesium 4.7 H* C-Reactive Protein 5.04 H B-Natriuretic Peptide Procalcitonin 0.47 01/30/24 01/30/24 11:12 11:33 WBC RBC Hgb Hct MCV MCH MCHC RDW Plt Count MPV Absolute Nucleated RBC Nucleated RBC % (auto) VBG pH VBG pCO2 VBG pO2 VBG HCO3 VBG O2 Saturation VBG Base Excess Sodium Potassium Chloride Carbon Dioxide Anion Gap BUN Creatinine Estim Creat Clear Calc Estimated GFR POC Glucose 221 H Random Glucose Lactic Acid 2.4 H* Calcium Magnesium C-Reactive Protein B-Natriuretic Peptide Procalcitonin Microbiology Microbiology Results: Microbiology 01/25/24 21:18 Sputum - Expectorated Gram Stain - Final 01/25/24 21:18 Sputum - Expectorated Sputum Culture - Preliminary Filamentous fungus Staphylococcus aureus Review of Systems Constitutional: Reports fatigue Denies dizziness and Reports dry mouth Cardiovascular: Denies chest pain and Reports dyspnea (reports breathing feels labored ) Respiratory: Reports dyspnea (reports breathing feels labored ) Gastrointestinal: Reports abdominal pain, Reports constipation, Denies diarrhea, Reports nausea and Denies vomiting Musculoskeletal: Reports back pain (mid back pain since thoracic fracture ) Skin/Breast: Denies rash Denies dizziness Psychiatric: Reports anxiety Endocrine: Reports fatigue Physical Exam 2 Vital Signs: Vital Signs: Last Vital Signs Temp 96.9 F 01/30/24 11:52 Pulse 113 H 01/30/24 11:52 Resp 24 H 01/30/24 12:54 BP 117/69 01/30/24 11:52 Pulse Ox 96 01/30/24 11:52 O2 Del Method Nasal Cannula 01/30/24 11:52 O2 Flow Rate 4 01/30/24 11:52 Oxygen Flow Rate 2 01/25/24 14:51 BMI result Body Mass Index 25.2 Const: General: awake and in distress mild HEENT: Head: Yes normal to inspection Face and sinus: Yes normal facial exam Mouth: Normal oral and palatal mucosa present Teeth and gingiva: d entition normal Eyes: General: appearance normal, both eyes and all related structures P upils: Equal, round and reactive pupils present Chest: Chest palpation & inspection: normal inspection of the chest Resp: Effort & Inspection: tachypneic Auscultation: crackles and diminished lung sounds Cardio: Rate: regular rate Rhythm: regular rhythm GI: Inspection: Yes distended : General: Yes no CVA tenderness Back/Spine/Pelvis: Back: no CVA tenderness Skin: General skin exam: no rashes or lesions noted Neuro: General: moves all extremities Cranial nerves: Yes Equal, round and reactive pupils present Extrem: General: Yes normal to inspection Psych: Appearance: grossly normal Procedures Date of Service Date of Service: 01/30/24 Assessment and Plan Assessment and plan (1) Acute and chronic respiratory failure: Status: Acute (2) Interstitial lung disease: Status: Acute (3) Pneumonitis: Status: Acute (4) Enterovirus infection: Status: Acute (5) Ileus: Status: Acute (6) Staph aureus infection: Status: Acute Plan start HF for the work of breathing monitor bloodgas continue steroids check for cdiff broad spectrum abx may need decompression of SB thefor the ileus continue solumedrol holding cellcept for now goals of care, she is full code guarded Time Spent With Patient Time: Total time managing care of this patient today ____ minutes. Progress Note: Quality Stroke Does the patient have a stroke diagnosis?: No
[2024-01-30] MEDS: VORICONAZOLE IV (13:03)
[2024-01-30] MEDS: SODIUM CHLORIDE 0.9% IV (13:03)
[2024-01-30 13:44] LABS: Reflex Lactate? Lactic Acid Added
[2024-01-30 14:51] LABS: ~Lactic Acid-LAB USE ONLY 3.9 mmol/L (0.5-2.0)
[2024-01-30 14:54] LABS: Influenza A PCR NEGATIVE (Negative); Influenza B PCR NEGATIVE (Negative); Resp Syncy Virus RNA Qual PCR NEGATIVE (Negative); SARS COV2 PCR INHOUSE NEGATIVE (Negative)
[2024-01-30 16:09] LABS: Reflex Lactate? 2 Y
[2024-01-30 16:20] LABS: Glucose, Whole Blood 157 mg/dL (60-115)
[2024-01-30 17:22] LABS: ~Lactic Acid-LAB USE ONLY 3.8 mmol/L (0.5-2.0)
[2024-01-30 18:07] LABS: Fungitell <31 pg/mL (<60); Fungitell 1,3 beta glucan Negative
[2024-01-30] MEDS: Enoxaparin Sodium 40 MG/0.4 ML SYRINGE SUBCUT (19:13)
[2024-01-30] MEDS: Furosemide 20 MG/2 ML VIAL IVPUSH (19:13)
[2024-01-30 20:08] LABS: ABG Base Excess 7.6 mmol/L; ABG HCO3 32 mmol/L (22-26); ABG pCO2 47 mmHg (32-45); ABG pH 7.44 (7.35-7.45); ABG pO2 85 mmHg (83-108)
[2024-01-30 20:38] LABS: Basophils Absolute Auto 0.1 X10*3/uL (0.0-0.2); Basophils Percent Auto 0.2 % (0-2); Hematocrit 36.1 % (37.0-47.0); Hemoglobin 12.3 g/dl (12.0-16.0); Imm Gran Abs Auto 0.23 X10*3/uL (0.00-0.03); Imm Gran Pct Auto 0.9 % (0.0-0.4); Lymphocytes Absolute Auto 0.6 X10*3/uL (1.2-4.9); Lymphocytes Percent Auto 2.3 % (20-40); MANUAL DIFF FLAG SCAN; Mean Corpuscular HGB Conc 34.1 g/dl (31.0-35.0); Mean Corpuscular Hemoglobin 29.3 pg (27.0-33.0); Mean Platelet Volume 11.3 fL (9.4-12.3); Monocytes Absolute Auto 0.7 X10*3/uL (0.1-1.2); Monocytes Percent Auto 2.7 % (2-11); Neutrophils Percent Auto 93.9 % (45-73); Platelet Count 192 X10*3/uL (160-400); Red Cell Distribution Width 16.2 % (11.0-16.0); SCAN SMEAR FLAG 1; White Blood Count 24.5 X10*3/uL (4.8-10.8)
[2024-01-30 21:00] LABS: SLIDE REVIEW VERIFIED
[2024-01-30 21:09] LABS: Alanine Aminotransferase 94 U/L (0-31); Albumin Level 3.3 g/dL (3.5-5.0); Alkaline Phosphatase 91 U/L (39-117); Anion Gap 17 (12-20); Aspartate Amino Transferase 67 U/L (5-31); Bilirubin Total 0.3 mg/dL (0.0-1.0); Blood Urea Nitrogen 47 mg/dL (9-16); Calcium 10.1 mg/dL (8.4-10.2); Carbon Dioxide 27 mmol/L (22-29); Chloride 92 mmol/L (96-108); Creatinine Clr Calc Pharmacy 28.6; Estimated Glomerular Filt Rate 32; Glucose Random 107 mg/dL (60-115); Magnesium 4.7 mg/dL (1.6-2.6); Phosphorus 6.1 mg/dL (2.7-4.5); Potassium 4.9 mmol/L (3.3-5.1); Sodium 131 mmol/L (135-145); Total Protein 5.7 g/dL (6.5-8.0)
[2024-01-30 21:10] LABS: Lactic Acid 2.5 mmol/L (0.5-2.0)
--- NOTE | 2024-01-30 21:20 | P.PNCC_ITS ---
Subjective Subjective Date of Service: 01/30/24 Interval History: 73-year-old female who has a history of underlying pulmonary fibrosis currently on prednisone, hypertension, hypothyroidism, GERD, T5 spine fracture among others who was admitted to the hospital on 01/25/2024 due to complaints of shortness of breath which has been developing over the past 2 months in a progressive manner but with an overall decline in the past 6 months.? She has had some productive cough with yellow-green sputum but otherwise no fever, no recent traveling or sick contacts.? The patient follows up with Dr. Atkinson; with made some medication adjustment without much improvement.? Patient has had significant decline on her abilities to perform activities of daily living without getting shortness of breath and she has been requiring oxygen supplementation. Patient was admitted to the floor and has been treated for possible pneumonitis initially treated with Levaquin and switched to Zyvox, she has rhino virus positive, was started on steroids IV. ?Given the concern for fungal infection she was also placed on voriconazole. ?Eventually the patient developed a steroid related white count without fevers.? Some lactic acidosis which has now normalized as well as slight acute kidney injury with a creatinine of 1.55 from a baseline 0.84 however the patient has been receiving Lasix and she was placed on IV fluids this afternoon.? Given the concern that the patient would develop significant respiratory distress and worsening hypoxia patient was transferred to the ICU for possible BiPAP administration as the patient has shown some increased work of breathing and tachypnea. Echocardiogram on the of this month showed hyperdynamic LV greater than 70% with impaired relaxation filling pattern. ?Patient had a CT angiogram today which shows no definite central or proximal segmental pulmonary emboli however distal segmental and subsegmental pulmonary emboli can not be excluded.? Chronic wall thickening/noncalcified plaque of the proximal main pulmonary artery at the level of the pulmonary valves which could be as a sequela of chronic PE.? Interstitial lung disease with superimposed diffuse ground-glass opacities in the lungs, prominent fluid distention of the esophagus up in the thoracic inlet level consistent with reflux post and a threat for the patient for significant risk of aspiration.? Severe osteoporosis with multiple compression deformities in the thoracic spine. Lots of the information was confirmed and obtained via the interpretation of her [id number] who is at bedside.? The patient feels much better right now and denies any other additional complaints.? It is known that the patient has significant anxiety but appears to be calm with the reassurance at this point and she is on high-flow O2 satting well; not tachypneic, she is not in any respiratory distress. Critical Care Time (minutes): 60 Physical Exam 2 Vital Signs: Vital Signs: Last Vital Signs Temp 97.2 F 01/30/24 15:32 Pulse 106 H 01/30/24 18:51 Resp 20 01/30/24 20:15 BP 102/61 01/30/24 19:13 Pulse Ox 95 01/30/24 18:51 O2 Del Method High Flow Nasal C annula 01/30/24 18:51 O2 Flow Rate 55 01/30/24 18:51 FiO2 50 01/30/24 18:51 Oxygen Flow Rate 2 01/25/24 14:51 BMI result Body Mass Index 25.2 Vital signs blood pressure 119/76, 105, 24, 94% on high-flow O2 at 55% FiO2 50 L. The patient is alert oriented x3 in no acute distress, speaks in full sentences with the help of her granddaughters interpretation. Skin intact without any lesions, skin breakdown, edema, erythema.? Patient does have hyperpigmented dark skin changes of the right lower extremity at the distal tibia area. Heart regular rate and rhythm no murmurs, rubs, gallops. Lungs diminished lung sounds bilaterally with expiratory wheezing in the upper anterior black and crackles at the bibasilar aspects bilaterally. Abdomen somewhat distended, minimal bowel sounds noted on the left lower quadrant, no tenderness to percussion, there is tenderness however to light and deep palpation over the right lower quadrant with minimal rebound but no guarding. Musculoskeletal patient is moving all 4 extremities upon request at the major joints without any calf tenderness, there is no edema bilaterally. Neuro as above, nonfocal deficits. Vascular 2+ palpable pulses of the distal upper and lower extremities bilaterally. Objective Data Labs 01/31/24 10:09 01/31/24 10:09 Labs: Laboratory Results - last 24 hr 01/27/24 01/30/24 01/30/24 08:48 04:46 04:52 WBC RBC Hgb Hct MCV MCH MCHC RDW Plt Count MPV Immature Gran % (Auto) Neut % (Auto) Lymph % (Auto) [place] % (Auto) Eos % (Auto) Baso % (Auto) Lymph # (Auto) [place] # (Auto) Eos # (Auto) Baso # (Auto) Abs Immat Gran (auto) Absolute Neuts (auto) Absolute Nucleated RBC Nucleated RBC % (auto) Smear Tech's Comments O2 Saturation ABG pH at Pt Temp ABG pCO2 at Pt Temp ABG pO2 at Pt Temp ABG HCO3 ABG Base Excess (Actual) VBG pH 7.32 VBG pCO2 55 VBG pO2 98 VBG HCO3 28 H VBG O2 Saturation 98.0 VBG Base Excess 1.5 Sodium Potassium Chloride Carbon Dioxide Anion Gap BUN Creatinine Estim Creat Clear Calc Estimated GFR POC Glucose Random Glucose Lactic Acid Lactic Acid F/U @ 2Hr Lactic Acid F/U @ 4Hr Calcium Phosphorus Magnesium Total Bilirubin AST ALT Alkaline Phosphatase C-Reactive Protein B-Natriuretic Peptide 135 H Total Protein Albumin Procalcitonin Influenza Type A (PCR) Influenza Type B (PCR) RSV RNA Qual (PCR) SARS-CoV-2 RNA (RT-PCR) Beta-(1,3)-D-Glucan <31 B-(1,3)-D-Glucan Intrp Negative 01/30/24 01/30/24 01/30/24 07:31 08:18 11:12 WBC 27.9 H RBC 4.62 D Hgb 13.5 D Hct 40.7 D MCV 88.1 MCH 29.2 MCHC 33.2 RDW 16.1 H Plt Count 249 D MPV 11.3 Immature Gran % (Auto) Neut % (Auto) Lymph % (Auto) [place] % (Auto) Eos % (Auto) Baso % (Auto) Lymph # (Auto) [place] # (Auto) Eos # (Auto) Baso # (Auto) Abs Immat Gran (auto) Absolute Neuts (auto) Absolute Nucleated RBC 0.000 Nucleated RBC % (auto) 0.0 Smear Tech's Comments O2 Saturation ABG pH at Pt Temp ABG pCO2 at Pt Temp ABG pO2 at Pt Temp ABG HCO3 ABG Base Excess (Actual) VBG pH VBG pCO2 VBG pO2 VBG HCO3 VBG O2 Saturation VBG Base Excess Sodium 132 L Potassium 4.4 Chloride 89 L Carbon Dioxide 26 Anion Gap 21 H BUN 40 H Creatinine 1.55 H Estim Creat Clear Calc 29.2 Estimated GFR 33 POC Glucose 197 H 221 H Random Glucose 251 H Lactic Acid Lactic Acid F/U @ 2Hr Lactic Acid F/U @ 4Hr Calcium 11.6 H D Phosphorus Magnesium 4.7 H* Total Bilirubin AST ALT Alkaline Phosphatase C-Reactive Protein 5.04 H B-Natriuretic Peptide Total Protein Albumin Procalcitonin 0.47 Influenza Type A (PCR) Influenza Type B (PCR) RSV RNA Qual (PCR) SARS-CoV-2 RNA (RT-PCR) Beta-(1,3)-D-Glucan B-(1,3)-D-Glucan Intrp 01/30/24 01/30/24 01/30/24 11:33 13:56 14:02 WBC RBC Hgb Hct MCV MCH MCHC RDW Plt Count MPV Immature Gran % (Auto) Neut % (Auto) Lymph % (Auto) [place] % (Auto) Eos % (Auto) Baso % (Auto) Lymph # (Auto) [place] # (Auto) Eos # (Auto) Baso # (Auto) Abs Immat Gran (auto) Absolute Neuts (auto) Absolute Nucleated RBC Nucleated RBC % (auto) Smear Tech's Comments O2 Saturation ABG pH at Pt Temp ABG pCO2 at Pt Temp ABG pO2 at Pt Temp ABG HCO3 ABG Base Excess (Actual) VBG pH VBG pCO2 VBG pO2 VBG HCO3 VBG O2 Saturation VBG Base Excess Sodium Potassium Chloride Carbon Dioxide Anion Gap BUN Creatinine Estim Creat Clear Calc Estimated GFR POC Glucose Random Glucose Lactic Acid 2.4 H* Lactic Acid F/U @ 2Hr 3.9 H* Lactic Acid F/U @ 4Hr Calcium Phosphorus Magnesium Total Bilirubin AST ALT Alkaline Phosphatase C-Reactive Protein B-Natriuretic Peptide Total Protein Albumin Procalcitonin Influenza Type A (PCR) NEGATIVE Influenza Type B (PCR) NEGATIVE RSV RNA Qual (PCR) NEGATIVE SARS-CoV-2 RNA (RT-PCR) NEGATIVE Beta-(1,3)-D-Glucan B-(1,3)-D-Glucan Intrp 01/30/24 01/30/24 01/30/24 16:15 16:34 19:59 WBC RBC Hgb Hct MCV MCH MCHC RDW Plt Count MPV Immature Gran % (Auto) Neut % (Auto) Lymph % (Auto) [place] % (Auto) Eos % (Auto) Baso % (Auto) Lymph # (Auto) [place] # (Auto) Eos # (Auto) Baso # (Auto) Abs Immat Gran (auto) Absolute Neuts (auto) Absolute Nucleated RBC Nucleated RBC % (auto) Smear Tech's Comments O2 Saturation 96.0 ABG pH at Pt Temp 7.44 ABG pCO2 at Pt Temp 47 H ABG pO2 at Pt Temp 85 ABG HCO3 32 H ABG Base Excess (Actual) 7.6 VBG pH VBG pCO2 VBG pO2 VBG HCO3 VBG O2 Saturation VBG Base Excess Sodium Potassium Chloride Carbon Dioxide Anion Gap BUN Creatinine Estim Creat Clear Calc Estimated GFR POC Glucose 157 H Random Glucose Lactic Acid Lactic Acid F/U @ 2Hr Lactic Acid F/U @ 4Hr 3.8 H* Calcium Phosphorus Magnesium Total Bilirubin AST ALT Alkaline Phosphatase C-Reactive Protein B-Natriuretic Peptide Total Protein Albumin Procalcitonin Influenza Type A (PCR) Influenza Type B (PCR) RSV RNA Qual (PCR) SARS-CoV-2 RNA (RT-PCR) Beta-(1,3)-D-Glucan B-(1,3)-D-Glucan Intrp 01/30/24 20:34 WBC 24.5 H RBC 4.20 Hgb 12.3 Hct 36.1 L MCV 86.0 MCH 29.3 MCHC 34.1 RDW 16.2 H Plt Count 192 MPV 11.3 Immature Gran % (Auto) 0.9 H Neut % (Auto) 93.9 H Lymph % (Auto) 2.3 L [place] % (Auto) 2.7 Eos % (Auto) 0.0 Baso % (Auto) 0.2 Lymph # (Auto) 0.6 L [place] # (Auto) 0.7 Eos # (Auto) 0.0 Baso # (Auto) 0.1 Abs Immat Gran (auto) 0.23 H Absolute Neuts (auto) 23.0 H Absolute Nucleated RBC 0.000 Nucleated RBC % (auto) 0.0 Smear Tech's Comments VERIFIED O2 Saturation ABG pH at Pt Temp ABG pCO2 at Pt Temp ABG pO2 at Pt Temp ABG HCO3 ABG Base Excess (Actual) VBG pH VBG pCO2 VBG pO2 VBG HCO3 VBG O2 Saturation VBG Base Excess Sodium 131 L Potassium 4.9 Chloride 92 L Carbon Dioxide 27 Anion Gap 17 BUN 47 H Creatinine 1.58 H Estim Creat Clear Calc 28.6 Estimated GFR 32 POC Glucose Random Glucose 107 Lactic Acid 2.5 H* Lactic Acid F/U @ 2Hr Lactic Acid F/U @ 4Hr Calcium 10.1 D Phosphorus 6.1 H Magnesium 4.7 H* Total Bilirubin 0.3 AST 67 H ALT 94 H Alkaline Phosphatase 91 C-Reactive Protein B-Natriuretic Peptide Total Protein 5.7 L Albumin 3.3 L Procalcitonin Influenza Type A (PCR) Influenza Type B (PCR) RSV RNA Qual (PCR) SARS-CoV-2 RNA (RT-PCR) Beta-(1,3)-D-Glucan B-(1,3)-D-Glucan Intrp Microbiology Microbiology Results: Microbiology 01/25/24 21:18 Sputum - Expectorated Gram Stain - Final 01/25/24 21:18 Sputum - Expectorated Sputum Culture - Preliminary Filamentous fungus Staphylococcus aureus Progress Note: A&P Assessment and plan (1) Acute and chronic respiratory failure: Status: Acute Assessment and Plan: Acute on chronic hypoxic respiratory failure in the setting of idiopathic interstitial lung disease with acute exacerbation Acute ILD exacerbation with superimposed ground-glass opacities Acute paralytic ileus with a cm cecal distention no SBO with transition point identified Acute lactic acidosis (resolved) Steroid induced leukocytosis MSSA and Filanmentous fungus in the Sputum Hypoosmolar hypovolemic hyponatremia Acute kidney injury likely due to volume depletion Hypoalbuminemia Plan PLAN OF CARE: Patient was transferred to the ICU due to concerns of worsening hypoxic respiratory failure.? Currently patient is comfortable and does not have accessory muscle breathing, is minimally tachypneic satting well on high-flow O2. ABG done tonight and reviewed is completely normal.? At this point will continue with respiratory support, will continue with the steroids, antibiotics and antifungal, will add DuoNebs and albuterol treatments. Mineral oil enemas will be administered and will monitor closely, there is faint signs of bowel sounds in the left lower quadrant.? If necessary or if this progresses, we will place an NG tube.? At this point I do not think there is necessity to involve surgery but will notify them in the morning.? I will add a prokinetic and give her a single dose of Reglan renally adjusted. Will repeat laboratories in the morning and continue with gentle IV fluids, monitor eyes and nose and place a Segundo catheter if the patient is not voiding.? Her blood pressure is borderline low and will give her some albumin replacement. GIP: Npo, IV PPI DVT P: dc lovenox due to [place] and placed on Hep subq bid Critical care time used for critical evaluation of this patient, diagnosis, treatment and coordination of care, review her records and documentation TOTAL CRITICAL CARE TIME 60 MIN . discussion and coordination with consultants, completely separate from any procedures performed. . Patient's care was discussed in detail with Dr. Tovar. He is aware of all the above as well as the plan of care for this patient.. Quality Stroke Does the patient have a stroke diagnosis?: No VTE Prior VTE?: No VTE Risk Level:: Medical - moderate - high VTE Device Contraindication: N/A - Device Ordered VTE Drug Contraindication: N/A - Med Ordered
[2024-01-30 21:34] LABS: Glucose, Whole Blood 117 mg/dL (60-115)
[2024-01-30] MEDS: Metoclopramide HCl 10 MG/2 ML VIAL 5 MG IVPUSH (21:44)
[2024-01-30 21:53] LABS: Appearance Urine Clear; Color Urine Dark Yellow; Glucose Urine UA Negative (Negative); Leukocyte Esterase Urine Negative (Negative); Nitrite Urine Negative (Negative); Specific Gravity - Urine >= 1.030 (1.005-1.025); Urine Blood Negative (Negative); Urine Ketones Negative (Negative); Urine Protein Negative (Neg-Trace)
[2024-01-30] MEDS: Albumin Human 25 % 100 ML IV ×2 (22:15→23:51)
[2024-01-30] MEDS: Mineral OiL enema 133 ML ENEMA PR (22:34)
[2024-01-30 22:36] LABS: Reflex Lactate? Lactic Acid Added
[2024-01-30 23:11] LABS: ~Lactic Acid-LAB USE ONLY 1.9 mmol/L (0.5-2.0)
[2024-01-30 23:21] LABS: ABG Refer to POC result
--- NOTE | 2024-01-30 23:29 | P.PNID_ITS ---
Subjective Subjective Date of Service: 01/30/24 Critical Care Time (minutes): 15 Comment: she has shortness of breath ,increasing today and increased work of breathing there is concern over hypoxia and patient needing high flow. She has no LILI abdominal or lung CT and no obvious PE although study not that revealing She has ileus She has GERD Objective Data Labs 01/30/24 20:34 01/30/24 20:34 Labs: Laboratory Results - last 24 hr 01/27/24 01/30/24 01/30/24 08:48 04:46 04:52 WBC RBC Hgb Hct MCV MCH MCHC RDW Plt Count MPV Immature Gran % (Auto) Neut % (Auto) Lymph % (Auto) [place] % (Auto) Eos % (Auto) Baso % (Auto) Lymph # (Auto) [place] # (Auto) Eos # (Auto) Baso # (Auto) Abs Immat Gran (auto) Absolute Neuts (auto) Absolute Nucleated RBC Nucleated RBC % (auto) Smear Tech's Comments O2 Saturation ABG pH at Pt Temp ABG pCO2 at Pt Temp ABG pO2 at Pt Temp ABG HCO3 ABG Base Excess (Actual) VBG pH 7.32 VBG pCO2 55 VBG pO2 98 VBG HCO3 28 H VBG O2 Saturation 98.0 VBG Base Excess 1.5 Sodium Potassium Chloride Carbon Dioxide Anion Gap BUN Creatinine Estim Creat Clear Calc Estimated GFR POC Glucose Random Glucose Lactic Acid Lactic Acid F/U @ 2Hr Lactic Acid F/U @ 4Hr Calcium Phosphorus Magnesium Total Bilirubin AST ALT Alkaline Phosphatase C-Reactive Protein B-Natriuretic Peptide 135 H Total Protein Albumin Procalcitonin Urine Color Urine Appearance Urine pH Ur Specific [place] Urine Protein Urine Glucose (UA) Urine Ketones Urine Blood Urine Nitrite Ur Leukocyte Esterase Influenza Type A (PCR) Influenza Type B (PCR) RSV RNA Qual (PCR) SARS-CoV-2 RNA (RT-PCR) Beta-(1,3)-D-Glucan <31 B-(1,3)-D-Glucan Intrp Negative 01/30/24 01/30/24 01/30/24 07:31 08:18 11:12 WBC 27.9 H RBC 4.62 D Hgb 13.5 D Hct 40.7 D MCV 88.1 MCH 29.2 MCHC 33.2 RDW 16.1 H Plt Count 249 D MPV 11.3 Immature Gran % (Auto) Neut % (Auto) Lymph % (Auto) [place] % (Auto) Eos % (Auto) Baso % (Auto) Lymph # (Auto) [place] # (Auto) Eos # (Auto) Baso # (Auto) Abs Immat Gran (auto) Absolute Neuts (auto) Absolute Nucleated RBC 0.000 Nucleated RBC % (auto) 0.0 Smear Tech's Comments O2 Saturation ABG pH at Pt Temp ABG pCO2 at Pt Temp ABG pO2 at Pt Temp ABG HCO3 ABG Base Excess (Actual) VBG pH VBG pCO2 VBG pO2 VBG HCO3 VBG O2 Saturation VBG Base Excess Sodium 132 L Potassium 4.4 Chloride 89 L Carbon Dioxide 26 Anion Gap 21 H BUN 40 H Creatinine 1.55 H Estim Creat Clear Calc 29.2 Estimated GFR 33 POC Glucose 197 H 221 H Random Glucose 251 H Lactic Acid Lactic Acid F/U @ 2Hr Lactic Acid F/U @ 4Hr Calcium 11.6 H D Phosphorus Magnesium 4.7 H* Total Bilirubin AST ALT Alkaline Phosphatase C-Reactive Protein 5.04 H B-Natriuretic Peptide Total Protein Albumin Procalcitonin 0.47 Urine Color Urine Appearance Urine pH Ur Specific [place] Urine Protein Urine Glucose (UA) Urine Ketones Urine Blood Urine Nitrite Ur Leukocyte Esterase Influenza Type A (PCR) Influenza Type B (PCR) RSV RNA Qual (PCR) SARS-CoV-2 RNA (RT-PCR) Beta-(1,3)-D-Glucan B-(1,3)-D-Glucan Intrp 01/30/24 01/30/24 01/30/24 11:33 13:56 14:02 WBC RBC Hgb Hct MCV MCH MCHC RDW Plt Count MPV Immature Gran % (Auto) Neut % (Auto) Lymph % (Auto) [place] % (Auto) Eos % (Auto) Baso % (Auto) Lymph # (Auto) [place] # (Auto) Eos # (Auto) Baso # (Auto) Abs Immat Gran (auto) Absolute Neuts (auto) Absolute Nucleated RBC Nucleated RBC % (auto) Smear Tech's Comments O2 Saturation ABG pH at Pt Temp ABG pCO2 at Pt Temp ABG pO2 at Pt Temp ABG HCO3 ABG Base Excess (Actual) VBG pH VBG pCO2 VBG pO2 VBG HCO3 VBG O2 Saturation VBG Base Excess Sodium Potassium Chloride Carbon Dioxide Anion Gap BUN Creatinine Estim Creat Clear Calc Estimated GFR POC Glucose Random Glucose Lactic Acid 2.4 H* Lactic Acid F/U @ 2Hr 3.9 H* Lactic Acid F/U @ 4Hr Calcium Phosphorus Magnesium Total Bilirubin AST ALT Alkaline Phosphatase C-Reactive Protein B-Natriuretic Peptide Total Protein Albumin Procalcitonin Urine Color Urine Appearance Urine pH Ur Specific [place] Urine Protein Urine Glucose (UA) Urine Ketones Urine Blood Urine Nitrite Ur Leukocyte Esterase Influenza Type A (PCR) NEGATIVE Influenza Type B (PCR) NEGATIVE RSV RNA Qual (PCR) NEGATIVE SARS-CoV-2 RNA (RT-PCR) NEGATIVE Beta-(1,3)-D-Glucan B-(1,3)-D-Glucan Intrp 01/30/24 01/30/24 01/30/24 16:15 16:34 19:59 WBC RBC Hgb Hct MCV MCH MCHC RDW Plt Count MPV Immature Gran % (Auto) Neut % (Auto) Lymph % (Auto) [place] % (Auto) Eos % (Auto) Baso % (Auto) Lymph # (Auto) [place] # (Auto) Eos # (Auto) Baso # (Auto) Abs Immat Gran (auto) Absolute Neuts (auto) Absolute Nucleated RBC Nucleated RBC % (auto) Smear Tech's Comments O2 Saturation 96.0 ABG pH at Pt Temp 7.44 ABG pCO2 at Pt Temp 47 H ABG pO2 at Pt Temp 85 ABG HCO3 32 H ABG Base Excess (Actual) 7.6 VBG pH VBG pCO2 VBG pO2 VBG HCO3 VBG O2 Saturation VBG Base Excess Sodium Potassium Chloride Carbon Dioxide Anion Gap BUN Creatinine Estim Creat Clear Calc Estimated GFR POC Glucose 157 H Random Glucose Lactic Acid Lactic Acid F/U @ 2Hr Lactic Acid F/U @ 4Hr 3.8 H* Calcium Phosphorus Magnesium Total Bilirubin AST ALT Alkaline Phosphatase C-Reactive Protein B-Natriuretic Peptide Total Protein Albumin Procalcitonin Urine Color Urine Appearance Urine pH Ur Specific [place] Urine Protein Urine Glucose (UA) Urine Ketones Urine Blood Urine Nitrite Ur Leukocyte Esterase Influenza Type A (PCR) Influenza Type B (PCR) RSV RNA Qual (PCR) SARS-CoV-2 RNA (RT-PCR) Beta-(1,3)-D-Glucan B-(1,3)-D-Glucan Intrp 01/30/24 01/30/24 01/30/24 20:30 20:34 21:23 WBC 24.5 H RBC 4.20 Hgb 12.3 Hct 36.1 L MCV 86.0 MCH 29.3 MCHC 34.1 RDW 16.2 H Plt Count 192 MPV 11.3 Immature Gran % (Auto) 0.9 H Neut % (Auto) 93.9 H Lymph % (Auto) 2.3 L [place] % (Auto) 2.7 Eos % (Auto) 0.0 Baso % (Auto) 0.2 Lymph # (Auto) 0.6 L [place] # (Auto) 0.7 Eos # (Auto) 0.0 Baso # (Auto) 0.1 Abs Immat Gran (auto) 0.23 H Absolute Neuts (auto) 23.0 H Absolute Nucleated RBC 0.000 Nucleated RBC % (auto) 0.0 Smear Tech's Comments VERIFIED O2 Saturation ABG pH at Pt Temp ABG pCO2 at Pt Temp ABG pO2 at Pt Temp ABG HCO3 ABG Base Excess (Actual) VBG pH VBG pCO2 VBG pO2 VBG HCO3 VBG O2 Saturation VBG Base Excess Sodium 131 L Potassium 4.9 Chloride 92 L Carbon Dioxide 27 Anion Gap 17 BUN 47 H Creatinine 1.58 H Estim Creat Clear Calc 28.6 Estimated GFR 32 POC Glucose 117 H Random Glucose 107 Lactic Acid 2.5 H* Lactic Acid F/U @ 2Hr Lactic Acid F/U @ 4Hr Calcium 10.1 D Phosphorus 6.1 H Magnesium 4.7 H* Total Bilirubin 0.3 AST 67 H ALT 94 H Alkaline Phosphatase 91 C-Reactive Protein B-Natriuretic Peptide Total Protein 5.7 L Albumin 3.3 L Procalcitonin Urine Color Dark Yellow Urine Appearance Clear Urine pH 5.0 Ur Specific [place] >= 1.030 H Urine Protein Negative Urine Glucose (UA) Negative Urine Ketones Negative Urine Blood Negative Urine Nitrite Negative Ur Leukocyte Esterase Negative Influenza Type A (PCR) Influenza Type B (PCR) RSV RNA Qual (PCR) SARS-CoV-2 RNA (RT-PCR) Beta-(1,3)-D-Glucan B-(1,3)-D-Glucan Intrp 01/30/24 22:52 WBC RBC Hgb Hct MCV MCH MCHC RDW Plt Count MPV Immature Gran % (Auto) Neut % (Auto) Lymph % (Auto) [place] % (Auto) Eos % (Auto) Baso % (Auto) Lymph # (Auto) [place] # (Auto) Eos # (Auto) Baso # (Auto) Abs Immat Gran (auto) Absolute Neuts (auto) Absolute Nucleated RBC Nucleated RBC % (auto) Smear Tech's Comments O2 Saturation ABG pH at Pt Temp ABG pCO2 at Pt Temp ABG pO2 at Pt Temp ABG HCO3 ABG Base Excess (Actual) VBG pH VBG pCO2 VBG pO2 VBG HCO3 VBG O2 Saturation VBG Base Excess Sodium Potassium Chloride Carbon Dioxide Anion Gap BUN Creatinine Estim Creat Clear Calc Estimated GFR POC Glucose Random Glucose Lactic Acid Lactic Acid F/U @ 2Hr 1.9 Lactic Acid F/U @ 4Hr Calcium Phosphorus Magnesium Total Bilirubin AST ALT Alkaline Phosphatase C-Reactive Protein B-Natriuretic Peptide Total Protein Albumin Procalcitonin Urine Color Urine Appearance Urine pH Ur Specific [place] Urine Protein Urine Glucose (UA) Urine Ketones Urine Blood Urine Nitrite Ur Leukocyte Esterase Influenza Type A (PCR) Influenza Type B (PCR) RSV RNA Qual (PCR) SARS-CoV-2 RNA (RT-PCR) Beta-(1,3)-D-Glucan B-(1,3)-D-Glucan Intrp Microbiology Microbiology Results: Microbiology 01/25/24 21:18 Sputum - Expectorated Gram Stain - Final 01/25/24 21:18 Sputum - Expectorated Sputum Culture - Preliminary Filamentous fungus Staphylococcus aureus Physical Exam 2 Vital Signs: Vital Signs: Last Vital Signs Temp 97.2 F 01/30/24 15:32 Pulse 106 H 01/30/24 23:00 Resp 22 H 01/30/24 23:00 BP 126/69 01/30/24 23:00 Pulse Ox 94 01/30/24 23:00 O2 Del Method High Flow Nasal C annula 01/30/24 23:00 O2 Flow Rate 50 01/30/24 23:00 FiO2 45 01/30/24 23:00 Oxygen Flow Rate 2 01/25/24 14:51 BMI result Body Mass Index 25.2 Const: General: cooperative HEENT: Head: Yes normal to inspection Face and sinus: Yes normal facial exam Mouth: Normal oral and palatal mucosa present Teeth and gingiva: d entition normal Eyes: General: appearance normal, both eyes and all related structures P upils: Equal, round and reactive pupils present Resp: Effort & Inspection: labored Cardio: Rate: regular rate Rhythm: regular rhythm GI: Palpation (GI): Soft to palpation and Tenderness to palpation present (GI) : General: Yes no CVA tenderness Back/Spine/Pelvis: Back: no CVA tenderness Skin: General skin exam: no rashes or lesions noted Neuro: General: moves all extremities Cranial nerves: Yes Equal, round and reactive pupils present Extrem: General: Yes normal to inspection Psych: Appearance: grossly normal Assessment and Plan Assessment and plan (1) Staph aureus infection: Status: Acute (2) Ileus: Status: Acute (3) Enterovirus infection: Status: Acute (4) Interstitial lung disease: Status: Acute (5) Pneumonitis: Status: Acute Plan She has ileus which can cause leukemoid response ,leukocytosis She has also MSSA in sputum and filamentous fungus ,both which can be commensal,less likely source of infection No signs TB specifically on exam or radiology testing,dont see IGRA She can get linezolid and voriconazole for now and likely early discontinuation of antibiotics pending further evaluation and blood cultures as likely not necessary continue steroids for ILD,prognosis per pulmonary Surgery may review ileus prn need,no signs bowel perforation Time Spent With Patient Time: Total time managing care of this patient today ____ minutes.
[2024-01-30] MEDS: Albuterol/Iprat 2.5/0.5MG 3 ML AMPUL.NEB INHALE (23:38)
[2024-01-31] VITALS (37 sets, daily range): BP systolic 95–139; BP diastolic 52–74; PULSE 89–114; RESP 11–30; TEMP 36.1–36.5; O2SAT 85–96
[2024-01-31] MEDS: 0.9 % Sodium Chloride Flush 3 ML SYRINGE IVFLUSH ×4 (00:18→23:34)
[2024-01-31] MEDS: SODIUM CHLORIDE 0.9% IV ×2 (00:39→12:46)
[2024-01-31] MEDS: VORICONAZOLE IV ×2 (00:39→12:46)
[2024-01-31] MEDS: HYDROmorphone HCl 0.5 MG/0.5 ML SYRINGE 0.25 MG IVPUSH (01:31)
[2024-01-31] MEDS: Furosemide 20 MG/2 ML VIAL IVPUSH ×2 (02:00→22:56)
[2024-01-31 02:17] LABS: ABG Base Excess 5.9 mmol/L; ABG HCO3 34 mmol/L (22-26); ABG pCO2 73 mmHg (32-45); ABG pH 7.27 (7.35-7.45); ABG pO2 71 mmHg (83-108)
[2024-01-31 02:24] LABS: ABG Refer to POC result
[2024-01-31 02:56] LABS: Glucose, Whole Blood 146 mg/dL (60-115)
[2024-01-31 03:24] LABS: Legionella Ag Urine Not Detected (Not Detected)
--- NOTE | 2024-01-31 03:31 | PM.CCN ---
Critical Care Event Note Summary Date of Service: 01/31/24 Code activated: No Narrative: This case had a high probability of a clinically significant, sudden, or life threatening deterioration of this patient's condition which required my full and direct attention, intervention and personal management. Critical Care Time (minutes): 60 Comment: On 01/31/2024 at 01:30, the patient suddenly went into respiratory distress using accessory muscles, having high respiratory rate and hypoxic down to 86% while on high-flow O2 which was increased from 45% up to 80% in order to obtain sats of 90%. The patient has been receiving IV fluids, I am concerned that she may have fluid overload although her EF is 70%, she does have some diastolic dysfunction.? Will give her single dose of IV Lasix, obtain a chest x-ray. ?ABG requested, will give her Dilaudid 0.25 mg IV x1 for work of breathing and restlessness. ABG was reviewed, she does have new onset acute respiratory acidosis with hypercarbia state with a pH of 7.27, pCO2 of 73, PO2 71, HC03 of 34. ?Based on this I requested BiPAP placement. Chest x-ray was reviewed, there is worsening opacification of the right lung and dilation of the bowel loops pushing up the right more than left diaphragm.? No free air noted. An NG tube was placed by me in the left nares with positive air bubble during confirmation of the left upper quadrant and positive suctioning of gastric contents which was placed to low intermittent suction. A Seugndo catheter will be requested, we will recheck laboratories in the morning and received IV fluids if the renal function continues to be elevated particularly given that she received IV contrast last night. We do note that she is producing urine for she has been found to have incontinence and a wet bed x2.? She did receive a Fleet enema last night without any improvement of her bowel motility.? If needed will repeat a oil enema this morning. Given the significant ileus and the family's concern at bedside (who is a physician) I did involve Dr. Sanches via phone with whom I discussed the case and he agrees with everything we have done so far, he will see the patient in the morning. 03:00, after doing all the above and monitoring the patient closely, the patient appears hemodynamically stable, satting 92% on BiPAP at 16/8 with FiO2 of 65%.? She appears comfortable. Critical care time used for critical evaluation of this patient, diagnosis, treatment and coordination of care, review her records and documentation TOTAL CRITICAL CARE TIME? 60? MIN . discussion and coordination with consultants, completely separate from any procedures performed. . Patient's care was discussed in detail with Dr. Tovar.? He is aware of all the above as well as the plan of care for this patient. ?
[2024-01-31 04:21] LABS: VBG Base Excess 3.2 mmol/L; VBG HCO3 32 mmol/L (22-26); VBG pCO2 75 mmHg; VBG pH 7.23 (7.32-7.43); VBG pO2 65 mmHg
[2024-01-31 04:22] LABS: Venous Blood Gas Refer to POC result
[2024-01-31] MEDS: Albuterol/Iprat 2.5/0.5MG 3 ML AMPUL.NEB INHALE ×3 (04:41→19:52)
[2024-01-31 04:54] LABS: Hematocrit 28.9 % (37.0-47.0); Hemoglobin 9.5 g/dl (12.0-16.0); Mean Corpuscular HGB Conc 32.9 g/dl (31.0-35.0); Mean Corpuscular Hemoglobin 29.1 pg (27.0-33.0); Mean Corpuscular Volume 88.7 fL (80.0-98.0); Mean Platelet Volume 10.8 fL (9.4-12.3); Platelet Count 159 X10*3/uL (160-400); Red Blood Count 3.26 X10*6/uL (4.20-5.50); Red Cell Distribution Width 16.2 % (11.0-16.0); White Blood Count 19.6 X10*3/uL (4.8-10.8)
[2024-01-31] MEDS: methylPREDNISolone Sod Succ 125 MG/2 ML VIAL 60 MG IVPUSH ×3 (05:02→20:44)
[2024-01-31 05:16] LABS: Alanine Aminotransferase 67 U/L (0-31); Albumin Level 4.4 g/dL (3.5-5.0); Alkaline Phosphatase 65 U/L (39-117); Anion Gap 18 (12-20); Aspartate Amino Transferase 62 U/L (5-31); Bilirubin Total 0.3 mg/dL (0.0-1.0); Blood Urea Nitrogen 49 mg/dL (9-16); Calcium 9.8 mg/dL (8.4-10.2); Carbon Dioxide 28 mmol/L (22-29); Chloride 93 mmol/L (96-108); Creatinine Clr Calc Pharmacy 31.2; Estimated Glomerular Filt Rate 35; Glucose Random 125 mg/dL (60-115); Magnesium 4.2 mg/dL (1.6-2.6); Potassium 4.6 mmol/L (3.3-5.1); Sodium 134 mmol/L (135-145)
[2024-01-31] MEDS: Pantoprazole Sodium 40 MG/10 ML VIAL IVPUSH (07:07)
[2024-01-31] MEDS: 0.9 % Sodium Chloride 1,000 ML 150 ML IVCONT (07:07)
[2024-01-31 07:23] LABS: Glucose, Whole Blood 112 mg/dL (60-115)
--- NOTE | 2024-01-31 07:28 | PC.NURSE ---
Pt's granddaughter provided translation, as pt and family are declining to utilize [email or web address] master sheet clerk machine at this time. Pts [place] language is [place]ish, and she understands/ speaks minimal estonian. Upon initial assessment at approximately 1900- pt is calm and cooperative, A+Ox1, states she's in the hospital but believes she's at [facility], tracking speaking, able to follow simple commands, [place]. Afebrile. Sinus tachycardia on tele, HR 100-110s. MAP> 70. Pt on HFNC 50L 50%, SPO2> 92%. Lungs dim throughout with fine crackles in bilateral bases. Abdomen is round and distended, faint/ hypoactive bowel sounds. Mineral oil enema given per MAY with no effect. Repeat labs obtained- see EMR. 2 bags of Albumin, 20mg IVP Lasix and 5mg IVP?Reglan given per MAY.? Approx. 0130- pt is anxious/restless. Denies any pain. Pt tachypneic, SPO2 80s on HFNC. RT and PA to bedside. 0.25mg IVP Dilaudid given per MAY with no effect. Additional 20mg IVP lasix given per MAY. Segundo placed. Stat ABG and Chest XR obtained- see EMR. NGT placed to left nare by PA, and connected to low intermittent suction- dark brown output. Surgery consulted. Pt placed on Bipap. Appears more comfortable, SPO2 >90%. HR 100-110s. MAP>70. Afebrile.
[2024-01-31] MEDS: dexmedeTOMIDidine HCL/NS 400 MCG/100 ML INFUS..BTL IVCONT (10:16)
[2024-01-31] MEDS: Linezolid/D5W 600 MG/300 ML PIGGYBACK 300 MG IV ×2 (10:16→21:31)
[2024-01-31 10:17] LABS: VBG Base Excess 4.5 mmol/L; VBG HCO3 32 mmol/L (22-26); VBG pCO2 64 mmHg; VBG pO2 73 mmHg
[2024-01-31 10:22] LABS: Hemoglobin 9.3 g/dl (12.0-16.0)
[2024-01-31] MEDS: Mineral OiL enema 133 ML ENEMA PR (10:28)
[2024-01-31 10:35] LABS: Alanine Aminotransferase 57 U/L (0-31); Alkaline Phosphatase 66 U/L (39-117); Anion Gap 14 (12-20); Aspartate Amino Transferase 58 U/L (5-31); Bilirubin Total 0.3 mg/dL (0.0-1.0); Blood Urea Nitrogen 46 mg/dL (9-16); Calcium 9.1 mg/dL (8.4-10.2); Carbon Dioxide 28 mmol/L (22-29); Chloride 98 mmol/L (96-108); Creatinine Clr Calc Pharmacy 34.5; Estimated Glomerular Filt Rate 40; Glucose Random 118 mg/dL (60-115); Potassium 4.7 mmol/L (3.3-5.1); Sodium 135 mmol/L (135-145); Total Protein 5.6 g/dL (6.5-8.0)
[2024-01-31 12:09] LABS: Glucose, Whole Blood 183 mg/dL (60-115)
[2024-01-31] MEDS: Insulin Lispro 100 UNIT/ML 3 ML VIAL SUBCUT (12:36)
[2024-01-31 13:44] LABS: Aspergillus Antigen Not Detected (Not Detected); Index Value 0.06 (<0.50)
[2024-01-31] MEDS: Metoclopramide HCl 10 MG/2 ML VIAL IVPUSH ×2 (13:44→20:45)
--- NOTE | 2024-01-31 14:03 | PM.CCPN ---
Subjective Subjective Date of Service: 01/31/24 Critical Care Time (minutes): 35 Comment: 73-year-old lady with past medical history significant for severe interstitial lung disease which has been progressive over the past 2-3 months on chronic steroids, history of GERD admitted to the hospital with worsening respiratory status possibly due to rhino viral infection in the setting of immunosuppression with steroids and ILD. Her hospital course is complicated by development of ileus which led to respiratory decompensation for which she has been transferred to medical ICU last night. Given increase in pCO2 to 70s and pH dropping to 7.26 she has been placed on BiPAP support. She is on Precedex drip for controlling her agitation as she was pulling her BiPAP. General surgery and gastroenterology has been consulted. Physical Exam Vital Signs: Vital Signs: Last Vital Signs Temp 97.6 F 01/31/24 12:00 Pulse 96 01/31/24 13:00 Resp 13 01/31/24 13:00 BP 112/64 01/31/24 13:00 Pulse Ox 92 01/31/24 13:00 O2 Del Method BiPAP 01/31/24 13:00 O2 Flow Rate 45 01/31/24 02:00 FiO2 70 01/31/24 13:00 Oxygen Flow Rate 2 01/25/24 14:51 BMI result Body Mass Index 25.2 General: Patient is in acute distress, ill appearing and tired appearing Nutritional Appearance: well nourished and normal weight Eyes: appearance normal, both eyes and all related structures; Alignment and Position: alignment normal and position normal Neck: No lymphadenopathy, no thyromegaly Resp: bilateral air entry equal, bilateral diffuse coarse crackles heard Cardio: Regular rate, regular rhythm; Heart sounds: S1 normal heart sound present and S2 normal heart sound present GI: soft, nontender, no guarding, no hepatosplenomegaly : bladder normal to inspection, bladder normal to palpation, no renal angle tenderness Skin: no rashes or lesions noted and elasticity normal Neuro: Drowsy but opens her eyes and follows some commands Objective Data Labs 01/31/24 10:09 01/31/24 10:09 Labs: Laboratory Results - last 24 hr 01/26/24 01/27/24 01/27/24 02:26 08:48 16:33 WBC RBC Hgb Hct MCV MCH MCHC RDW Plt Count MPV Immature Gran % (Auto) Neut % (Auto) Lymph % (Auto) [place] % (Auto) Eos % (Auto) Baso % (Auto) Lymph # (Auto) [place] # (Auto) Eos # (Auto) Baso # (Auto) Abs Immat Gran (auto) Absolute Neuts (auto) Absolute Nucleated RBC Nucleated RBC % (auto) Smear Tech's Comments O2 Saturation ABG pH at Pt Temp ABG pCO2 at Pt Temp ABG pO2 at Pt Temp ABG HCO3 ABG Base Excess (Actual) VBG pH VBG pCO2 VBG pO2 VBG HCO3 VBG O2 Saturation VBG Base Excess Sodium Potassium Chloride Carbon Dioxide Anion Gap BUN Creatinine Estim Creat Clear Calc Estimated GFR POC Glucose Random Glucose Lactic Acid Lactic Acid F/U @ 2Hr Lactic Acid F/U @ 4Hr Calcium Phosphorus Magnesium Total Bilirubin AST ALT Alkaline Phosphatase Total Protein Albumin Urine Color Urine Appearance Urine pH Ur Specific [place] Urine Protein Urine Glucose (UA) Urine Ketones Urine Blood Urine Nitrite Ur Leukocyte Esterase Influenza Type A (PCR) Influenza Type B (PCR) Ur L.pneumophila Ag Not Detected Aspergillus Ag (EIA) Not Detected Aspergillus Index Value 0.06 RSV RNA Qual (PCR) SARS-CoV-2 RNA (RT-PCR) Beta-(1,3)-D-Glucan <31 B-(1,3)-D-Glucan Intrp Negative 01/30/24 01/30/24 01/30/24 13:56 14:02 16:15 WBC RBC Hgb Hct MCV MCH MCHC RDW Plt Count MPV Immature Gran % (Auto) Neut % (Auto) Lymph % (Auto) [place] % (Auto) Eos % (Auto) Baso % (Auto) Lymph # (Auto) [place] # (Auto) Eos # (Auto) Baso # (Auto) Abs Immat Gran (auto) Absolute Neuts (auto) Absolute Nucleated RBC Nucleated RBC % (auto) Smear Tech's Comments O2 Saturation ABG pH at Pt Temp ABG pCO2 at Pt Temp ABG pO2 at Pt Temp ABG HCO3 ABG Base Excess (Actual) VBG pH VBG pCO2 VBG pO2 VBG HCO3 VBG O2 Saturation VBG Base Excess Sodium Potassium Chloride Carbon Dioxide Anion Gap BUN Creatinine Estim Creat Clear Calc Estimated GFR POC Glucose 157 H Random Glucose Lactic Acid Lactic Acid F/U @ 2Hr 3.9 H* Lactic Acid F/U @ 4Hr Calcium Phosphorus Magnesium Total Bilirubin AST ALT Alkaline Phosphatase Total Protein Albumin Urine Color Urine Appearance Urine pH Ur Specific [place] Urine Protein Urine Glucose (UA) Urine Ketones Urine Blood Urine Nitrite Ur Leukocyte Esterase Influenza Type A (PCR) NEGATIVE Influenza Type B (PCR) NEGATIVE Ur L.pneumophila Ag Aspergillus Ag (EIA) Aspergillus Index Value RSV RNA Qual (PCR) NEGATIVE SARS-CoV-2 RNA (RT-PCR) NEGATIVE Beta-(1,3)-D-Glucan B-(1,3)-D-Glucan Intrp 01/30/24 01/30/24 01/30/24 16:34 19:59 20:30 WBC RBC Hgb Hct MCV MCH MCHC RDW Plt Count MPV Immature Gran % (Auto) Neut % (Auto) Lymph % (Auto) [place] % (Auto) Eos % (Auto) Baso % (Auto) Lymph # (Auto) [place] # (Auto) Eos # (Auto) Baso # (Auto) Abs Immat Gran (auto) Absolute Neuts (auto) Absolute Nucleated RBC Nucleated RBC % (auto) Smear Tech's Comments O2 Saturation 96.0 ABG pH at Pt Temp 7.44 ABG pCO2 at Pt Temp 47 H ABG pO2 at Pt Temp 85 ABG HCO3 32 H ABG Base Excess (Actual) 7.6 VBG pH VBG pCO2 VBG pO2 VBG HCO3 VBG O2 Saturation VBG Base Excess Sodium Potassium Chloride Carbon Dioxide Anion Gap BUN Creatinine Estim Creat Clear Calc Estimated GFR POC Glucose Random Glucose Lactic Acid Lactic Acid F/U @ 2Hr Lactic Acid F/U @ 4Hr 3.8 H* Calcium Phosphorus Magnesium Total Bilirubin AST ALT Alkaline Phosphatase Total Protein Albumin Urine Color Dark Yellow Urine Appearance Clear Urine pH 5.0 Ur Specific [place] >= 1.030 H Urine Protein Negative Urine Glucose (UA) Negative Urine Ketones Negative Urine Blood Negative Urine Nitrite Negative Ur Leukocyte Esterase Negative Influenza Type A (PCR) Influenza Type B (PCR) Ur L.pneumophila Ag Aspergillus Ag (EIA) Aspergillus Index Value RSV RNA Qual (PCR) SARS-CoV-2 RNA (RT-PCR) Beta-(1,3)-D-Glucan B-(1,3)-D-Glucan Intrp 01/30/24 01/30/24 01/30/24 20:34 21:23 22:52 WBC 24.5 H RBC 4.20 Hgb 12.3 Hct 36.1 L MCV 86.0 MCH 29.3 MCHC 34.1 RDW 16.2 H Plt Count 192 MPV 11.3 Immature Gran % (Auto) 0.9 H Neut % (Auto) 93.9 H Lymph % (Auto) 2.3 L [place] % (Auto) 2.7 Eos % (Auto) 0.0 Baso % (Auto) 0.2 Lymph # (Auto) 0.6 L [place] # (Auto) 0.7 Eos # (Auto) 0.0 Baso # (Auto) 0.1 Abs Immat Gran (auto) 0.23 H Absolute Neuts (auto) 23.0 H Absolute Nucleated RBC 0.000 Nucleated RBC % (auto) 0.0 Smear Tech's Comments VERIFIED O2 Saturation ABG pH at Pt Temp ABG pCO2 at Pt Temp ABG pO2 at Pt Temp ABG HCO3 ABG Base Excess (Actual) VBG pH VBG pCO2 VBG pO2 VBG HCO3 VBG O2 Saturation VBG Base Excess Sodium 131 L Potassium 4.9 Chloride 92 L Carbon Dioxide 27 Anion Gap 17 BUN 47 H Creatinine 1.58 H Estim Creat Clear Calc 28.6 Estimated GFR 32 POC Glucose 117 H Random Glucose 107 Lactic Acid 2.5 H* Lactic Acid F/U @ 2Hr 1.9 Lactic Acid F/U @ 4Hr Calcium 10.1 D Phosphorus 6.1 H Magnesium 4.7 H* Total Bilirubin 0.3 AST 67 H ALT 94 H Alkaline Phosphatase 91 Total Protein 5.7 L Albumin 3.3 L Urine Color Urine Appearance Urine pH Ur Specific [place] Urine Protein Urine Glucose (UA) Urine Ketones Urine Blood Urine Nitrite Ur Leukocyte Esterase Influenza Type A (PCR) Influenza Type B (PCR) Ur L.pneumophila Ag Aspergillus Ag (EIA) Aspergillus Index Value RSV RNA Qual (PCR) SARS-CoV-2 RNA (RT-PCR) Beta-(1,3)-D-Glucan B-(1,3)-D-Glucan Intrp 01/31/24 01/31/24 01/31/24 02:06 02:36 04:06 WBC RBC Hgb Hct MCV MCH MCHC RDW Plt Count MPV Immature Gran % (Auto) Neut % (Auto) Lymph % (Auto) [place] % (Auto) Eos % (Auto) Baso % (Auto) Lymph # (Auto) [place] # (Auto) Eos # (Auto) Baso # (Auto) Abs Immat Gran (auto) Absolute Neuts (auto) Absolute Nucleated RBC Nucleated RBC % (auto) Smear Tech's Comments O2 Saturation 87.0 ABG pH at Pt Temp 7.27 L ABG pCO2 at Pt Temp 73 H* ABG pO2 at Pt Temp 71 L ABG HCO3 34 H ABG Base Excess (Actual) 5.9 VBG pH VBG pCO2 VBG pO2 VBG HCO3 VBG O2 Saturation VBG Base Excess Sodium 134 L Potassium 4.6 Chloride 93 L Carbon Dioxide 28 Anion Gap 18 BUN 49 H Creatinine 1.45 H Estim Creat Clear Calc 31.2 Estimated GFR 35 POC Glucose 146 H Random Glucose 125 H Lactic Acid Lactic Acid F/U @ 2Hr Lactic Acid F/U @ 4Hr Calcium 9.8 Phosphorus Magnesium 4.2 H* Total Bilirubin 0.3 AST 62 H ALT 67 H Alkaline Phosphatase 65 Total Protein 6.0 L Albumin 4.4 Urine Color Urine Appearance Urine pH Ur Specific [place] Urine Protein Urine Glucose (UA) Urine Ketones Urine Blood Urine Nitrite Ur Leukocyte Esterase Influenza Type A (PCR) Influenza Type B (PCR) Ur L.pneumophila Ag Aspergillus Ag (EIA) Aspergillus Index Value RSV RNA Qual (PCR) SARS-CoV-2 RNA (RT-PCR) Beta-(1,3)-D-Glucan B-(1,3)-D-Glucan Intrp 01/31/24 01/31/24 01/31/24 04:11 04:15 07:16 WBC 19.6 H RBC 3.26 L D Hgb 9.5 L D Hct 28.9 L MCV 88.7 MCH 29.1 MCHC 32.9 RDW 16.2 H Plt Count 159 L MPV 10.8 Immature Gran % (Auto) Neut % (Auto) Lymph % (Auto) [place] % (Auto) Eos % (Auto) Baso % (Auto) Lymph # (Auto) [place] # (Auto) Eos # (Auto) Baso # (Auto) Abs Immat Gran (auto) Absolute Neuts (auto) Absolute Nucleated RBC 0.000 Nucleated RBC % (auto) 0.0 Smear Tech's Comments O2 Saturation ABG pH at Pt Temp ABG pCO2 at Pt Temp ABG pO2 at Pt Temp ABG HCO3 ABG Base Excess (Actual) VBG pH 7.23 L VBG pCO2 75 VBG pO2 65 VBG HCO3 32 H VBG O2 Saturation 85.0 VBG Base Excess 3.2 Sodium Potassium Chloride Carbon Dioxide Anion Gap BUN Creatinine Estim Creat Clear Calc Estimated GFR POC Glucose 112 Random Glucose Lactic Acid Lactic Acid F/U @ 2Hr Lactic Acid F/U @ 4Hr Calcium Phosphorus Magnesium Total Bilirubin AST ALT Alkaline Phosphatase Total Protein Albumin Urine Color Urine Appearance Urine pH Ur Specific [place] Urine Protein Urine Glucose (UA) Urine Ketones Urine Blood Urine Nitrite Ur Leukocyte Esterase Influenza Type A (PCR) Influenza Type B (PCR) Ur L.pneumophila Ag Aspergillus Ag (EIA) Aspergillus Index Value RSV RNA Qual (PCR) SARS-CoV-2 RNA (RT-PCR) Beta-(1,3)-D-Glucan B-(1,3)-D-Glucan Intrp 01/31/24 01/31/24 01/31/24 10:07 10:09 12:05 WBC RBC Hgb 9.3 L Hct 28.0 L MCV MCH MCHC RDW Plt Count MPV Immature Gran % (Auto) Neut % (Auto) Lymph % (Auto) [place] % (Auto) Eos % (Auto) Baso % (Auto) Lymph # (Auto) [place] # (Auto) Eos # (Auto) Baso # (Auto) Abs Immat Gran (auto) Absolute Neuts (auto) Absolute Nucleated RBC Nucleated RBC % (auto) Smear Tech's Comments O2 Saturation ABG pH at Pt Temp ABG pCO2 at Pt Temp ABG pO2 at Pt Temp ABG HCO3 ABG Base Excess (Actual) VBG pH 7.30 L VBG pCO2 64 VBG pO2 73 VBG HCO3 32 H VBG O2 Saturation 92.0 VBG Base Excess 4.5 Sodium 135 Potassium 4.7 Chloride 98 Carbon Dioxide 28 Anion Gap 14 BUN 46 H Creatinine 1.31 Estim Creat Clear Calc 34.5 Estimated GFR 40 POC Glucose 183 H Random Glucose 118 H Lactic Acid Lactic Acid F/U @ 2Hr Lactic Acid F/U @ 4Hr Calcium 9.1 D Phosphorus Magnesium Total Bilirubin 0.3 AST 58 H ALT 57 H Alkaline Phosphatase 66 Total Protein 5.6 L Albumin 4.0 Urine Color Urine Appearance Urine pH Ur Specific [place] Urine Protein Urine Glucose (UA) Urine Ketones Urine Blood Urine Nitrite Ur Leukocyte Esterase Influenza Type A (PCR) Influenza Type B (PCR) Ur L.pneumophila Ag Aspergillus Ag (EIA) Aspergillus Index Value RSV RNA Qual (PCR) SARS-CoV-2 RNA (RT-PCR) Beta-(1,3)-D-Glucan B-(1,3)-D-Glucan Intrp Microbiology Microbiology Results: Microbiology 01/30/24 11:34 Blood - Venous Blood Culture - Preliminary No growth after 24 hours. 01/30/24 11:40 Blood - Venous Blood Culture - Preliminary No growth after 24 hours. 01/25/24 21:18 Sputum - Expectorated Gram Stain - Final 01/25/24 21:18 Sputum - Expectorated Sputum Culture - Preliminary Filamentous fungus Staphylococcus aureus Progress Note: A&P Assessment and plan (1) Dyspnea on exertion: Status: Acute (2) Hypothyroidism: Status: Acute (3) Ileus: Status: Acute (4) Pulmonary fibrosis, unspecified: Status: Acute (5) Hemoptysis: Status: Acute (6) Interstitial lung disease: Status: Acute (7) Respiratory failure with hypoxia: Status: Acute (8) Pneumonitis: Status: Acute (9) Interstitial lung disease: Status: Acute (10) Acute and chronic respiratory failure: Status: Acute Plan 73-year-old lady with past medical history significant for severe interstitial lung disease which has been progressive over the past 2-3 months on chronic steroids, history of GERD admitted to the hospital with worsening respiratory status possibly due to rhino viral infection in the setting of immunosuppression with steroids and ILD. Her hospital course is complicated by development of ileus which led to respiratory decompensation for which she has been transferred to medical ICU last night. Acute on chronic respiratory failure: Secondary to progressive ILD with superadded rhino viral infection and now ileus compressing the right lung while she has poor reserve Her pH was 7.23 this morning with pCO2 of 75 which improved with BiPAP support to 7.3 and pCO2 decreasing to 64. Note: This is a VBG sample Continue with BiPAP support for now, explained the family that she is in a high-risk for aspiration given GERD, dilated esophagus and being on BiPAP. Family deciding towards advanced directives like DNI or not. Continue steroids for the management of interstitial lung disease. Ileus: Unclear etiology NG tube for suction, bowel management system Continue Reglan 10 mg TID while monitoring QT interval Keep potassium above 4 to avoid hypokalemia Leukocytosis: On Zyvox, we will add Zosyn for anaerobic coverage Continue Valtrex as she is immunosuppressed Acute kidney injury: Possibly secondary to Ileus We will continue standing IV fluids Hypothyroidism: Continue levothyroxine Prophylaxis: Heparin, pantoprazole Quality Stroke Does the patient have a stroke diagnosis?: No VTE Prior VTE?: No VTE Risk Level:: Medical - moderate - high VTE Device Contraindication: N/A - Device Ordered VTE Drug Contraindication: N/A - Med Ordered
[2024-01-31 15:08] LABS: Venous Blood Gas Refer to POC result
[2024-01-31] MEDS: Lactated Ringers 1,000 ML 50 ML IVCONT (15:08)
--- NOTE | 2024-01-31 15:30 | PC.RT ---
Pt desat to low 80'2. Bipap settings increased to 20/10 90%. Pt briseyda well, SATs increased to 89-91%.
--- NOTE | 2024-01-31 15:30 | PM.CNGS ---
History of Present Illness Consult details Consult date: 01/31/24 Narrative: Patient is a 73-year-old female with a plethora of comorbidities and intercurrent medical problems. She is currently in significant respiratory distress secondary to her pulmonary issues. She has an associated ileus and consultation was made for surgery regarding this. Patient herself is not complaining of any abdominal pain. She is somewhat somnolent secondary to her sedation and respiratory status. She has a Ventimask on . Patient had a CT scan yesterday (01/29) of the chest and abdomen. Abdominal CT demonstrates diffuse ileus involving essentially the entire GI system. Patient also has what appears to impacted stool in the distal colon/rectum. Chart was reviewed and patient evaluated. Patient was daughter was also present along with ICU attending during evaluation PMFSH Past Medical History Medical History Pneumonitis Oral thrush Back pain of thoracolumbar region Fatigue Respiratory failure with hypoxia Bronchitis Post-COVID chronic cough Exercise hypoxemia Interstitial lung disease Hemoptysis Hypothyroidism Pulmonary fibrosis, unspecified Cough Dyspnea on exertion Social History Social History Household Members: Family Housing: House Do you presently have visiting nurse or other home services: No Comment: Granddaughter at bedside Patient Tobacco Use Status: Never used Tobacco Advance Directives Date on File: 01/25/24 service: No Meds Allergies Allergy/AdvReac Type Severity Reaction Status Date / Time Penicillins [PENICILLINS] Allergy Unknown SWELLING Verified 01/25/24 11:07 Active Medications: Current Medications Albuterol Sulfate (Albuterol Sulfate (0.083%) 2.5 Mg/3 Ml Vial.Neb) 2.5 mg INHALE Q3H PRN PRN Reason: Wheezing Albuterol/Ipratropium (Albuterol/Iprat 2.5/0.5mg 3 Ml Ampul.Neb) 3 ml INHALE RQ6H [facility] Last Admin: 01/31/24 11:01 Dose: 3 ml Calcitonin Tatamy (Calcitonin,Tatamy,Synth Nasal 3.7 Ml Bottle) 1 spray NOSTRILALT DAILY [facility] Last Admin: 01/31/24 08:07 Dose: Not Given Glucose (Glucose Gel 15 Gm Gel..Gram.) 15 gm PO Q15M PRN; Protocol PRN Reason: per Hypoglycemia Standing Ord. Heparin Sodium (Porcine) (Heparin Sodium,Porcine 5,000 Unit/Ml Vial) 5,000 unit SUBCUT Q12H [facility] Last Admin: 01/31/24 10:22 Dose: Not Given Dextrose (D10) 250 mls @ 750 mls/hr IV Q15M PRN; Protocol PRN Reason: per Hypoglycemia Standing Ord. Linezolid (Zyvox/D5w) 600 mg in 300 mls @ 300 mls/hr IV Q12H [facility] Last Infusion: 01/31/24 11:18 Dose: Infused Voriconazole 250 mg/ Sodium (Chloride) 100 mls @ 50 mls/hr IV Q12H [facility] Last Infusion: 01/31/24 14:56 Dose: Infused Dexmedetomidine HCl (Precedex) 400 mcg in 100 mls @ 0 mls/hr IVCONT .Q0M [facility]; Protocol Last Titration: 01/31/24 15:23 Dose: 0.6 mcg/kg/hr, 9.68 mls/hr Lactated Ringer's (Lr) 1,000 mls @ 50 mls/hr IVCONT .Q20H [facility] Last Admin: 01/31/24 15:08 Dose: 50 mls/hr Insulin Human Lispro (Insulin Lispro 100 Unit/Ml 3 Ml Vial) 0 unit SUBCUT Q6H [facility]; Protocol Last Admin: 01/31/24 12:36 Dose: 2 unit Levothyroxine Sodium (Levothyroxine Sodium 25 Mcg Tablet) 25 mcg PO DAILY@0600 [facility] Last Admin: 01/31/24 05:44 Dose: Not Given Methylprednisolone Sodium Succinate (Methylprednisolone Sod Succ 125 Mg/2 Ml Vial) 60 mg IVPUSH Q8H [facility] Last Admin: 01/31/24 12:37 Dose: 60 mg Metoclopramide HCl (Metoclopramide Hcl 10 Mg/2 Ml Vial) 10 mg IVPUSH Q8H [facility] Last Admin: 01/31/24 13:44 Dose: 10 mg Ondansetron HCl (Ondansetron Hcl 4 Mg/2 Ml Vial) 4 mg IVPUSH Q4H PRN PRN Reason: Nausea and Vomiting Last Admin: 01/27/24 11:21 Dose: 4 mg Pantoprazole Sodium (Pantoprazole Sodium 40 Mg/10 Ml Vial) 40 mg IVPUSH DAILY@0630 [facility] Last Admin: 01/31/24 07:07 Dose: 40 mg Sertraline HCl (Sertraline Hcl 25 Mg Tablet) 25 mg PO DAILY [facility] Last Admin: 01/31/24 08:07 Dose: Not Given Sodium Biphosphate/Sodium Phosphate (Sodium Phosphate,Dickson-Dibasic 133 Ml Enema) 133 ml NV ONCE PRN PRN Reason: Constipation Last Admin: 01/29/24 17:39 Dose: 133 ml Sodium Chloride (0.9 % Sodium Chloride Flush 3 Ml Syringe) 3 ml IVFLUSH QSHIFT [facility] Last Admin: 01/31/24 15:23 Dose: 3 ml Home Medications ?Medication ?Instructions ?Recorded ?Confirmed ?Last Taken ?Type pantoprazole 20 mg tablet,delayed 20 mg PO DAILY@0630 PRN Acid Reflex 08/31/23 01/25/24 Unknown History release prednisone 20 mg tablet 40 mg PO DAILY 12/09/23 01/25/24 01/25/24 09:30 History benzonatate 100 mg capsule 100 mg PO TID PRN cough/ILD. 12/15/23 01/25/24 Unknown History calcium 600 mg (as 1 tab PO DAILY 01/25/24 01/25/24 01/25/24 09:30 History carbonate)-vitamin D3 5 mcg (200 unit) tablet (Calcium 600 + D(3)) levothyroxine 25 mcg tablet 25 mcg PO DAILY@0600 01/25/24 01/25/24 01/25/24 09:30 History metformin 500 mg tablet 500 mg PO BIDWM 01/25/24 01/25/24 Unknown History Physical Exam Vital Signs: Vital Signs: Last Vital Signs Temp 97.6 F 01/31/24 12:00 Pulse 98 01/31/24 15:00 Resp 21 H 01/31/24 15:21 BP 107/69 01/31/24 15:00 Pulse Ox 92 01/31/24 15:00 O2 Del Method BiPAP 01/31/24 15:00 O2 Flow Rate 45 01/31/24 02:00 FiO2 90 01/31/24 15:24 Oxygen Flow Rate 2 01/25/24 14:51 BMI result Body Mass Index 25.2 GI: Other: Abdomen is moderately distended but soft. It is not tense or profoundly tympanitic. No gross evidence of guarding, rebound, or rigidity. Results Labs 01/31/24 10:09 01/31/24 10:09 Labs: Abnormal lab results 01/30/24 01/30/24 01/30/24 Range/Units 16:15 16:34 19:59 WBC (4.8-10.8) X10*3/uL RBC (4.20-5.50) X10*6/uL Hgb (12.0-16.0) g/dl Hct (37.0-47.0) % RDW (11.0-16.0) % Plt Count (160-400) X10*3/uL Immature Gran % (Auto) (0.0-0.4) % Neut % (Auto) (45-73) % Lymph % (Auto) (20-40) % Lymph # (Auto) (1.2-4.9) X10*3/uL Abs Immat Gran (auto) (0.00-0.03) X10*3/uL Absolute Neuts (auto) (2.0-8.3) x10*3/uL ABG pH at Pt Temp (7.35-7.45) ABG pCO2 at Pt Temp 47 H (32-45) mmHg ABG pO2 at Pt Temp (83-108) mmHg ABG HCO3 32 H (22-26) mmol/L VBG pH (7.32-7.43) VBG HCO3 (22-26) mmol/L Sodium (135-145) mmol/L Chloride (96-108) mmol/L BUN (9-16) mg/dL Creatinine (0.5-1.4) mg/dL POC Glucose 157 H (60-115) mg/dL Random Glucose (60-115) mg/dL Lactic Acid (0.5-2.0) mmol/L Lactic Acid F/U @ 4Hr 3.8 H* (0.5-2.0) mmol/L Phosphorus (2.7-4.5) mg/dL Magnesium (1.6-2.6) mg/dL AST (5-31) U/L ALT (0-31) U/L Total Protein (6.5-8.0) g/dL Albumin (3.5-5.0) g/dL Ur Specific [place] (1.005-1.025) 01/30/24 01/30/2401/29/24 Range/Units 20:30 20:34 21:23 WBC 24.5 H (4.8-10.8) X10*3/uL RBC (4.20-5.50) X10*6/uL Hgb (12.0-16.0) g/dl Hct 36.1 L (37.0-47.0) % RDW 16.2 H (11.0-16.0) % Plt Count (160-400) X10*3/uL Immature Gran % (Auto) 0.9 H (0.0-0.4) % Neut % (Auto) 93.9 H (45-73) % Lymph % (Auto) 2.3 L (20-40) % Lymph # (Auto) 0.6 L (1.2-4.9) X10*3/uL Abs Immat Gran (auto) 0.23 H (0.00-0.03) X10*3/uL Absolute Neuts (auto) 23.0 H (2.0-8.3) x10*3/uL ABG pH at Pt Temp (7.35-7.45) ABG pCO2 at Pt Temp (32-45) mmHg ABG pO2 at Pt Temp (83-108) mmHg ABG HCO3 (22-26) mmol/L VBG pH (7.32-7.43) VBG HCO3 (22-26) mmol/L Sodium 131 L (135-145) mmol/L Chloride 92 L (96-108) mmol/L BUN 47 H (9-16) mg/dL Creatinine 1.58 H (0.5-1.4) mg/dL POC Glucose 117 H (60-115) mg/dL Random Glucose (60-115) mg/dL Lactic Acid 2.5 H* (0.5-2.0) mmol/L Lactic Acid F/U @ 4Hr (0.5-2.0) mmol/L Phosphorus 6.1 H (2.7-4.5) mg/dL Magnesium 4.7 H* (1.6-2.6) mg/dL AST 67 H (5-31) U/L ALT 94 H (0-31) U/L Total Protein 5.7 L (6.5-8.0) g/dL Albumin 3.3 L (3.5-5.0) g/dL Ur Specific [place] >= 1.030 H (1.005-1.025) 01/31/24 01/31/24 01/31/24 Range/Units 02:06 02:36 04:06 WBC (4.8-10.8) X10*3/uL RBC (4.20-5.50) X10*6/uL Hgb (12.0-16.0) g/dl Hct (37.0-47.0) % RDW (11.0-16.0) % Plt Count (160-400) X10*3/uL Immature Gran % (Auto) (0.0-0.4) % Neut % (Auto) (45-73) % Lymph % (Auto) (20-40) % Lymph # (Auto) (1.2-4.9) X10*3/uL Abs Immat Gran (auto) (0.00-0.03) X10*3/uL Absolute Neuts (auto) (2.0-8.3) x10*3/uL ABG pH at Pt Temp 7.27 L (7.35-7.45) ABG pCO2 at Pt Temp 73 H* (32-45) mmHg ABG pO2 at Pt Temp 71 L (83-108) mmHg ABG HCO3 34 H (22-26) mmol/L VBG pH (7.32-7.43) VBG HCO3 (22-26) mmol/L Sodium 134 L (135-145) mmol/L Chloride 93 L (96-108) mmol/L BUN 49 H (9-16) mg/dL Creatinine 1.45 H (0.5-1.4) mg/dL POC Glucose 146 H (60-115) mg/dL Random Glucose 125 H (60-115) mg/dL Lactic Acid (0.5-2.0) mmol/L Lactic Acid F/U @ 4Hr (0.5-2.0) mmol/L Phosphorus (2.7-4.5) mg/dL Magnesium 4.2 H* (1.6-2.6) mg/dL AST 62 H (5-31) U/L ALT 67 H (0-31) U/L Total Protein 6.0 L (6.5-8.0) g/dL Albumin (3.5-5.0) g/dL Ur Specific [place] (1.005-1.025) 01/31/24 01/31/24 01/31/24 Range/Units 04:11 04:15 10:07 WBC 19.6 H (4.8-10.8) X10*3/uL RBC 3.26 L D (4.20-5.50) X10*6/uL Hgb 9.5 L D (12.0-16.0) g/dl Hct 28.9 L (37.0-47.0) % RDW 16.2 H (11.0-16.0) % Plt Count 159 L (160-400) X10*3/uL Immature Gran % (Auto) (0.0-0.4) % Neut % (Auto) (45-73) % Lymph % (Auto) (20-40) % Lymph # (Auto) (1.2-4.9) X10*3/uL Abs Immat Gran (auto) (0.00-0.03) X10*3/uL Absolute Neuts (auto) (2.0-8.3) x10*3/uL ABG pH at Pt Temp (7.35-7.45) ABG pCO2 at Pt Temp (32-45) mmHg ABG pO2 at Pt Temp (83-108) mmHg ABG HCO3 (22-26) mmol/L VBG pH 7.23 L 7.30 L (7.32-7.43) VBG HCO3 32 H 32 H (22-26) mmol/L Sodium (135-145) mmol/L Chloride (96-108) mmol/L BUN (9-16) mg/dL Creatinine (0.5-1.4) mg/dL POC Glucose (60-115) mg/dL Random Glucose (60-115) mg/dL Lactic Acid (0.5-2.0) mmol/L Lactic Acid F/U @ 4Hr (0.5-2.0) mmol/L Phosphorus (2.7-4.5) mg/dL Magnesium (1.6-2.6) mg/dL AST (5-31) U/L ALT (0-31) U/L Total Protein (6.5-8.0) g/dL Albumin (3.5-5.0) g/dL Ur Specific [place] (1.005-1.025) 01/31/24 01/31/24 Range/Units 10:09 12:05 WBC (4.8-10.8) X10*3/uL RBC (4.20-5.50) X10*6/uL Hgb 9.3 L (12.0-16.0) g/dl Hct 28.0 L (37.0-47.0) % RDW (11.0-16.0) % Plt Count (160-400) X10*3/uL Immature Gran % (Auto) (0.0-0.4) % Neut % (Auto) (45-73) % Lymph % (Auto) (20-40) % Lymph # (Auto) (1.2-4.9) X10*3/uL Abs Immat Gran (auto) (0.00-0.03) X10*3/uL Absolute Neuts (auto) (2.0-8.3) x10*3/uL ABG pH at Pt Temp (7.35-7.45) ABG pCO2 at Pt Temp (32-45) mmHg ABG pO2 at Pt Temp (83-108) mmHg ABG HCO3 (22-26) mmol/L VBG pH (7.32-7.43) VBG HCO3 (22-26) mmol/L Sodium (135-145) mmol/L Chloride (96-108) mmol/L BUN 46 H (9-16) mg/dL Creatinine (0.5-1.4) mg/dL POC Glucose 183 H (60-115) mg/dL Random Glucose 118 H (60-115) mg/dL Lactic Acid (0.5-2.0) mmol/L Lactic Acid F/U @ 4Hr (0.5-2.0) mmol/L Phosphorus (2.7-4.5) mg/dL Magnesium (1.6-2.6) mg/dL AST 58 H (5-31) U/L ALT 57 H (0-31) U/L Total Protein 5.6 L (6.5-8.0) g/dL Albumin (3.5-5.0) g/dL Ur Specific [place] (1.005-1.025) Short CBC 01/30/24 01/31/24 01/31/24 Range/Units 20:34 04:15 10:09 WBC 24.5 H 19.6 H (4.8-10.8) X10*3/uL Hgb 12.3 9.5 L D 9.3 L (12.0-16.0) g/dl Hct 36.1 L 28.9 L 28.0 L (37.0-47.0) % Plt Count 192 159 L (160-400) X10*3/uL BMP 01/30/24 01/31/24 01/31/24 20:34 04:06 10:09 Sodium 131 L 134 L 135 Potassium 4.9 4.6 4.7 Chloride 92 L 93 L 98 Carbon Dioxide 27 28 28 BUN 47 H 49 H 46 H Creatinine 1.58 H 1.45 H 1.31 Calcium 10.1 D 9.8 9.1 D Liver Function 01/30/24 01/31/24 01/31/24 Range/Units 20:34 04:06 10:09 Total Bilirubin 0.3 0.3 0.3 (0.0-1.0) mg/dL AST 67 H 62 H 58 H (5-31) U/L ALT 94 H 67 H 57 H (0-31) U/L Alkaline Phosphatase 91 65 66 (39-117) U/L Albumin 3.3 L 4.4 4.0 (3.5-5.0) g/dL Urine 01/30/24 Range/Units 20:30 Urine Color Dark Yellow Urine Appearance Clear Urine pH 5.0 (5.0-9.0) Ur Specific [place] >= 1.030 H (1.005-1.025) Urine Protein Negative (Neg-Trace) mg/dL Urine Glucose (UA) Negative (Negative) mg/dL All other labs normal. Assessment and Plan (1) Ileus: Status: Acute Plan At present, no acute surgical issues. The usual etiologies including ruling out electrolyte abnormalities, avoiding narcotics, purgatives, follow-up recommended. GI consult was also pending. Consider colonoscopic decompression per GI. Also per GI evaluation, consider neostigmine if there was no distal colonic obstruction. Procedures Date of Service Date of Service: 01/31/24
[2024-01-31 16:38] LABS: Asperg fumigatus Precip Abs NEGATIVE (NEGATIVE); Micropoly faeni Abs NEGATIVE (NEGATIVE); Pigeon serum Abs NEGATIVE (NEGATIVE); Saccharo pora viridis Abs NEGATIVE (NEGATIVE); Thermo candidus Abs NEGATIVE (NEGATIVE); Thermoa vulgaris #1 NEGATIVE (NEGATIVE)
--- NOTE | 2024-01-31 17:14 | PM.EVENT ---
Event Note Date of Service: 01/31/24 Event Note: GI Consult-Full note dictated. History from family, ICU staff, and EMR. Imp: Diffuse ileus of GI tract, but no sign of any focal point of obstruction. Ileus due to systemic illness with underlying constipation. CT also describes stool in rectosigmoid area but she has not responded to enemas thus far. She has not responded to doses of Miralax and other stool softeners. Her abdominal exam is not particularly distended and is not tense. Rec: I don't think a colonoscopy would be helpful at this time given stool in the left colon and the diffuse nature of the ileus involving the entire GI tract. Given her underlying medical issues, chronic use of steroids, and stool in the colon, that could make the procedure difficult, limited, and with increased risk of perforation which she would obviously not tolerate. Therefore, I would recommend an attempt at a bowel cleanout through the NG tube. If she has vomiting, increased distention, etc, then it can be stopped. But hopefully it will work to clean out any hard stool and help to decompress the GI tract.. If the problem persists, including the colonic distention, then another option would be a cecostomy tube placed by IR or surgery. I have also added IV Erythromycin and Dulcolax suppository to her regimen. Trial of IV Neostigmine is an option if all else fails. I have ordered thyroid studies and a F/U plain xray for the morning as well. D/W family in detail and they are comfortable with the plan. D/W Lead Fire Protection Engineer, , as well. Time Spent With Patient Time: Total time managing care of this patient today ____ minutes.
[2024-01-31] MEDS: bisacodyL 10 MG SUPP.RECT PR (17:49)
[2024-01-31 18:38] LABS: Glucose, Whole Blood 115 mg/dL (60-115)
[2024-01-31] MEDS: dexmedeTOMIDidine HCL/NS 400 MCG/100 ML INFUS..BTL 8.06 MCG IVCONT (19:55)
[2024-01-31 19:59] LABS: VBG Base Excess 3.4 mmol/L; VBG HCO3 31 mmol/L (22-26); VBG pCO2 71 mmHg; VBG pH 7.25 (7.32-7.43); VBG pO2 59 mmHg
[2024-01-31 20:41] LABS: Venous Blood Gas Refer to POC result
[2024-01-31 20:51] LABS: Hematocrit 28.9 % (37.0-47.0); Hemoglobin 9.2 g/dl (12.0-16.0); Mean Corpuscular HGB Conc 31.8 g/dl (31.0-35.0); Mean Corpuscular Hemoglobin 29.4 pg (27.0-33.0); Mean Corpuscular Volume 92.3 fL (80.0-98.0); Platelet Count 101 X10*3/uL (160-400); Red Blood Count 3.13 X10*6/uL (4.20-5.50); Red Cell Distribution Width 16.5 % (11.0-16.0); White Blood Count 12.1 X10*3/uL (4.8-10.8)
[2024-01-31 21:03] LABS: Alanine Aminotransferase 53 U/L (0-31); Albumin Level 3.7 g/dL (3.5-5.0); Alkaline Phosphatase 70 U/L (39-117); Anion Gap 11 (12-20); Aspartate Amino Transferase 49 U/L (5-31); Bilirubin Total 0.2 mg/dL (0.0-1.0); Blood Urea Nitrogen 42 mg/dL (9-16); Calcium 9.4 mg/dL (8.4-10.2); Carbon Dioxide 28 mmol/L (22-29); Chloride 101 mmol/L (96-108); Creatinine Clr Calc Pharmacy 48.6; Estimated Glomerular Filt Rate 59; Glucose Random 116 mg/dL (60-115); Potassium 4.7 mmol/L (3.3-5.1); Sodium 135 mmol/L (135-145); Total Protein 5.4 g/dL (6.5-8.0)
[2024-01-31] MEDS: Sodium Phosphate,Mono-Dibasic 133 ML ENEMA PR (21:14)
[2024-01-31] MEDS: Albuterol Sulfate (0.083%) 2.5 MG/3 ML VIAL.NEB INHALE (22:52)
--- NOTE | 2024-01-31 23:30 | P.ACPN_ITS ---
Advanced Care Planning Note Advanced Care Planning Note Discussed with: family member(s) (Pts , children and grand children) Time spent (in minutes): 30 Narrative: Throughout the night, the patient had continued to decompensate. I was not able to administer GoLYTELY through the NG tube for during my attempt of removing BiPAP and putting her on high-flow O2 at [facility], the patient desaturated to the low 80s with significant work of breathing within minutes. Patient was placed back on BiPAP. A blood gas done at the beginning of the shift show worsening respiratory acidosis and hypercarbia state despite of being on BiPAP for almost 9 hours. Subsequently patient continued to have low O2 sats and increased work of breathing. My concern is that the patient is suffering. I called family members and asked him to come into the hospital for a family m eeting regarding her goals of care. About a family members came into the hospital including all 3 of her children and the patient's with whom I reviewed her current condition in detail. By the time this meeting was being held, the patient continued to have intermittent episodes of worsening hypoxia with O2 sat as low as 82%. Subsequently they did agree that they would not want to have the patient be intubated or resuscitated; they were all invited to see the patient so that they would see the type of suffering I was concerned about and the way that the patient is breathing despite of ventilatory support. All family members present as well as others came in later and some of her grandchildren were able to see the patient. At 02:25 a.m. on 01/31/2024 family members requested to make the patient comfort measures and to remove BiPAP 40 was eminent that she was not improving her O2 sats were now in the low 70s. Although we plan to take the patient off BiPAP and and have family members back in the room, this was not possible for the patient quickly desaturated and my concern was that she would pass away right away without the family members being able to be in the room as they had requested. Therefore we brought the patient's family back into the room and removal of BiPAP was done in the presence with the administration of fentanyl drip. Patient appears comfortable, will await for nature to take its course and hopefully allow the patient to pass to a better life in a humane, no suffering way. 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 Problems Discussed (1) Ileus:
[2024-01-31 23:34] LABS: Glucose, Whole Blood 183 mg/dL (60-115)
[2024-02-01 01:00] VITALS: BP 115/61; PULSE 106; RESP 14; TEMP 36.4; O2SAT 85
[2024-02-01] MEDS: VORICONAZOLE IV (01:34)
[2024-02-01] MEDS: SODIUM CHLORIDE 0.9% IV (01:34)
[2024-02-01 02:00] VITALS: BP 115/60; PULSE 104; RESP 17; TEMP 36.5; O2SAT 84
[2024-02-01 02:20] VITALS: O2SAT 78
[2024-02-01] MEDS: fentaNYL citrate/NS 1,000 MCG/100 ML PLAST..BAG 10 MCG IVCONT (02:30)
--- NOTE | 2024-02-01 02:56 | P.DN_ITS ---
Discharge Sum: Prov Provider Primary care physician: Bia Verma MD Admitting clinician: Barbie Tidwell Attending physician on admission: Barbie Tidwell Consults: 01/25/24 15:29 Consult to Pulmonology Routine Consulting Provider: [facility] Reason for consultation: acute hypoxemic respiratory failure sec to IPF Has provider been notified: No 01/27/24 15:16 Consult to Infectious Diseases Routine Consulting Provider: [facility] Reason for consultation: filamentous fungus in sputum, IPF/immunosuppresion 01/30/24 05:48 Consult to Wound Care Routine Reason for consultation: non-blanchable redness to coccyx 01/30/24 15:48 Consult to General Surgery Routine Consulting Provider: [facility] Reason for consultation: Abdominal distension. Pt ill with IPF/pneumonitis. Ileus. 01/31/24 00:12 Consult to General Surgery Routine Consulting Provider: [facility] Reason for consultation: Mod to severe Ileus Has provider been notified: No 01/31/24 13:18 Consult to Gastroenterology Routine Consulting Provider: Derek Barreto Reason for consultation: ileus Has provider been notified: Yes Pronouncing clinician: Zak Billy Discharge Sum: Diag Contributing Factors (1) Ileus: Contributing factors: ADMISSION/DISCHARGE DIAGNOSIS Acute on chronic hypoxic respiratory failure with hypercarbic state Acute respiratory acidosis Chronic idiopathic interstitial lung disease Acute rhino virus infection Acute ileus Aspiration pneumonitis Thoracic spine compression fractures Hypothyroidism Acute kidney injury Hypomagnesemia 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 I called family members, they decided on DNR DNI and subsequently STAMP PAD MAKER.? At the time the decision was made, the patient was satting in the high 70s low 80s despite of BiPAP.? The patient was then made comfortable, BiPAP was removed, fentanyl drip was started and the patient passed within 20 minutes with all family members at bedside. Date of : ?02/01/2024 at 02:50 Reason of : ?Acute on chronic hypoxic respiratory failure in the setting of interstitial lung disease and rhino virus infection ICU course: 73-year-old female who has a history of underlying pulmonary fibrosis currently on prednisone, hypertension, hypothyroidism, GERD, T5 spine fracture among others who was admitted to the hospital on 01/25/2024 due to complaints of shortness of breath which has been developing over the past 2 m onths in a progressive manner but with an overall decline in the past 6 months.? She has had some productive cough with yellow-green sputum but otherwise no fever, no recent traveling or sick contacts.? The patient follows up with Dr. Atkinson; with made some medication adjustment without much improvement.? Patient has had significant decline on her abilities to perform activities of daily living without getting shortness of breath and she has been requiring oxygen supplementation. Patient was admitted to the floor and has been treated for possible pneumonitis initially treated with Levaquin and switched to Zyvox, she has rhino virus positive, was started on steroids IV. ?Given the concern for fungal infection she was also placed on voriconazole. ?Eventually the patient developed a steroid related white count without fevers.? Some lactic acidosis which has now normalized as well as slight acute kidney injury with a creatinine of 1.55 from a baseline 0.84 however the patient has been receiving Lasix and she was placed on IV fluids this afternoon.? Given the concern that the patient would develop significant respiratory distress and worsening hypoxia patient was transferred t o the ICU for possible BiPAP administration as the patient has shown some increased work of breathing and tachypnea. Echocardiogram on the of this month showed hyperdynamic LV greater than 70% with impaired relaxation filling pattern. ?Patient had a CT angiogram today which shows no definite central or proximal segmental pulmonary emboli however distal segmental and subsegmental pulmonary emboli can not be excluded.? Chronic wall thickening/noncalcified plaque of the proximal main pulmonary artery at the level of the pulmonary valves which could be as a sequela of chronic PE.? Interstitial lung disease with superimposed diffuse ground-glass opacities in the lungs, prominent fluid distention of the esophagus up in the thoracic inlet level consistent with reflux post and a threat for the patient for significant risk of aspiration.? Severe osteoporosis with multiple compression deformities in the thoracic spine. The hospital course is complicated with development of ileus which led to respiratory decompensation needing BiPAP support for which she has been transferred to medical ICU. General surgery and gastroenterology has been consulted, on BiPAP for respiratory support. Despite of this over the last 24 hours, several blood gases revealed no significant improvements of the patient's respiratory acidosis and hypercarbia state. ?The patient has been receiving Fleet and soap enemas to try to help with her paralytic ileus.? An NG tube was placed to low intermittent suction, surgery and vehicle inspector had been consulted, they advised was made to attempt removing BiPAP and given the patient GoLYTELY through the NG tube, however when this was tried and the patient was attempted to be placed back on high-flow O2 other maximum rate the patient did not tolerate and drop her O2 sat to the low 70s with significant work of breathing therefore this was not continued. Through the night of 01/30/2025 the patient continued to deteriorate and I was forced to call the family members to have a goals of care meeting during which they agreed on DNR DNI and subsequently made the patient STAMP PAD MAKER. Removing BiPAP was done in the presence of family members for I was concerned that the patient would not tolerate removing these and starting her on opioids for comfort and then bring in the family members in 4 she desaturated very quickly when this was attempted by respiratory therapist.? All family members had the chance to say their goodbyes, at 0 2 47 the patient went into asystole. At? 0247 asystole was noted on the monitor.? At this time, the patient has no heartbeat, no palpable pulses, pupils are fixed at 5 mm bilaterally, overall that anterior chamber and cornea of the eyes appear glossy, no spontaneous breathing.? There is no corneal reflexes bilaterally, capillary refill of the fingers and toes is significantly delayed.? Patient was pronounced by me and time of was at?? 0250?? . Certificate Completed. HPI/hospital course: According to hospitalist records, this is a 73 yo F with a pmhx of idiopathic pulm fibrosis on prednisone, HTN, GERD, hypothyroidism, current T5 spine fx, presented to the ED last night with decline in mood, and physical functioning over the past 2-3 weeks. Most of the history taken by patient's daughter in-law Ms. Biggs. It seems like patient is having progressive shortness of breath for at least 2 months but she was progressively declining from at least 6 months. She has some productive cough as per the family with some yellow/greenish sputum, no fever, no sick contacts. In addition family reached out to Dr Galvez -adjusted her mycophenolate/prednisone outpatient but patient did not get much response, CT chest done a week ago still not reported, in addition patient is switched generalized weak. Hypoxic and requires oxygen with acivity and rest but unable to do much due to worsening respiratory status. ?At the time of admission the patient denied any chest pain or abdominal pain, no fever chills.? Her white count was 12.9. She was admitted to the floor for medical treatment but decompensated and she was transferred to the ICU, please refer to the above ICU course for details. Total critical care time spent with the patient planning, coordinating, insuring a natural, non suffering and humane passing? as well as pronouncement evaluation, and this documentation was 60 minutes.? Case was discussed in detail with Dr. Tovar Discharge Sum: Summary Date and Time Date of admission: 01/25/24 15:03 Date of : 02/01/24 Time of : 02:50 Additional Data Confirmation of as documented by pronouncing clinician: no pulse, no respirations, no heart sounds, pupils fixed and dilated and other (no corneal reflex bilat ) Family: at bedside Attending/PCP notified?: No Attending physician: Serjio Tovar MD Was code activated?: No Autopsy requested?: No screen examiner notified?: No Organ bank notified?: No Advance directives: Yes Hospice patient?: No
--- NOTE | 2024-02-01 03:57 | PC.NURSE ---
Pt O2 requirements increasing throughout shift - on bipap, FiO2 100%, spO2 remains 80-85%. ROSALBA Crespo to have conversation with and family regarding goals of care. 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 Fentanyl gtt initiated, bipap removed by RT at 0230. Asystole at 0250. Pronounced by ROSALBA Crespo. [facility] notified at 0325 - referral?#[id number], case declined.
--- NOTE | 2024-02-01 04:23 | CONS_ITS ---
DATE OF SERVICE: 01/31/2024 REASON FOR CONSULTATION: Ileus and abnormal CT scan of abdomen. HISTORY OF PRESENT ILLNESS: This has been obtained primarily from her family, who is with her this evening including a son, [id number], and nephew. History has also been obtained from the ICU staff and the medical record. The patient is a 73-year-old female with underlying significant pulmonary disease in relation to interstitial lung disease. She is on chronic home oxygen. She has also been on long-standing prednisone and mycophenolate for underlying lung disease. The patient's family describes that she has been having some increasing constipation over the last couple months with a somewhat hard stool about every other day. She has not had any prolonged episodes of not having a bowel movement. There has been no report of any GI bleeding at home. Other than this, she apparently does not have any chronic GI complaints. However, about a day or so before coming to the hospital, she did have what sounds like an esophageal obstruction in relation to some food that she was eating. This lasted for a short while, but then resolved on its own at home. There was no apparent aspiration. Prior to that, she had not been having any upper GI symptoms such as heartburn or dysphagia according to the family. They are not aware of her having had a colonoscopy and there is no family history of GI malignancy. The patient was admitted here on January 24 and required transfer to the ICU yesterday due to some worsening pulmonary status. She was started on BiPAP to help with that. She is also being treated for different infections at this time as well. Since her time in the hospital, she has been found to have a significant ileus of the GI tract based on x-rays and clinical history of no bowel movements. Since in the ICU, she has been treated with enemas and oral medications to try to facilitate bowel movements and resolve the ileus, but these had not resulted in any bowel movements or resolution of the ileus on the x-rays. There has been no reported GI bleeding. A nasogastric tube was placed as well. She has been receiving IV Reglan in addition to the enemas and stool softeners. PRESENT MEDICATIONS: Include nasal calcitonin, Precedex, subcu heparin, sliding scale insulin, levothyroxine, Zyvox, methylprednisolone 60 mg IV q.8 hours, metoclopramide 10 mg IV q.8 hours, Zofran p.r.n., IV pantoprazole, sertraline, and voriconazole. PAST MEDICAL HISTORY: Severe interstitial lung disease, for which she is on home oxygen, long-standing prednisone, and mycophenolate. She is followed by the Pulmonary Department at [facility]. She has hypothyroidism, diabetes mellitus, hypertension. There is no report of AL or stroke. She has had C-sections and cholecystectomy. SOCIAL HISTORY: She lives with her family. She does not smoke nor use any alcohol. FAMILY HISTORY: Noncontributory. REVIEW OF SYSTEMS: CONSTITUTIONAL: This has been obtained from the patient's family. As mentioned, she has no significant GI symptoms other than the recent episode of dysphagia as described above. She had been enjoying a good appetite without any chronic upper GI complaints. She has had some mild constipation, but no sign of bleeding. PULMONARY: She is chronically short of breath and wears oxygen. CARDIAC: There has been no reported chest pain. NEUROLOGIC: There have been no reported seizures. PHYSICAL EXAMINATION: GENERAL: The patient is a sedated female, wearing a BiPAP device. SKIN: Warm and dry. Anicteric sclerae. CARDIAC: Normal S1, S2. CHEST: Diminished breath sounds bilaterally. ABDOMEN: Soft and not distended. Bowel sounds are diminished. There is no focal mass or tenderness. LABORATORY DATA: Her CT scan is notable for a diffuse ileus with distention of the esophagus, stomach, small bowel, and colon. There is no focal point of obstruction according to the report. There does appear to be some large amount of stool in the sigmoid and rectum. There was no sign of any free air, nor abscess. Her chest x-ray shows a hypoinflation of the lungs with bilateral airspace opacities. The distended loops of bowel do seem to be impinging on her lung volume by elevating her diaphragms. White blood cell count 19.6, hemoglobin 9.5, platelets 159,000. Normal electrolytes. BUN 46, creatinine 1.3. Total bilirubin 0.3, AST 58, ALT 57, alkaline phosphatase 66, albumin 4.0. IMPRESSION: Given the patient's clinical history, I do suspect this diffuse gastrointestinal tract ileus is in relation to her significant systemic disease of advanced lung disease coupled with some underlying chronic constipation and immobility. At this point, while the GI tract looks quite distended on her CT scan, her abdominal exam does not seem particularly worrisome at this time. Her distended GI tract may very well be compromising some lung function, which obviously in her case is quite significant as she does not have much in the way of any pulmonary reserve. At this point, I think a colonoscopy would not be of much help and could be somewhat risky given that the entire GI tract is involved with this ileus and colonic decompression, most likely would not help that and any improvement in the colonic distention I suspect would be very temporary. The procedure also could be more difficult due to the fact that there is stool in the colon, which would obviously limit our visualization and limit the efficacy of the procedure, as well as the fact that she has been on long-standing steroids and has significant comorbidities, which could increase the risk of perforation, which she obviously would not tolerate at all. At this point, I would therefore recommend holding off on attempted colonoscopy. However, I would recommend an attempted bowel cleanout through the nasogastric tube since there is no discrete point of obstruction in the GI tract. Hopefully, if she can tolerate it, the bowel cleanout could help facilitate removal of the stool in the left colon and rectum and then help to resolve the ileus and GI tract distention. Obviously, if she cannot tolerate due to vomiting or increased abdominal distention, the administration of that would have to be stopped, but I am hopeful that it can work to help with the ileus and GI tract distention. If she cannot tolerate this or the problem persists anyway, then the other option would be a cecostomy tube placed either by Surgery or Interventional Radiology to try to decompress at least the colon via that manner. I have also recommended the addition of IV erythromycin to the IV Reglan. I have ordered thyroid studies and a followup x-ray for the morning. If all else fails, then another option would be that of IV neostigmine, although that may not be an ideal option given its potential for some complications and also has no proven definitive efficacy. This has all been discussed in detail with the patient's family, as well as the architectural sales consultant, Dr. Tovar. They are all comfortable with this plan. Thank you for the consultation. MD KAE Sal/CHERELLE / [phone]
[2024-02-01 10:48] LABS: Strep Pneumo Ag urine NOT DETECTED
[2024-02-01 19:12] LABS: Pneumocystis jir Ql PCR NOT DETECTED; Pneumocystis jir source SPUTUM
--- NOTE | 2024-02-03 17:57 | P.CDIM_ITS ---
PROVIDER RESPONSE TEXT: To clarify, the appropriate diagnosis supported by the clinical indicators: Acute non-cardiac pulmonary edema: unspecified QUERY TEXT: PHYSICIAN'S DOCUMENTATION REQUEST Date of Query: 01/29/2024 11:58 AM EST Patient Name: Adams Mcclure Admit Date: 01/25/2024 Dear Gianna Ramirez MD, A review of the medical record indicates additional documentation may be needed. Please review below and update the documentation accordingly. Clinical Indicators: Progress note 01/27 - Plan: on furosemide for concern of pulmonary edema though LVEF > 70% and BNP no rmal; change to PO. Progressive shortness of breath for at least 2 months, productive cough. Hypoxic and requires oxygen with activity and rest but unable to do much due to worsening respiratory status. CXR 01/25 - Impression - Worsening multifocal pneumonia vs pulmonary edema. Based on the above, could you please provide, in the Progress Notes, further specificity regarding th e acuity of the pulmonary edema? Acute non-cardiac pulmonary edema possible, probable, suspected etc. Acute non-cardiac pulmonary edema due to other cause Please specify other cause Chronic pulmonary edema due to non-cardiac etiology Please specify cause Other (explain) Clinically unable to determine (explain) Thank you, Jigna Nolasco, CCS, CDIS Use of terms such as suspected, likely, concern for, or probable (associated with a specific diagnosi s that is being evaluated, monitored, or treated as if it exists) are acceptable and can be coded in the inpatient se tting, when documented at the time of discharge. Please use your independent medical judgment in providing your response. THIS QUERY IS PART OF THE PERMANENT MEDICAL RECORD
== END 2024-02-01 02:50 | disposition expired | DRG 196 ==
LOC: HO.ED 14:47 → HO.EDOVER 15:46 → HO.S3 22:08 → HO.IMC 01-26 16:41 → HO.ICU 01-30 17:02
PROVIDERS: Family Medicine; Hospitalist; Physician Assistant Medical; Student in an Organized Health Care Education/Training Program; Admitting Provider Internal Medicine; Emergency Provider Emergency Medicine; PCP Hospitalist; Visit Provider Internal Medicine Critical Care Medicine
DX: J84.112 Idiopathic pulmonary fibrosis (principal); I26.94 Multiple subsegmental thrombotic pulmonary emboli without acute cor pulmonale; I26.99 Other pulmonary embolism without acute cor pulmonale; J96.21 Acute and chronic respiratory failure with hypoxia; J81.0 Acute pulmonary edema; J69.0 Pneumonitis due to inhalation of food and vomit; B48.8 Other specified mycoses; D84.821 Immunodeficiency due to drugs; N17.9 Acute kidney failure, unspecified; K56.0 Paralytic ileus; E87.21 Acute metabolic acidosis; E87.1 Hypo-osmolality and hyponatremia; I27.0 Primary pulmonary hypertension; M48.54XA Collapsed vertebra, not elsewhere classified, thoracic region, initial encounter for fracture; E86.1 Hypovolemia; E03.9 Hypothyroidism, unspecified; K21.9 Gastro-esophageal reflux disease without esophagitis; R73.9 Hyperglycemia, unspecified; Z51.5 Encounter for palliative care; K59.00 Constipation, unspecified; E83.41 Hypermagnesemia; Z66 Do not resuscitate; E83.52 Hypercalcemia; M81.0 Age-related osteoporosis without current pathological fracture; T38.0X5A Adverse effect of glucocorticoids and synthetic analogues, initial encounter; E86.0 Dehydration; B97.10 Unspecified enterovirus as the cause of diseases classified elsewhere; Z20.822 Contact with and (suspected) exposure to COVID-19; Z99.81 Dependence on supplemental oxygen; Z79.52 Long term (current) use of systemic steroids; Z79.84 Long term (current) use of oral hypoglycemic drugs; Z79.890 Hormone replacement therapy; Z79.899 Other long term (current) drug therapy
CPT/HCPCS: 0241U; 36415; 36600; 71045; 71046; 71275; 74018; 74176; 80048; 80053; 81003; 82784; 82785; 82803; 82947; 83605; 83735; 83880; 84100; 84145; 84484; 85014; 85018; 85025; 85027; 85652; 86021; 86038; 86140; 86200; 86235; 86331; 86606; 86609; 87040; 87070; 87077; 87107; 87186; 87205; 87305; 87449; 87502; 87633; 87635; 87640; 87641; 87798; 87899; 92526; 92610; 93005; 93306; 94640; 94660; 97116; 97162; 99285; C1758; J1171; J1364; J1650; J1940; J1956; J2020; J2405; J2470; J2765; J2919; J3010; J3465; J7120; P9047; Q9957; Q9967

== ENCOUNTER → 2024-01-25 11:09 | Outpatient (BNV) | payer MEDICARE, SELFPAY | PROVIDERS: Admitting Provider Internal Medicine; Emergency Provider Emergency Medicine; PCP Hospitalist; Visit Provider Internal Medicine Cardiovascular Disease | DX: R94.31 Abnormal electrocardiogram [ECG] [EKG] (principal) | CPT/HCPCS: 93010 ==

== ENCOUNTER 2024-01-25 15:03 | Outpatient (BNV) | payer MEDICARE, SELFPAY | END 2024-01-26 07:00 | PROVIDERS: Admitting Provider Internal Medicine; Emergency Provider Emergency Medicine; PCP Hospitalist; Visit Provider Internal Medicine Cardiovascular Disease | DX: I35.1 Nonrheumatic aortic (valve) insufficiency (principal); I35.8 Other nonrheumatic aortic valve disorders | CPT/HCPCS: 93306 ==

== ENCOUNTER 2024-01-25 15:03 | Outpatient (BNV) | payer MEDICARE, SELFPAY | END 2024-01-27 09:12 | PROVIDERS: Admitting Provider Internal Medicine; Emergency Provider Emergency Medicine; PCP Hospitalist; Visit Provider Radiology Diagnostic Radiology | DX: R09.02 Hypoxemia (principal) | CPT/HCPCS: 71045 ==

== ENCOUNTER 2024-01-25 15:03 | Outpatient (BNV) | payer MEDICARE, SELFPAY | END 2024-01-26 07:00 | PROVIDERS: Admitting Provider Internal Medicine; Emergency Provider Emergency Medicine; PCP Hospitalist; Visit Provider Radiology Diagnostic Radiology | DX: J96.01 Acute respiratory failure with hypoxia (principal) | CPT/HCPCS: 71046 ==

== ENCOUNTER → 2024-01-25 15:03 | Outpatient (BNV) | payer MEDICARE, SELFPAY | PROVIDERS: Admitting Provider Internal Medicine; Emergency Provider Emergency Medicine; PCP Hospitalist; Visit Provider Internal Medicine | DX: J96.21 Acute and chronic respiratory failure with hypoxia (principal); J98.4 Other disorders of lung | CPT/HCPCS: 99222; 99232 ==

== ENCOUNTER → 2024-01-25 15:03 | Outpatient (BNV) | payer MEDICARE, SELFPAY | PROVIDERS: Admitting Provider Internal Medicine; Emergency Provider Emergency Medicine; PCP Hospitalist; Visit Provider Internal Medicine | DX: J96.21 Acute and chronic respiratory failure with hypoxia (principal) | CPT/HCPCS: 99222; 99232; 99233; 99499 ==

== ENCOUNTER → 2024-01-25 15:03 | Outpatient (BNV) | payer MEDICARE, SELFPAY | PROVIDERS: Admitting Provider Internal Medicine; Emergency Provider Emergency Medicine; PCP Hospitalist; Visit Provider Surgery | DX: K56.7 Ileus, unspecified (principal) | CPT/HCPCS: 99222 ==

== ENCOUNTER → 2024-01-25 15:03 | Outpatient (BNV) | payer MEDICARE, SELFPAY | PROVIDERS: Admitting Provider Internal Medicine; Emergency Provider Emergency Medicine; PCP Hospitalist; Visit Provider Physician Assistant Medical | DX: J84.9 Interstitial pulmonary disease, unspecified (principal); J96.21 Acute and chronic respiratory failure with hypoxia; K56.7 Ileus, unspecified | CPT/HCPCS: 99239; 99291; 99292 ==

== ENCOUNTER → 2024-01-25 15:03 | Outpatient (BNV) | payer MEDICARE, SELFPAY | PROVIDERS: Admitting Provider Internal Medicine; Emergency Provider Emergency Medicine; PCP Hospitalist; Visit Provider Hospitalist | DX: J96.21 Acute and chronic respiratory failure with hypoxia (principal); J84.9 Interstitial pulmonary disease, unspecified; J98.4 Other disorders of lung; B34.1 Enterovirus infection, unspecified | CPT/HCPCS: 99223; 99233 ==